=== PATIENT | female | born 1945 | race Caucasian/White ===

== ENCOUNTER → 2020-02-07 14:27 | Outpatient (BNVA) | payer MEDICARE, SELFPAY | PROVIDERS: PCP Internal Medicine; Visit Provider Hospitalist | DX: J98.4 Other disorders of lung (principal); R91.8 Other nonspecific abnormal finding of lung field | CPT/HCPCS: 99214 ==

== ENCOUNTER → 2020-03-08 08:55 | Outpatient (BNVA) | payer MEDICARE, SELFPAY | PROVIDERS: PCP Internal Medicine; Referring Provider Internal Medicine; Visit Provider Internal Medicine Cardiovascular Disease | DX: I48.0 Paroxysmal atrial fibrillation (principal) | CPT/HCPCS: 93005; 99212 ==

== ENCOUNTER 2020-08-07 07:58 | Outpatient (REF) | payer MEDICARE, SELFPAY ==
--- NOTE | 2020-08-07 10:43 | PFT_ITS ---
Forced vital capacity is slightly decreased. FEV1, [id number] are normal. MVV slightly decreased. Post bronchodilator therapy, there is no significant change. Total lung capacity and residual volume slightly decreased. Diffusion capacity is moderately decreased CONCLUSION: [id number] degree of restrictive pulmonary disorder. No obstructive airway disorder. Clinical correlation is recommended. MD DREW Thompson/KATLYN / [id number]
== END 2020-08-07 07:59 | disposition home or self-care (01) ==
LOC: HO.RESP 07:58
PROVIDERS: PCP Internal Medicine; Visit Provider Hospitalist
DX: J98.4 Other disorders of lung (principal); R94.2 Abnormal results of pulmonary function studies; K44.9 Diaphragmatic hernia without obstruction or gangrene
CPT/HCPCS: 94060; 94727; 94729; 99212

== ENCOUNTER 2020-08-23 09:57 | Emergency (ER) | payer MEDICARE, SELFPAY ==
[2020-08-23] VITALS (7 sets, daily range): BP systolic 106–135; BP diastolic 39–57; PULSE 61–75; RESP 16–18; TEMP 36.7; O2SAT 98–100; BMI 20.3
--- NOTE | ~2020-08-23 | XR_ITS ---
EXAMINATION: XR CHEST CLINICAL INFORMATION: Syncope COMPARISON: May 31, 2019 TECHNIQUE: AP portable view of the chest was obtained. FINDINGS: There is scoliosis of the thoracic spine convex right. There is no evidence of acute parenchymal disease, pneumothorax, or pleural effusion. Heart normal size. No evidence of pulmonary edema. XR/XR chest 1V IMPRESSION: No acute disease. Scoliosis.
--- NOTE | 2020-08-23 10:22 | ECG_ITS ---
Test Reason : SYNCOPE Blood Pressure : / mmHG Vent. Rate : 067 BPM Atrial Rate : 067 BPM P-R Int : 170 ms QRS Dur : 100 ms QT Int : 410 ms P-R-T Axes : 074 057 040 degrees QTc Int : 433 ms Normal sinus rhythm Normal ECG When compared with ECG of 07-JUN-2019 09:30, Nonspecific T wave abnormality, worse in Anterior leads Referred By: Jeanne Givens Electronically Signed By:All Patel
--- NOTE | 2020-08-23 10:29 | ED.SYNCOPE ---
HPI - Syncope General Chief Complaint: General Medical Stated Complaint: SYNCOPE EPISODE Time Seen by Provider: 08/23/20 10:09 Source: patient and EMS Mode of arrival: EMS History of Present Illness HPI narrative: 75-year-old female with a past medical history of proximal AFib, restrictive lung disease, BIB[facility] for syncopal episode [facility]. Patient reports multiple episodes of diarrhea x2 days, with decreased p.o. intake s/p taking new antibiotic Cefuroxime for dental procedure. Reports felt faint this morning 1 was about to eat toast, +LOC, denies head trauma caught her, does not take anticoagulation. Denies CP/SOB, or headache prior to syncope. Reports abdominal cramping/discomfort. Denies fever, chills, nausea/vomiting, dysuria/hematuria, cough MD complaint: loss of consciousness Related Data Home Medications Medication Instructions Recorded Confirmed estradiol g VAGINAL 01/30/20 08/07/20 atenolol 25 mg tablet See Rx Instructions PO DAILY tab 03/08/20 08/07/20 levothyroxine 88 mcg tablet 88 mcg PO DAILY 03/08/20 08/07/20 famotidine 40 mg tablet 40 mg PO DAILY 08/07/20 08/07/20 omeprazole 40 mg capsule,delayed 40 mg PO QAM 08/07/20 08/07/20 release Previous Rx's Medication Instructions Recorded cefuroxime axetil 500 mg tablet 500 mg PO BID 1 Days #2 tab 08/07/20 Allergies Allergy/AdvReac Type Severity Reaction Status Date / Time NSAIDS (Non-Steroidal Allergy Unknown ANAPHYLAXIS Verified 08/07/20 09:22 Anti-Inflamma [NSAIDS (NON-STEROIDAL ANTI-INFLAMMA] Penicillins [PENICILLINS] Allergy Unknown RASH Verified 08/07/20 09:22 clindamycin [CLINDAMYCIN] AdvReac Unknown DIARRHEA Verified 08/07/20 09:22 Review of Systems Review of Systems: Constitutional: No Fever, No Chills, No Fatigue, No Malaise Cardiovascular: No Chest Pain, No SOB, No Palpitations Respiratory: No Cough, No Sputum, No Dyspnea Gastrointestinal: No Nausea, No Vomiting, + Diarrhea, No Constipation, + Abdominal cramping, No Hematochezia, No Melena Genitourinary: No Dysuria, No Urinary Frequency, No Hematuria, No Flank Pain Musculoskeletal: No joint pain, No Myalgias, No Joint Swelling Skin: No Skin Lesions, No rash Neuro: No Weakness, No Numbness, No Paresthesias, + Loss of Consciousness, + Lightheadedness, No Headache Yes all other systems are reviewed and are negative [facility] Past Medical History Attestation statement: The following information was validated with the patient. Medical History (Updated 08/23/20 @ 16:08 by GIA Bolden) Abnormal chest x-ray with multiple lung nodules Abnormal PFTs (pulmonary function tests) Empyema lung Hiatal hernia Paroxysmal atrial fibrillation Restrictive lung disease Family History Family History Father No problems noted. Mother No problems noted. Social History Social History Smoking Status: Never smoker Smoked in Last 30 Days: No Use of substances other than those prescribed or required for medical reasons: No Advance Directives: Yes Advance Directives Information Provided: No Advance Directives on File: No Physical Exam Vital Signs: Vital Signs: Last Vital Signs Temp 98.0 F 08/23/20 10:25 Pulse 70 08/23/20 16:01 Resp 16 08/23/20 16:01 BP 135/45 L 08/23/20 16:01 Pulse Ox 100 08/23/20 16:01 Body Mass Index 20.3 Const: General: cooperative, healthy appearing and no acute distress Orientation/consciousness: patient oriented x3 Limitations: no limitations HENMT: Head: Yes normal to inspection and Yes atraumatic Ears: hearing grossly normal bilaterally General nose exam: Normal external nose present Face and sinus: Yes normal facial exam Eyes: General: appearance normal, both eyes and all related structures Pupils: Equal, round and reactive pupils present EOM: EOMs intact bilaterally Neck: Neck: Yes normal visual inspection and Yes no meningeal signs Resp: Effort & Inspection: normal respiratory effort Auscultation: clear to auscultation bilaterally, no rales, no rhonchi and no wheezes Cardio: Rate: regular rate Heart sounds: S1 normal heart sound present and S2 normal heart sound present GI: Inspection: Yes normal to inspection Palpation (GI): Soft to palpation, nontender, no guarding and not rigid Skin: Rashes: no rashes Wounds: no wounds Neuro: General: patient oriented x3, gait normal, tone normal, moves all extremities, no meningeal signs, no focal motor deficits and CN's II-XI intact bilaterally Cranial nerves: Yes Equal, round and reactive pupils present Gait exam (Neuro): Normal gait present Motor exam (neuro): 5/5 motor strength present throughout, Pronator motor function not present and no tremor noted Coordination: [id number] test normal and Romberg test negative Extrem: General: Yes normal to inspection and Yes no pedal edema Course Course Course Narrative: -no leukocytosis, H&H stable. Chronic hyponatremia, initial troponin 8.6 >>will obtain 3 hour repeat. Labs otherwise unremarkable XR chest 1V IMPRESSION: No acute disease. Scoliosis. -orthostatic vital signs negative -1544-- repeat troponin without 50% rise, IL unlikely. UA with RBCs, not infected Patient is ambulating in the ED with steady gait. Labs discussed with patient including worrisome signs and symptoms and strict return precautions. Discussed close follow-up with PCP as well as importance of staying hydrated. Patient verbalized understanding feel safe for discharge home MDM - Syncope MDM Narrative Medical decision making narrative: 75-year-old female with a past medical history of proximal AFib, restrictive lung disease, BIB[facility] for syncopal episode [facility]. Patient reports multiple episodes of diarrhea x2 days, with decreased p.o. intake s/p taking new antibiotic Cefuroxime for dental procedure. On exam VSS, NAD/well-appearing, nontoxic, exam non focal, abdomen soft/nontender. Likely syncope from dehydration/metabolic abnormalities vs gastroenteritis or C diff. Lower concern for ACS, PE, or infectious etiology Plan: EKG, labs, UA, IVF, orthostatics, reassess, stool studies/C diff Medical Records Attestation: I reviewed the patient's medical records. Lab Data Attestation: I reviewed the patient's lab results. Result diagrams: 08/23/20 10:50 08/23/20 10:50 Labs: Lab Results 08/23/20 08/23/20 08/23/20 Range/Units 10:49 10:50 10:50 WBC 7.2 (4.8-10.8) X10*3/uL RBC 3.79 L (4.20-5.50) X10*6/uL Hgb 12.2 (12.0-16.0) g/dl Hct 36.2 L (37-47) % MCV 95.5 (80-98) fL MCH 32.2 (27.0-33.0) pg MCHC 33.7 (31.0-35.0) g/dl RDW 13.0 (11.0-16.0) % Plt Count 168 (160-400) X10*3/uL MPV 9.2 L (9.4-12.3) fL Immature Gran % (Auto) 0.3 (0.0-0.4) % Neut % (Auto) 72.9 (45-73) % Lymph % (Auto) 14.8 L (20-40) % Terrell % (Auto) 11.5 H (2-11) % Eos % (Auto) 0.1 (0-4) % Baso % (Auto) 0.4 (0-2) % Lymph # (Auto) 1.1 L (1.2-4.9) X10*3/uL Terrell # (Auto) 0.8 (0.1-1.2) X10*3/uL Eos # (Auto) 0.0 (0.0-0.4) X10*3/uL Baso # (Auto) 0.0 (0.0-0.2) X10*3/uL Abs Immat Gran (auto) 0.02 (0.00-0.03) X10*3/uL Absolute Neuts (auto) 5.3 (2.0-8.3) X10*3/uL Absolute Nucleated RBC 0.000 (0.0-0.012) X10*3/uL Nucleated RBC % (auto) 0.0 (0.0-0.2) /100WBC PT (10.8-13.0) SEC INR (0.9-1.1) APTT (24.1-38.0) SEC Sodium 129 L (135-145) mmol/L Potassium 3.6 (3.3-5.1) mmol/L Chloride 94 L (96-108) mmol/L Carbon Dioxide 27 (22-29) mmol/L Anion Gap 12 (12-20) BUN 10 (9-16) mg/dL Creatinine 0.88 (0.5-1.4) mg/dL Estim Creat Clear Calc 44.7 Estimated GFR > 60 Random Glucose 143 H (60-115) mg/dL Calcium 8.2 L (8.4-10.2) mg/dL Magnesium (1.6-2.6) mg/dL Total Bilirubin (0.0-1.0) mg/dL Direct Bilirubin (0.0-0.5) mg/dL AST (5-31) U/L ALT (0-31) U/L Alkaline Phosphatase (39-117) U/L Troponin I High Sens 8.6 (<3.5-17.0) ng/L Total Protein (6.5-8.0) g/dL Albumin (3.5-5.0) g/dL Lipase (8-78) U/L Urine Color Urine Appearance Urine pH (5.0-8.0) Ur Specific [place] (1.005-1.025) Urine Protein (NEG-TRACE) MG/DL Urine Glucose (UA) (NEG) MG/DL Urine Ketones (NEG) MG/DL Urine Blood (NEG) Urine Nitrite (NEG) Ur Leukocyte Esterase (NEG) Urine RBC (0) /HPF Urine WBC (0-4) /HPF Ur Squamous Epith Cells /LPF Urine Bacteria /LPF 08/23/20 08/23/20 08/23/20 Range/Units 10:50 10:50 14:16 WBC (4.8-10.8) X10*3/uL RBC (4.20-5.50) X10*6/uL Hgb (12.0-16.0) g/dl Hct (37-47) % MCV (80-98) fL MCH (27.0-33.0) pg MCHC (31.0-35.0) g/dl RDW (11.0-16.0) % Plt Count (160-400) X10*3/uL MPV (9.4-12.3) fL Immature Gran % (Auto) (0.0-0.4) % Neut % (Auto) (45-73) % Lymph % (Auto) (20-40) % Terrell % (Auto) (2-11) % Eos % (Auto) (0-4) % Baso % (Auto) (0-2) % Lymph # (Auto) (1.2-4.9) X10*3/uL Terrell # (Auto) (0.1-1.2) X10*3/uL Eos # (Auto) (0.0-0.4) X10*3/uL Baso # (Auto) (0.0-0.2) X10*3/uL Abs Immat Gran (auto) (0.00-0.03) X10*3/uL Absolute Neuts (auto) (2.0-8.3) X10*3/uL Absolute Nucleated RBC (0.0-0.012) X10*3/uL Nucleated RBC % (auto) (0.0-0.2) /100WBC PT 14.2 H (10.8-13.0) SEC INR 1.2 H (0.9-1.1) APTT 29.6 (24.1-38.0) SEC Sodium (135-145) mmol/L Potassium (3.3-5.1) mmol/L Chloride (96-108) mmol/L Carbon Dioxide (22-29) mmol/L Anion Gap (12-20) BUN (9-16) mg/dL Creatinine (0.5-1.4) mg/dL Estim Creat Clear Calc Estimated GFR Random Glucose (60-115) mg/dL Calcium (8.4-10.2) mg/dL Magnesium 2.0 (1.6-2.6) mg/dL Total Bilirubin 0.5 (0.0-1.0) mg/dL Direct Bilirubin 0.3 (0.0-0.5) mg/dL AST 23 (5-31) U/L ALT 14 (0-31) U/L Alkaline Phosphatase 60 (39-117) U/L Troponin I High Sens 9.0 (<3.5-17.0) ng/L Total Protein 6.8 (6.5-8.0) g/dL Albumin 3.7 (3.5-5.0) g/dL Lipase 7 L (8-78) U/L Urine Color Urine Appearance Urine pH (5.0-8.0) Ur Specific [place] (1.005-1.025) Urine Protein (NEG-TRACE) MG/DL Urine Glucose (UA) (NEG) MG/DL Urine Ketones (NEG) MG/DL Urine Blood (NEG) Urine Nitrite (NEG) Ur Leukocyte Esterase (NEG) Urine RBC (0) /HPF Urine WBC (0-4) /HPF Ur Squamous Epith Cells /LPF Urine Bacteria /LPF 08/23/20 Range/Units 14:16 WBC (4.8-10.8) X10*3/uL RBC (4.20-5.50) X10*6/uL Hgb (12.0-16.0) g/dl Hct (37-47) % MCV (80-98) fL MCH (27.0-33.0) pg MCHC (31.0-35.0) g/dl RDW (11.0-16.0) % Plt Count (160-400) X10*3/uL MPV (9.4-12.3) fL Immature Gran % (Auto) (0.0-0.4) % Neut % (Auto) (45-73) % Lymph % (Auto) (20-40) % Terrell % (Auto) (2-11) % Eos % (Auto) (0-4) % Baso % (Auto) (0-2) % Lymph # (Auto) (1.2-4.9) X10*3/uL Terrell # (Auto) (0.1-1.2) X10*3/uL Eos # (Auto) (0.0-0.4) X10*3/uL Baso # (Auto) (0.0-0.2) X10*3/uL Abs Immat Gran (auto) (0.00-0.03) X10*3/uL Absolute Neuts (auto) (2.0-8.3) X10*3/uL Absolute Nucleated RBC (0.0-0.012) X10*3/uL Nucleated RBC % (auto) (0.0-0.2) /100WBC PT (10.8-13.0) SEC INR (0.9-1.1) APTT (24.1-38.0) SEC Sodium (135-145) mmol/L Potassium (3.3-5.1) mmol/L Chloride (96-108) mmol/L Carbon Dioxide (22-29) mmol/L Anion Gap (12-20) BUN (9-16) mg/dL Creatinine (0.5-1.4) mg/dL Estim Creat Clear Calc Estimated GFR Random Glucose (60-115) mg/dL Calcium (8.4-10.2) mg/dL Magnesium (1.6-2.6) mg/dL Total Bilirubin (0.0-1.0) mg/dL Direct Bilirubin (0.0-0.5) mg/dL AST (5-31) U/L ALT (0-31) U/L Alkaline Phosphatase (39-117) U/L Troponin I High Sens (<3.5-17.0) ng/L Total Protein (6.5-8.0) g/dL Albumin (3.5-5.0) g/dL Lipase (8-78) U/L Urine Color STRAW Urine Appearance CLEAR Urine pH 6.5 (5.0-8.0) Ur Specific [place] <= 1.005 (1.005-1.025) Urine Protein NEG (NEG-TRACE) MG/DL Urine Glucose (UA) NEG (NEG) MG/DL Urine Ketones NEG (NEG) MG/DL Urine Blood 1+ H (NEG) Urine Nitrite NEG (NEG) Ur Leukocyte Esterase NEG (NEG) Urine RBC 5-9 H (0) /HPF Urine WBC 0-2 (0-4) /HPF Ur Squamous Epith Cells 1+ /LPF Urine Bacteria NONE /LPF ECG Data Attestation: I personally reviewed and interpreted this ECG as follows: ECG interpretation date: 08/23/20 ECG interpretation time: 10:34 Interpretation: EKG normal sinus rhythm with rate of 67. Nonischemic. no STEMI Discharge Plan Discharge Clinical Impression: Syncope, Diarrhea Patient Disposition: Home, Self-Care Instructions: Syncope (ED) Additional Instructions: Your blood work was reassuring today in the emergency department It is crucial that you are staying hydrated at home You need to follow-up with her primary care doctor You should supply her primary care doctor with a stool sample so they can send off stool studies Stop taking previous antibiotic that is likely causing her symptoms If her symptoms persist or worsen, you pass out again, developing chest pain, shortness of breath, persistent or worsening diarrhea return to the ED Prescriptions: No Action estradiol 0.01 % (0.1 mg/gram) cream vaginal RF: 0 atenolol 25 mg tablet See Rx Instructions PO DAILY RF: 0 levothyroxine 88 mcg tablet 88 mcg PO DAILY RF: 0 famotidine 40 mg tablet 40 mg PO DAILY RF: 0 omeprazole 40 mg capsule,delayed release(DR/EC) 40 mg PO QAM RF: 0 cefuroxime axetil 500 mg tablet 500 mg PO BID 1 Days Qty: 2 RF: 0 Referrals: Chester Merida MD [Primary Care Provider] - 2 days
[2020-08-23 10:55] LABS: MANUAL DIFF FLAG NO
[2020-08-23 11:06] LABS: Basophils Percent Auto 0.4 % (0-2); Eosinophils Percent Auto 0.1 % (0-4); Hematocrit 36.2 % (37-47); Hemoglobin 12.2 g/dl (12.0-16.0); Imm Gran Abs Auto 0.02 X10*3/uL (0.00-0.03); Imm Gran Pct Auto 0.3 % (0.0-0.4); Lymphocytes Absolute Auto 1.1 X10*3/uL (1.2-4.9); Lymphocytes Percent Auto 14.8 % (20-40); Mean Corpuscular HGB Conc 33.7 g/dl (31.0-35.0); Mean Corpuscular Hemoglobin 32.2 pg (27.0-33.0); Mean Corpuscular Volume 95.5 fL (80-98); Mean Platelet Volume 9.2 fL (9.4-12.3); Monocytes Absolute Auto 0.8 X10*3/uL (0.1-1.2); Monocytes Percent Auto 11.5 % (2-11); Neutrophils Absolute Auto 5.3 X10*3/uL (2.0-8.3); Neutrophils Percent Auto 72.9 % (45-73); Platelet Count 168 X10*3/uL (160-400); Red Blood Count 3.79 X10*6/uL (4.20-5.50); White Blood Count 7.2 X10*3/uL (4.8-10.8)
[2020-08-23 11:09] LABS: INTERNATIONAL NORM RATIO 1.2 (0.9-1.1); Prothrombin Time 14.2 SEC (10.8-13.0)
[2020-08-23 11:11] LABS: Partial Thromboplastin Time 29.6 SEC (24.1-38.0)
[2020-08-23] MEDS: 0.9 % Sodium Chloride 1,000 ML 999 ML IVCONT ×2 (11:12)
[2020-08-23 11:24] LABS: Anion Gap 12 (12-20); Blood Urea Nitrogen 10 mg/dL (9-16); Calcium 8.2 mg/dL (8.4-10.2); Carbon Dioxide 27 mmol/L (22-29); Chloride 94 mmol/L (96-108); Creatinine Clr Calc Pharmacy 44.7; Estimated Glomerular Filt Rate > 60; Glucose Random 143 mg/dL (60-115); Potassium 3.6 mmol/L (3.3-5.1); Sodium 129 mmol/L (135-145)
[2020-08-23 11:26] LABS: Alanine Aminotransferase 14 U/L (0-31); Albumin Level 3.7 g/dL (3.5-5.0); Alkaline Phosphatase 60 U/L (39-117); Aspartate Amino Transferase 23 U/L (5-31); Bilirubin Direct 0.3 mg/dL (0.0-0.5); Bilirubin Total 0.5 mg/dL (0.0-1.0); Lipase 7 U/L (8-78); Total Protein 6.8 g/dL (6.5-8.0)
[2020-08-23 11:32] LABS: Troponin-I High Sensitivity 8.6 ng/L (<3.5-17.0)
[2020-08-23 14:28] LABS: Glucose Urine UA NEG (NEG); Leukocyte Esterase Urine NEG (NEG); Nitrite Urine NEG (NEG); PH 6.5 (5.0-8.0); Specific Gravity - Urine <= 1.005 (1.005-1.025); Urine Blood 1+ (NEG); Urine Ketones NEG (NEG); Urine Protein NEG (NEG-TRACE)
[2020-08-23 14:30] LABS: Appearance Urine CLEAR; Color Urine STRAW
[2020-08-23 14:34] LABS: Squamous Epithelial Cell Urine 1+ /LPF; WBC Urine 0-2 /HPF (0-4)
--- NOTE | 2020-08-23 14:46 | PC.NURSE ---
WAITING ON SECOND TROP RESULT
--- NOTE | 2020-08-23 16:10 | PC.NURSE ---
REPORT TAKEN FROM ABIGAIL PENA. PATIENT AMBULATED TO AND BACK FROM BATHROOM, GAIT STEADY. REPORTS SHE FEELS IMPROVED. NO LONGER HAVING ABDOMINAL PAINS. WAITING FOR RE EVAL FROM PROVIDER FOR DISPO. VITALS UPDATED.
== END 2020-08-23 16:18 | disposition home or self-care (01) ==
PROVIDERS: Physician Assistant; Emergency Provider Emergency Medicine; PCP Internal Medicine
DX: R55 Syncope and collapse (principal); R19.7 Diarrhea, unspecified; I48.0 Paroxysmal atrial fibrillation
CPT/HCPCS: 36415; 71045; 80048; 80076; 81001; 83690; 83735; 84484; 85025; 85610; 85730; 93005; 96360; 96361; 99284

== ENCOUNTER 2020-08-26 07:00 | Outpatient (REF) | payer MEDICARE, SELFPAY ==
[2020-08-27 08:17] LABS: CDIFF Ag Positive (Negative); CDIFF Internal ctrl Dots and bkg OK (V); CDiff Toxin Negative (Negative)
[2020-08-27 09:19] LABS: CDiff Gene PCR POSITIVE (Negative)
== END 2020-08-26 07:01 | disposition home or self-care (01) ==
LOC: HO.LNP 07:00
PROVIDERS: Visit Provider Internal Medicine
DX: R19.7 Diarrhea, unspecified (principal); Z86.19 Personal history of other infectious and parasitic diseases
CPT/HCPCS: 87324; 87449; 87493

== ENCOUNTER 2020-08-27 07:12 | Outpatient (REF) | payer MEDICARE, SELFPAY | END 2020-08-27 07:13 | disposition home or self-care (01) | LOC: HO.LNP 07:12 | PROVIDERS: Visit Provider Internal Medicine | DX: Z13.89 Encounter for screening for other disorder (principal) ==

== ENCOUNTER 2020-09-19 19:00 | Outpatient (REF) | payer MEDICARE, SELFPAY ==
[2020-09-20 09:52] LABS: CDIFF Ag Negative (Negative); CDIFF Internal ctrl Dots and bkg OK (V); CDiff Toxin Negative (Negative)
== END 2020-09-19 19:01 | disposition home or self-care (01) ==
LOC: HO.LNP 19:00
PROVIDERS: Visit Provider Internal Medicine
DX: R19.7 Diarrhea, unspecified (principal); Z86.19 Personal history of other infectious and parasitic diseases
CPT/HCPCS: 87324; 87449

== ENCOUNTER 2020-10-12 11:58 | Outpatient (REF) | payer MEDICARE, SELFPAY ==
[2020-10-12 13:49] LABS: Estimated Average Glucose 103 mg/dL; Hemoglobin A1c % 5.2 %
[2020-10-12 14:28] LABS: Anion Gap 11 (12-20); Blood Urea Nitrogen 15 mg/dL (9-16); C Reactive Protein 0.05 mg/dL (< or = 0.50); Calcium 8.9 mg/dL (8.4-10.2); Carbon Dioxide 30 mmol/L (22-29); Chloride 95 mmol/L (96-108); Estimated Glomerular Filt Rate > 60; Glucose Random 149 mg/dL (60-115); Potassium 4.5 mmol/L (3.3-5.1); Sodium 131 mmol/L (135-145)
[2020-10-12 14:40] LABS: Free T4 (Free Thyroxine) 1.22 ng/dL (0.71-1.85); Thyroid Stimulating Hormone 1.14 uIU/mL (0.32-4.0)
== END 2020-10-12 11:59 | disposition home or self-care (01) ==
LOC: HO.10HDL 11:58
PROVIDERS: Visit Provider Internal Medicine
DX: I10 Essential (primary) hypertension (principal); E03.9 Hypothyroidism, unspecified; R10.9 Unspecified abdominal pain; R73.9 Hyperglycemia, unspecified; E87.1 Hypo-osmolality and hyponatremia
CPT/HCPCS: 36415; 80048; 83036; 84300; 84439; 84443; 86140

== ENCOUNTER 2020-10-16 10:28 | Outpatient (REF) | payer MEDICARE, SELFPAY ==
--- NOTE | ~2020-10-16 | MM_ITS ---
EXAMINATION: BONE DENSITOMETRY CLINICAL INDICATION: Osteoporosis. COMPARISON: Previous BD dated 10/05/2018 and baseline BD dated 07/31/2006. Radiographs lumbar spine and right hip 08/22/2019 TECHNIQUE: Using a [employer] DXA System (software version: 13.1) manufactured by [employer], dual-energy x-ray absorptiometry was performed of the lumbar spine and left hip. The images are of good technical quality. Summary results are attached. FINDINGS: AP SPINE L1-L4: There is levocurvature lumbar spine and degenerative changes which may cause overestimation of the lumbar bone mineral density. Current: BMD 0.740 g/cm2, Z-score -1.5, T-score -3.7, osteoporosis, 15.9% decrease from previous, 18.7% decrease from baseline (<5% change is not significant). Prior: BMD 0.880 g/cm2. Baseline: BMD 0.910 g/cm2. LEFT FEMUR, NECK: Current: BMD 0.645 g/cm2, Z-score -0.6, T-score -2.8, osteoporosis. Prior: BMD 0.683 g/cm2. Baseline: BMD 0.742 g/cm2. LEFT FEMUR, TOTAL: Current: BMD 0.641 g/cm2, Z-score -0.8, T-score -2.9, osteoporosis, 7.1% decrease from previous, 14.9% decrease from baseline (<5% change is not significant). Prior: BMD 0.690 g/cm2. Baseline: BMD 0.753 g/cm2. IDENTIFIED RISK FACTORS: Height loss, family history (parental hip fracture), history of fracture (adult), menopause, osteoporosis. HISTORY OF FRACTURE: Pelvis (right superior and inferior pubic rami), trauma. MEDICATIONS: Calcium supplements or multivitamin, vitamin D, bisphosphonates. MM/XR DEXA axial skeleton IMPRESSION: 1. DIAGNOSIS: Osteoporosis based on the lowest T-score value of -3.7 in the lumbar spine applying World Health Organization criteria. 2. 10-YEAR FRACTURE RISK PREDICTION, FRAX: Major osteoporotic fracture (clinical spine, forearm, hip or shoulder) 50.7%. Hip fracture 36.9%. 3. Treatment Recommendations: NOF guidelines recommend consideration for treatment in postmenopausal women and men age 50 and older presenting with the following: -A hip or vertebral (clinical or morphometric) fracture. -T-score less than or equal to -2.5 at the femoral neck or spine after appropriate evaluation to exclude secondary causes. -Low bone mass at the hip or spine and a 10-year fracture probability by FRAX of greater than or equal to 3% for hip fracture or greater than or equal to 20% for major osteoporotic fracture based on the [place] adapted WHO algorithm. 4. Other Recommendations: All treatment decisions require clinical judgment and consideration of individual patient factors, including patient preferences, comorbidities, previous drug use, risk factors not captured in the FRAX model (e.g. frailty, falls, vitamin D deficiency, increased bone turnover, interval significant decline in bone density) and possible under or overestimation of fracture risk by FRAX. Additional medical evaluation for secondary cause of low bone mineral density may be appropriate. FUTURE SCAN RECOMMENDATION: People with diagnosed cases of osteoporosis or at high risk for fracture should have regular bone mineral density tests. For patients eligible for Medicare, routine testing is allowed once every 2 years. The testing frequency can be increased to one year for patients who have rapidly progressing disease, those who are receiving or discontinuing medical therapy to restore bone mass, or have additional risk factors.
== END 2020-10-16 10:29 | disposition home or self-care (01) ==
LOC: HO.MAMMO 10:28
PROVIDERS: Visit Provider Internal Medicine Endocrinology, Diabetes & Metabolism
DX: Z13.820 Encounter for screening for osteoporosis (principal); M81.0 Age-related osteoporosis without current pathological fracture; Z78.0 Asymptomatic menopausal state; Z87.81 Personal history of (healed) traumatic fracture; Z79.899 Other long term (current) drug therapy
CPT/HCPCS: 77080

== ENCOUNTER 2020-12-06 10:28 | Outpatient (REF) | payer MEDICARE, SELFPAY ==
--- NOTE | ~2020-12-06 | MM_ITS ---
EXAMINATION: MM SCREENING DIGITAL BREAST TOMOSYNTHESIS, BILATERAL CLINICAL INFORMATION: Screening. Asymptomatic. The lifetime risk of breast cancer based on the Tyrer-Cuzick Model is 2%. COMPARISON: Mammography: 12/05/2019, 10/06/2018, 09/24/2018, 09/21/2017 TECHNIQUE: Digital breast tomosynthesis is performed in both the craniocaudal and mediolateral oblique views along with computer-aided detection (CAD). Synthesized 2D images are generated from the tomosynthesis. FINDINGS: The breasts are heterogeneously dense, which may obscure small masses (ACR BI-RADS breast composition Category c). There are no significant masses, abnormal calcifications, or other abnormalities. Parenchymal pattern is similar to prior study. Again, there are scattered isolated and multiple grouped calcifications similar in number and distribution. The axilla and skin contours are unremarkable. MM/MM tomosynthesis screening BI IMPRESSION: No mammographic evidence of malignancy. No significant changes from prior exams. ASSESSMENT: BI-RADS 2: Benign RECOMMENDATION: Routine annual mammography screening. This patient's information was entered into a reminder system with a target due date for their next mammogram.
== END 2020-12-06 10:29 | disposition home or self-care (01) ==
LOC: HO.MAMMO 10:28
PROVIDERS: PCP Internal Medicine; Visit Provider Obstetrics & Gynecology Obstetrics
DX: Z12.31 Encounter for screening mammogram for malignant neoplasm of breast (principal)
CPT/HCPCS: 77063; 77067

== ENCOUNTER 2020-12-30 | Outpatient (REF) | payer MEDICARE, SELFPAY ==
[2020-12-31 12:29] LABS: CDiff Gene PCR NEGATIVE (Negative)
== END 2020-12-30 00:01 | disposition home or self-care (01) ==
LOC: HO.LNP
PROVIDERS: Visit Provider Internal Medicine
DX: R19.7 Diarrhea, unspecified (principal)
CPT/HCPCS: 87493

== ENCOUNTER 2020-12-31 10:24 | Outpatient (REF) | payer MEDICARE, SELFPAY | END 2020-12-31 10:25 | disposition home or self-care (01) | LOC: HO.LNP 10:24 | PROVIDERS: Visit Provider Internal Medicine | DX: Z13.89 Encounter for screening for other disorder (principal) | CPT/HCPCS: 87493 ==

== ENCOUNTER 2021-01-08 11:25 | Outpatient (REF) | payer MEDICARE, SELFPAY ==
[2021-01-08 14:00] LABS: MANUAL DIFF FLAG NO
[2021-01-08 14:04] LABS: Basophils Percent Auto 0.7 % (0-2); Eosinophils Percent Auto 0.4 % (0-4); Hematocrit 38.8 % (37-47); Hemoglobin 12.9 g/dl (12.0-16.0); Imm Gran Abs Auto 0.02 X10*3/uL (0.00-0.03); Imm Gran Pct Auto 0.4 % (0.0-0.4); Lymphocytes Absolute Auto 2.1 X10*3/uL (1.2-4.9); Lymphocytes Percent Auto 36.5 % (20-40); Mean Corpuscular HGB Conc 33.2 g/dl (31.0-35.0); Mean Corpuscular Hemoglobin 30.9 pg (27.0-33.0); Mean Platelet Volume 10.2 fL (9.4-12.3); Monocytes Absolute Auto 0.7 X10*3/uL (0.1-1.2); Monocytes Percent Auto 12.6 % (2-11); Neutrophils Absolute Auto 2.8 X10*3/uL (2.0-8.3); Neutrophils Percent Auto 49.4 % (45-73); Platelet Count 217 X10*3/uL (160-400); Red Blood Count 4.17 X10*6/uL (4.20-5.50); Red Cell Distribution Width 12.6 % (11.0-16.0); White Blood Count 5.6 X10*3/uL (4.8-10.8)
[2021-01-08 14:14] LABS: C Reactive Protein 0.18 mg/dL (< or = 0.50)
[2021-01-08 14:44] LABS: Erythrocyte Sedimentation Rate 10 MM/HR (0-20)
== END 2021-01-08 11:26 | disposition home or self-care (01) ==
LOC: HO.10HDL 11:25
PROVIDERS: Visit Provider Internal Medicine
DX: R19.7 Diarrhea, unspecified (principal)
CPT/HCPCS: 36415; 85025; 85652; 86140

== ENCOUNTER 2021-01-10 11:28 | Outpatient (REF) | payer MEDICARE, SELFPAY ==
[2021-01-10 15:00] LABS: Leukocytes Stool Qualitative NEGATIVE (NEGATIVE)
== END 2021-01-10 11:29 | disposition home or self-care (01) ==
LOC: HO.10HDL 11:28
PROVIDERS: Visit Provider Internal Medicine
DX: R19.7 Diarrhea, unspecified (principal)
CPT/HCPCS: 36415; 87045; 87046; 87177; 87209; 87329; 87493; 89055

== ENCOUNTER 2021-01-17 15:19 | Emergency (ER) | payer MEDICARE, SELFPAY ==
--- NOTE | ~2021-01-17 | CT_ITS ---
EXAMINATION: CT ABDOMEN AND PELVIS WITH CONTRAST CLINICAL INFORMATION: Left lower quadrant and suprapubic pain COMPARISON: None TECHNIQUE: Multidetector volumetric images were obtained from the superior aspect of the liver through the pubic symphysis following administration 85 mL of Omnipaque 350 intravenous contrast. Sagittal and coronal reformatted images were obtained on the technologist's workstation. Oral contrast: No This CT examination was performed using dose optimization techniques as appropriate, variously including the following: *Automated exposure control *Adjustment of mA and/or kV according to patient size (this includes techniques or standardized protocols for targeted exams where dose is matched to indication/reason for exam; i.e. extremities or head) *Use of iterative reconstruction technique DLP: 347 mGy-cm FINDINGS: LUNG BASES: The visualized lung bases are unremarkable. LIVER, GALLBLADDER, AND BILIARY TREE: The liver is normal in size, shape, and attenuation. No focal hepatic lesion or biliary ductal dilatation is present. The gallbladder is unremarkable with no evidence of radiopaque gallstones, gallbladder wall thickening, or obvious pericholecystic inflammatory changes. PANCREAS: Unremarkable. SPLEEN: Unremarkable. ADRENAL GLANDS: Unremarkable. KIDNEYS AND URETERS: The left kidney is positioned high just beneath the left hemidiaphragm and appears unremarkable. The right kidney is ptotic and in the pelvis. There is a nonobstructing 3 mm right lower pole calculus present. No hydronephrosis is seen on either side. No renal masses are detected. BLADDER: Very distended but unremarkable. GASTROINTESTINAL TRACT: The small and large bowel are unremarkable. The appendix is none seen but there is no evidence of appendicitis.. ABDOMINAL WALL: No significant hernia is appreciated. LYMPH NODES: No retroperitoneal lymphadenopathy. VASCULAR: Calcific atherosclerotic changes present in aorta but no aneurysm. PELVIC VISCERA: An anteverted uterus is present which is pushed backwards by the distended bladder. An abnormal adnexal mass is not seen. A tiny amount of free fluid is present cul-de-sac. OSSEOUS STRUCTURES: Marked scoliosis convex to left. Mild degenerative changes are present. CT/CT abdomen pelvis w con IMPRESSION: 1. An acute etiology for the patient's left lower quadrant and suprapubic pain is not seen. 2. Bladder is quite distended. 3. Incidental note made of scoliosis, ptotic right kidney in the pelvis and is superiorly elevated left kidney beneath the hemidiaphragm.
[2021-01-17 15:33] VITALS: BP 145/70; PULSE 59; RESP 18; TEMP 36.4; O2SAT 100; BMI 20.2
[2021-01-17 16:29] VITALS: BP 146/55; PULSE 56; RESP 16; TEMP 36.7; O2SAT 100
--- NOTE | 2021-01-17 16:34 | ED.GENADULT ---
HPI - General Adult General Chief complaint: Nausea/Vomiting/Diarrhea Stated complaint: diarrhea Time Seen by Provider: 01/17/21 16:07 Source: patient and family (, Jadiel) Mode of arrival: ambulatory Limitations: no limitations History of Present Illness HPI narrative: 75-year-old female who presents emergency department for evaluation of diarrhea and lower abdominal pain. The patient states that she has a history of C difficile colitis with the last episode being in August 2020 after she was treated with antibiotics for respiratory infection. She states that 2 weeks prior she had an episode of diarrhea which lasted 2-3 days. She states that 3 days prior she again developed diarrhea. The diarrhea is brown to yellow in color with no blood in the diarrhea. She states that she has 3-4 loose stools per day. She also is complaining of lower abdominal pain, left lower abdomen greater than right. The pain is an intermittent, squeezing sensation which is [id number] in intensity and seems to proceed the diarrhea. She states she is feeling weak and lightheaded. She denied fever, chills, nausea, vomiting, chest pain, shortness of breath, myalgias, arthralgias, loss of sense of taste or smell. Patient states that she sees Dr. Olivier and he diagnosed her with IBS. Patient states that she had a colonoscopy 5 years prior which was normal an endoscopy 2 years prior which was normal as well. She has been vaccinated for COVID-19 receiving her 2nd vaccine in July of 2020. Related Data Home Medications Medication Instructions Recorded Confirmed estradiol g VAGINAL 01/30/20 08/07/20 atenolol 25 mg tablet See Rx Instructions PO DAILY tab 03/08/20 08/07/20 levothyroxine 88 mcg tablet 88 mcg PO DAILY 03/08/20 08/07/20 famotidine 40 mg tablet 40 mg PO DAILY 08/07/20 08/07/20 omeprazole 40 mg capsule,delayed 40 mg PO QAM 08/07/20 08/07/20 release Previous Rx's Medication Instructions Recorded cefuroxime axetil 500 mg tablet 500 mg PO BID 1 Days #2 tab 08/07/20 Allergies Allergy/AdvReac Type Severity Reaction Status Date / Time cephalexin Allergy Severe Diarrhea Verified 01/17/21 15:33 and Fainting NSAIDS (Non-Steroidal Allergy Unknown ANAPHYLAXIS Verified 01/17/21 15:33 Anti-Inflamma [NSAIDS (NON-STEROIDAL ANTI-INFLAMMA] Penicillins [PENICILLINS] Allergy Unknown RASH Verified 01/17/21 15:33 clindamycin [CLINDAMYCIN] AdvReac Unknown DIARRHEA Verified 01/17/21 15:33 Review of Systems Review of Systems: Yes all other systems are reviewed and are negative [facility] Past Medical History [facility] Narrative: Social history: She is . Her is here in the emergency department with her. She denies tobacco use. She states she drinks wine/alcohol 2 times a week. She denies drug use. Medical History Abnormal chest x-ray with multiple lung nodules Abnormal PFTs (pulmonary function tests) Empyema lung Hiatal hernia Paroxysmal atrial fibrillation Restrictive lung disease Family History Family History Father No problems noted. Mother No problems noted. Social History Social History Patient Tobacco Use Status: Never used Tobacco Use of substances other than those prescribed or required for medical reasons: No Advance Directives: No Advance Directives Information Provided: Yes Physical Exam Vital Signs: Vital Signs: Last Vital Signs Temp 98.1 F 01/17/21 16:29 Pulse 56 01/17/21 16:29 Resp 16 01/17/21 16:29 BP 146/55 H 01/17/21 16:29 Pulse Ox 100 01/17/21 16:29 Body Mass Index 20.2 Const: Other: Very pleasant and cooperative female, very thin, she does not appear to be in distress answers all questions appropriately HENMT: Head: Yes normal to inspection, Yes normocephalic and Yes atraumatic Ears: external ears normal General nose exam: Normal external nose present Face and sinus: Yes normal facial exam Mouth: Normal oral and palatal mucosa present Throat: Yes posterior oropharynx normal Eyes: General: appearance normal, both eyes and all related structures Pupils: Equal, round and reactive pupils present Neck: Neck: Yes normal visual inspection, Yes no lymphadenopathy, Yes trachea midline and Yes supple Chest: Chest palpation & inspection: normal palpation of entire chest wall and abnormal inspection of the chest (Asymmetry of the right posterior chest compared to left) Resp: Effort & Inspection: normal respiratory effort and able to speak in complete sentences Auscultation: clear to auscultation bilaterally Cardio: Rate: regular rate Rhythm: regular rhythm Heart sounds: S1 normal heart sound present, S2 normal heart sound present and no murmurs GI: Inspection: Yes normal to inspection Palpation (GI): Soft to palpation, Tenderness to palpation present (GI) in the LLQ (Moderate) and suprapubicly (Mild) and no guarding Auscultation: normal bowel sounds : General: Yes no CVA tenderness Back/Spine/Pelvis: Back: no CVA tenderness Skin: General skin exam: no rashes or lesions noted Neuro: Cranial nerves: Yes CN's II-XII intact bilaterally and Yes Equal, round and reactive pupils present Cognition (Neuro): normal cognition Motor exam (neuro): 5/5 motor strength present throughout Extrem: General: Yes normal to inspection Psych: Appearance: grossly normal Speech and movement: Normal speech and movement present Affect: normal affect Attitude: cooperative Thought process: Normal thought process present Thought content: Normal thought content present Course Course Course Narrative: 75-year-old female with a history of irritable bowel syndrome and C difficile colitis (multiple episodes) who presents to the emergency department for evaluation diarrhea 2 weeks prior which resolved and a current episode of diarrhea x3 days with 3-4 loose stools per day with no blood in his stools. She is also complaining of lower abdominal pain left greater than right. Patient's vital signs were unremarkable. Physical examination did reveal moderate left lower quadrant and mild suprapubic tenderness otherwise was unremarkable. I did order laboratory evaluation on this patient to include a CBC, CMP, lipase, C difficile stool sample. CT scan of the abdomen pelvis with IV contrast will also be obtained to rule out diverticulitis. Patient was ordered to get normal saline IV x1 L. 1918: The patient's laboratory evaluation was unremarkable. The was unable to give us a stool sample. CT scan of the abdomen pelvis with IV contrast did not reveal any clear etiology for the patient's lower abdominal pain or for diarrhea, she did have an incidental 2 mm right kidney stone. I did discuss these findings with the patient. The patient's presentation is consistent with her irritable bowel syndrome. She was advised to increase the fiber in her diet. She was advised to take Imodium 2 mg tablets, 2 pills after the 1st loose stool in the 1 pill after each loose stool up to a total of 6 pills per day. Patient was discharged home. The patient was given verbal and printed instructions prior to discharge. The patient was advised to follow-up with her PCP in 2 days and to return to the emergency department if her symptoms get worse or if she develops any new symptoms that are concerning to her. Medical Decision Making Lab Data Result diagrams: 01/17/21 16:40 01/17/21 16:40 Labs: Lab Results 01/17/21 01/17/21 Range/Units 16:40 16:40 WBC 10.3 (4.8-10.8) X10*3/uL RBC 3.97 L (4.20-5.50) X10*6/uL Hgb 12.5 (12.0-16.0) g/dl Hct 37.5 (37-47) % MCV 94.5 (80-98) fL MCH 31.5 (27.0-33.0) pg MCHC 33.3 (31.0-35.0) g/dl RDW 13.0 (11.0-16.0) % Plt Count 222 (160-400) X10*3/uL MPV 9.5 (9.4-12.3) fL Immature Gran % (Auto) 0.3 (0.0-0.4) % Neut % (Auto) 66.2 (45-73) % Lymph % (Auto) 20.2 (20-40) % [place] % (Auto) 12.6 H (2-11) % Eos % (Auto) 0.3 (0-4) % Baso % (Auto) 0.4 (0-2) % Lymph # (Auto) 2.1 (1.2-4.9) X10*3/uL [place] # (Auto) 1.3 H (0.1-1.2) X10*3/uL Eos # (Auto) 0.0 (0.0-0.4) X10*3/uL Baso # (Auto) 0.0 (0.0-0.2) X10*3/uL Abs Immat Gran (auto) 0.03 (0.00-0.03) X10*3/uL Absolute Neuts (auto) 6.8 (2.0-8.3) X10*3/uL Absolute Nucleated RBC 0.000 (0.0-0.012) X10*3/uL Nucleated RBC % (auto) 0.0 (0.0-0.2) /100WBC Sodium 132 L (135-145) mmol/L Potassium 4.2 (3.3-5.1) mmol/L Chloride 98 (96-108) mmol/L Carbon Dioxide 28 (22-29) mmol/L Anion Gap 10 L (12-20) BUN 9 (9-16) mg/dL Creatinine 0.91 (0.5-1.4) mg/dL Estim Creat Clear Calc 42.9 Estimated GFR > 60 Random Glucose 100 (60-115) mg/dL Calcium 9.3 (8.4-10.2) mg/dL Total Bilirubin 0.9 (0.0-1.0) mg/dL AST 22 (5-31) U/L ALT 12 (0-31) U/L Alkaline Phosphatase 63 (39-117) U/L Total Protein 7.5 (6.5-8.0) g/dL Albumin 4.2 (3.5-5.0) g/dL Lipase 17 (8-78) U/L Discharge Plan Discharge Clinical Impression: Abdominal pain Qualifiers: Abdominal location: lower abdomen, unspecified Qualified Code(s): R10.30 - Lower abdominal pain, unspecified Diarrhea Qualifiers: Diarrhea type: unspecified type Qualified Code(s): R19.7 - Diarrhea, unspecified Patient Disposition: Home, Self-Care Instructions: Acute Diarrhea (ED) Additional Instructions: Your laboratory evaluation was unremarkable. Your stool studies from January 10, 2021 revealed no white blood cells in your stool suggesting that you do not have a bacterial infection and your Giardia test was negative as well. The C difficile which was ordered on your stool sample was not performed, but I do not think that you have C difficile colitis at this time. I believe that your symptoms are consistent with your IBS (irritable bowel syndrome). Take either Metamucil or Citrucel 1 tsp in 8 oz of water once a day to help with your IBS symptoms. Increase the fiber in your diet. Take Imodium 2 mg pills, 2 pills after your 1st loose stool and then 1 pill after each loose stool up to 6 pills a day. You can restart this dose the next day if you continue to have diarrhea. Follow-up with your doctor in 2 days. Please return to the emergency department if your symptoms get worse or if you develop any symptoms that are concerning to you. Prescriptions: No Action estradiol 0.01 % (0.1 mg/gram) cream vaginal RF: 0 atenolol 25 mg tablet See Rx Instructions PO DAILY RF: 0 levothyroxine 88 mcg tablet 88 mcg PO DAILY RF: 0 famotidine 40 mg tablet 40 mg PO DAILY RF: 0 omeprazole 40 mg capsule,delayed release(DR/EC) 40 mg PO QAM RF: 0 cefuroxime axetil 500 mg tablet 500 mg PO BID 1 Days Qty: 2 RF: 0
[2021-01-17] MEDS: 0.9 % Sodium Chloride 1,000 ML 999 ML IV (16:42)
[2021-01-17 16:45] LABS: MANUAL DIFF FLAG NO
[2021-01-17 16:48] LABS: Basophils Percent Auto 0.4 % (0-2); Eosinophils Percent Auto 0.3 % (0-4); Hematocrit 37.5 % (37-47); Hemoglobin 12.5 g/dl (12.0-16.0); Imm Gran Abs Auto 0.03 X10*3/uL (0.00-0.03); Imm Gran Pct Auto 0.3 % (0.0-0.4); Lymphocytes Absolute Auto 2.1 X10*3/uL (1.2-4.9); Lymphocytes Percent Auto 20.2 % (20-40); Mean Corpuscular HGB Conc 33.3 g/dl (31.0-35.0); Mean Corpuscular Hemoglobin 31.5 pg (27.0-33.0); Mean Corpuscular Volume 94.5 fL (80-98); Mean Platelet Volume 9.5 fL (9.4-12.3); Monocytes Absolute Auto 1.3 X10*3/uL (0.1-1.2); Monocytes Percent Auto 12.6 % (2-11); Neutrophils Absolute Auto 6.8 X10*3/uL (2.0-8.3); Neutrophils Percent Auto 66.2 % (45-73); Platelet Count 222 X10*3/uL (160-400); Red Blood Count 3.97 X10*6/uL (4.20-5.50); White Blood Count 10.3 X10*3/uL (4.8-10.8)
[2021-01-17 17:02] LABS: Alanine Aminotransferase 12 U/L (0-31); Albumin Level 4.2 g/dL (3.5-5.0); Alkaline Phosphatase 63 U/L (39-117); Anion Gap 10 (12-20); Aspartate Amino Transferase 22 U/L (5-31); Bilirubin Total 0.9 mg/dL (0.0-1.0); Blood Urea Nitrogen 9 mg/dL (9-16); Calcium 9.3 mg/dL (8.4-10.2); Carbon Dioxide 28 mmol/L (22-29); Chloride 98 mmol/L (96-108); Creatinine Clr Calc Pharmacy 42.9; Estimated Glomerular Filt Rate > 60; Glucose Random 100 mg/dL (60-115); Lipase 17 U/L (8-78); Potassium 4.2 mmol/L (3.3-5.1); Sodium 132 mmol/L (135-145); Total Protein 7.5 g/dL (6.5-8.0)
[2021-01-17] MEDS: iohexoL 350 MG/ML 100 ML INFUS..BTL IV (18:10)
== END 2021-01-17 20:08 | disposition home or self-care (01) ==
PROVIDERS: Emergency Provider Emergency Medicine Emergency Medical Services; PCP Internal Medicine
DX: R10.30 Lower abdominal pain, unspecified (principal); R11.2 Nausea with vomiting, unspecified; Z79.899 Other long term (current) drug therapy
CPT/HCPCS: 36415; 74177; 80053; 83690; 85025; 96360; 99284; Q9967

== ENCOUNTER → 2021-03-11 12:59 | Outpatient (BNVA) | payer MEDICARE, SELFPAY | PROVIDERS: PCP Internal Medicine; Referring Provider Internal Medicine; Visit Provider Internal Medicine Cardiovascular Disease | DX: I48.0 Paroxysmal atrial fibrillation (principal); J98.4 Other disorders of lung | CPT/HCPCS: 93005; 99212 ==

== ENCOUNTER 2021-04-03 10:51 | Outpatient (REF) | payer MEDICARE, SELFPAY ==
[2021-04-03 14:02] LABS: MANUAL DIFF FLAG NO
[2021-04-03 14:12] LABS: Basophils Percent Auto 0.9 % (0-2); Eosinophils Percent Auto 0.2 % (0-4); Hematocrit 40.5 % (37.0-47.0); Hemoglobin 13.4 g/dl (12.0-16.0); Lymphocytes Absolute Auto 1.9 X10*3/uL (1.2-4.9); Lymphocytes Percent Auto 41.2 % (20-40); Mean Corpuscular HGB Conc 33.1 g/dl (31.0-35.0); Mean Corpuscular Hemoglobin 31.5 pg (27.0-33.0); Mean Corpuscular Volume 95.3 fL (80.0-98.0); Monocytes Absolute Auto 0.6 X10*3/uL (0.1-1.2); Neutrophils Absolute Auto 2.1 x10*3/uL (2.0-8.3); Neutrophils Percent Auto 45.7 % (45-73); Platelet Count 228 X10*3/uL (160-400); Red Blood Count 4.25 X10*6/uL (4.20-5.50); Red Cell Distribution Width 13.3 % (11.0-16.0); White Blood Count 4.6 X10*3/uL (4.8-10.8)
[2021-04-03 14:47] LABS: Alanine Aminotransferase 23 U/L (0-31); Albumin Level 4.3 g/dL (3.5-5.0); Alkaline Phosphatase 68 U/L (39-117); Anion Gap 13 (12-20); Aspartate Amino Transferase 32 U/L (5-31); Bilirubin Total 0.4 mg/dL (0.0-1.0); Blood Urea Nitrogen 12 mg/dL (9-16); C Reactive Protein 0.03 mg/dL (< or = 0.50); Calcium 9.9 mg/dL (8.4-10.2); Carbon Dioxide 28 mmol/L (22-29); Chloride 95 mmol/L (96-108); Estimated Glomerular Filt Rate > 60; Glucose Random 82 mg/dL (60-115); Sodium 131 mmol/L (135-145)
== END 2021-04-03 10:52 | disposition home or self-care (01) ==
LOC: HO.10HDL 10:51
PROVIDERS: Visit Provider Internal Medicine
DX: G62.9 Polyneuropathy, unspecified (principal)
CPT/HCPCS: 36415; 80053; 85025; 86140

== ENCOUNTER → 2021-04-09 08:56 | Outpatient (BNVA) | payer MEDICARE, SELFPAY | PROVIDERS: PCP Internal Medicine; Visit Provider Hospitalist | DX: J98.4 Other disorders of lung (principal); R94.2 Abnormal results of pulmonary function studies; K44.9 Diaphragmatic hernia without obstruction or gangrene | CPT/HCPCS: 99212 ==

== ENCOUNTER 2021-12-30 09:33 | Outpatient (REF) | payer MEDICARE, SELFPAY ==
--- NOTE | ~2021-12-30 | MM_ITS ---
EXAMINATION: MM SCREENING DIGITAL BREAST TOMOSYNTHESIS, BILATERAL CLINICAL INFORMATION: Screening. Asymptomatic. The lifetime risk of breast cancer based on the Tyrer-Cuzick Model is under 3%. COMPARISON: Mammography: 12/06/2020, 12/05/2019, 10/06/2018 TECHNIQUE: Digital breast tomosynthesis is performed in both the craniocaudal and mediolateral oblique views along with computer-aided detection (CAD). Synthesized 2D images are generated from the tomosynthesis. FINDINGS: The breasts are heterogeneously dense, which may obscure small masses (ACR BI-RADS breast composition Category c). Parenchymal pattern is similar to prior exams. No interval mass or architectural abnormality or developing density. There are scattered bilateral similar appearing calcifications. The axilla are unremarkable. MM/MM tomosynthesis screening BI IMPRESSION: No mammographic evidence of malignancy. ASSESSMENT: BI-RADS 2: Benign RECOMMENDATION: Routine annual mammography screening. This patient's information was entered into a reminder system with a target due date for their next mammogram.
== END 2021-12-30 09:34 | disposition home or self-care (01) ==
LOC: HO.MAMMO 09:33
PROVIDERS: PCP Internal Medicine; Visit Provider Internal Medicine
DX: Z12.31 Encounter for screening mammogram for malignant neoplasm of breast (principal)
CPT/HCPCS: 77063; 77067

== ENCOUNTER 2022-01-17 11:46 | Outpatient (REF) | payer MEDICARE, SELFPAY ==
[2022-01-17 13:40] LABS: MANUAL DIFF FLAG NO
[2022-01-17 13:45] LABS: Basophils Absolute Auto 0.1 X10*3/uL (0.0-0.2); Basophils Percent Auto 1.2 % (0-2); Eosinophils Percent Auto 0.7 % (0-4); Hematocrit 38.7 % (37.0-47.0); Hemoglobin 12.6 g/dl (12.0-16.0); Imm Gran Abs Auto 0.01 X10*3/uL (0.00-0.03); Imm Gran Pct Auto 0.2 % (0.0-0.4); Lymphocytes Percent Auto 33.3 % (20-40); Mean Corpuscular HGB Conc 32.6 g/dl (31.0-35.0); Mean Corpuscular Hemoglobin 31.5 pg (27.0-33.0); Mean Corpuscular Volume 96.8 fL (80.0-98.0); Mean Platelet Volume 10.5 fL (9.4-12.3); Monocytes Absolute Auto 0.6 X10*3/uL (0.1-1.2); Monocytes Percent Auto 10.5 % (2-11); Neutrophils Absolute Auto 3.3 x10*3/uL (2.0-8.3); Neutrophils Percent Auto 54.1 % (45-73); Platelet Count 191 X10*3/uL (160-400); Red Cell Distribution Width 12.8 % (11.0-16.0)
[2022-01-17 13:56] LABS: Alanine Aminotransferase 20 U/L (0-31); Albumin Level 4.2 g/dL (3.5-5.0); Alkaline Phosphatase 54 U/L (39-117); Anion Gap 15 (12-20); Aspartate Amino Transferase 29 U/L (5-31); Bilirubin Total 0.3 mg/dL (0.0-1.0); Blood Urea Nitrogen 12 mg/dL (9-16); Calcium 9.3 mg/dL (8.4-10.2); Carbon Dioxide 28 mmol/L (22-29); Chloride 97 mmol/L (96-108); Estimated Glomerular Filt Rate > 60; Glucose Random 120 mg/dL (60-115); Potassium 4.6 mmol/L (3.3-5.1); Sodium 135 mmol/L (135-145); Total Protein 7.8 g/dL (6.5-8.0)
[2022-01-17 13:58] LABS: Appearance Urine Clear; Color Urine Yellow; Glucose Urine UA Negative (Negative); Leukocyte Esterase Urine Negative (Negative); Nitrite Urine Negative (Negative); Urine Blood Negative (Negative); Urine Ketones Negative (Negative); Urine Protein Negative (Neg-Trace)
== END 2022-01-17 11:47 | disposition home or self-care (01) ==
LOC: HO.10HDL 11:46
PROVIDERS: Visit Provider Internal Medicine
DX: R10.9 Unspecified abdominal pain (principal)
CPT/HCPCS: 36415; 80053; 81003; 85025

== ENCOUNTER → 2022-04-08 10:10 | Outpatient (BNVA) | payer MEDICARE, SELFPAY | PROVIDERS: PCP Internal Medicine; Visit Provider Hospitalist | DX: J98.4 Other disorders of lung (principal); K44.9 Diaphragmatic hernia without obstruction or gangrene; R94.2 Abnormal results of pulmonary function studies | CPT/HCPCS: 99212 ==

== ENCOUNTER 2022-04-17 14:13 | Emergency (ER) | payer MEDICARE, SELFPAY ==
--- NOTE | ~2022-04-17 | XR_ITS ---
EXAMINATION: XR CHEST CLINICAL INFORMATION: Chest pain. Shortness of breath. Cough. Fall. COMPARISON: Chest x-ray 04/29/2022 TECHNIQUE: 2 views of the chest were obtained. FINDINGS: Dextroscoliosis of the spine. Cardiac mediastinal contours are normal. No acute abnormality of chest. No pulmonary vascular congestion. Lungs normally aerated. No pleural effusion. XR/XR chest 2V IMPRESSION: No acute abnormality of the chest.
--- NOTE | ~2022-04-17 | CT_ITS ---
EXAMINATION: NONCONTRAST HEAD CT NONCONTRAST CERVICAL SPINE CT INDICATION INFORMATION: Fall with loss of consciousness. Question head strike. Neck pain COMPARISON: Head and cervical spine CT 05/05/2019 TECHNIQUE: Separate noncontrast CT examinations of the head and cervical spine were performed. Coronal and sagittal images were created for each examination at the technologist workstation. This CT examination was performed using dose optimization techniques as appropriate, variously including the following: *Automated exposure control *Adjustment of mA and/or kV according to patient size (this includes techniques or standardized protocols for targeted exams where dose is matched to indication/reason for exam; i.e. extremities or head) *Use of iterative reconstruction technique DLP: 956 mGy-cm FINDINGS: HEAD: No intra or extra-axial fluid collection, hemorrhage, or mass. No ventriculomegaly. No midline shift or herniation. Basal cisterns are patent. Rosario-white matter differentiation is maintained. No territorial encephalomalacia. Proportional prominence of the ventricles and sulcal spaces is consistent with mild volume loss. Patchy periventricular and deep white matter hypoattenuation is consistent with mild small vessel ischemic changes. Mild right frontal scalp swelling/small hematoma. No calvarial fracture. The mastoid air cells and visualized portions of the paranasal sinuses are well aerated. CERVICAL SPINE: Alignment: Mild retrolisthesis of C4-C5. Vertebra: No acute fracture. No prevertebral soft tissue swelling. Degenerative disc disease: Moderate multilevel cervical spondylosis at C4-C5, C5-C6, and C6-C7 with disc height loss, vacuum disc phenomena, endplate sclerosis and proliferative change. Multilevel mild uncovertebral spurring. Other findings: Relatively symmetric biapical pleural parenchymal thickening/scarring. Thyroid gland grossly unremarkable. No appreciable cervical lymphadenopathy. CT/CT cervical spine wo IV con IMPRESSION: 1. No intracranial hemorrhage or calvarial fracture. 2. Mild right frontal scalp swelling/small hematoma. 3. No traumatic subluxation or acute cervical spine fracture.
[2022-04-17 14:22] VITALS: BP 125/82; BP 126/54; PULSE 62; PULSE 67; RESP 18; TEMP 36.6; O2SAT 95; BMI 20.3
--- NOTE | 2022-04-17 14:38 | ECG_ITS ---
Test Reason : CHEST PAIN Blood Pressure : / mmHG Vent. Rate : 067 BPM Atrial Rate : 067 BPM P-R Int : 132 ms QRS Dur : 094 ms QT Int : 406 ms P-R-T Axes : 022 069 043 degrees QTc Int : 429 ms Normal sinus rhythm Normal ECG When compared with ECG of 23-AUG-2020 10:34, No significant change was found Referred By: Natalie Berg Electronically Signed By:LUIZA BRIONES
[2022-04-17 15:20] LABS: MANUAL DIFF FLAG NO
--- NOTE | 2022-04-17 15:20 | ED.FALL ---
HPI - Fall General Chief Complaint: Fall <Natalie Camacho CHASE Berg - Last Filed: 04/17/22 19:44> Stated Complaint: Fall, LOC, dizzy, nausea, per EMS <Natalie Camacho CHASE Berg - Last Filed: 04/17/22 19:44> Time Seen by Provider: 04/17/22 14:23 <Nataliebrad Berg CNP - Last Filed: 04/17/22 19:44> Source: patient <Natalie Camacho CHASE Berg - Last Filed: 04/17/22 19:44> Mode of arrival: EMS <Natalie Camacho CHASE Berg - Last Filed: 04/17/22 19:44> Limitations: no limitations <Natalie Camacho CHASE Berg - Last Filed: 04/17/22 19:44> History of Present Illness HPI Narrative: Patient is a 77-year-old female who presents to the emergency department via EMS. She is coming from home today. She states that her is currently ill with COVID-19, she has taken 2 home COVID tests which have been negative. She is reporting a productive cough, and some lightheadedness. Today she walked to the bathroom reporting that she was feeling overall well. Had a syncopal episode in the bathroom that was unwitnessed, uncertain whether head strike had occurred. She denies being on anticoagulants usage. At the time of my examination she does report chest pain anteriorly, that she states has been occurring since after this syncopal episode and denies any preceding chest pain. She was experiencing nausea prior to arrival, for which she received Zofran 4 mg IV from EMS. <Natalie Camacho CHASE Berg - Last Filed: 04/17/22 19:44> Related Data Home Medications: Home Medications Medication Instructions Recorded Confirmed estradiol 0.01% (0.1 mg/gram) g vaginal 01/30/20 08/07/20 vaginal cream atenolol 25 mg tablet See Rx Instructions PO DAILY 03/08/20 08/07/20 levothyroxine 88 mcg tablet 88 mcg PO DAILY 03/08/20 08/07/20 famotidine 40 mg tablet 40 mg PO DAILY 08/07/20 08/07/20 alprazolam 0.25 mg tablet 0.25 mg PO BID PRN 03/11/21 03/11/21 Previous Rx's Medication Instructions Recorded chlorhexidine gluconate 0.12 % 15 ml buccal BID 14 days #420 mL 07/16/21 mouthwash tramadol 50 mg tablet 50 mg PO Q6H PRN pain #20 tabs 04/17/22 <Natalie Berg CNP - Last Filed: 04/17/22 19:44> Allergies/Adverse Reactions: Allergies Allergy/AdvReac Type Severity Reaction Status Date / Time cephalexin Allergy Severe Diarrhea Verified 04/08/22 10:15 and Fainting NSAIDS (Non-Steroidal Allergy Severe ANAPHYLAXIS Verified 04/08/22 10:15 Anti-Inflamma [NSAIDS (NON-STEROIDAL ANTI-INFLAMMA] Penicillins [PENICILLINS] Allergy Severe RASH Verified 04/08/22 10:15 clindamycin [CLINDAMYCIN] AdvReac Severe DIARRHEA Verified 04/08/22 10:15 <Natalie Berg CNP - Last Filed: 04/17/22 19:44> Review of Systems Review of Systems: Constitutional: No weight loss. No fever. No chills. No weakness. Positive fatigue. Eye: No swelling. No redness. ENT: No sore throat. No rhinorrhea. No nasal congestion. No sore throat. No difficulty swallowing. Skin: No rash. No itching. Cardiovascular: Positive chest pain. No chest pressure. No palpitations. No pedal edema. Respiratory: No shortness of breath. Positive cough. Positive sputum production. Gastrointestinal: No anorexia. Positive nausea. No vomiting. No diarrhea. No abdominal pain. No blood in stool. Genitourinary: No burning micturition. No urinary frequency. No incontinence. Neurologic: No headache. Positive dizziness. Positive s yncope. No unilateral weakness. No ataxia. No numbness. No tingling. No change in bowel or bladder control. Musculoskeletal: No muscle pain. No back pain. No joint pain. No stiffness. Hematologic: No bleeding. No bruising. Psychiatric:No depression. No anxiety. <Natalie Berg CNP - Last Filed: 04/17/22 19:44> Yes all other systems are reviewed and are negative <Natalie Berg CNP - Last Filed: 04/17/22 19:44> PMFSH Past Medical History Attestation statement: The following information was validated with the patient. <Natalie Berg CNP - Last Filed: 04/17/22 19:44> Source: old records reviewed <Natalie Berg CNP - Last Filed: 04/17/22 19:44> Medical History: Medical History Abnormal chest x-ray with multiple lung nodules Abnormal PFTs (pulmonary function tests) Empyema lung Hiatal hernia Paroxysmal atrial fibrillation Restrictive lung disease <Natalie Berg CNP - Last Filed: 04/17/22 19:44> Family History Family History: Family History Father No problems noted. Mother No problems noted. <Natalie Berg CNP - Last Filed: 04/17/22 19:44> Social History Social History: Social History Patient Tobacco Use Status: Never used Tobacco Advance Directives: Yes Advance Directives Information Provided: No Advance Directives on File: No <Natalie Berg CNP - Last Filed: 04/17/22 19:44> Physical Exam Vital Signs: Vital Signs: Last Vital Signs Temp 98.1 F 04/17/22 20:37 Pulse 75 04/17/22 20:37 Resp 18 04/17/22 20:37 BP 132/57 L 04/17/22 20:37 Pulse Ox 96 04/17/22 20:37 O2 Del Method 04/17/22 20:37 BMI result Body Mass Index 20.3 <Natalie Berg CNP - Last Filed: 04/17/22 19:44> Vital Signs: Last Vital Signs Temp 98.1 F 04/17/22 20:37 Pulse 75 04/17/22 20:37 Resp 18 04/17/22 20:37 BP 132/57 L 04/17/22 20:37 Pulse Ox 96 04/17/22 20:37 O2 Del Method 04/17/22 20:37 BMI result Body Mass Index 20.3 <Ortiz David MD - Last Filed: 04/17/22 22:02> Appearance: Alert.?Oriented to person, place and time. No acute distress.?Normal affect. Head: Normocephalic, atraumatic Eyes: Pupils equal, round and reactive to light.? ENT: Pharynx normal.?? Neck: Normal inspection.? Neck supple.??No midline cervical spine step-offs or deformities, mild tenderness upon palpation, hard C-spine collar in place. CVS: Heart sounds normal. Normal heart rate and rhythm.? Pulses normal.?? Respiratory: No respiratory distress.? Lung sounds clear to auscultation bilaterally?? Abdomen: Soft and non-tender. Normoactive bowel sounds. Skin: Skin warm and dry.? Normal skin color.? Extremities: No lower extremity edema.? Neuro: Moves all extremities spontaneously. Sensation intact bilaterally. CN II-XII intact. No focal neuro deficits. Ambulates with normal steady gait. <Natalie Berg CNP - Last Filed: 04/17/22 19:44> Course Reevaluation(s) Reevaluation #1: CT of the head reveals no acute intracranial pathology or cervical spine fracture/subluxation. Hard C-spine collar was removed. CMP reveals hyponatremia with sodium 124, normal renal function, no neurological abnormalities. Patient reports to me that she has issues with low sodium at baseline, she states that most recently her sodium was 129, and she is on a fluid restricted diet. Reviewed case with ED attending Dr. David, who advised 1L NS IVF and urine studies. Troponin elevated at 22, EKG revealing normal sinus rhythm without acute ischemic findings, will obtain delta troponin. COVID-19 and influenza B are positive, we discussed the use of Paxlovid in addition to Tamiflu, indications and potential side effects, patient does not express interest in taking either medications at this time. If her labs have normalized she would like to be discharged home today. <Natalie Berg CNP - Last Filed: 04/17/22 19:44> Time: 17:53 <Natalie Berg CNP - Last Filed: 04/17/22 19:44> Reevaluation #2: Patient signed out to ED attending Dr. David pending follow-up troponin and BMP. <Natalie Berg CNP - Last Filed: 04/17/22 19:44> Time: 19:41 <Natalie Berg CNP - Last Filed: 04/17/22 19:44> Reevaluation #3: Repeat sodium 131 will discharge patient home patient feeling much better now <Ortiz David MD - Last Filed: 04/17/22 22:02> Time: 22:02 <Ortiz David MD - Last Filed: 04/17/22 22:02> Medications Administered Discontinued Medications Generic Name Dose Route Start Last Admin Trade Name Freq PRN Reason Stop Dose Admin Sodium Chloride 1,000 mls @ 999 mls/hr 04/17/22 18:15 04/17/22 19:47 Ns IV 04/17/22 19:15 Infused .Q1H1M FRANK Infusion <Natalie Berg CNP - Last Filed: 04/17/22 19:44> Medications Administered Discontinued Medications Generic Name Dose Route Start Last Admin Trade Name Freq PRN Reason Stop Dose Admin Sodium Chloride 1,000 mls @ 999 mls/hr 04/17/22 18:15 04/17/22 19:47 Ns IV 04/17/22 19:15 Infused .Q1H1M FARNK Infusion <Ortiz David MD - Last Filed: 04/17/22 22:02> Medical Decision Making Medical Decision Making MDM Narrative: Patient is a 77-year-old female with a past medical history of hypertension, hypothyroidism, osteoporosis, emphysema, paroxysmal atrial fibrillation not on anticoagulation who presents emergency department for evaluation of a syncopal episode in the bathroom today that was unwitnessed with unknown head strike. She in addition is reporting chest pain that began to occur after the syncopal episode, and nausea without vomiting. Preceding symptoms included feeling ?woozy?. She is well-appearing at the time of my examination, conscious alert and oriented x4, no focal neurological deficits. Physical exam concerning for mild midline cervical spine tenderness upon palpation. Will obtain CT of the head and cervical spine to evaluate for ICH/SAH/fracture/subluxation. In addition will obtain CBC to evaluate for leukocytosis/ anemia, CMP to evaluate for abnormal electrolytes /abnormal renal function/ abnormal hepatic/biliary function, EKG and troponin to evaluate for ischemia/ACS. Chest x-ray to evaluate for consolidation/ infiltrate/ mass/ pulmonary congestion and Urinalysis. Viral studies entered, suspect the patient likely has COVID-19 given her cough and who is currently positive. She has received vaccination for COVID-19. <Natalie Berg CNP - Last Filed: 04/17/22 19:44> Lab Data MDM Lab Attestation statement: I reviewed the patient's lab results. <Natalie Berg CNP - Last Filed: 04/17/22 19:44> Result Diagrams: : 04/17/22 15:16 04/17/22 20:13 <Natalie Berg CNP - Last Filed: 04/17/22 19:44> Labs: Lab Results 04/17/22 04/17/22 04/17/22 Range/Units 15:16 15:16 15:16 WBC 7.7 (4.8-10.8) X10*3/uL RBC 3.80 L (4.20-5.50) X10*6/uL Hgb 12.0 (12.0-16.0) g/dl Hct 35.4 L (37.0-47.0) % MCV 93.2 (80.0-98.0) fL MCH 31.6 (27.0-33.0) pg MCHC 33.9 (31.0-35.0) g/dl RDW 12.9 (11.0-16.0) % Plt Count 145 L (160-400) X10*3/uL MPV 9.0 L (9.4-12.3) fL Immature Gran % (Auto) 0.5 H (0.0-0.4) % Neut % (Auto) 79.5 H (45-73) % Lymph % (Auto) 7.9 L (20-40) % [place] % (Auto) 11.4 H (2-11) % Eos % (Auto) 0.3 (0-4) % Baso % (Auto) 0.4 (0-2) % Lymph # (Auto) 0.6 L (1.2-4.9) X10*3/uL [place] # (Auto) 0.9 (0.1-1.2) X10*3/uL Eos # (Auto) 0.0 (0.0-0.4) X10*3/uL Baso # (Auto) 0.0 (0.0-0.2) X10*3/uL Abs Immat Gran (auto) 0.04 H (0.00-0.03) X10*3/uL Absolute Neuts (auto) 6.2 (2.0-8.3) x10*3/uL Absolute Nucleated RBC 0.000 (0.0-0.012) X10*3/uL Nucleated RBC % (auto) 0.0 (0.0-0.2) /100WBC Sodium 124 L (135-145) mmol/L Potassium 4.1 (3.3-5.1) mmol/L Chloride 94 L (96-108) mmol/L Carbon Dioxide 25 (22-29) mmol/L Anion Gap 9 L (12-20) BUN 8 L (9-16) mg/dL Creatinine 0.76 (0.5-1.4) mg/dL Estim Creat Clear Calc 50.2 Estimated GFR > 60 Random Glucose 152 H (60-115) mg/dL Osmolality (281-305) mosm/kg Calcium 8.0 L D (8.4-10.2) mg/dL Magnesium 1.8 (1.6-2.6) mg/dL Total Bilirubin 0.6 (0.0-1.0) mg/dL AST 36 H (5-31) U/L ALT 23 (0-31) U/L Alkaline Phosphatase 57 (39-117) U/L Troponin I High Sens 22.0 H (<3.5-17.0) ng/L B-Natriuretic Peptide (<100) pg/mL Total Protein 6.5 (6.5-8.0) g/dL Albumin 3.6 (3.5-5.0) g/dL Urine Color Urine Appearance Urine pH (5.0-9.0) Ur Specific [place] (1.005-1.025) Urine Protein (Neg-Trace) mg/dL Urine Glucose (UA) (Negative) mg/dL Urine Ketones (Negative) mg/dL Urine Blood (Negative) Urine Nitrite (Negative) Ur Leukocyte Esterase (Negative) Urine RBC (0-2) /HPF Urine WBC (0-5) /HPF Ur Squamous Epith Cells (0-2) /HPF Urine Bacteria (None Seen) Hyaline Casts (0-2) /LPF Urine Osmolality (373-1093) mosm/kg Ur Random Sodium mmol/L COVID-19 (NERIS) (Negative) COVID-19 Clin Com Influenza Type A (LISA) (Negative) Influenza Type B (LISA) (Negative) Influenza A & B Note 04/17/22 04/17/22 04/17/22 Range/Units 15:16 15:16 15:16 WBC (4.8-10.8) X10*3/uL RBC (4.20-5.50) X10*6/uL Hgb (12.0-16.0) g/dl Hct (37.0-47.0) % MCV (80.0-98.0) fL MCH (27.0-33.0) pg MCHC (31.0-35.0) g/dl RDW (11.0-16.0) % Plt Count (160-400) X10*3/uL MPV (9.4-12.3) fL Immature Gran % (Auto) (0.0-0.4) % Neut % (Auto) (45-73) % Lymph % (Auto) (20-40) % [place] % (Auto) (2-11) % Eos % (Auto) (0-4) % Baso % (Auto) (0-2) % Lymph # (Auto) (1.2-4.9) X10*3/uL [place] # (Auto) (0.1-1.2) X10*3/uL Eos # (Auto) (0.0-0.4) X10*3/uL Baso # (Auto) (0.0-0.2) X10*3/uL Abs Immat Gran (auto) (0.00-0.03) X10*3/uL Absolute Neuts (auto) (2.0-8.3) x10*3/uL Absolute Nucleated RBC (0.0-0.012) X10*3/uL Nucleated RBC % (auto) (0.0-0.2) /100WBC Sodium (135-145) mmol/L Potassium (3.3-5.1) mmol/L Chloride (96-108) mmol/L Carbon Dioxide (22-29) mmol/L Anion Gap (12-20) BUN (9-16) mg/dL Creatinine (0.5-1.4) mg/dL Estim Creat Clear Calc Estimated GFR Random Glucose (60-115) mg/dL Osmolality (281-305) mosm/kg Calcium (8.4-10.2) mg/dL Magnesium (1.6-2.6) mg/dL Total Bilirubin (0.0-1.0) mg/dL AST (5-31) U/L ALT (0-31) U/L Alkaline Phosphatase (39-117) U/L Troponin I High Sens (<3.5-17.0) ng/L B-Natriuretic Peptide 132 H (<100) pg/mL Total Protein (6.5-8.0) g/dL Albumin (3.5-5.0) g/dL Urine Color Urine Appearance Urine pH (5.0-9.0) Ur Specific [place] (1.005-1.025) Urine Protein (Neg-Trace) mg/dL Urine Glucose (UA) (Negative) mg/dL Urine Ketones (Negative) mg/dL Urine Blood (Negative) Urine Nitrite (Negative) Ur Leukocyte Esterase (Negative) Urine RBC (0-2) /HPF Urine WBC (0-5) /HPF Ur Squamous Epith Cells (0-2) /HPF Urine Bacteria (None Seen) Hyaline Casts (0-2) /LPF Urine Osmolality (373-1093) mosm/kg Ur Random Sodium mmol/L COVID-19 (NERIS) Positive A (Negative) COVID-19 Clin Com See Note Influenza Type A (LISA) Negative (Negative) Influenza Type B (LISA) Positive A (Negative) Influenza A & B Note See Note 04/17/22 04/17/22 04/17/22 Range/Units 18:37 18:37 18:37 WBC (4.8-10.8) X10*3/uL RBC (4.20-5.50) X10*6/uL Hgb (12.0-16.0) g/dl Hct (37.0-47.0) % MCV (80.0-98.0) fL MCH (27.0-33.0) pg MCHC (31.0-35.0) g/dl RDW (11.0-16.0) % Plt Count (160-400) X10*3/uL MPV (9.4-12.3) fL Immature Gran % (Auto) (0.0-0.4) % Neut % (Auto) (45-73) % Lymph % (Auto) (20-40) % [place] % (Auto) (2-11) % Eos % (Auto) (0-4) % Baso % (Auto) (0-2) % Lymph # (Auto) (1.2-4.9) X10*3/uL [place] # (Auto) (0.1-1.2) X10*3/uL Eos # (Auto) (0.0-0.4) X10*3/uL Baso # (Auto) (0.0-0.2) X10*3/uL Abs Immat Gran (auto) (0.00-0.03) X10*3/uL Absolute Neuts (auto) (2.0-8.3) x10*3/uL Absolute Nucleated RBC (0.0-0.012) X10*3/uL Nucleated RBC % (auto) (0.0-0.2) /100WBC Sodium (135-145) mmol/L Potassium (3.3-5.1) mmol/L Chloride (96-108) mmol/L Carbon Dioxide (22-29) mmol/L Anion Gap (12-20) BUN (9-16) mg/dL Creatinine (0.5-1.4) mg/dL Estim Creat Clear Calc Estimated GFR Random Glucose (60-115) mg/dL Osmolality (281-305) mosm/kg Calcium (8.4-10.2) mg/dL Magnesium (1.6-2.6) mg/dL Total Bilirubin (0.0-1.0) mg/dL AST (5-31) U/L ALT (0-31) U/L Alkaline Phosphatase (39-117) U/L Troponin I High Sens (<3.5-17.0) ng/L B-Natriuretic Peptide (<100) pg/mL Total Protein (6.5-8.0) g/dL Albumin (3.5-5.0) g/dL Urine Color Yellow Urine Appearance Clear Urine pH 7.5 (5.0-9.0) Ur Specific [place] 1.015 (1.005-1.025) Urine Protein Trace (Neg-Trace) mg/dL Urine Glucose (UA) 250 H (Negative) mg/dL Urine Ketones 15 (Negative) mg/dL Urine Blood Trace H (Negative) Urine Nitrite Negative (Negative) Ur Leukocyte Esterase Negative (Negative) Urine RBC 11-20 H (0-2) /HPF Urine WBC 0-5 (0-5) /HPF Ur Squamous Epith Cells 0-2 (0-2) /HPF Urine Bacteria None Seen (None Seen) Hyaline Casts 0-2 (0-2) /LPF Urine Osmolality 435 (373-1093) mosm/kg Ur Random Sodium 73.0 mmol/L COVID-19 (NERIS) (Negative) COVID-19 Clin Com Influenza Type A (LISA) (Negative) Influenza Type B (LISA) (Negative) Influenza A & B Note 04/17/22 04/17/22 04/17/22 Range/Units 20:13 20:13 20:13 WBC (4.8-10.8) X10*3/uL RBC (4.20-5.50) X10*6/uL Hgb (12.0-16.0) g/dl Hct (37.0-47.0) % MCV (80.0-98.0) fL MCH (27.0-33.0) pg MCHC (31.0-35.0) g/dl RDW (11.0-16.0) % Plt Count (160-400) X10*3/uL MPV (9.4-12.3) fL Immature Gran % (Auto) (0.0-0.4) % Neut % (Auto) (45-73) % Lymph % (Auto) (20-40) % [place] % (Auto) (2-11) % Eos % (Auto) (0-4) % Baso % (Auto) (0-2) % Lymph # (Auto) (1.2-4.9) X10*3/uL [place] # (Auto) (0.1-1.2) X10*3/uL Eos # (Auto) (0.0-0.4) X10*3/uL Baso # (Auto) (0.0-0.2) X10*3/uL Abs Immat Gran (auto) (0.00-0.03) X10*3/uL Absolute Neuts (auto) (2.0-8.3) x10*3/uL Absolute Nucleated RBC (0.0-0.012) X10*3/uL Nucleated RBC % (auto) (0.0-0.2) /100WBC Sodium 131 L (135-145) mmol/L Potassium 3.9 (3.3-5.1) mmol/L Chloride 97 (96-108) mmol/L Carbon Dioxide 25 (22-29) mmol/L Anion Gap 13 (12-20) BUN 7 L (9-16) mg/dL Creatinine 0.71 (0.5-1.4) mg/dL Estim Creat Clear Calc 53.7 Estimated GFR > 60 Random Glucose 115 (60-115) mg/dL Osmolality 268 L (281-305) mosm/kg Calcium 8.1 L (8.4-10.2) mg/dL Magnesium (1.6-2.6) mg/dL Total Bilirubin (0.0-1.0) mg/dL AST (5-31) U/L ALT (0-31) U/L Alkaline Phosphatase (39-117) U/L Troponin I High Sens 28.5 H (<3.5-17.0) ng/L B-Natriuretic Peptide (<100) pg/mL Total Protein (6.5-8.0) g/dL Albumin (3.5-5.0) g/dL Urine Color Urine Appearance Urine pH (5.0-9.0) Ur Specific [place] (1.005-1.025) Urine Protein (Neg-Trace) mg/dL Urine Glucose (UA) (Negative) mg/dL Urine Ketones (Negative) mg/dL Urine Blood (Negative) Urine Nitrite (Negative) Ur Leukocyte Esterase (Negative) Urine RBC (0-2) /HPF Urine WBC (0-5) /HPF Ur Squamous Epith Cells (0-2) /HPF Urine Bacteria (None Seen) Hyaline Casts (0-2) /LPF Urine Osmolality (373-1093) mosm/kg Ur Random Sodium mmol/L COVID-19 (NERIS) (Negative) COVID-19 Clin Com Influenza Type A (LISA) (Negative) Influenza Type B (LISA) (Negative) Influenza A & B Note <Natalie Camacho [place]is, [employer] - Last Filed: 04/17/22 19:44> Lab Results 04/17/22 04/17/22 04/17/22 Range/Units 15:16 15:16 15:16 WBC 7.7 (4.8-10.8) X10*3/uL RBC 3.80 L (4.20-5.50) X10*6/uL Hgb 12.0 (12.0-16.0) g/dl Hct 35.4 L (37.0-47.0) % MCV 93.2 (80.0-98.0) fL MCH 31.6 (27.0-33.0) pg MCHC 33.9 (31.0-35.0) g/dl RDW 12.9 (11.0-16.0) % Plt Count 145 L (160-400) X10*3/uL MPV 9.0 L (9.4-12.3) fL Immature Gran % (Auto) 0.5 H (0.0-0.4) % Neut % (Auto) 79.5 H (45-73) % Lymph % (Auto) 7.9 L (20-40) % [place] % (Auto) 11.4 H (2-11) % Eos % (Auto) 0.3 (0-4) % Baso % (Auto) 0.4 (0-2) % Lymph # (Auto) 0.6 L (1.2-4.9) X10*3/uL [place] # (Auto) 0.9 (0.1-1.2) X10*3/uL Eos # (Auto) 0.0 (0.0-0.4) X10*3/uL Baso # (Auto) 0.0 (0.0-0.2) X10*3/uL Abs Immat Gran (auto) 0.04 H (0.00-0.03) X10*3/uL Absolute Neuts (auto) 6.2 (2.0-8.3) x10*3/uL Absolute Nucleated RBC 0.000 (0.0-0.012) X10*3/uL Nucleated RBC % (auto) 0.0 (0.0-0.2) /100WBC Sodium 124 L (135-145) mmol/L Potassium 4.1 (3.3-5.1) mmol/L Chloride 94 L (96-108) mmol/L Carbon Dioxide 25 (22-29) mmol/L Anion Gap 9 L (12-20) BUN 8 L (9-16) mg/dL Creatinine 0.76 (0.5-1.4) mg/dL Estim Creat Clear Calc 50.2 Estimated GFR > 60 Random Glucose 152 H (60-115) mg/dL Osmolality (281-305) mosm/kg Calcium 8.0 L D (8.4-10.2) mg/dL Magnesium 1.8 (1.6-2.6) mg/dL Total Bilirubin 0.6 (0.0-1.0) mg/dL AST 36 H (5-31) U/L ALT 23 (0-31) U/L Alkaline Phosphatase 57 (39-117) U/L Troponin I High Sens 22.0 H (<3.5-17.0) ng/L B-Natriuretic Peptide (<100) pg/mL Total Protein 6.5 (6.5-8.0) g/dL Albumin 3.6 (3.5-5.0) g/dL Urine Color Urine Appearance Urine pH (5.0-9.0) Ur Specific [place] (1.005-1.025) Urine Protein (Neg-Trace) mg/dL Urine Glucose (UA) (Negative) mg/dL Urine Ketones (Negative) mg/dL Urine Blood (Negative) Urine Nitrite (Negative) Ur Leukocyte Esterase (Negative) Urine RBC (0-2) /HPF Urine WBC (0-5) /HPF Ur Squamous Epith Cells (0-2) /HPF Urine Bacteria (None Seen) Hyaline Casts (0-2) /LPF Urine Osmolality (373-1093) mosm/kg Ur Random Sodium mmol/L COVID-19 (NERIS) (Negative) COVID-19 Clin Com Influenza Type A (LISA) (Negative) Influenza Type B (LISA) (Negative) Influenza A & B Note 04/17/22 04/17/22 04/17/22 Range/Units 15:16 15:16 15:16 WBC (4.8-10.8) X10*3/uL RBC (4.20-5.50) X10*6/uL Hgb (12.0-16.0) g/dl Hct (37.0-47.0) % MCV (80.0-98.0) fL MCH (27.0-33.0) pg MCHC (31.0-35.0) g/dl RDW (11.0-16.0) % Plt Count (160-400) X10*3/uL MPV (9.4-12.3) fL Immature Gran % (Auto) (0.0-0.4) % Neut % (Auto) (45-73) % Lymph % (Auto) (20-40) % [place] % (Auto) (2-11) % Eos % (Auto) (0-4) % Baso % (Auto) (0-2) % Lymph # (Auto) (1.2-4.9) X10*3/uL [place] # (Auto) (0.1-1.2) X10*3/uL Eos # (Auto) (0.0-0.4) X10*3/uL Baso # (Auto) (0.0-0.2) X10*3/uL Abs Immat Gran (auto) (0.00-0.03) X10*3/uL Absolute Neuts (auto) (2.0-8.3) x10*3/uL Absolute Nucleated RBC (0.0-0.012) X10*3/uL Nucleated RBC % (auto) (0.0-0.2) /100WBC Sodium (135-145) mmol/L Potassium (3.3-5.1) mmol/L Chloride (96-108) mmol/L Carbon Dioxide (22-29) mmol/L Anion Gap (12-20) BUN (9-16) mg/dL Creatinine (0.5-1.4) mg/dL Estim Creat Clear Calc Estimated GFR Random Glucose (60-115) mg/dL Osmolality (281-305) mosm/kg Calcium (8.4-10.2) mg/dL Magnesium (1.6-2.6) mg/dL Total Bilirubin (0.0-1.0) mg/dL AST (5-31) U/L ALT (0-31) U/L Alkaline Phosphatase (39-117) U/L Troponin I High Sens (<3.5-17.0) ng/L B-Natriuretic Peptide 132 H (<100) pg/mL Total Protein (6.5-8.0) g/dL Albumin (3.5-5.0) g/dL Urine Color Urine Appearance Urine pH (5.0-9.0) Ur Specific [place] (1.005-1.025) Urine Protein (Neg-Trace) mg/dL Urine Glucose (UA) (Negative) mg/dL Urine Ketones (Negative) mg/dL Urine Blood (Negative) Urine Nitrite (Negative) Ur Leukocyte Esterase (Negative) Urine RBC (0-2) /HPF Urine WBC (0-5) /HPF Ur Squamous Epith Cells (0-2) /HPF Urine Bacteria (None Seen) Hyaline Casts (0-2) /LPF Urine Osmolality (373-1093) mosm/kg Ur Random Sodium mmol/L COVID-19 (NERIS) Positive A (Negative) COVID-19 Clin Com See Note Influenza Type A (LISA) Negative (Negative) Influenza Type B (LISA) Positive A (Negative) Influenza A & B Note See Note 04/17/22 04/17/22 04/17/22 Range/Units 18:37 18:37 18:37 WBC (4.8-10.8) X10*3/uL RBC (4.20-5.50) X10*6/uL Hgb (12.0-16.0) g/dl Hct (37.0-47.0) % MCV (80.0-98.0) fL MCH (27.0-33.0) pg MCHC (31.0-35.0) g/dl RDW (11.0-16.0) % Plt Count (160-400) X10*3/uL MPV (9.4-12.3) fL Immature Gran % (Auto) (0.0-0.4) % Neut % (Auto) (45-73) % Lymph % (Auto) (20-40) % [place] % (Auto) (2-11) % Eos % (Auto) (0-4) % Baso % (Auto) (0-2) % Lymph # (Auto) (1.2-4.9) X10*3/uL [place] # (Auto) (0.1-1.2) X10*3/uL Eos # (Auto) (0.0-0.4) X10*3/uL Baso # (Auto) (0.0-0.2) X10*3/uL Abs Immat Gran (auto) (0.00-0.03) X10*3/uL Absolute Neuts (auto) (2.0-8.3) x10*3/uL Absolute Nucleated RBC (0.0-0.012) X10*3/uL Nucleated RBC % (auto) (0.0-0.2) /100WBC Sodium (135-145) mmol/L Potassium (3.3-5.1) mmol/L Chloride (96-108) mmol/L Carbon Dioxide (22-29) mmol/L Anion Gap (12-20) BUN (9-16) mg/dL Creatinine (0.5-1.4) mg/dL Estim Creat Clear Calc Estimated GFR Random Glucose (60-115) mg/dL Osmolality (281-305) mosm/kg Calcium (8.4-10.2) mg/dL Magnesium (1.6-2.6) mg/dL Total Bilirubin (0.0-1.0) mg/dL AST (5-31) U/L ALT (0-31) U/L Alkaline Phosphatase (39-117) U/L Troponin I High Sens (<3.5-17.0) ng/L B-Natriuretic Peptide (<100) pg/mL Total Protein (6.5-8.0) g/dL Albumin (3.5-5.0) g/dL Urine Color Yellow Urine Appearance Clear Urine pH 7.5 (5.0-9.0) Ur Specific [place] 1.015 (1.005-1.025) Urine Protein Trace (Neg-Trace) mg/dL Urine Glucose (UA) 250 H (Negative) mg/dL Urine Ketones 15 (Negative) mg/dL Urine Blood Trace H (Negative) Urine Nitrite Negative (Negative) Ur Leukocyte Esterase Negative (Negative) Urine RBC 11-20 H (0-2) /HPF Urine WBC 0-5 (0-5) /HPF Ur Squamous Epith Cells 0-2 (0-2) /HPF Urine Bacteria None Seen (None Seen) Hyaline Casts 0-2 (0-2) /LPF Urine Osmolality 435 (373-1093) mosm/kg Ur Random Sodium 73.0 mmol/L COVID-19 (NERIS) (Negative) COVID-19 Clin Com Influenza Type A (LISA) (Negative) Influenza Type B (LSIA) (Negative) Influenza A & B Note 04/17/22 04/17/22 04/17/22 Range/Units 20:13 20:13 20:13 WBC (4.8-10.8) X10*3/uL RBC (4.20-5.50) X10*6/uL Hgb (12.0-16.0) g/dl Hct (37.0-47.0) % MCV (80.0-98.0) fL MCH (27.0-33.0) pg MCHC (31.0-35.0) g/dl RDW (11.0-16.0) % Plt Count (160-400) X10*3/uL MPV (9.4-12.3) fL Immature Gran % (Auto) (0.0-0.4) % Neut % (Auto) (45-73) % Lymph % (Auto) (20-40) % [place] % (Auto) (2-11) % Eos % (Auto) (0-4) % Baso % (Auto) (0-2) % Lymph # (Auto) (1.2-4.9) X10*3/uL [place] # (Auto) (0.1-1.2) X10*3/uL Eos # (Auto) (0.0-0.4) X10*3/uL Baso # (Auto) (0.0-0.2) X10*3/uL Abs Immat Gran (auto) (0.00-0.03) X10*3/uL Absolute Neuts (auto) (2.0-8.3) x10*3/uL Absolute Nucleated RBC (0.0-0.012) X10*3/uL Nucleated RBC % (auto) (0.0-0.2) /100WBC Sodium 131 L (135-145) mmol/L Potassium 3.9 (3.3-5.1) mmol/L Chloride 97 (96-108) mmol/L Carbon Dioxide 25 (22-29) mmol/L Anion Gap 13 (12-20) BUN 7 L (9-16) mg/dL Creatinine 0.71 (0.5-1.4) mg/dL Estim Creat Clear Calc 53.7 Estimated GFR > 60 Random Glucose 115 (60-115) mg/dL Osmolality 268 L (281-305) mosm/kg Calcium 8.1 L (8.4-10.2) mg/dL Magnesium (1.6-2.6) mg/dL Total Bilirubin (0.0-1.0) mg/dL AST (5-31) U/L ALT (0-31) U/L Alkaline Phosphatase (39-117) U/L Troponin I High Sens 28.5 H (<3.5-17.0) ng/L B-Natriuretic Peptide (<100) pg/mL Total Protein (6.5-8.0) g/dL Albumin (3.5-5.0) g/dL Urine Color Urine Appearance Urine pH (5.0-9.0) Ur Specific [place] (1.005-1.025) Urine Protein (Neg-Trace) mg/dL Urine Glucose (UA) (Negative) mg/dL Urine Ketones (Negative) mg/dL Urine Blood (Negative) Urine Nitrite (Negative) Ur Leukocyte Esterase (Negative) Urine RBC (0-2) /HPF Urine WBC (0-5) /HPF Ur Squamous Epith Cells (0-2) /HPF Urine Bacteria (None Seen) Hyaline Casts (0-2) /LPF Urine Osmolality (373-1093) mosm/kg Ur Random Sodium mmol/L COVID-19 (NERIS) (Negative) COVID-19 Clin Com Influenza Type A (LISA) (Negative) Influenza Type B (LISA) (Negative) Influenza A & B Note <Ortiz David MD - Last Filed: 04/17/22 22:02> Independent Interpretation I performed an independent interpretation of an: EKG <Natalie Berg CNP - Last Filed: 04/17/22 19:44> Interpretation: Rate: 67 Rhythm:? Normal sinus rhythm Cool[place]:? Normal Normal P waves.? Normal ALDO.?? Normal QRS complex.?? ST T wave :??No ST elevation, no ST depression qTC: 429 prior studies:? August 2020 The study has been interpreted contemporaneously by me. <Natalie Berg CNP - Last Filed: 04/17/22 19:44> Radiology Impression Discussion of test interpretation with radiology: I have reviewed the radiologist's reading. <Natalie Berg CNP - Last Filed: 04/17/22 19:44> Radiologist Impression: XR/XR chest 2V IMPRESSION: No acute abnormality of the chest. CT/CT head/brain wo IV con IMPRESSION: 1.? No intracranial hemorrhage or calvarial fracture. 2.? Mild right frontal scalp swelling/small hematoma. 3.? No traumatic subluxation or acute cervical spine fracture. <Natalie Berg CNP - Last Filed: 04/17/22 19:44> Discharge Plan Discharge Clinical Impression: Syncope, Hyponatremia, COVID-19, Influenza <Natalie Berg CNP - Last Filed: 04/17/22 19:44> Patient Disposition: Home, Self-Care <Natalie Berg CNP - Last Filed: 04/17/22 19:44> Instructions: Hyponatremia (ED), Influenza (ED), Near Syncope (ED), COVID-19 (Coronavirus Disease 2019) (ED) <Natalie Berg CNP - Last Filed: 04/17/22 19:44> Additional Instructions: Stay hydrated Tramadol for pain Report to the ER if increased shortness of breath <Natalie Berg CNP - Last Filed: 04/17/22 19:44> Prescriptions: New tramadol 50 mg tablet 50 mg PO Q6H PRN (Reason: pain) Qty: 20 0RF No Action chlorhexidine gluconate 0.12 % mouthwash 15 ml buccal BID 14 Days Qty: 420 0RF estradiol 0.01 % (0.1 mg/gram) cream vaginal atenolol 25 mg tablet See Rx Instructions PO DAILY Rx Instructions: 12.5 nmg PO daily; levothyroxine 88 mcg tablet 88 mcg PO DAILY famotidine 40 mg tablet 40 mg PO DAILY alprazolam 0.25 mg tablet 0.25 mg PO BID PRN <Natalie Berg CNP - Last Filed: 04/17/22 19:44>
[2022-04-17 15:22] LABS: Basophils Percent Auto 0.4 % (0-2); Eosinophils Percent Auto 0.3 % (0-4); Hematocrit 35.4 % (37.0-47.0); Imm Gran Abs Auto 0.04 X10*3/uL (0.00-0.03); Imm Gran Pct Auto 0.5 % (0.0-0.4); Lymphocytes Absolute Auto 0.6 X10*3/uL (1.2-4.9); Lymphocytes Percent Auto 7.9 % (20-40); Mean Corpuscular HGB Conc 33.9 g/dl (31.0-35.0); Mean Corpuscular Hemoglobin 31.6 pg (27.0-33.0); Mean Corpuscular Volume 93.2 fL (80.0-98.0); Monocytes Absolute Auto 0.9 X10*3/uL (0.1-1.2); Monocytes Percent Auto 11.4 % (2-11); Neutrophils Absolute Auto 6.2 x10*3/uL (2.0-8.3); Neutrophils Percent Auto 79.5 % (45-73); Platelet Count 145 X10*3/uL (160-400); Red Cell Distribution Width 12.9 % (11.0-16.0); White Blood Count 7.7 X10*3/uL (4.8-10.8)
[2022-04-17 15:45] LABS: Alanine Aminotransferase 23 U/L (0-31); Albumin Level 3.6 g/dL (3.5-5.0); Alkaline Phosphatase 57 U/L (39-117); Anion Gap 9 (12-20); Aspartate Amino Transferase 36 U/L (5-31); Bilirubin Total 0.6 mg/dL (0.0-1.0); Blood Urea Nitrogen 8 mg/dL (9-16); Carbon Dioxide 25 mmol/L (22-29); Chloride 94 mmol/L (96-108); Creatinine Clr Calc Pharmacy 50.2; Estimated Glomerular Filt Rate > 60; Glucose Random 152 mg/dL (60-115); Magnesium 1.8 mg/dL (1.6-2.6); Potassium 4.1 mmol/L (3.3-5.1); Sodium 124 mmol/L (135-145); Total Protein 6.5 g/dL (6.5-8.0)
[2022-04-17 15:51] LABS: B Type Natriuretic Peptide 132 pg/mL (<100)
[2022-04-17 16:01] LABS: COVID-19 Test Positive (Negative); IDNOW Serial# 16C4AD1C
[2022-04-17 16:02] LABS: IDNOW Serial# BCCEAD1C; Influenza A Negative (Negative); Influenza B2 Positive (Negative)
[2022-04-17 17:09] VITALS: BP 123/41; PULSE 68; RESP 16; TEMP 37; O2SAT 97
[2022-04-17] MEDS: 0.9 % Sodium Chloride 1,000 ML 999 ML IV (18:35)
[2022-04-17 18:45] LABS: Appearance Urine Clear; Color Urine Yellow; Glucose Urine UA 250 mg/dL (Negative); Leukocyte Esterase Urine Negative (Negative); Nitrite Urine Negative (Negative); PH 7.5 (5.0-9.0); Specific Gravity - Urine 1.015 (1.005-1.025); UMIC TRIGGER UACC YES; Urine Blood Trace (Negative); Urine Ketones 15 mg/dL (Negative); Urine Protein Trace mg/dL (Neg-Trace)
[2022-04-17 18:52] LABS: Bacteria Urine None Seen (None Seen); Hyaline Casts Urine 0-2 /LPF (0-2); Squamous Epithelial Cell Urine 0-2 /HPF (0-2); WBC Urine 0-5 /HPF (0-5)
[2022-04-17 19:53] VITALS: BP 129/58; PULSE 66; RESP 19; TEMP 36.6; O2SAT 96
--- NOTE | 2022-04-17 19:58 | PC.NURSE ---
Assumed care of patient. Resting quietly, no apparent distress. Daughter at bedside.
[2022-04-17 20:18] LABS: Osmolality Urine 435 mosm/kg (373-1093)
[2022-04-17 20:37] VITALS: BP 132/57; PULSE 75; RESP 18; TEMP 36.7; O2SAT 96
[2022-04-17 20:47] LABS: Anion Gap 13 (12-20); Blood Urea Nitrogen 7 mg/dL (9-16); Calcium 8.1 mg/dL (8.4-10.2); Carbon Dioxide 25 mmol/L (22-29); Chloride 97 mmol/L (96-108); Creatinine Clr Calc Pharmacy 53.7; Estimated Glomerular Filt Rate > 60; Glucose Random 115 mg/dL (60-115); Potassium 3.9 mmol/L (3.3-5.1); Sodium 131 mmol/L (135-145)
[2022-04-17 20:51] LABS: Troponin-I High Sensitivity 28.5 ng/L (<3.5-17.0)
[2022-04-17 21:14] LABS: Osmolality, Serum 268 mosm/kg (281-305)
[2022-04-17] MEDS: traMADoL HCL 50 MG TABLET PO (22:00)
[2022-04-17 22:04] VITALS: BP 146/61; RESP 20; TEMP 37.1
--- NOTE | 2022-04-17 22:05 | PC.NURSE ---
Discharge instructions given and explained to patient. Ambulates safely and independently. No apparent distress. Patient being dischaged with daughter as she is her ride home. IV cath intact upon removal.
== END 2022-04-17 22:07 | disposition home or self-care (01) ==
PROVIDERS: Nurse Practitioner Family; Emergency Provider Student in an Organized Health Care Education/Training Program; PCP Internal Medicine
DX: U07.1 COVID-19 (principal); J10.1 Influenza due to other identified influenza virus with other respiratory manifestations; R55 Syncope and collapse; E87.1 Hypo-osmolality and hyponatremia; R06.02 Shortness of breath; M54.2 Cervicalgia; R51.9 Headache, unspecified; Z79.899 Other long term (current) drug therapy
CPT/HCPCS: 36415; 70450; 71046; 72125; 80048; 80053; 81001; 83735; 83880; 83930; 83935; 84300; 84484; 85025; 87502; 87635; 93005; 96360; 99284; 99285

== ENCOUNTER 2022-04-30 12:14 | Outpatient (REF) | payer MEDICARE, SELFPAY ==
[2022-04-30 14:36] LABS: Anion Gap 12 (12-20); Blood Urea Nitrogen 11 mg/dL (9-16); Calcium 9.4 mg/dL (8.4-10.2); Carbon Dioxide 32 mmol/L (22-29); Chloride 95 mmol/L (96-108); Estimated Glomerular Filt Rate > 60; Glucose Random 102 mg/dL (60-115); Potassium 4.5 mmol/L (3.3-5.1); Sodium 134 mmol/L (135-145)
== END 2022-04-30 12:15 | disposition home or self-care (01) ==
LOC: HO.10HDL 12:14
PROVIDERS: Visit Provider Internal Medicine
DX: Z13.89 Encounter for screening for other disorder (principal)
CPT/HCPCS: 36415; 80048

== ENCOUNTER 2022-07-23 11:16 | Outpatient (REF) | payer MEDICARE, SELFPAY ==
[2022-07-23 14:11] LABS: Appearance Urine Clear; Color Urine Yellow; Glucose Urine UA Negative (Negative); Leukocyte Esterase Urine Trace (Negative); Nitrite Urine Negative (Negative); Specific Gravity - Urine 1.015 (1.005-1.025); UMIC TRIGGER UACC YES; Urine Blood Negative (Negative); Urine Ketones Negative (Negative); Urine Protein Negative (Neg-Trace)
[2022-07-23 14:17] LABS: Bacteria Urine None Seen (None Seen); Hyaline Casts Urine 0-2 /LPF (0-2); RBC Urine 0-2 /HPF (0-2); Squamous Epithelial Cell Urine 0-2 /HPF (0-2); WBC Urine 0-5 /HPF (0-5)
[2022-07-23 14:44] LABS: Alanine Aminotransferase 18 U/L (0-31); Albumin Level 4.3 g/dL (3.5-5.0); Alkaline Phosphatase 54 U/L (39-117); Anion Gap 11 (12-20); Aspartate Amino Transferase 32 U/L (5-31); Bilirubin Total 0.4 mg/dL (0.0-1.0); Blood Urea Nitrogen 15 mg/dL (9-16); C Reactive Protein < 0.04 mg/dL (< or = 0.50); Calcium 9.4 mg/dL (8.4-10.2); Carbon Dioxide 29 mmol/L (22-29); Chloride 98 mmol/L (96-108); Estimated Glomerular Filt Rate > 60; Glucose Random 92 mg/dL (60-115); Potassium 4.2 mmol/L (3.3-5.1); Sodium 134 mmol/L (135-145); Total Protein 7.7 g/dL (6.5-8.0)
[2022-07-24 06:46] LABS: Vitamin B12 1576 pg/mL (200-900)
== END 2022-07-23 11:17 | disposition home or self-care (01) ==
LOC: HO.HMGCLDS 11:16
PROVIDERS: PCP Internal Medicine; Visit Provider Internal Medicine
DX: G62.9 Polyneuropathy, unspecified (principal); R82.90 Unspecified abnormal findings in urine
CPT/HCPCS: 36415; 80053; 81001; 82550; 82607; 86140; 87086

== ENCOUNTER 2022-10-29 10:43 | Outpatient (REF) | payer MEDICARE, SELFPAY ==
[2022-10-29 14:12] LABS: Appearance Urine Clear; Color Urine Yellow; Glucose Urine UA Negative (Negative); Leukocyte Esterase Urine Trace (Negative); Nitrite Urine Negative (Negative); Specific Gravity - Urine 1.015 (1.005-1.025); UMIC TRIGGER UACC YES; Urine Blood Negative (Negative); Urine Ketones Negative (Negative); Urine Protein Negative (Neg-Trace)
[2022-10-29 14:17] LABS: Bacteria Urine None Seen (None Seen); Hyaline Casts Urine 0-2 /LPF (0-2); Squamous Epithelial Cell Urine 0-2 /HPF (0-2); WBC Urine 0-5 /HPF (0-5)
[2022-10-29 14:35] LABS: Alanine Aminotransferase 16 U/L (0-31); Albumin Level 4.2 g/dL (3.5-5.0); Alkaline Phosphatase 47 U/L (39-117); Anion Gap 13 (12-20); Aspartate Amino Transferase 29 U/L (5-31); Bilirubin Total 0.6 mg/dL (0.0-1.0); Blood Urea Nitrogen 16 mg/dL (9-16); C Reactive Protein < 0.04 mg/dL (< or = 0.50); Carbon Dioxide 28 mmol/L (22-29); Chloride 98 mmol/L (96-108); Estimated Glomerular Filt Rate > 60; Glucose Random 111 mg/dL (60-115); Potassium 4.3 mmol/L (3.3-5.1); Sodium 135 mmol/L (135-145); Total Protein 7.8 g/dL (6.5-8.0)
[2022-10-29 15:01] LABS: Vitamin B12 955 pg/mL (200-900)
== END 2022-10-29 10:44 | disposition home or self-care (01) ==
LOC: HO.HMGCLDS 10:43
PROVIDERS: PCP Internal Medicine; Visit Provider Internal Medicine
DX: E87.1 Hypo-osmolality and hyponatremia (principal); G62.9 Polyneuropathy, unspecified; R30.0 Dysuria
CPT/HCPCS: 36415; 80053; 81001; 82550; 82607; 86140; 87086

== ENCOUNTER 2022-12-09 10:48 | Outpatient (REF) | payer MEDICARE, SELFPAY ==
--- NOTE | ~2022-12-09 | MM_ITS ---
EXAMINATION: BONE DENSITOMETRY CLINICAL INDICATION: Osteoporosis. COMPARISON: Previous BD dated 10/16/2020 and baseline BD dated 07/31/2006. TECHNIQUE: Using a [employer] DXA System (software version: 13.1) manufactured by [employer], dual-energy x-ray absorptiometry was performed of the lumbar spine and left hip. The images are of good technical quality. Summary results are attached. FINDINGS: LEFT FEMUR, NECK: Current: BMD 0.671 g/cm2, Z-score -0.3, T-score -2.6, osteoporosis. Prior: BMD 0.645 g/cm2. Baseline: BMD 0.742 g/cm2. LEFT FEMUR, TOTAL: Current: BMD 0.667 g/cm2, Z-score -0.5, T-score -2.7, osteoporosis, 4.1% increase from previous, 11.4% decrease from baseline (<5% change is not significant). Prior: BMD 0.641 g/cm2. Baseline: BMD 0.753 g/cm2. AP SPINE L1-L4: Current: BMD 0.724 g/cm2, Z-score -1.6, T-score -3.8, osteoporosis, 2.2% decrease from previous, 20.4% decrease from baseline (<5% change is not significant). Prior: BMD 0.740 g/cm2. Baseline: BMD 0.910 g/cm2. IDENTIFIED RISK FACTORS: Menopause, height loss, history of fracture (adult), family history (parent hip fracture), osteoporosis. HISTORY OF FRACTURE: Pelvis. MEDICATIONS: Calcium, vitamin D, ERT/SERMS. MM/XR DEXA axial skeleton IMPRESSION: 1. DIAGNOSIS: Severe osteoporosis based on the lowest T-score value of -3.8 in the lumbar spine and history of fracture of pelvis applying World Health Organization criteria. 2. 10-YEAR FRACTURE RISK PREDICTION, FRAX: According to the guidelines, FRAX calculation should only be performed on patients in the osteopenia bone density category. Therefore, FRAX was not performed on this patient. 3. Treatment Recommendations: NOF guidelines recommend consideration for treatment in postmenopausal women and men age 50 and older presenting with the following: -A hip or vertebral (clinical or morphometric) fracture. -T-score less than or equal to -2.5 at the femoral neck or spine after appropriate evaluation to exclude secondary causes. -Low bone mass at the hip or spine and a 10-year fracture probability by FRAX of greater than or equal to 3% for hip fracture or greater than or equal to 20% for major osteoporotic fracture based on the [place] adapted WHO algorithm. 4. Other Recommendations: All treatment decisions require clinical judgment and consideration of individual patient factors, including patient preferences, comorbidities, previous drug use, risk factors not captured in the FRAX model (e.g. frailty, falls, vitamin D deficiency, increased bone turnover, interval significant decline in bone density) and possible under or overestimation of fracture risk by FRAX. Additional medical evaluation for secondary cause of low bone mineral density may be appropriate. FUTURE SCAN RECOMMENDATION: People with diagnosed cases of osteoporosis or at high risk for fracture should have regular bone mineral density tests. For patients eligible for Medicare, routine testing is allowed once every 2 years. The testing frequency can be increased to one year for patients who have rapidly progressing disease, those who are receiving or discontinuing medical therapy to restore bone mass, or have additional risk factors.
== END 2022-12-09 10:49 | disposition home or self-care (01) ==
LOC: HO.MAMMO 10:48
PROVIDERS: PCP Internal Medicine; Visit Provider Internal Medicine Endocrinology, Diabetes & Metabolism
DX: Z13.820 Encounter for screening for osteoporosis (principal); Z78.0 Asymptomatic menopausal state; M81.0 Age-related osteoporosis without current pathological fracture
CPT/HCPCS: 77080

== ENCOUNTER 2023-01-01 08:19 | Outpatient (REF) | payer MEDICARE, SELFPAY | END 2023-01-01 08:20 | disposition home or self-care (01) | LOC: HO.MAMMO 08:19 | PROVIDERS: Absent Provider Obstetrics & Gynecology; PCP Internal Medicine; Visit Provider Internal Medicine Endocrinology, Diabetes & Metabolism | DX: Z12.31 Encounter for screening mammogram for malignant neoplasm of breast (principal) | CPT/HCPCS: 77063; 77067 ==

== ENCOUNTER → 2023-01-01 08:30 | Outpatient (BNV) | payer MEDICARE, SELFPAY | PROVIDERS: Absent Provider Obstetrics & Gynecology; PCP Internal Medicine; Visit Provider Radiology Diagnostic Radiology | DX: Z12.31 Encounter for screening mammogram for malignant neoplasm of breast (principal) | CPT/HCPCS: 77063; 77067 ==

== ENCOUNTER 2023-03-06 09:34 | Outpatient (REF) | payer MEDICARE, SELFPAY ==
[2023-03-06 11:22] LABS: MANUAL DIFF FLAG NO
[2023-03-06 11:25] LABS: Basophils Absolute Auto 0.1 X10*3/uL (0.0-0.2); Basophils Percent Auto 1.2 % (0-2); Eosinophils Absolute Auto 0.1 X10*3/uL (0.0-0.4); Eosinophils Percent Auto 1.7 % (0-4); Hematocrit 40.6 % (37.0-47.0); Hemoglobin 13.3 g/dl (12.0-16.0); Imm Gran Abs Auto 0.01 X10*3/uL (0.00-0.03); Imm Gran Pct Auto 0.2 % (0.0-0.4); Lymphocytes Absolute Auto 1.9 X10*3/uL (1.2-4.9); Lymphocytes Percent Auto 38.8 % (20-40); Mean Corpuscular HGB Conc 32.8 g/dl (31.0-35.0); Mean Corpuscular Hemoglobin 31.1 pg (27.0-33.0); Mean Corpuscular Volume 94.9 fL (80.0-98.0); Mean Platelet Volume 10.4 fL (9.4-12.3); Monocytes Absolute Auto 0.6 X10*3/uL (0.1-1.2); Monocytes Percent Auto 12.9 % (2-11); Neutrophils Absolute Auto 2.2 x10*3/uL (2.0-8.3); Neutrophils Percent Auto 45.2 % (45-73); Platelet Count 202 X10*3/uL (160-400); Red Blood Count 4.28 X10*6/uL (4.20-5.50); White Blood Count 4.8 X10*3/uL (4.8-10.8)
[2023-03-06 12:38] LABS: Alanine Aminotransferase 16 U/L (0-31); Albumin Level 4.4 g/dL (3.5-5.0); Alkaline Phosphatase 57 U/L (39-117); Anion Gap 11 (12-20); Aspartate Amino Transferase 29 U/L (5-31); Bilirubin Total 0.4 mg/dL (0.0-1.0); Blood Urea Nitrogen 15 mg/dL (9-16); Calcium 9.9 mg/dL (8.4-10.2); Carbon Dioxide 30 mmol/L (22-29); Chloride 95 mmol/L (96-108); Cholesterol 191 mg/dL (<200); Estimated Glomerular Filt Rate > 60; Free T4 (Free Thyroxine) 1.15 ng/dL (0.71-1.85); Glucose Random 111 mg/dL (60-115); Sodium 132 mmol/L (135-145); Thyroid Stimulating Hormone 1.01 uIU/mL (0.32-4.0); Total Protein 8.3 g/dL (6.5-8.0)
== END 2023-03-06 09:35 | disposition home or self-care (01) ==
LOC: HO.HMGCLDS 09:34
PROVIDERS: PCP Internal Medicine; Visit Provider Internal Medicine
DX: I10 Essential (primary) hypertension (principal); E03.9 Hypothyroidism, unspecified; M81.0 Age-related osteoporosis without current pathological fracture
CPT/HCPCS: 36415; 80053; 82306; 82465; 84439; 84443; 85025

== ENCOUNTER 2023-03-16 06:23 | Day surgery (SDC) | payer MEDICARE, SELFPAY ==
--- NOTE | 2023-03-11 08:54 | HP_ITS ---
DATE OF SERVICE: 03/16/2023 HISTORY OF PRESENT ILLNESS: The patient was seen on for preop evaluation prior to cataract surgery with Dr. Nobles. The patient feels well. ALLERGIES: SHE LISTS AN ALLERGY TO PENICILLIN AND CLINDAMYCIN. PAST MEDICAL HISTORY: Significant for hypertension, hypothyroidism, scoliosis, irritable bowel syndrome, anxiety, history of pelvic fracture, hyponatremia from SIADH, osteoporosis. FAMILY HISTORY: Mother at 84. Father at 59. She has one sister, in good health. SOCIAL HISTORY: , two children. Retired. REVIEW OF SYSTEMS: Three-pound weight change. No fevers, chills, or sweats. No headaches or dizziness. No chest pains or palpitations. No peripheral edema. No respiratory complaints. Intermittent abdominal pain from IBS. No complaints of heartburn. No urinary complaints. Some right hip pain. Some back pain from the scoliosis. No confusion or memory changes. Sleep and appetite are unchanged. No complaints of seasonal allergies. No skin complaints. PHYSICAL EXAMINATION: GENERAL: She is awake and alert, in no distress. VITAL SIGNS: Temperature is 97.3, pulse 62, respirations 12, blood pressure 124/60, oxygen sat 99% on room air. Weight is 114 pounds. Height is 5 feet 3 inches. HEENT: Pupils are equal. TMs clear. Pharynx clear. NECK: Supple. No lymph nodes, bruits, or masses. HEART: Sounds S1 and S2. Regular rate. LUNGS: Clear. ABDOMEN: Soft and nontender with positive bowel sounds. EXTREMITIES: No clubbing, cyanosis, or edema. 1+ pulses. BACK: Prominent scoliosis. NEUROLOGIC: Cranial nerves II through XII are intact. She is awake and alert. PRESENT MEDICATIONS: Levothyroxine 0.088 mg p.o. daily, atenolol 12.5 mg daily, Lomotil p.r.n. for diarrhea, alprazolam 0.25 mg one half daily p.r.n. for anxiety. IMPRESSION AND PLAN: She is medically stable for the proposed procedure. I will be available if there are any medical questions or issues. MD JODY Jacobo/DANAYL / [phone]
[2023-03-11 11:10] VITALS: BMI 20.4
--- NOTE | 2023-03-13 07:50 | MHC.SHP ---
Pre-Procedural Eval Section A Date of Service: 03/13/23 The patient is an INPATIENT: No Changes since office visit: No Cold of Flu in the past 2 weeks, No New Medical Problems, No Changes in Medication and No Patient answered all questions The History & Physical has been completed within 30 days and I have reviewed it.: Yes Section B Chief Complaint: Age-related nuclear cataract, right eye Allergies: Allergies Allergy/AdvReac Type Severity Reaction Status Date / Time cephalexin Allergy Severe Diarrhea Verified 04/08/22 10:15 and Fainting NSAIDS (Non-Steroidal Allergy Severe ANAPHYLAXIS Verified 04/08/22 10:15 Anti-Inflamma [NSAIDS (NON-STEROIDAL ANTI-INFLAMMA] Penicillins [PENICILLINS] Allergy Severe RASH Verified 04/08/22 10:15 clindamycin [CLINDAMYCIN] AdvReac Severe DIARRHEA Verified 04/08/22 10:15 Plan Diagnosis/Plan: Unchanged I have reviewed the history and physical and performed a pertinent physical examination on my patient. No changes have occurred unless specified. Time Spent With Patient Time: Total time managing care of this patient today ____ minutes.
[2023-03-16 07:00] VITALS: PULSE 54; RESP 18; TEMP 36.6; O2SAT 97
[2023-03-16] MEDS: Tetracaine HCl/PF 0.5% Oph Sol 4 ML DROPS 1 DROP EYE-RIGHT (07:07)
[2023-03-16] MEDS: Phenylephrine HCL 2.5% Oph SoL 2 ML BOTTLE 1 DROP EYE-RIGHT ×3 (07:07→07:08)
[2023-03-16] MEDS: Tropicamide 1 % Ophth Sol 3 ML BTL 1 DROP EYE-RIGHT ×3 (07:07→07:08)
[2023-03-16] MEDS: Cyclopentolate 1 % Ophth Sol 2 ML DRPBTL 1 DROP EYE-RIGHT ×3 (07:08→07:18)
--- NOTE | 2023-03-16 07:27 | PC.NURSE ---
[facility]
[2023-03-16] MEDS: Ketorolac Tromethamine 0.5% Op 5 ML DROPS 1 DROP EYE-RIGHT ×3 (07:29→07:30)
[2023-03-16] MEDS: Lactated Ringers 500 ML 50 ML IVCONT (07:31)
--- NOTE | 2023-03-16 07:34 | P.CONAN_ITS ---
HPI - Anesthesia Eval Consult details Narrative: 77yo female patient for Right cataract extraction, IOL insertion PMFSH Active Problems Active Problems: All Active Problems (Updated 03/16/23 @ 07:35 by Joie Harry MD) COVID-19 (Acute) 04/2022 Hiatal hernia (Acute) Abnormal PFTs (pulmonary function tests) (Acute) Paroxysmal atrial fibrillation (Acute)- 1 episode before lung decortication 4 y ears ago. Not on any anti- coagulants Abnormal chest x-ray with multiple lung nodules (Acute) Restrictive lung disease (Acute) Past Medical History Medical History COPD (chronic obstructive pulmonary disease) Hiatal hernia Abnormal PFTs (pulmonary function tests) Paroxysmal atrial fibrillation Abnormal chest x-ray with multiple lung nodules Empyema lung Restrictive lung disease Family History Family History Father No problems noted. Mother No problems noted. Family history of problems with anesthesia: No Surgical History Surgical History History of lung surgery History of esophagogastroduodenoscopy (EGD) H/O colonoscopy History of Problems with Anesthesia: No (N&V with colonoscopy ) Social History Social History Patient Tobacco Use Status: Never used Tobacco Are you DNR?: No Advance Directives: No Advance Directives Information Provided: Yes Nutrition Risks: No Nutritional Risk Meds Allergies Allergy/AdvReac Type Severity Reaction Status Date / Time cephalexin Allergy Severe Diarrhea Verified 04/08/22 10:15 and Fainting NSAIDS (Non-Steroidal Allergy Severe ANAPHYLAXIS Verified 04/08/22 10:15 Anti-Inflamma [NSAIDS (NON-STEROIDAL ANTI-INFLAMMA] Penicillins [PENICILLINS] Allergy Severe RASH Verified 04/08/22 10:15 clindamycin [CLINDAMYCIN] AdvReac Severe DIARRHEA Verified 04/08/22 10:15 Active Medications: Current Medications Lactated Ringer's (Lr) 500 mls @ 50 mls/hr IVCONT .Q10H FRANK Last Admin: 03/16/23 07:31 Dose: 50 mls/hr Povidone Iodine (Povidone Iodine 5 % Ophth Soln 30 Ml Bottle) 1 appl EYE-RIGHT PREOP PRN PRN Reason: Pre-Op Surgical Implant Prophy Home Medications Medication Instructions Recorded Confirmed Last Taken Type estradiol 0.01% (0.1 mg/gram) g vaginal 01/30/20 08/07/20 Unknown History vaginal cream atenolol 25 mg tablet See Rx Instructions PO DAILY 03/08/20 03/11/23 03/16/23 History levothyroxine 88 mcg tablet 88 mcg PO DAILY 03/08/20 03/11/23 03/16/23 History famotidine 40 mg tablet 40 mg PO DAILY 08/07/20 03/11/23 Unknown History alprazolam 0.25 mg tablet 0.25 mg PO BID PRN Anxiety 03/11/21 03/11/23 Unknown History Exam Exam Date and Time: March 16, 2023 0734 Height,Weight and Vital Signs: Height 5 ft 3 in Weight 52.163 kg Last Vital Signs Temp 98 F 03/16/23 07:00 Pulse 54 03/16/23 07:00 Resp 18 03/16/23 07:00 Pulse Ox 97 03/16/23 07:00 Airway Mallampati Class: II TM Dist: >3cm Neck ROM: Full Loose/Missing/Broken Teeth: No (Denies broken, loose, missing teeth) Heart: RRR Lungs: CTAB Assessment and Plan Assessment Anesthesia Assessment: Anesthesia Plan Discussed and Chart Reviewed Final Anesthetic Review Family History of Problems with Anesthesia: No History of Problems with Anesthesia: No (N&V with colonoscopy ) NPO: Yes ASA Class: III Final Preanesthetic Review: No Changes in Pt Med Stat, Meds/Allgs Chart Reviewed, Consent Obtained/Reviewed and Anes Risks/Benef Reviewed Patient Risk: Intermediate Procedure Risk: Low Assessment/Block/Sedation in SS: Assess/Block/Sedation-SS Anesthetic Plan Anesthetic Plan: MAC: Disposition: Standard PACU
--- NOTE | 2023-03-16 08:18 | HO.PNOPHT ---
Ophthalmology Procedure Procedure Date of Service: 03/16/23 Ophthalmology Viscoelastic: Denis Sinclairt Dual Pack Pro Ophthalmology Lenses: TECMESHA [id number] (22) Procedure Notes: PREOPERATIVE DIAGNOSIS: Decreased visual acuity right eye secondary to cataract POSTOPERATIVE DIAGNOSIS: Same PROCEDURE: Right cataract extraction with intraocular lens insertion SURGEON: Antoine Nobles M.D. ANESTHESIA: Topical/MAC ESTIMATED BLOOD LOSS: None COMPLICATIONS: None After obtaining informed consent, the patient was brought to the operating room suite and placed in the supine position. After adequate sedation per anesthesia, topical drops of Tetracaine were given to the right eye. The eye was then prepped and draped in the usual sterile fashion. The operating room microscope was then positioned over the operative eye and a lid speculum placed. A paracentesis was created. Viscoelastic was then instilled into the anterior chamber. A three plane incision was then created temporally, utilizing a 2.85 mm keratome. Capsulotomy forceps were then utilized to create a circular tear capsulotomy. Hydrodissection and hydrodelineation were carried out until adequate mobilization of the nucleus occurred. Phacoemulsification was then utilized to remove the dense central nucleus followed by removal of the cortical material utilizing the automated aspiration irrigation unit. Viscoelastic was instilled into the posterior capsular bag followed by placement of a posterior chamber intraocular lens without difficulty. The residual Viscoelastic was then removed utilizing the automated IA machine. The wound was checked and found to be watertight. The patient tolerated the procedure well and the lid speculum was removed. Intracameral injection of Vigamox 0.1 mL followed by a subtenon injection of Kenalog-40 0.2 mL were administered. The patient will be seen in the a.m.
[2023-03-16 08:43] VITALS: BP 169/61; PULSE 50; RESP 20; TEMP 35.9; O2SAT 100
== END 2023-03-16 08:55 | disposition home or self-care (01) ==
PROVIDERS: PCP Internal Medicine; Visit Provider Ophthalmology
PROC: (CPT 66985; principal; 2023-03-16 08:30)
DX: H25.11 Age-related nuclear cataract, right eye (principal); H52.4 Presbyopia; H43.393 Other vitreous opacities, bilateral; H35.09 Other intraretinal microvascular abnormalities; H18.413 Arcus senilis, bilateral; E03.9 Hypothyroidism, unspecified; Z79.899 Other long term (current) drug therapy; Z88.0 Allergy status to penicillin; Z88.1 Allergy status to other antibiotic agents
CPT/HCPCS: 66984; J2250; J3010; J3301; V2632

== ENCOUNTER 2023-03-30 06:57 | Day surgery (SDC) | payer MEDICARE, SELFPAY ==
[2023-03-11 11:14] VITALS: BMI 20.4
--- NOTE | 2023-03-24 14:14 | P.CONAN_ITS ---
Documented by User: Radha Gavin NP 03/24/23 14:15 HPI - Anesthesia Eval Consult details Narrative: 78yo F for Left Cataract Extraction IOL Insertion Medically optimized Right eye 03/16/2023: Fent 25, Midaz 1 PMFSH Active Problems Active Problems: All Active Problems (Updated 03/11/23 @ 11:12 by Nancy Dowd RN) COVID-19 (Acute) Hiatal hernia (Acute) Abnormal PFTs (pulmonary function tests) (Acute) Paroxysmal atrial fibrillation (Acute) Abnormal chest x-ray with multiple lung nodules (Acute) Restrictive lung disease (Acute) Past Medical History Medical History COPD (chronic obstructive pulmonary disease) Hiatal hernia Abnormal PFTs (pulmonary function tests) Paroxysmal atrial fibrillation Abnormal chest x-ray with multiple lung nodules Empyema lung Restrictive lung disease Family History Family History Father No problems noted. Mother No problems noted. Family history of problems with anesthesia: No Surgical History Surgical History History of lung surgery History of esophagogastroduodenoscopy (EGD) H/O colonoscopy History of Problems with Anesthesia: No (N&V with colonoscopy ) Social History Patient Tobacco Use Status: Never used Tobacco Second Hand Smoke Exposure: No Use of substances other than those prescribed or required for medical reasons: No Are you DNR?: No Advance Directives: No Advance Directives Information Provided: Yes Advance Directives on File: No Meds Allergies Allergy/AdvReac Type Severity Reaction Status Date / Time cephalexin Allergy Severe Diarrhea Verified 04/08/22 10:15 and Fainting NSAIDS (Non-Steroidal Allergy Severe ANAPHYLAXIS Verified 04/08/22 10:15 Anti-Inflamma [NSAIDS (NON-STEROIDAL ANTI-INFLAMMA] Penicillins [PENICILLINS] Allergy Severe RASH Verified 04/08/22 10:15 clindamycin [CLINDAMYCIN] AdvReac Severe DIARRHEA Verified 04/08/22 10:15 Home Medications Medication Instructions Recorded Confirmed Last Taken Type estradiol 0.01% (0.1 mg/gram) g vaginal 01/30/20 08/07/20 Unknown History vaginal cream atenolol 25 mg tablet See Rx Instructions PO DAILY 03/08/20 03/30/23 03/16/23 History levothyroxine 88 mcg tablet 88 mcg PO DAILY 03/08/20 03/30/23 03/16/23 History famotidine 40 mg tablet 40 mg PO DAILY 08/07/20 03/30/23 Unknown History alprazolam 0.25 mg tablet 0.25 mg PO BID PRN Anxiety 03/11/21 03/30/23 Unknown History Exam Height,Weight and Vital Signs: Height 5 ft 3 in Weight 52.163 kg Assessment and Plan Assessment Anesthesia Assessment: Chart Reviewed Final Anesthetic Review Family History of Problems with Anesthesia: No History of Problems with Anesthesia: No (N&V with colonoscopy ) Documented by User: Mikhail Jackson MD 03/30/23 08:36 [facility] Past Medical History Medical History COPD (chronic obstructive pulmonary disease) Hiatal hernia Abnormal PFTs (pulmonary function tests) Paroxysmal atrial fibrillation Abnormal chest x-ray with multiple lung nodules Empyema lung Restrictive lung disease Family History Family History Father No problems noted. Mother No problems noted. Surgical History Surgical History History of lung surgery History of esophagogastroduodenoscopy (EGD) H/O colonoscopy Social History Patient Tobacco Use Status: Never used Tobacco Second Hand Smoke Exposure: No Use of substances other than those prescribed or required for medical reasons: No Are you DNR?: No Advance Directives: No Advance Directives Information Provided: Yes Advance Directives on File: No Meds Allergies Allergy/AdvReac Type Severity Reaction Status Date / Time cephalexin Allergy Severe Diarrhea Verified 04/08/22 10:15 and Fainting NSAIDS (Non-Steroidal Allergy Severe ANAPHYLAXIS Verified 04/08/22 10:15 Anti-Inflamma [NSAIDS (NON-STEROIDAL ANTI-INFLAMMA] Penicillins [PENICILLINS] Allergy Severe RASH Verified 04/08/22 10:15 clindamycin [CLINDAMYCIN] AdvReac Severe DIARRHEA Verified 04/08/22 10:15 Home Medications Medication Instructions Recorded Confirmed Last Taken Type estradiol 0.01% (0.1 mg/gram) g vaginal 01/30/20 08/07/20 Unknown History vaginal cream atenolol 25 mg tablet See Rx Instructions PO DAILY 03/08/20 03/30/23 03/16/23 History levothyroxine 88 mcg tablet 88 mcg PO DAILY 03/08/20 03/30/23 03/16/23 History famotidine 40 mg tablet 40 mg PO DAILY 08/07/20 03/30/23 Unknown History alprazolam 0.25 mg tablet 0.25 mg PO BID PRN Anxiety 03/11/21 03/30/23 Unknown History Exam Airway Mallampati Class: II TM Dist: >3cm Heart: rrr Lungs: cta Assessment and Plan Assessment Anesthesia Assessment: Anesthesia Plan Discussed Final Anesthetic Review NPO: Yes ASA Class: III Final Preanesthetic Review: No Changes in Pt Med Stat, Meds/Allgs Chart Reviewed, Consent Obtained/Reviewed and Anes Risks/Benef Reviewed Patient Risk: Intermediate Procedure Risk: Low Anesthetic Plan Anesthetic Plan: MAC: and Agree w/ Assess. and Plan Disposition: Standard PACU
[2023-03-30 07:54] VITALS: BP 148/69; PULSE 59; RESP 16; TEMP 36.4; O2SAT 100
--- NOTE | 2023-03-30 08:46 | HO.PNOPHT ---
Ophthalmology Procedure Procedure Date of Service: 03/30/23 Ophthalmology Viscoelastic: Healon Duet Dual Pack Pro Ophthalmology Lenses: TECNIS [id number] (21.5) Procedure Notes: PREOPERATIVE DIAGNOSIS: Decreased visual acuity left eye secondary to cataract POSTOPERATIVE DIAGNOSIS: Same PROCEDURE: Left cataract extraction with intraocular lens insertion SURGEON: Antoine Nobles M.D. ANESTHESIA: Topical/MAC ESTIMATED BLOOD LOSS: None COMPLICATIONS: None After obtaining informed consent, the patient was brought to the operation room suite and placed in the supine position. After adequate sedation per anesthesia, topical drops of Tetracaine were given to the left eye. The eye was then prepped and draped in the usual sterile fashion. The operating room microscope was then positioned over the operative eye and a lid speculum placed. A paracentesis was created. Viscoelastic was then instilled into the anterior chamber. A three plane incision was then created temporally, utilizing a 2.85 mm keratome. Capsulotomy forceps were then utilized to create a circular tear capsulotomy. Hydrodissection and hydrodelineation were carried out until adequate mobilization of the nucleus occurred. Phacoemulsification was then utilized to remove the dense central nucleus followed by removal of the cortical material utilizing the automated aspiration irrigation unit. Viscoat elastic was instilled into the posterior capsular bag followed by placement of a posterior chamber intraocular lens without difficulty. The residual Viscoat elastic was then removed utilizing the automated IA machine. The wound was check and found to be watertight. The patient tolerated the procedure well and the lid speculum was removed. Intracameral injection of Vigamox 0.1 mL followed by a subtenon injection of Kenalog-40 0.2 mL were administered. The patient will be seen in the a.m.
[2023-03-30 09:16] VITALS: BP 156/68; PULSE 51; RESP 17; TEMP 36.4; O2SAT 98
== END 2023-03-30 09:19 | disposition home or self-care (01) ==
PROVIDERS: PCP Internal Medicine; Visit Provider Ophthalmology
PROC: (CPT 66985; principal; 2023-03-30 08:50)
DX: H25.12 Age-related nuclear cataract, left eye (principal); H52.4 Presbyopia; H18.413 Arcus senilis, bilateral; H43.393 Other vitreous opacities, bilateral; H35.09 Other intraretinal microvascular abnormalities; I10 Essential (primary) hypertension; E03.9 Hypothyroidism, unspecified; J98.4 Other disorders of lung; J44.9 Chronic obstructive pulmonary disease, unspecified; I48.0 Paroxysmal atrial fibrillation; Z79.899 Other long term (current) drug therapy; Z88.0 Allergy status to penicillin; Z88.1 Allergy status to other antibiotic agents; Z98.890 Other specified postprocedural states
CPT/HCPCS: 66984; J3010; J3301; V2632

== ENCOUNTER 2023-10-02 09:13 | Outpatient (REF) | payer MEDICARE, SELFPAY ==
--- NOTE | ~2023-10-02 | XR_ITS ---
EXAMINATION: XR PELVIS CLINICAL INFORMATION: Pain COMPARISON: Pelvis radiographs 06/28/2019 TECHNIQUE: AP view of the pelvis. FINDINGS: Mild osteophytosis of the hips with subchondral cystic change similar to prior. Remote healed fractures of the right superior and inferior pubic rami. Degenerative disc disease in the visualized lower lumbosacral spine. Desiccated stool in the rectosigmoid colon. Moderate osteoporosis of the pubic symphysis with loss of joint space similar to prior. XR/XR pelvis 1-2V IMPRESSION: 1. Mild degenerative changes of the hips similar to prior. Lateral osteophytes of the pubic symphysis similar to prior. 2. Remote healed fractures of the right superior and inferior pubic rami.
== END 2023-10-02 09:14 | disposition home or self-care (01) ==
LOC: HO.HOSX 09:13
PROVIDERS: Visit Provider Orthopaedic Surgery
DX: S32.501D Unspecified fracture of right pubis, subsequent encounter for fracture with routine healing (principal)
CPT/HCPCS: 72170; 99202

== ENCOUNTER 2023-10-02 12:52 | Outpatient (AMB) | payer MEDICARE, SELFPAY ==
--- NOTE | 2023-10-02 12:59 | MHC.OFFVIS ---
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 Hx of right Pubis fracture [address] Sanchez. Patient reports that she enjoys walking but has pain occasionally with this acitivty. 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 She would like to be able to walk without pain, she is currently using icy hot patches. Hx of scoliosis. 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 Hx of right Pubis fracture [address] Sanchez. Patient reports that she enjoys walking but has pain occasionally with this acitivty. 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 She would like to be able to walk without pain, she is currently using icy hot patches. Hx of scoliosis. [facility] Medical History COPD (chronic obstructive pulmonary disease) Hiatal hernia Abnormal PFTs (pulmonary function tests) Paroxysmal atrial fibrillation Abnormal chest x-ray with multiple lung nodules Empyema lung Restrictive lung disease Surgical History History of lung surgery History of esophagogastroduodenoscopy (EGD) H/O colonoscopy Family History Father No problems noted. Mother No problems noted. Social History Patient Tobacco Use Status: Never used Tobacco Second Hand Smoke Exposure: No Physical Exam Extrem Other: severe scoliosis with stable compensatory gait no hip pain with ROM Results Reviewed Results Reviewed: Stable healed right pubic rami fractures Assessment & Plan Assessment & Plan (1) Fracture of pubic ramus with routine healing: Code(s): S32.599D - Other specified fracture of unspecified pubis, subsequent encounter for fracture with routine healing Category: Medical Plan: Pubic rami fractures that are stable and healed. Doing well otherwise with no pain. Discussed and may follow up as needed. Orders: Orders XR pelvis 1-2V Today M25.559 - Pain in unspecified hip Coding Level of Care Code New Pt Level 3 (25664) Diagnoses Fracture of pubic ramus with routine healing S32.599D
== END 2023-10-02 14:32 | disposition home or self-care (01) ==
PROVIDERS: PCP Internal Medicine; Visit Provider Orthopaedic Surgery
DX: S32.591D Other specified fracture of right pubis, subsequent encounter for fracture with routine healing (principal)
CPT/HCPCS: 99203

== ENCOUNTER 2024-01-06 08:39 | Outpatient (REF) | payer MEDICARE, SELFPAY ==
--- NOTE | ~2024-01-06 | MM_ITS ---
EXAMINATION: MM SCREENING DIGITAL BREAST TOMOSYNTHESIS, BILATERAL CLINICAL INFORMATION: Screening. Asymptomatic. COMPARISON: Mammography: Comparison is made with available priors TECHNIQUE: Digital breast mammography with tomosynthesis is performed in both the craniocaudal and mediolateral oblique views along with computer-aided detection (CAD). FINDINGS: The breasts are extremely dense, which lowers the sensitivity of mammography (ACR BI-RADS breast composition Category d). There are no significant masses, abnormal calcifications, or other abnormalities. MM/MM tomosynthesis screening BI IMPRESSION: No mammographic evidence of malignancy. ASSESSMENT: BI-RADS BI-RADS 1 - Negative RECOMMENDATION: Routine annual mammography screening. 1 year F/U This examination should not preclude the clinical evaluation of a suspicious palpable abnormality. This patient's information was entered into a reminder system with a target due date for their next mammogram. Electronically signed by: Candy Dubois DO 01/24/2024 09:17 AM EDT
== END 2024-01-06 08:40 | disposition home or self-care (01) ==
LOC: HO.MAMMO 08:39
PROVIDERS: Absent Provider Obstetrics & Gynecology; PCP Internal Medicine; Visit Provider Internal Medicine
DX: Z12.31 Encounter for screening mammogram for malignant neoplasm of breast (principal)
CPT/HCPCS: 77063; 77067

== ENCOUNTER → 2024-01-06 08:45 | Outpatient (BNV) | payer MEDICARE, SELFPAY | PROVIDERS: Absent Provider Obstetrics & Gynecology; PCP Internal Medicine; Visit Provider Internal Medicine | DX: Z12.31 Encounter for screening mammogram for malignant neoplasm of breast (principal) | CPT/HCPCS: 77063; 77067 ==

== ENCOUNTER 2024-01-22 08:55 | Outpatient (REF) | payer MEDICARE, SELFPAY ==
[2024-01-22 10:05] LABS: MANUAL DIFF FLAG NO
[2024-01-22 10:10] LABS: Basophils Absolute Auto 0.1 X10*3/uL (0.0-0.2); Basophils Percent Auto 1.2 % (0-2); Eosinophils Absolute Auto 0.1 X10*3/uL (0.0-0.4); Eosinophils Percent Auto 1.4 % (0-4); Hematocrit 39.6 % (37.0-47.0); Hemoglobin 13.3 g/dl (12.0-16.0); Imm Gran Abs Auto 0.02 X10*3/uL (0.00-0.03); Imm Gran Pct Auto 0.3 % (0.0-0.4); Lymphocytes Absolute Auto 2.1 X10*3/uL (1.2-4.9); Lymphocytes Percent Auto 35.6 % (20-40); Mean Corpuscular HGB Conc 33.6 g/dl (31.0-35.0); Mean Corpuscular Hemoglobin 32.1 pg (27.0-33.0); Mean Corpuscular Volume 95.7 fL (80.0-98.0); Mean Platelet Volume 10.4 fL (9.4-12.3); Monocytes Absolute Auto 0.7 X10*3/uL (0.1-1.2); Monocytes Percent Auto 11.2 % (2-11); Neutrophils Absolute Auto 2.9 x10*3/uL (2.0-8.3); Neutrophils Percent Auto 50.3 % (45-73); Platelet Count 168 X10*3/uL (160-400); Red Blood Count 4.14 X10*6/uL (4.20-5.50); Red Cell Distribution Width 12.9 % (11.0-16.0); White Blood Count 5.8 X10*3/uL (4.8-10.8)
[2024-01-22 10:44] LABS: Alanine Aminotransferase 17 U/L (0-31); Albumin Level 4.3 g/dL (3.5-5.0); Alkaline Phosphatase 55 U/L (39-117); Anion Gap 9 (12-20); Aspartate Amino Transferase 29 U/L (5-31); Bilirubin Total 0.7 mg/dL (0.0-1.0); Blood Urea Nitrogen 16 mg/dL (9-16); Calcium 9.3 mg/dL (8.4-10.2); Carbon Dioxide 30 mmol/L (22-29); Chloride 100 mmol/L (96-108); Cholesterol 177 mg/dL (<200); Estimated Glomerular Filt Rate > 60; Glucose Fasting 90 mg/dL (60-99); HDL Cholesterol 62 mg/dL (>40); LDL Cholesterol Calculated 105 mg/dL (<100); Potassium 4.1 mmol/L (3.3-5.1); Sodium 135 mmol/L (135-145); Triglycerides 53 mg/dL (<150)
[2024-01-22 11:04] LABS: Free T4 (Free Thyroxine) 1.22 ng/dL (0.71-1.85); Thyroid Stimulating Hormone 1.83 uIU/mL (0.32-4.0); Vitamin D 25-OH Total 65.5 ng/mL (>30)
== END 2024-01-22 08:56 | disposition home or self-care (01) ==
LOC: HO.HMGCLDS 08:55
PROVIDERS: PCP Internal Medicine; Visit Provider Internal Medicine
DX: I10 Essential (primary) hypertension (principal); E03.9 Hypothyroidism, unspecified; E87.1 Hypo-osmolality and hyponatremia
CPT/HCPCS: 36415; 80053; 80061; 82306; 84439; 84443; 85025

== ENCOUNTER 2024-02-24 10:56 | Outpatient (AMB) | payer MEDICARE, SELFPAY ==
--- NOTE | 2024-02-24 11:05 | AM.OFFWIN_ITS ---
Intake Vital Signs 02/24/24 11:07 Height 5 ft 3 in Weight 120 lb BMI 21.3 BP 120/78 Blood Pressure Location Lt brachial Position Sitting Pulse 56 Pulse Source Pulse Oximeter Pulse Oximetry (%) 98 Oxygen Delivery Method Room Air Intake Visit Reasons: EP Ear pain Intake Note: Patient here for right ear pain that has been bothersome since last week. Patient Tobacco Use Status: Never used Tobacco Allergies cephalexin Allergy (Severe, Verified 02/24/24 11:07) Diarrhea and Fainting NSAIDS (Non-Steroidal Anti-Inflamma [NSAIDS (NON-STEROIDAL ANTI-INFLAMMA] Allergy (Severe, Verified 02/24/24 11:07) ANAPHYLAXIS Penicillins [PENICILLINS] Allergy (Severe, Verified 02/24/24 11:07) RASH clindamycin [CLINDAMYCIN] Adverse Reaction (Severe, Verified 02/24/24 11:07) DIARRHEA Do you need a note to return to daycare/school/sports/work: No HPI HPI Comments History of Present Illness Details Patient is a 78-year-old female complaining of right ear irritation for the past week. She tells me she has a issue with impacted wax and has a ear nose and throat doctor remove it regularly for her. She tells me her appointment with him is not for another couple of weeks. She says she went to the hairdresser about a week ago and when they are washing her hair she thinks some water went in there and that it might be infected. She denies any fevers or change in her hearing. [facility] Medical History COPD (chronic obstructive pulmonary disease) Hiatal hernia Abnormal PFTs (pulmonary function tests) Paroxysmal atrial fibrillation Abnormal chest x-ray with multiple lung nodules Empyema lung Restrictive lung disease Surgical History History of lung surgery History of esophagogastroduodenoscopy (EGD) H/O colonoscopy Family History Father No problems noted. Mother No problems noted. Social History Patient Tobacco Use Status: Never used Tobacco Second Hand Smoke Exposure: No Review of Systems Const All systems reviewed & are unremarkable except as noted in HPI and below Physical Exam Vital Signs: Last Vital Signs Pulse 56 02/24/24 11:07 BP 120/78 02/24/24 11:07 Pulse Ox 98 02/24/24 11:07 Oxygen Delivery Method Room Air 02/24/24 11:07 BMI result Body Mass Index 21.3 Const General: cooperative, healthy appearing, comfortable and no acute distress Orientation/consciousness: patient oriented x3 HEENT Head: Yes normal to inspection Ears: mastoids normal, Abnormal EAC present cerumen impaction and unable to visualize TM (cerumen blockage) bilaterally General nose exam: Normal external nose present Face and sinus: Yes normal facial exam Resp Effort & Inspection: normal respiratory effort and able to speak in complete sentences Neuro General: patient oriented x3 Office Procedures Cerumen Removal Details: unable to remove cerumen with using both curette and irrigation From which ear canal was the cerumen removed: bilateral Removal: irrigation and otoscope w/curette Notes: patient tolerated procedure well and no complications [id number] Irrigation/Lavage Assessment & Plan Assessment & Plan (1) Bilateral impacted cerumen: Code(s): H61.23 - Impacted cerumen, bilateral Plan: Unable to remove the impacted cerumen today either with curette or irrigation. Recommended patient by Debrox drops and use them once a day for the next 3 or 4 days and return to the clinic so we can try again. Once it is removed, we can get a better look at the ear to see what is causing her irritation. (2) Irritation of right ear: Code(s): H93.8X1 - Other specified disorders of right ear Plan: See above Plan See above Coding Level of Care Code Est Pt Level 3 (69004) Diagnoses Bilateral impacted cerumen H61.23 Irritation of right ear H93.8X1 CPT Codes Office Procedure - CPT: 35103-Ddr Irrigation/Lavage ([id number])
[2024-02-24 11:07] VITALS: BP 120/78; PULSE 56; O2SAT 98; BMI 21.3
== END 2024-02-24 11:40 | disposition home or self-care (01) ==
PROVIDERS: PCP Internal Medicine; Visit Provider Physician Assistant
DX: H93.8X1 Other specified disorders of right ear (principal); H61.23 Impacted cerumen, bilateral

== ENCOUNTER → 2024-02-24 10:56 | Outpatient (BNVA) | payer MEDICARE, SELFPAY | PROVIDERS: PCP Internal Medicine; Visit Provider Physician Assistant | DX: H61.23 Impacted cerumen, bilateral (principal); H93.8X1 Other specified disorders of right ear | CPT/HCPCS: 99212 ==

== ENCOUNTER 2024-02-27 13:00 | Outpatient (AMB) | payer MEDICARE, SELFPAY ==
[2024-02-27 13:11] VITALS: BP 130/72; PULSE 58; TEMP 36.3; O2SAT 98; BMI 20.2
--- NOTE | 2024-02-27 13:11 | MHC.OFFWIV ---
Intake Vital Signs 02/27/24 13:11 Height 5 ft 3 in Weight 114 lb BMI 20.2 BP 130/72 Blood Pressure Location Lt brachial Position Sitting Pulse 58 Pulse Source Pulse Oximeter Temp 97.4 F Temp Source Oral Pulse Oximetry (%) 98 Oxygen Delivery Method Room Air Intake Visit Reasons: EP recheck ears Intake Note: Pt is here today Rt ear wax removal Patient Tobacco Use Status: Never used Tobacco Allergies cephalexin Allergy (Severe, Verified 02/24/24 11:07) Diarrhea and Fainting NSAIDS (Non-Steroidal Anti-Inflamma [NSAIDS (NON-STEROIDAL ANTI-INFLAMMA] Allergy (Severe, Verified 02/24/24 11:07) ANAPHYLAXIS Penicillins [PENICILLINS] Allergy (Severe, Verified 02/24/24 11:07) RASH clindamycin [CLINDAMYCIN] Adverse Reaction (Severe, Verified 02/24/24 11:07) DIARRHEA HPI EP recheck ears HPI Details Patient is a 78-year-old female with a history of excessive cerumen to the right ear who had come to the walk-in clinic a few days ago complaining of fullness to the right ear. She had then been told that she had excessive cerumen and should use Debrox drops before returning for ear lavage. She denies pain to the ear, obvious discharge, dizziness or vertigo, headache, fever or chills, nausea vomiting or diarrhea, other respiratory symptoms, or other significant associated symptoms. She reports that she is due to see her ENT in about 2 weeks anyway, as she needed to have the right ear cleaned. However her symptoms were exacerbated with going to the hairdresser and getting water into the ear. She then had some decreased hearing and immediately had fullness and a blocking sensation. She started using the Debrox drops after that, and returns today for cerumen removal. [facility] Medical History COPD (chronic obstructive pulmonary disease) Hiatal hernia Abnormal PFTs (pulmonary function tests) Paroxysmal atrial fibrillation Abnormal chest x-ray with multiple lung nodules Empyema lung Restrictive lung disease Surgical History History of lung surgery History of esophagogastroduodenoscopy (EGD) H/O colonoscopy Family History Father No problems noted. Mother No problems noted. Social History Patient Tobacco Use Status: Never used Tobacco Second Hand Smoke Exposure: No Review of Systems Const All systems reviewed & are unremarkable except as noted in HPI and below Physical Exam Vital Signs: Last Vital Signs Temp 97.4 F 02/27/24 13:11 Pulse 58 02/27/24 13:11 BP 130/72 02/27/24 13:11 Pulse Ox 98 02/27/24 13:11 Oxygen Delivery Method Room Air 02/27/24 13:11 BMI result Body Mass Index 20.2 HEENT Ears: Abnormal EAC present (Per MA, right cerumen impaction) edema and other (Macerated, desquamated skin with bleeding, 6 o'clock position); no EA tenderness and no foreign body Office Procedures Cerumen Removal Details: Right ear canal was lavaged, and cerumen was removed. From which ear canal was the cerumen removed: right Removal: irrigation Notes: patient tolerated procedure well [id number] Irrigation/Lavage Assessment & Plan Assessment & Plan (1) Otitis externa: Code(s): H60.90 - Unspecified otitis externa, unspecified ear Qualifiers: Noninfectious otitis externa type: unspecified noninfectious type Chronicity: acute Laterality: right Otitis externa type: noninfectious Qualified Code(s): H60.501 - Unspecified acute noninfective otitis externa, right ear Plan: Patient had the right ear canal lavaged by MA, and she had some extensive maceration and bleeding, especially to the inferior aspect of the canal. Will write her for hydrocortisone ascetic acid to help the area heal. She knows to follow up if she develops symptoms or issues. She does have her ENT specialist appointment coming up in 2 weeks apparently also. Medications: New hydrocortisone-acetic acid 1-2 % apply to (cotton) wick; replace wick every 24 hours 5 drps otic (ears) TID 10 mL 0RF Coding Level of Care Code Est Pt Level 3 (22354) Diagnoses Acute non-infective otitis externa of right ear, unspecified type H60.501 Noninfectious otitis externa type: unspecified noninfectious type Chronicity: acute Laterality: right Otitis externa type: noninfectious CPT Codes Office Procedure - CPT: 71342-Dyq Irrigation/Lavage ([id number])
== END 2024-02-27 13:58 | disposition home or self-care (01) ==
PROVIDERS: PCP Internal Medicine; Visit Provider Physician Assistant Medical
DX: H60.501 Unspecified acute noninfective otitis externa, right ear (principal); H61.21 Impacted cerumen, right ear

== ENCOUNTER → 2024-02-27 13:00 | Outpatient (BNVA) | payer MEDICARE, SELFPAY | PROVIDERS: PCP Internal Medicine | DX: H60.501 Unspecified acute noninfective otitis externa, right ear (principal) | CPT/HCPCS: 69209; 99212 ==

== ENCOUNTER 2024-07-08 14:36 | Outpatient (AMB) | payer MEDICARE, SELFPAY ==
[2024-07-08 14:49] VITALS: BP 130/72; PULSE 64; TEMP 36.6; O2SAT 97; BMI 20.2
--- NOTE | 2024-07-08 14:49 | MHC.OFFWIV ---
Intake Vital Signs 07/08/24 14:49 Height 5 ft 3 in Weight 114 lb BMI 20.2 BP 130/72 Blood Pressure Location Lt brachial Position Sitting Pulse 64 Pulse Source Pulse Oximeter Temp 97.8 F Temp Source Oral Pulse Oximetry (%) 97 Intake Visit Reasons: EP Digestive issue Patient Tobacco Use Status: Never used Tobacco Allergies cephalexin Allergy (Severe, Verified 07/08/24 14:49) Diarrhea and Fainting NSAIDS (Non-Steroidal Anti-Inflamma [NSAIDS (NON-STEROIDAL ANTI-INFLAMMA] Allergy (Severe, Verified 07/08/24 14:49) ANAPHYLAXIS Penicillins [PENICILLINS] Allergy (Severe, Verified 07/08/24 14:49) RASH clindamycin [CLINDAMYCIN] Adverse Reaction (Severe, Verified 07/08/24 14:49) DIARRHEA Do you need a note to return to daycare/school/sports/work: No HPI HPI Comments History of Present Illness Details History of Present Illness - The patient is an 79-year-old female presenting with increasing frequency of upper abdominal pain with burning after meals. - She reports an exacerbation of a longstanding gastroesophageal reflux issue, now more frequent and sharper in presentation, relieved partially by TUMS but not fully controlled. No change in the foods she is eating - Attempts with omeprazole 40 mg resulted in significant diarrhea - Famotidine therapy has been ineffective according to the patient's account, as the symptoms persist. - The patient's medical history includes severe pneumonia with empyema treated surgically, biologically linked to GERD due to the pathogen, entailing medical and surgical expertise in prior care. Physical Exam General: Cooperative, healthy appearing, comfortable, no acute distress and well developed Orientation: Patient oriented x3 Limitations: No limitations Head: Normal to inspection Ears: Hearing grossly normal bilaterally Nose: Normal external nose present Face and sinus: Normal facial exam Eyes: Appearance normal, both eyes and all related structures Neck: Normal visual inspection and Yes full ROM Respiratory: Normal respiratory effort and able to speak in complete sentences. Skin: No rashes or lesions noted Neuro: Patient oriented x3 Extremities: Normal to inspection [facility] Medical History COPD (chronic obstructive pulmonary disease) Hiatal hernia Abnormal PFTs (pulmonary function tests) Paroxysmal atrial fibrillation Abnormal chest x-ray with multiple lung nodules Empyema lung Restrictive lung disease Surgical History History of lung surgery History of esophagogastroduodenoscopy (EGD) H/O colonoscopy Family History Father No problems noted. Mother No problems noted. Social History Patient Tobacco Use Status: Never used Tobacco Second Hand Smoke Exposure: No Review of Systems Const All systems reviewed & are unremarkable except as noted in HPI and below Physical Exam Vital Signs: Last Vital Signs Temp 97.8 F 07/08/24 14:49 Pulse 64 07/08/24 14:49 BP 130/72 07/08/24 14:49 Pulse Ox 97 07/08/24 14:49 BMI result Body Mass Index 20.2 Assessment & Plan Assessment & Plan (1) GERD (gastroesophageal reflux disease): Code(s): K21.9 - Gastro-esophageal reflux disease without esophagitis Qualifiers: Esophagitis presence: esophagitis presence not specified Qualified Code(s): K21.9 - Gastro-esophageal reflux disease without esophagitis Plan: The plan for the patient's gastroesophageal reflux disease GERD) involves trying a reduced dose of omeprazole 20 mg) to strike a balance between controlling her symptoms and minimizing adverse effects, such as diarrhea which was noted at higher doses. The aim is to optimize relief while avoiding additional gastrointestinal distress, with administration adjusted to avoid interactions with levothyroxine. Given the patient's history, maintaining famotidine may provide ancillary support, though its efficacy is noted as limited. The patient was advised to pay close attention to their symptom pattern and to ensure proper timing of medication around meals and other daily medications. Additionally, dietary habits remain under review to identify potential triggers. Follow up with GI doctor on Thursday if no improvement in her symptoms. Patient was informed and verbally consented to the use of an ambient scribe for clinic note documentation during this visit. Medications: New omeprazole 20 mg PO DAILY PRN 20 caps 0RF acid reflux Coding Level of Care Code New Pt Level 3 (34359) Diagnoses Gastroesophageal reflux disease, unspecified whether esophagitis present K21.9 Esophagitis presence: esophagitis presence not specified
--- OUTSIDE RECORDS SUMMARY | 2024-07-08 16:18 | XMS_ITS | Patient Health Record ---
Author Organization [facility] Address [address] [place] [phone] Care Team Providers Care Estimator Name Role Phone Chester Merida MD Primary Care Provider Deondre Garzon [phone] Allergies Allergen (clinical drug ingredient) Drug/Non Drug Allergy documented on EMR Reaction Allergy Type Onset Date Status Non-steroidal anti-inflammatory agent (FN) NSAIDS (uncoded) Unknown Allergy Active rofecoxib Vioxx (uncoded) Unknown Allergy Acti ve PCN (uncoded) Unknown Allergy Active Reason For Referral No Information Medications Medication SIG (Take, Route, Frequency, Duration) Notes Start Date End Date Status Omeprazole 40 MG 1 Orally Once a day for 90 days 02/05/2023 Active Lomotil 2.5-0.025 MG 1 tablet as needed Orally Four times a day 01/21/2021 Active Famotidine 40 MG 1 Orally Once a day for 90 days Active Probiotic 1 capsule Orally onc e a day Not-Taking ALPRAZolam 0.25 MG Oral for 30 Active Atenolol 12.5 mg 1 tablet Orally Once a day Active Vitamin B Complex - as directed Orally every day Not-Taking Vitamin D 2000 UNIT 1 capsule Orally Onc e a day Active Citracal Plus - as directed Orally once a day Active Levothyroxine Sodium 88 MCG 1 tablet on an empty stomach in the morning Orally Once a day Active Immunizations Vaccine Route Administration Date Status Comme nts Influenza Unknown 01/02/2017 Administered Influenza Unknown 02/16/2018 Administered Influenza Unknown 01/02/2019 Administered Influenza Unknown 02/02/2020 Administered Influenza Unknown 02/01/2021 Administered Influenza Unknown 02/24/2023 Administered Problems Problem Type SNOMED Code ICD Code Onset Dates Problem Status W/U Status Risk Notes Problem 195540288 Encounter for screening for malignant neoplasm of colon (Z12.11) Active confirmed Problem 496568997 History of adenomatous polyp of colon (Z86.010) Active confirmed Problem Screening for malignant neoplasm of rectum (502658710) Encounter for screening for malignant neoplasm of rectum (Z12.12) Active confirmed Problem 49913742 Abdominal pain, epigastric (R10.13) Active confirmed Problem 240107726 Gastroesophageal reflux disease without esophagitis (K21.9) Active confirmed Problem 986451080 Long-term use of aspirin therapy (Z79.82) Active confirmed Problem 29435871 Diarrhea, unspecified type (R19.7) Active confirmed Problem 33055180 Other irritable bowel syndrome (K58.8) Active confirmed Problem 92758790 Irritable bowel syndrome with both constipation and diarrhea (K58.2) Active confirmed Problem 30095234 Hypertension, unspecified type (I10) Active confirmed Problem 00442589 Gastric ulcer without hemorrhage or perforation, unspecified chronicity (K25.9) Active confirmed Problem 265082778135882 History of Clostridioides difficile infection (Z86.19) Active confirmed Vital Signs Temperature 97.8 degrees Fahrenheit 01/20/2024 Blood pressure diastolic 00 mm Hg 01/20/2024 Height 63.75 in 01/20/2024 Blood pressure systolic 000 mm Hg 01/20/2024 Weight 114 lb 6 oz lbs 01/20/2024 BMI 19.78 kg/m2 01/20/2024 Encounters Encounter Location Date Provider Diagnosis [facility] [address] [place] [phone] 01/20/2024 Deondre Olivier Irritable bowel syndrome with both constipation and diarrhea K58.2 [facility] [address] [place] [phone] 07/08/2024 Deondre Olivier [facility] [address] [place] [phone] 10/26/2023 Deondre Olivier [facility] [address] [place] [phone] 2024 Deondre Olivier Assessments Encounter Date Diagnosis (ICD Code) Assessment Notes Treatment Notes Treatment Clinical Notes Section Notes 01/20/2024 Irritable bowel syndrome with both constipation and diarrhea (ICD-10 - K58.2) Continue same plan and diet for the Irritable Bowel Syndrome and see me as needed Overall, Gilma appears quite well. We did have a detailed discussion today regarding her underlying history of irritable bowel syndrome. I did advise her that things sound like they are very stable on a very minimal regimen. As such, I advised her that I would not recommend any changes in medication or diet. I don't think she needs any type of workup on my part such as endoscopic studies, imaging studies, or laboratories. I did advise her to drink as much fluid as permitted by her land agent and it would probably be best to drink more of the fluid in the morning than she does later in the day such that having her bowel movements do not make her feel as wiped out . At this point, if things remain well, I advised Gilma to see me again on a p.r.n. basis. She was comfortable with this plan. Thank you again for allowing me to participate in Gilma's care. I shall continue to keep you advised of her progress as needed. Please do not hesitate to contact me if I can be of any further assistance in the future. Plan Of Treatment Pending Test Test Name Order Date LIVER PROFILE 02/23/2013 AMYLASE 02/23/2013 LIPASE 02/23/2013 CRP 01/08/2021 CBC w DIFF 01/08/2021 SED RATE (ESR) 01/08/2021 ENDOMYSIAL IGA 02/18/2011 CULTURE, STOOL 01/08/2021 STOOL WBC 01/08/2021 C DIFFICILE RFLX PCR 04/18/2019 C DIFFICILE RFLX PCR 09/19/2020 C DIFFICILE RFLX PCR 01/08/2021 CALPROTECTIN, STOOL 02/01/2021 Future Test Test Name Order Date COLONOSCOPY 02/18/2011 COLONOSCOPY 08/20/2016 UPPER GI ENDOSCOPY 06/09/2018 Insurance Providers Payer Name Payer Address Payer Phone Subscriber Number Group Number Insured Name Patient Relationship to Insured Coverage Start Date Coverage End Date MEDICARE OF [place] [address] [facility] [place] [address] [id number] MYLESGILMA ANDRADE Self - patient is the insured [employer] CLAIMS [address] [place] [address] [id number] LEIF MYLESZABETH Self - patient is the insured Medical (General) History Medical History History ICD Code Irritable bowel syndrome Tubular adenomas of the colo n--most recent colonoscopy was in 11/2016--neg for polyps--neg colonoscopy in 2006 and 2011, and a small adenoma removed in 2002 Hypothyroidism Palpitations Denies GA,DM,CVA,Lung disease,renal dise ase Positive H. pylori serology in 2008, for which she was never treated--I did not think that was contributing to any of her GI symptoms Negative tissue transglutaminase IgA ant ibody in 2008 Relapsing C. diff--started i n 04/2013 after Clindamycin--on Flagyl twice, then Vanco--still relapsed, and resolved on a tapering regimen Osteoporosis 03/2019 with pneumonia and a n empyema-a strep viridans was cultured--required hospitalization and a chest tube-seeing Dr. Castle EGD 06/2018 with minimal HH, minmal gastitis; normal duodenal and gastric biopsies-no celiac disease and no Hpylori Broken pelvis after a fall in 06/2019 C.diff infection 08/2020 due to antibioti cs--treated with Vanco Surgical History Surgery Date(Month/Year) Thoracic surgery in relation to pneumoni a and empyema as above 2019
--- OUTSIDE RECORDS SUMMARY | 2024-07-08 16:18 | XMS_ITS ---
Author Organization [facility] Address [address] [place] [address] Care Team Providers Care Sulfonation Equipment Operator Name Role Phone Chester Merida MD Primary Care Provider Deondre Garzon [phone] Encounters Encounter Location Date Provider Diagnosis [facility] [address] [place] [phone] 07/08/2024 Deondre Olivier Plan Of Treatment No Information Progress Notes * LOLIS MYLESDOB:[birth year] (79 yo F)Acc No.[id number]:07/08/2024 Patient:?LOLIS MYLES :1945???Age:79 Y???Sex:Female Address:[address] [place] [id number] * * Date:?
--- OUTSIDE RECORDS SUMMARY | 2024-07-08 16:18 | XMS_ITS | Clinical Summary ---
Author Organization [facility] Address [address] [place] [address] Care Team Providers Care Coat Tailor Name Role Phone Unavailable Primary Care Provider Unavailabl e Social History Tobacco Use Types Packs/Day Years Used Date Smoking Tobacco: Never Assessed Comments Unknown Sex and Gender Information Value Date Recorded Sex Assigned at Not on file Legal Sex Female 1:08 AM EST Gender Identity Not on file Sexual Orientation Not on file Plan of Treatment Health Maintenance Due Date Last Done Comments DTaP,Tdap,and Td Vaccines (1 - Tdap) 1963 Pneumococcal Vaccine: 50+ Ye ars (1 of 1 - PCV) 1994 Zoster Vaccines (1 of 2) 1994 RSV Immunization Patients 60 + Years Old (1 - 1-dose 75+ series) 2019 COVID-19 Vaccine (2023-2 5 season) 2024 Influenza Vaccine (#1) 2024 HIB Vaccines Aged Out No longer eligi ble based on patient's age to complete this topic HPV Vaccines Aged Out No longer eligi ble based on patient's age to complete this topic Hepatitis A Vaccines Aged Out No long er eligible based on patient's age to complete this topic Hepatitis B Vaccines Aged Out No long er eligible based on patient's age to complete this topic IPV Vaccines Aged Out No longer eligi ble based on patient's age to complete this topic MMR Vaccines Aged Out No longer eligi ble based on patient's age to complete this topic Meningococcal ACWY Vaccine Aged Out N o longer eligible based on patient's age to complete this topic Meningococcal B Vacine Aged Out No lo nger eligible based on patient's age to complete this topic RSV Immunization Patients Un chris 20 months Aged Out No longer eligible b ased on patient's age to complete this topic Varicella Vaccines Aged Out No longer eligible based on patient's age to complete this topic
--- OUTSIDE RECORDS SUMMARY | 2024-07-08 16:18 | XMS_ITS | Continuity of Care Document ---
Author Organization [facility] [address] [facility] [address] [place] [address] Phone [phone] Care Team Providers Care Torpedo Worker Name Role Phone Chester Merida M.D. Care Team Information Receiv er [phone] Problems Active Problems Provider Date Osteoporosis Althea Nguyễn M.D. Ons et: 12/23/2021 Hyponatremia Althea Nguyễn M.D. Ons et: 12/23/2021 Hypothyroidism Althea Nguyễn M.D. Ons et: 12/23/2021 Atrial fibrillation Althea Nguyễn M.D. Onset: 12/23/2021 Irritable bowel syndrome Althea Nguyễn M.D. Onset: 12/23/2021 Fracture of pelvis Althea Nguyễn M.D. Onset: 12/23/2021 Syndrome of inappropriate va sopressin secretion Althea Nguyễn M.D. Onset: 12/23/2021 Ventricular premature beats Althea arcos M.D. 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 Alprazolam0.25mg Tablets Take 1 Tablet By Mouth Every Day as Needed Chester Merida M.D. Levothyroxine Vjxpzl68oym Tablets Take 1 Tablet By Mouth Every Day Chester Merida M.D. Ikbecd90hm/ml Soln Prefill Syringe inject 60 mg under the skin every 6 months 1units Althea Nguyễn M.D. Citracal Calcium+D Slow [id number] Unit Tablets ER 24HR 1 by mouth every day Althea Nguyễn M.D. Vitamin B-ComplexTablets 1 every day Althea Nguyễn M.D. Vital Signs Date Vital Result Comment 05/06/2024 9:43am BP Systolic 132 mmHg BP Diastolic 78 mmHg Results Test Acquired Date Facility Test Result H/L Range Note Laboratory test finding 05/06/2024 [facility] Albumin 4.4 g/dL 3.8-4.8 Basic Metabolic Panel (8) 05/06/2024 [facility] Glucose 84 mg/dL 70-99 BUN 13 mg/dL 8-27 Creatinine 0.72 mg/dL 0.57-1.0 0 eGFR 84 mL/min/1.7 3 >59 BUN/Creatinine Ratio 18 12-28 Carbon Dioxide, Total 25 mmol/L 20-29 Calcium 9.9 mg/dL 8.7-10.3 Sodium 135 mmol/L 134-144 Potassium 4.7 mmol/L 3.5-5.2 Chloride 95 mmol/L Low 96-106 Basic Metabolic Panel (8) 10/30/2023 [facility] Glucose 92 mg/dL 70-99 BUN 17 mg/dL 8-27 Creatinine 0.82 mg/dL 0.57-1.0 0 eGFR 73 mL/min/1.7 3 >59 BUN/Creatinine Ratio 21 12-28 Sodium 138 mmol/L 134-144 Potassium 4.6 mmol/L 3.5-5.2 Chloride 97 mmol/L 96-106 Carbon Dioxide, Total 25 mmol/L 20-29 Calcium 10.2 mg/dL 8.7-10.3 Laboratory test finding 10/30/2023 [facility] Albumin 4.5 g/dL 3.8-4.8 TSH Rfx on Abnormal to Free T4 1.500 uIU/mL 0.450-4. 500 Laboratory test finding 04/07/2023 [facility] Calcium 9.8 mg/dL (8.6-10. 5) Sodium 132 mmol/L Low (133-145 ) Laboratory test finding 12/31/2022 [facility] TSH With Reflex To FT4 1.24 uIU/mL (0.4-4.2 ) Laboratory test finding 12/29/2022 [facility] TSH With Reflex To FT4 <pending> Laboratory test finding 09/03/2022 [facility] Albumin 4.8 GM/DL (3.4-4.8 ) Calcium 10.0 mg/dL (8.6-10. 5) Laboratory test finding 06/26/2022 [facility] Calcium <pending> Albumin <pending> Comprehensive Metabolic Panl 06/25/2022 [facility] Glucose 116 mg/dL High (70-99) BUN 13 mg/dL (8-23) Creatinine 0.7 mg/dL (0.5-1.0 ) Sodium 134 mmol/L (133-145 ) Potassium 4.9 mmol/L (3.6-5.2 ) Chloride 95 mmol/L Low (98-107) Bicarbonate 30 mmol/L High (22-29) Anion Gap 9 (4-17) Albumin 4.5 GM/DL (3.4-4.8 ) Calcium 9.6 mg/dL (8.6-10. 5) Bilirubin,Total 0.3 mg/dL (0-1.2 ) Total Protein 7.6 GM/DL (6.2-8.2 ) Ag Ratio 1.5 Ast 27 U/L (0-32) Alk Phos 60 U/L (35-104) Alt 17 U/L (0-33) Estimated GFR Creatinine 87 ML/MIN/1.7 3M2 1 Laboratory test finding 06/25/2022 [facility] TSH With Reflex To FT4 1.52 uIU/mL (0.4-4.2 ) 25Oh Vitamin D 43.5 NG/ML (20-50 ) Laboratory test finding 03/06/2022 [facility] Calcium 9.9 mg/dL (8.6-10. 5) Laboratory test finding 02/25/2022 [facility] Calcium <pending> Electrolytes 01/14/2022 [facility] Sodium 136 mmol/L (133-145 ) Potassium 4.6 mmol/L (3.6-5.2 ) Chloride 97 mmol/L Low (98-107) Bicarbonate 30 mmol/L High (22-29) Anion Gap 9 (4-17) Laboratory test finding 12/23/2021 [facility] TSH With Reflex To FT4 0.98 uIU/mL (0.4-4.2 ) Electrolytes 12/23/2021 [facility] Sodium 128 mmol/L Low (133-145 ) Potassium 5.1 mmol/L (3.6-5.2 ) Chloride 90 mmol/L Low (98-107) Bicarbonate 29 mmol/L (22-29) Anion Gap 9 (4-17) 1 Creatinine based est imated glomerular filtration (eGFR) in adults is calculated using the National [employer] recommended 2020 CKD-EPI equation. Estimates GFR from serum creatinine, age and sex. Procedures Date Code Description Status 05/06/2024 45198 Collection Of Venous Blood B y Venipuncture Completed 06/25/2022 47211 Collection Of Venous Blood B y Venipuncture Completed 12/23/2021 99098 Collection Of Venous Blood B y Venipuncture Completed Medical Devices Description No Information Available Encounters Type Date Location Provider Dx Diagnosis Office Visit 05/06/2024 9:00a Main Office Althea Nguyễn M.D. 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 05/06/2024 E03.9 Hypothyroidism, unspecified Althea Nguyễn M.D. 05/06/2024 E22.2 Syndrome of inap propriate secretion of antidiuretic hormone Althea Nguyễn M.D. Plan of Treatment Future Appointment(s):* 11/03/2024 9:00 am - Althea Nguyễn M.D. 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
--- OUTSIDE RECORDS SUMMARY | 2024-07-08 16:18 | XMS_ITS | Patient Health Record ---
Author Organization [facility] Address [address] [place] [address] Care Team Providers Care Flanger Name Role Phone Chester Merida MD Primary Care Provider Unavailkeely Sofía Hill Unavailable [phone] Allergies Allergen (clinical drug ingredient) Drug/Non Drug Allergy documented on EMR Reaction Allergy Type Onset Date Status cefpodoxime Cefpodoxime abdominal pain Drug Allergy Active clindamycin Clindamycin Unknown Drug Allergy Act fran Penicillin Unknown Drug Allergy Active Reason For Referral No Information Social History Tobacco Use: Social History Observation Description Date Details (start date - stop date) Never Smoker NA - NA Tobacco use other than smoking: Question Answer Notes Are you an other tobacco user? No Tobacco Control (Standard) Question Answer Notes Tobacco use: Nonsmoker Additional Findings: Tobacco non-user Current no nsmoker AUDIT-C (Standard) Question Answer Notes Did you have a drink containing alcohol in the p ast year? No Points 0 Interpretation Negative Encounters Encounter Location Date Provider Diagnosis [address] [address] 06/14/2024 Sofía Pereira Plan Of Treatment Next Appt Details Provider Name:Sofía Pereira , 08/29/2024 08:30:00 AM, [address] [place], [address], Insurance Providers Payer Name Payer Address Payer Phone Subscriber Number Group Number Insured Name Patient Relationship to Insured Coverage Start Date Coverage End Date Medicare National [employer] [address] [place] [phone] [id number] Kendall Marques Self - patient is the insured [facility] [address] [place] [address] [phone] [id number] 5 Kendall Marques Self - patient is the insured Medical (General) History Medical History History ICD Code Back,Hip,and Knee pain Broken bones Osteoporosis Reflux ( GERD) thyroid Measles Chicken pox Surgical History Surgery Date(Month/Year) lung surgery 04/21
--- OUTSIDE RECORDS SUMMARY | 2024-07-08 16:18 | XMS_ITS ---
Author Organization [facility] Address [address] [place] [address] Care Team Providers Care Scale Agent Name Role Phone Chester Merida MD Primary Care Provider Unavaila jd PereiraRehanSofía Unavailable [phone] REASON FOR VISIT TECHNICIAN BIOLOGICAL HEALTH Encounters Encounter Location Date Provider Diagnosis [facility] [address] [place] [address] 06/14/2024 Sofía Pereira Plan Of Treatment Next Appt Details Provider Name:Sofía Massey Randall , 08/29/2024 08:30:00 AM, [address] [place], [address], Progress Notes * Kendall MYLESDOB: [birth year] (79 yo Other)Acc No.[id number]:06/14/2024 Patient:?Kendall MYLES :1945???Age:79 Y???Sex:Unknown Address:[address] [facility] [place] [address] * true * Date:? Generated for Hemali celso/Heavenly/eTransmitting on:?07/08/2024 04:18 PM EST
--- OUTSIDE RECORDS SUMMARY | 2024-07-08 16:18 | XMS_ITS ---
Author Organization [facility] Address [address] [place] [address] Care Team Providers Care Steam Distribution Supervisor Name Role Phone Chester Merida MD Primary Care Provider Deondre Garzon Unavailable [phone] Allergies Allergen (clinical drug ingredient) Drug/Non Drug Allergy documented on EMR Reaction Allergy Type Onset Date Status Non-steroidal anti-inflammatory agent (FN) NSAIDS (uncoded) Unknown Allergy Active rofecoxib Vioxx (uncoded) Unknown Allergy Acti ve PCN (uncoded) Unknown Allergy Active REASON FOR VISIT Patient presents today for ibs Medications Medication SIG (Take, Route, Frequency, Duration) Notes Start Date End Date Status Lomotil 2.5-0.025 MG 1 tablet as needed Orally Four times a day 01/21/2021 Active Probiotic 1 capsule Orally onc e a day Not-Taking ALPRAZolam 0.25 MG Oral for 30 Active Omeprazole 40 MG 1 Orally Once a day for 90 days 02/05/2023 Not-Taking Famotidine 40 MG TAKE 1 TABLET BY HANNAH TH EVERY DAY AT 6PM for 90 Not-Taking Atenolol 12.5 mg 1 tablet Orally Once a day Active Vitamin B Complex - as directed Orally every day Not-Taking Vitamin D 2000 UNIT 1 capsule Orally Onc e a day Active Citracal Plus - as directed Orally once a day Active Levothyroxine Sodium 88 MCG 1 tablet on an empty stomach in the morning Orally Once a day Active Vital Signs Temperature 97.8 degrees Fahrenheit 01/20/20 24 Blood pressure systolic 000 mm Hg 01/20/20 24 Blood pressure diastolic 00 mm Hg 024 Height 63.75 in 01/20/2024 Weight 114 lb 6 oz lbs 01/20/2024 BMI 19.78 kg/m2 01/20/2024 Encounters Encounter Location Date Provider Diagnosis [facility] [address] [facility] [address] [place] [address] 01/20/2024 Deondre Olivier Irritable bowel syndrome with both constipation and diarrhea K58.2 Assessments Encounter Date Diagnosis (ICD Code) Assessment [...] as much fluid as permitted by her corporate safety manager and it would probably be best to [...] assistance in the future. Plan Of Treatment Treatment Notes Assessment Notes Irritable bowel syndrome wit h both constipation and diarrhea Continue same plan and diet for the Irritable Bowel Syndrome and see me as needed Next Appt Details Follow Up: prn, Reason: Progress Notes * GILMA MYLESDOB:[birth year] (78 yo F)Acc No.[id number]:01/20/2024 Progress Notes Patient:?GILMA MYLES Provider:?Deondre Olivier MD :1945???Age:78 Y???Sex:Female D ate:01/20/2024 Address:[address] [place], [place] [id number] Pcp:Chester Merida MD Subjective: * Chief Complaints: * ???Patient presents today fo r ibs * HPI: ???incontinence:? I saw Gilma in followup today in regard to her underlying history of irritable bowel syndrome. ?I last saw Gilma in 2021. At that time her irritable bowel syndrome was quite stable on a minimal regimen of a daily Lomotil and a nightly Alprazolam. Since that time she reports that things have remained well. She reports that she is having a formed and soft bowel movement just about every other day. She enjoys a good appetite and denies any significant heartburn, dysphagia, early satiety, nausea, nor vomiting. She has not noticed any hematochezia nor melena. She denies any abdominal pain, jaundice, nor unintentional weight loss. ?More recently she has only been using Lomotil either p.r.n. for any particular symptoms or taking it preventively prior to going out if she thinks that might trigger some IBS symptoms. She finds that she does not needed every day and things have remained quite stable on the p.r.n. regimen. ?Her laboratories in March of 2023 revealed a normal CBC, normal LFTs, normal renal function. She describes that she sees an corporate safety manager for some chronic mild hyponatremia and for that reason cannot drink that much fluid during the day. She does describe that sometimes after her bowel movements she will feel wiped out for a couple of hours and thinks it might be related to the fact that she can't drink enough fluids. * ROS:?General/Constitutional:?Change in appetite?denies.?Chills?denies.?Fatigue?denies.?Ophthalmologic:?Patient denies? Negative..?ENT:?Patient denies?Negative..?Respiratory:?Patient denies?No coughing/hemoptysis..?Cardiovascular:?Patient denies? No chest pain/orthopnea..?Gastrointestinal:?Comments?See HPI for details.?Genitourinary:?Patient denies? No dysuria/hematuria..?Incontinence?denies.?Musculoskeletal:?Patient denies? No specific arthralgias/myalgias..?Skin:?Patient denies?No rash/pruritus..?Neurologic:?Patient denies? No headaches/seizures..?Psychiatric:?Patient denies?Negative..? * Medical History:? * Surgical History:?Thoracic s urgery in relation to pneumonia and empyema as above 2018 * Hospitalization/Major Diagno stic Procedure:?No Hospitalization History. * Family History:?Father: dece ased.?Mother: , diagnosed with Diabetes.? No family hx of colorectal cancer. No family history of liver cancer. * Social History:?Tobacco Use:?Tobacco Use/Smoking?Are you a: nonsmoker.?Drugs/Alcohol:?Alcohol Screen?Points: 0, Interpretation: Negative.?Miscellaneous:?Marital status: . Occupation: Retired. ???nonsmoker; no sig. alcohol. * Medications:?TakingAtenolol 12.5 mg Tablet 1 tablet Orally Once a dayVitamin D 2000 UNIT Tablet 1 capsule Orally Once a dayLevothyroxine Sodium 88 MCG Tablet 1 tablet on an empty stomach in the morning Orally Once a dayCitracal Plus - Tablet as directed Orally once a dayLomotil 2.5-0.025 MG Tablet 1 tablet as needed Orally Four times a dayALPRAZolam 0.25 MG Tablet Oral Taking Atenolol 12.5 mg Tablet 1 tablet Orally Once a dayTaking Vitamin D 2000 UNIT Tablet 1 capsule Orally Once a dayTaking Levothyroxine Sodium 88 MCG Tablet 1 tablet on an empty stomach in the morning Orally Once a dayTaking Citracal Plus - Tablet as directed Orally once a dayTaking Lomotil 2.5-0.025 MG Tablet 1 tablet as needed Orally Four times a dayTaking ALPRAZolam 0.25 MG Tablet Oral Not-Taking/PRNVitamin B Complex - Tablet as directed Orally every dayProbiotic Capsule 1 capsule Orally once a dayFamotidine 40 MG Tablet TAKE 1 TABLET BY MOUTH EVERY DAY AT 6PM Omeprazole 40 MG Capsule Delayed Release 1 Orally Once a dayMedication List reviewed and reconciled with the patientNot-Taking/PRN Vitamin B Complex - Tablet as directed Orally every dayNot-Taking/PRN Probiotic Capsule 1 capsule Orally once a dayNot-Taking/PRN Famotidine 40 MG Tablet TAKE 1 TABLET BY MOUTH EVERY DAY AT 6PM Not-Taking/PRN Omeprazole 40 MG Capsule Delayed Release 1 Orally Once a dayMedication List reviewed and reconciled with the patient * Allergies:?PCNVioxxNSAIDSyes [Allergies Verified] Objective: * Vitals:?Wt: 114 lb 6 oz, Ht: 63.75 in, BMI:19.78 Index, BP: 000/00 mm Hg, Temp: 97.8. * Examination: ???General Examination: ?GENERAL APPEARANCE:?pleasant, well nourished, well developed, in no acute distress.?EYES:?sclera non-icteric.?ORAL CAVITY:?mucosa moist.?NECK/THYROID:?no cervical lymphadenopathy, neck supple.?SKIN:?nonjaundiced, no spider angiomata..?HEART:?S1, S2 normal.?LUNGS:?clear to auscultation bilaterally.?ABDOMEN:?normal bowel sounds, no guarding or rigidity, no hepatosplenomegaly, no masses palpable, soft, nontender, nondistended..?EXTREMITIES:?no edema.?NEUROLOGIC:?alert and oriented.? Assessment: * Assessment: 1.?Irritable bowel syndrome with both constipation and diarrhea - K58.2 (Primary)? Overall, Gilma appears q uite well. We did have a detailed discussion [...] as much fluid as permitted by her corporate safety manager and it would probably be best to [...] of any further assistance in the future. Plan: * Treatment: * Procedure Codes:?1036F TOBAC CO NON-[id number] BP SCR NOT PRFRM REC REASON NOS * Preventive Medicine:? ??Urinary Incontinence:?Urinary Incontinence?Assessment:?Absent,?Plan of care documented:?No, reason not specified.? ??Screenings:?Fall Risk Screening?Fall Risk Assessment:?No falls in the past year.? * Follow Up:?prn * * Sign off status: Completed true * Provider:?Deondre Olivier MD Date:? 024 Generated for Thuy [place]/Heavenly/Niravsmitting on:?07/08/2024 04:18 PM EST History and Physical Notes * HPI (History of Present Illness) Category Sub-Category Detail Notes Category Not es incontinence I saw Gilma in followup today in regard to her underlying history of irritable bowel syndrome. I last saw Gilma in 2021. At that time her irritable bowel syndrome was quite stable on a minimal regimen of a daily Lomotil and a nightly Alprazolam. Since that time she reports that things have remained well. She reports that she is having a formed and soft bowel movement just about every other day. She enjoys a good appetite and denies any significant heartburn, dysphagia, early satiety, nausea, nor vomiting. She has not noticed any hematochezia nor melena. She denies any abdominal pain, jaundice, nor unintentional weight loss. More recently she has only been using Lomotil either p.r.n. for any particular symptoms or taking it preventively prior to going out if she thinks that might trigger some IBS symptoms. She finds that she does not needed every day and things have remained quite stable on the p.r.n. regimen. Her laboratories in March of 2023 revealed a normal CBC, normal LFTs, normal renal function. She describes that she sees an corporate safety manager for some chronic mild hyponatremia and for that reason cannot drink that much fluid during the day. She does describe that sometimes after her bowel movements she will feel wiped out for a couple of hours and thinks it might be related to the fact that she can't drink enough fluids. Examination Category Sub-Category Detail Notes Category Not es General Examination GENERAL APPEARANCE: pleasant , well nourished, well developed, in no acute distress EYES: sclera non-icteric NECK/THYROID: no cervical lymphade nopathy, neck supple HEART: S1, S2 normal LUNGS: clear to auscultatio n bilaterally ABDOMEN: normal bowel sounds, no guarding or rigidity, no hepatosplenomegaly, no masses palpable, soft, nontender, nondistended. NEUROLOGIC: alert and oriented SKIN: nonjaundiced, no spi chris angiomata. EXTREMITIES: no edema ORAL CAVITY: mucosa moist
--- OUTSIDE RECORDS SUMMARY | 2024-07-08 16:19 | XMS_ITS ---
Author Organization [facility] Address [address] [facility] [address] [place] [address] Care Team Providers Care Fleet Maintenance Foreman Name Role Phone Chester Merida MD Primary Care Provider Deondre Garzon [phone] REASON FOR VISIT refill Medications Medication SIG (Take, Route, Fr equency, Duration) Notes Start Date End Date Status Omeprazole 40 MG 1 Orally Once a day for 90 days 1 Active Famotidine 40 MG 1 Orally Once a day for 90 days Active Encounters Encounter Location Date Provider Diagnosis [facility] [address] [address] 2024 Deondre Olivier Plan Of Treatment Medication Medication Name Sig Start Date Stop Date Notes Omeprazole 40 MG 1 Orally Once a day for 90 days 3 Famotidine 40 MG 1 Orally Once a day for 90 days Progress Notes * LOLIS MYLESDOB:[birth year] (79 yo F)Acc No.[id number]:2024 Patient:?LOLIS MYLES :1945???Age:79 Y???Sex:Female Address:[address] [place] [address] * Refills? Refill Famotidine Tablet, 40 MG, Orally, 90, 1, Once a day, 90 days, Refills=3 Refill Omeprazole Capsule Delayed Release, 40 MG, Orally, 90, 1, Once a day, 90 days, Refills=3 * true * Date:? Generated for Thuy h[place]/Heavenly/Jamaalitting on:?07/08/2024 04:18 PM EST
== END 2024-07-08 15:49 | disposition home or self-care (01) ==
PROVIDERS: PCP Internal Medicine; Visit Provider Physician Assistant
DX: K21.9 Gastro-esophageal reflux disease without esophagitis (principal)

== ENCOUNTER → 2024-07-08 14:36 | Outpatient (BNVA) | payer MEDICARE, SELFPAY | PROVIDERS: PCP Internal Medicine | DX: K21.9 Gastro-esophageal reflux disease without esophagitis (principal) | CPT/HCPCS: 99212 ==

== ENCOUNTER 2024-07-28 10:04 | Outpatient (AMB) | payer MEDICARE, SELFPAY ==
[2024-07-28 10:06] VITALS: BP 128/76; PULSE 63; TEMP 36.3; O2SAT 99; BMI 19.8
--- NOTE | 2024-07-28 10:06 | MHC.PC.OV ---
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 Required: No Accompanied by: Self / Same As Patient Allergies cephalexin Allergy (Severe, Verified 07/28/24 10:06) Diarrhea and Fainting NSAIDS (Non-Steroidal Anti-Inflamma [NSAIDS (NON-STEROIDAL ANTI-INFLAMMA] Allergy (Severe, Verified 07/28/24 10:06) ANAPHYLAXIS Penicillins [PENICILLINS] Allergy (Severe, Verified 07/28/24 10:06) RASH clindamycin [CLINDAMYCIN] Adverse Reaction (Severe, Verified 07/28/24 10:06) DIARRHEA Medication List - Last Reconciled 07/28/24 by Melissa Ziegler MD alprazolam 0.25 mg PO BID PRN 60 days atenolol 12.5 nmg PO daily; ipratropium bromide intranasal levothyroxine 88 mcg PO DAILY Tobacco use date assessed: 07/28/24 Fall risk assessment: No Falls in past year Last assessed Fall Risk: 07/28/24 Dental Screening Dental Screen Date: 07/28/24 Did you have a dental visit in the last 12 months?: Yes Did you have a dental problem in the last 6 months where you did not have access to dental care?: No HPI HPI Comments History of Present Illness Details 79 year old female with past medical history of hypothyroid, SIADH hypertension, anxiety, restricted lung disease, empyema, GERD, scolioisis presenting for follow up. Saw pcp in 01/2024 for annual exam CV: HTN controlled on atenolol Hypothyroid: on levothyroxine Anxiety managed with xanax GI: Follows with Dr Olivier. Seen in walk in earlier this month for increased GI symptoms. PPI gives diarrhea. doing ok on pepcid and tums prn Mammo 01/2024 Colonoscopy -no further ROS CONSTITUTIONAL: Denies weight loss, fever and chills. HEENT: Denies changes in vision and hearing. RESPIRATORY: Denies SOB and cough. CV: Denies palpitations and CP GI: Denies abdominal pain, nausea, vomiting and diarrhea. : Denies dysuria and urinary frequency. MSK: Denies new myalgia and joint pain. SKIN: Denies rash and pruritus. NEUROLOGICAL: Denies headache PSYCHIATRIC: Denies recent changes in mood. PHYSICAL EXAM: GENERAL: Alert and oriented x 3. NAD EYES: EOMI. Anicteric. HENT: Moist mucous membranes. No scleral icterus. No cervical lymphadenopathy. LUNGS: Clear to auscultation bilaterally. CARDIOVASCULAR: Regular rate and rhythm. No murmur. No JVD. ABDOMEN: Soft, non-tender +bs EXTREMITIES: No edema. Non-tender. SKIN: No rashes or lesions. Warm. NEUROLOGIC: No focal neurological deficits. CN II-XII grossly intact PSYCHIATRIC: Cooperative. Appropriate mood and affect [facility] Medical History COPD (chronic obstructive pulmonary disease) Hiatal hernia Abnormal PFTs (pulmonary function tests) Paroxysmal atrial fibrillation Abnormal chest x-ray with multiple lung nodules Empyema lung Restrictive lung disease Surgical History History of lung surgery History of esophagogastroduodenoscopy (EGD) H/O colonoscopy Family History Father No problems noted. Mother No problems noted. Social History Housing: House Patient Tobacco Use Status: Never used Tobacco e-Cigarette/Vaping Use: Never Used Second Hand Smoke Exposure: No service: No Current occupational status: employed Cognitive needs: No Hearing needs: No Vision needs: Yes (reading glasses) Questionnaire PHQ-9 Over the last 2 weeks, how often have you been bothered by any of the following problems? 1. Little interest or pleasure in doing things: not at all 2. Feeling down, depressed, or hopeless: not at all 3. Trouble falling or staying asleep, or sleeping too much: not at all 4. Feeling tired or having little energy: not at all 5. Poor appetite or overeating: not at all 6. Feeling bad about yourself - or that you are a failure or have let yourself or your family down: not at all 7. Trouble concentrating on things, such as reading the newspaper or watching television: not at all 8. Moving or speaking so slowly that other people could have noticed. Or the opposite - being so fidgety or restless that you have been moving around a lot more than usual: not at all 9. Thoughts that you would be better off or of hurting yourself in some way: not at all Total score: 0 Depression Screening Interpretation: Negative Depression Screening Done: Yes 75072 - PHQ-9 Billing: Yes Source: Developed by Drs. Deondre Denny, Alba Lancaster, Americo Bhagat and colleagues, with an educational asa from [employer]. Thrive Questionnaire Date Thrive assessed: 07/28/24 I am a: Patient Within the past 12 months, did the food you bought not last and you didn't have the money to get more?: Never true Within the past 12 months, did you worry whether your food would run out before you got money to buy more?: Never true Do you have trouble paying for medicines?: No Do you have trouble getting transportation to medical appointments?: No Do you have trouble paying your heating and electricity bill?: No Do you have trouble taking care of your child, family member or friend?: No Do you have trouble with day-to-day activities such as bathing, preparing meals, shopping, managing finances, etc.?: No Are you currently unemployed and looking for a job?: No Are you interested in more education?: No THRIVE Score: 0 AUDIT C Alcohol Use Questionnaire (AUDIT-C) 1. How often do you have a drink containing alcohol?: Never 3. How often do you have six or more drinks on one occasion?: Never Total Score: 0 ANNALISA-7 AMB Questionnaire ANNALISA-7 Date ANNALISA - 7 assessed: 07/28/24 Feeling nervous, anxious, or on edge: 0 = Not at all Not being able to stop or control worryin = Not at all Worrying too much about different things: 0 = Not at all Trouble relaxin = Not at all Being so restless that it is hard to sit still: 0 = Not at all Becoming easily annoyed or irritable: 0 = Not at all Feeling afraid as if something awful might happen: 0 = Not at all Total ANNALISA-7 score (0-4 normal; 5-9 mild; 10-14 moderate; 15-21 severe): 0 Source: Developed by Drs. Deondre Denny, Alba Lancaster, Americo Bhagat and colleagues, with an educational asa from [employer]. Physical exam (Primary Care) Vital Signs: Last Vital Signs Temp 97.3 F 07/28/24 10:06 Pulse 63 07/28/24 10:06 BP 128/76 07/28/24 10:06 Pulse Ox 99 07/28/24 10:06 Oxygen Delivery Method Room Air 07/28/24 10:06 BMI result Body Mass Index 19.8 Tobacco/Smoking Status: Tobacco use Status Tobacco use date assessed 07/28/24 07/28/24 10:08 Patient Tobacco Use Status Never used Tobacco 07/28/24 10:08 e-Cigarette/Vaping Use Never Used 07/28/24 10:08 PHQ-9: PHQ-9 Score PHQ-9: Total score 0 07/28/24 11:53 Depression Screening Interpretation: Negative Thrive Assessment: Date of Thrive Assessment Date Thrive assessed 07/28/24 07/28/24 10:08 Coding Level of Care Code New Pt Level 4 (37576) Complex EM visit Add On G2211 Diagnoses Gastroesophageal reflux disease, unspecified whether esophagitis present K21.9 Esophagitis presence: esophagitis presence not specified Chronic obstructive pulmonary disease, unspecified COPD type J44.9 COPD type: unspecified COPD Primary hypertension I10 Hypertension type: primary hypertension Additional Codes PHQ-9 - 27687 - PHQ-9 Billing: Yes ([id number]) Assessment & Plan Assessment & Plan (1) GERD (gastroesophageal reflux disease): Code(s): K21.9 - Gastro-esophageal reflux disease without esophagitis Category: Medical Qualifiers: Esophagitis presence: esophagitis presence not specified Qualified Code(s): K21.9 - Gastro-esophageal reflux disease without esophagitis (2) COPD (chronic obstructive pulmonary disease): Code(s): J44.9 - Chronic obstructive pulmonary disease, unspecified Category: Medical Qualifiers: COPD type: unspecified COPD Qualified Code(s): J44.9 - Chronic obstructive pulmonary disease, unspecified (3) HTN (hypertension): Code(s): I10 - Essential (primary) hypertension Category: Medical Qualifiers: Hypertension type: primary hypertension Qualified Code(s): I10 - Essential (primary) hypertension Plan 79 to establish care pmhx, past surgical, social and family history reviewed Chart updated Meds reconciled BP well controlled on current medications GERD is quiet at present though frequent flares Orders: Orders Complete Blood Count Auto Diff 6 Months K21.9 - Gastro-esophageal reflux disease without esophagitis, R94.2 - Abnormal results of pulmonary function studies, Z13.228 - Encounter for screening for other metabolic disorders Comprehensive Met. Panel 6 Months K21.9 - Gastro-esophageal reflux disease without esophagitis, R94.2 - Abnormal results of pulmonary function studies, Z13.228 - Encounter for screening for other metabolic disorders Vitamin D 25-OH (D2 and D3) 6 Months K21.9 - Gastro-esophageal reflux disease without esophagitis, R94.2 - Abnormal results of pulmonary function studies, Z13.228 - Encounter for screening for other metabolic disorders Lipid Panel 6 Months K21.9 - Gastro-esophageal reflux disease without esophagitis, R94.2 - Abnormal results of pulmonary function studies, Z13.228 - Encounter for screening for other metabolic disorders Medications: Changed From alprazolam 0.25 mg PO BID PRN Anxiety F41.9 - Anxiety disorder, unspecified To alprazolam 0.25 mg PO BID 60 days PRN 120 tabs 3RF Anxiety F41.9 - Anxiety disorder, unspecified
--- OUTSIDE RECORDS SUMMARY | 2024-07-28 12:45 | XMS_ITS | Patient Health Record ---
Author Organization [facility] Address [address] [place] [address] Care Team Providers Care Inspector Tubes Name Role Phone Chester Merida MD Primary Care Provider Unavailkeely Sofía Hill Unavailable [phone] Allergies Allergen (clinical drug ingredient) Drug/Non Drug [...] Negative Encounters Encounter Location Date Provider Diagnosis [address] [address] 06/14/2024 Sofía Pereira Plan Of Treatment Next Appt Details Provider Name:Sofía Pereira , 08/29/2024 08:30:00 AM, [address] [place], [address], Insurance Providers Payer Name Payer Address Payer Phone Subscriber Number Group Number Insured Name Patient Relationship to Insured Coverage Start Date Coverage End Date Medicare National [employer] [address] [place] [phone] [id number] Kendall Marques Self - patient is the insured [facility] [address] [place] [address] [phone] [id number] Kendall Marques Self - patient is the insured Medical (General) History Medical History History ICD Code Back,Hip,and Knee pain Broken bones Osteoporosis Reflux ( GERD) thyroid Measles Chicken pox Surgical History Surgery Date(Month/Year) lung surgery 04/21
--- OUTSIDE RECORDS SUMMARY | 2024-07-28 12:45 | XMS_ITS ---
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 Generated for Printi celso/Heavenly/eTransmitting on:?07/28/2024 12:45 PM EDT
--- OUTSIDE RECORDS SUMMARY | 2024-07-28 12:45 | XMS_ITS | Patient Health Record ---
Author Organization [facility] Address [address] [place] [address] Care Team Providers Care Machine Castings Plasterer Name Role Phone INACTIVE Chester ADORNO Primary Care Provider Deondre Lacey Unavailable [phone] Allergies Allergen (clinical drug ingredient) Drug/Non Drug [...] Problem Status W/U Status Risk Notes Problem 504636269 Encounter for screening for malignant neoplasm of colon (Z12.11) Active confirmed Problem 296971436 History of adenomatous polyp of colon (Z86.010) Active confirmed Problem Screening for malignant neoplasm of rectum (373296502) Encounter for screening for malignant neoplasm of rectum (Z12.12) Active confirmed Problem 65392501 Abdominal pain, epigastric (R10.13) Active confirmed Problem 587484532 Gastroesophageal reflux disease without esophagitis (K21.9) Active confirmed Problem 969107428 Long-term use of aspirin therapy (Z79.82) Active confirmed Problem 54908568 Diarrhea, unspecified type (R19.7) Active confirmed Problem 46798076 Other irritable bowel syndrome (K58.8) Active confirmed Problem 74105355 Irritable bowel syndrome with both constipation and diarrhea (K58.2) Active confirmed Problem 01436049 Hypertension, unspecified type (I10) Active confirmed Problem 19215350 Gastric ulcer without hemorrhage or perforation, unspecified chronicity (K25.9) Active confirmed Problem 090516530237379 History of Clostridioides difficile infection (Z86.19) Active confirmed Vital Signs Temperature 97.8 degrees Fahrenheit 01/20/2024 Blood pressure diastolic 00 mm Hg 01/20/2024 Height 63.75 in 01/20/2024 Blood pressure systolic 000 mm Hg 01/20/2024 Weight 114 lb 6 oz lbs 01/20/2024 BMI 19.78 kg/m2 01/20/2024 Encounters Encounter Location Date Provider Diagnosis [facility] [address] [place] [address] 01/20/2024 Deondre Olivier Irritable bowel syndrome with both constipation and diarrhea K58.2 [facility] [address] [place] [address] 10/26/2023 Deondre Olivier [facility] [address] [place] [address] 2024 Deondre Olivier [facility] [address] [place] [address] 07/08/2024 Deondre Olivier Assessments Encounter Date Diagnosis (ICD [...] as much fluid as permitted by her hand carver and it would probably be best to [...] End Date MEDICARE OF [place] [address] [facility] [address] [id number] MYLESGILMA ANDRADE Self - patient is the insured MEDEX ATTN CLAIMS [address] [place] [address] [id number] 5 LEIF MYLESZABETH Self - patient is the insured Medical (General) History Medical History History ICD Code Irritable bowel syndrome Tubular adenomas of the colo n--most recent colonoscopy was in 11/2016--neg for polyps--neg colonoscopy in 2006 and 2011, and a small adenoma removed in 2002 Hypothyroidism Palpitations Denies PR,DM,CVA,Lung disease,renal dise ase Positive H. pylori serology [...]
--- OUTSIDE RECORDS SUMMARY | 2024-07-28 12:45 | XMS_ITS ---
Author Organization [facility] Address [address] [place] [address] Care Team Providers Care Burn Out Scarfing Operator Name Role Phone INACTIVE Chester ADORNO Primary Care Provider Unava ilable Deondre Olivier [phone] Encounters Encounter Location Date Provider Diagnosis [facility] [address] [place] [address] 07/08/2024 Deondre Olivier Plan Of Treatment No Information Progress Notes * LOLIS MYLESDOB:[birth year] (79 yo F)Acc No.[id number]:07/08/2024 Patient:?ELENO MYLESBETH :1945???Age:79 Y???Sex:Female Address:[address] [place] [address] * true * Date:? Generated for Hemali celso/Heavenly/eTransmitting on:?07/28/2024 12:45 PM EDT
--- OUTSIDE RECORDS SUMMARY | 2024-07-28 12:45 | XMS_ITS ---
Author Organization [facility] Address [address] [place] [address] Care Team Providers Care Compensation/Benefits Specialist Name Role Phone INACTIVE Chester ADORNO Primary Care Provider UnaDeondre Doss Unavailable [phone] Allergies Allergen (clinical drug ingredient) Drug/Non Drug [...] 01/20/2024 Encounters Encounter Location Date Provider Diagnosis [facility] [address] [facility] [address] [place] [address] 01/20/2024 Deondre Olivier Irritable bowel syndrome with [...] as much fluid as permitted by her commercial art instructor and it would probably be best to [...] * GILMA MYLESDOB:[birth year] (78 yo F)Acc No.[id number]:01/20/2024 Progress Notes Patient:?GILMA MYLES Provider:?Deondre Olivier MD :1945???Age:78 Y???Sex:Female D ate:01/20/2024 Address:[address] [place], [place] [id number] Pcp:Chester Merida MD Subjective: * Chief Complaints: [...] function. She describes that she sees an commercial art instructor for some chronic mild hyponatremia and for [...] as much fluid as permitted by her commercial art instructor and it would probably be best to [...] * Treatment: * Procedure Codes:?1036F TOBAC CO NON-MSAEG3066 BP SCR NOT PRFRM REC REASON NOS * Preventive Medicine:? ??Urinary Incontinence:?Urinary Incontinence?Assessment:?Absent,?Plan of care documented:?No, reason not specified.? ??Screenings:?Fall Risk Screening?Fall Risk Assessment:?No falls in the past year.? * Follow Up:?prn * * Sign off status: Completed true * Provider:?Deondre Olivier MD Date:? 024 Generated for Thuy houston/Heavenly/eTtreesmitting on:?07/28/2024 12:45 PM EDT History and Physical Notes * HPI (History [...] function. She describes that she sees an commercial art instructor for some chronic mild hyponatremia and for [...]
--- OUTSIDE RECORDS SUMMARY | 2024-07-28 12:46 | XMS_ITS ---
Author Organization [facility] Address [address] [facility] [address] [place] [address] Care Team Providers Care Four Horse Hitch Driver Name Role Phone INACTIVE Chester ADORNO Primary Care Provider Unava Deondre Nolen [phone] REASON FOR VISIT refill Medications Medication SIG (Take, Route, Fr equency, Duration) Notes Start Date End Date Status Omeprazole 40 MG 1 Orally Once a day for 90 days 1 Active Famotidine 40 MG 1 Orally Once a day for 90 days Active Encounters Encounter Location Date Provider Diagnosis [facility] [address] [address] 2024 Deondre Olivier Plan Of Treatment Medication Medication Name Sig Start Date Stop Date Notes Omeprazole 40 MG 1 Orally Once a day for 90 days 3 Famotidine 40 MG 1 Orally Once a day for 90 days Progress Notes * LOLIS MYLESDOB:[birth year] (79 yo F)Acc No.[id number]:2024 Patient:?LOLIS MYLES :1945???Age:79 Y???Sex:Female Address:[address] [place] [address] * Refills? Refill Famotidine Tablet, 40 MG, Orally, 90, 1, Once a day, 90 days, Refills=3 Refill Omeprazole Capsule Delayed Release, 40 MG, Orally, 90, 1, Once a day, 90 days, Refills=3 * true * Date:? Generated for Thuy houston/Heavenly/Jamaalitting on:?07/28/2024 12:45 PM EDT
--- OUTSIDE RECORDS SUMMARY | 2024-07-28 12:46 | XMS_ITS | Clinical Summary ---
Author Organization [facility] Address [address] [place] [address] Care Team Providers Care Webmaster Name Role Phone Unavailable Primary Care Provider [...] - 1-dose 75+ series) 2019 COVID-19 Vaccine ( - 2023-2 5 season) 2024 Influenza Vaccine (#1) 2024 [...]
--- OUTSIDE RECORDS SUMMARY | 2024-07-28 12:46 | XMS_ITS | Continuity of Care Document ---
Author Organization [facility] [address] [place] [address] Phone [phone] Care Team Providers Care Pharmacy Service Associate Name Role Phone Chester Merida M.D. Care Team Information Receiv er [phone] Problems Active Problems Provider Date Osteoporosis Althea [...] Medications SIG Qnty Indications Ordering Provider Date Myarruuf22qq Tablets 1/2 tab qd Chester Rodríguez M.D. Alprazolam0.25mg Tablets Take 1 Tablet By Mouth Every Day as Needed Chester Merida M.D. Levothyroxine Yuersj95rru Tablets Take 1 Tablet By Mouth Every Day Chester Merida M.D. Qbgzhs30oe/ml Soln Prefill Syringe inject 60 mg under the skin every 6 months 1units Althea Nguyễn M.D. Citracal Calcium+D Slow [id number]-pl- Unit Tablets ER 24HR 1 by mouth every day Althea Nguyễn M.D. Vitamin B-ComplexTablets 1 every day Althea Nguyễn M.D. Vital Signs Date Vital Result Comment 05/06/2024 9:43am BP Systolic 132 mmHg BP Diastolic 78 mmHg Results Test Acquired Date Facility Test Result H/L Range Note Albumin 05/06/2024 [facility] Albumin 4.4 g/dL 3.8-4.8 Basic [...] 25 mmol/L 20-29 Calcium 10.2 mg/dL 8.7-10.3 Albumin 10/30/2023 [facility] Albumin 4.5 g/dL 3.8-4.8 TSH Rfx on Abnormal to Free T4 10/30/2023 [facility] TSH Rfx on Abnormal to Free T4 1.500 uIU/mL 0.450-4. 500 Calcium 04/07/2023 [facility] Calcium 9.8 mg/dL (8.6-10. 5) Sodium 04/07/2023 [facility] Sodium 132 mmol/L Low (133-145 ) TSH With Reflex To FT4 12/31/2022 [facility] TSH With Reflex To FT4 1.24 uIU/mL (0.4-4.2 ) TSH With Reflex To FT4 12/29/2022 [facility] TSH With Reflex To FT4 <pending> Albumin 09/03/2022 [facility] Albumin 4.8 GM/DL (3.4-4.8 ) Calcium 09/03/2022 [facility] Calcium 10.0 mg/dL (8.6-10. 5) Calcium 06/26/2022 [facility] Calcium <pending> Albumin 06/26/2022 [facility] Albumin <pending> Comprehensive Metabolic Panl 06/25/2022 [facility] Glucose 116 mg/dL High (70-99) [...] Estimated GFR Creatinine 87 ML/MIN/1.7 3M2 1 TSH With Reflex To FT4 06/25/2022 [facility] TSH With Reflex To FT4 1.52 uIU/mL (0.4-4.2 ) 25Oh Vitamin D 06/25/2022 [facility] 25Oh Vitamin D 43.5 NG/ML (20-50) Calcium 03/06/2022 [facility] Calcium 9.9 mg/dL (8.6-10. 5) Calcium 02/25/2022 [facility] Calcium <pending> Electrolytes 01/14/2022 [facility] Sodium 136 mmol/L (133-145 ) Potassium 4.6 mmol/L (3.6-5.2 ) Chloride 97 mmol/L Low (98-107) Bicarbonate 30 mmol/L High (22-29) Anion Gap 9 (4-17) TSH With Reflex To FT4 12/23/2021 [facility] TSH With Reflex To FT4 0.98 uIU/mL (0.4-4.2 ) Electrolytes 12/23/2021 [facility] Sodium 128 mmol/L Low (133-145 ) Potassium 5.1 mmol/L (3.6-5.2 ) Chloride 90 mmol/L Low (98-107) Bicarbonate 29 mmol/L (22-29) Anion Gap 9 (4-17) 1 Creatinine based est imated glomerular filtration (eGFR) in adults is calculated using the National Kidney [employer] recommended 2020 CKD-EPI equation. Estimates GFR from serum creatinine, age and sex. Procedures Date Code Description Status 05/06/2024 20871 Collection Of Venous Blood B y Venipuncture Completed 06/25/2022 86548 Collection Of Venous Blood B y Venipuncture Completed 12/23/2021 61559 Collection Of Venous Blood B y Venipuncture [...] Nguyễn M.D. Plan of Treatment Future Appointment(s):* 10/12/2024 10:15 am - Althea Nguyễn M.D. 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
== END 2024-07-28 10:40 | disposition home or self-care (01) ==
LOC: HO.HMCHD 10:05
PROVIDERS: PCP Internal Medicine; Visit Provider Internal Medicine
DX: K21.9 Gastro-esophageal reflux disease without esophagitis (principal); J44.9 Chronic obstructive pulmonary disease, unspecified; I10 Essential (primary) hypertension

== ENCOUNTER → 2024-07-28 10:04 | Outpatient (BNVA) | payer MEDICARE, SELFPAY | PROVIDERS: PCP Internal Medicine; Visit Provider Internal Medicine | DX: K21.9 Gastro-esophageal reflux disease without esophagitis (principal); J44.9 Chronic obstructive pulmonary disease, unspecified; I10 Essential (primary) hypertension; R94.2 Abnormal results of pulmonary function studies | CPT/HCPCS: 96127; 99202 ==

== ENCOUNTER 2024-08-03 10:34 | Outpatient (AMB) | payer MEDICARE, SELFPAY ==
--- NOTE | 2024-08-03 10:57 | AM.OFFWIN_ITS ---
Intake Vital Signs 08/03/24 10:58 Weight 114 lb BP 108/76 Blood Pressure Location Rt brachial Position Sitting Pulse 66 Pulse Source Pulse Oximeter Pulse Oximetry (%) 97 Oxygen Delivery Method Room Air Intake Visit Reasons: EP-digesting issues Intake Note: Patient here for digestive issues that has been going on for a while now. Patient Tobacco Use Status: Never used Tobacco Allergies cephalexin Allergy (Severe, Verified 08/03/24 11:03) Diarrhea and Fainting NSAIDS (Non-Steroidal Anti-Inflamma [NSAIDS (NON-STEROIDAL ANTI-INFLAMMA] Aller gy (Severe, Verified 08/03/24 11:03) ANAPHYLAXIS Penicillins [PENICILLINS] Allergy (Severe, Verified 08/03/24 11:03) RASH clindamycin [CLINDAMYCIN] Adverse Reaction (Severe, Verified 08/03/24 11:03) DIARRHEA Do you need a note to return to daycare/school/sports/work: No HPI HPI Comments History of Present Illness Details History of Present Illness - The patient is an 79-year-old female p resenting with musculoskeletal chest pain. - Describes episodes of sharp, occasiona lly jabbing pain in the central chest/sternum-rib area, which can be reproduced by palpation. - No nausea, sweating, shortness of manuel th or chest pain occurring independently of physical touch is noted. - The patient has GERD, historically man aged with PPIs, which caused diarrhea. Currently managed with famotidine and occasional use of TUMS, which she reports is effective. - Concerns over potential scoliosis infl uence are noted but not definitively correlated to her current complaint. Physical Exam General: Cooperative, healthy appearing, comfortable, no acute distress and well developed Orientation: Patient oriented x3 Limitations: No limitations Head: Normal to inspection Ears: Hearing grossly normal bilaterally Nose: Normal External nose present Face and sinus: Normal facial exam Eyes: Appearance normal, both eyes and all related structures Neck: Normal visual inspection and Yes full ROM Chest: TTP central-left chest along sternum/rib area T3 Respiratory: Normal respiratory effort and able to speak in complete sentences. Skin: No rashes or lesions noted Neuro: Patient oriented x3 Extremities: Normal to inspection, [facility] Medical History COPD (chronic obstructive pulmonary disease) Hiatal hernia Abnormal PFTs (pulmonary function tests) Paroxysmal atrial fibrillation Abnormal chest x-ray with multiple lung nodules Empyema lung Restrictive lung disease Surgical History History of lung surgery History of esophagogastroduodenoscopy (EGD) H/O colonoscopy Family History Father No problems noted. Mother No problems noted. Social History Housing: House Patient Tobacco Use Status: Never used Tobacco e-Cigarette/Vaping Use: Never Used Second Hand Smoke Exposure: No service: No Current occupational status: employed Cognitive needs: No Hearing needs: No Vision needs: Yes (reading glasses) Review of Systems Const All systems reviewed & are unremarkable except as noted in HPI and below Physical Exam Vital Signs: Last Vital Signs Pulse 66 08/03/24 10:58 BP 108/76 08/03/24 10:58 Pulse Ox 97 08/03/24 10:58 Oxygen Delivery Method Room Air 08/03/24 10:58 Assessment & Plan Assessment & Plan (1) Chest pain, muscular: Code(s): R07.89 - Other chest pain Plan: VSS, pt well appearing and PE remarkable for reproducible chest pain. The patient presents with musculoskeletal pain, suspected to be costochondritis, given its reproducible nature upon palpation. Aleve was recommended as an anti- inflammatory; however, caution was advised due to potential gastrointestinal effects, considering the patient's GERD. For localized relief, diclofenac gel was proposed due to its minimal systemic exposure. Her GERD is currently controlled with famotidine, and she was advised against excessive Calcium-based antacids like TUMS but occasional use is fine. Patient was informed and verbally consented to the use of an ambient scribe for clinic note documentation during this visit. (2) Chronic GERD: Code(s): K21.9 - Gastro-esophageal reflux disease without esophagitis Plan: as above Coding Level of Care Code Est Pt Level 3 (99720) Diagnoses Chest pain, muscular R07.89 Chronic GERD K21.9
[2024-08-03 10:58] VITALS: BP 108/76; PULSE 66; O2SAT 97
--- OUTSIDE RECORDS SUMMARY | 2024-08-03 12:28 | XMS_ITS ---
Author Organization [facility] Address [address] [place] [address] Care Team Providers Care Faculty Research Physician Name Role Phone Chester Merida MD Primary Care Provider Deondre Garzon [phone] Encounters Encounter Location Date Provider Diagnosis [facility] [address] [place] [address] 07/08/2024 Deondre Olivier Plan Of Treatment Next Appt Details Provider Name:Deondre Olivier , 11/22/2024 10:40:00 AM, [address], [address], [place], [address], Progress Notes * LOLIS MYLESDOB:[birth year] (79 yo F)Acc No.[id number]:07/08/2024 Patient:?LOLIS MYLES :1945???Age:79 Y???Sex:Female Address:[address] [place] [address] * true * Date:? Generated for Printi celso/Heavenly/eTransmitting on:?08/03/2024 12:28 PM EDT
--- OUTSIDE RECORDS SUMMARY | 2024-08-03 12:28 | XMS_ITS ---
Author Organization [facility] Address [address] [place] [address] Care Team Providers Care Jacquard Plate Maker Name Role Phone Chester Merida MD Primary Care Provider Unavaila jd PereiraCristae Unavailable [phone] REASON FOR VISIT POCKETS AND PIECES NECKTIE OPERATOR Encounters Encounter Location Date Provider Diagnosis [facility] [address] [place] [address] 06/14/2024 Sofía Pereira Plan Of Treatment Next Appt Details Provider Name:Sofía Pereira , 08/29/2024 08:30:00 AM, [address] [place], [address], Progress Notes * Kendall MYLESDOB: [birth year] (79 yo Other)Acc No.[id number]:06/14/2024 Patient:?Kendall MYLES :1945???Age:79 Y???Sex:Unknown Address:[address] [facility] [place] [address] * true * Date:? Generated for Printi celso/Heavenly/eTransmitting on:?08/03/2024 12:28 PM EDT
--- OUTSIDE RECORDS SUMMARY | 2024-08-03 12:28 | XMS_ITS | Patient Health Record ---
Author Organization [facility] Address [address] [place] [address] Care Team Providers Care School Patrol Name Role Phone Chester Merida MD Primary Care Provider Deondre Garzon [phone] Allergies Allergen (clinical drug ingredient) Drug/Non Drug [...] Problem Status W/U Status Risk Notes Problem 405374360 Encounter for screening for malignant neoplasm of colon (Z12.11) Active confirmed Problem 397112951 History of adenomatous polyp of colon (Z86.010) Active confirmed Problem Screening for malignant neoplasm of rectum (201814281) Encounter for screening for malignant neoplasm of rectum (Z12.12) Active confirmed Problem 88821971 Abdominal pain, epigastric (R10.13) Active confirmed Problem 933488976 Gastroesophageal reflux disease without esophagitis (K21.9) Active confirmed Problem 828766446 Long-term use of aspirin therapy (Z79.82) Active confirmed Problem 43695827 Diarrhea, unspecified type (R19.7) Active confirmed Problem 73249446 Other irritable bowel syndrome (K58.8) Active confirmed Problem 78753179 Irritable bowel syndrome with both constipation and diarrhea (K58.2) Active confirmed Problem 01150757 Hypertension, unspecified type (I10) Active confirmed Problem 70441944 Gastric ulcer without hemorrhage or perforation, unspecified chronicity (K25.9) Active confirmed Problem 388917227818279 History of Clostridioides difficile infection (Z86.19) Active confirmed Vital Signs Temperature 97.8 degrees Fahrenheit 01/20/2024 Blood pressure diastolic 00 mm Hg 01/20/2024 Height 63.75 in 01/20/2024 Blood pressure systolic 000 mm Hg 01/20/2024 Weight 114 lb 6 oz lbs 01/20/2024 BMI 19.78 kg/m2 01/20/2024 Encounters Encounter Location Date Provider Diagnosis [facility] [address] [place] [address] 01/20/2024 Deondre Olivier Irritable bowel syndrome with both constipation and diarrhea K58.2 [facility] [address] [place] [address] 08/03/2024 Deondre Olivier [facility] [address] [place] [address] 10/26/2023 Deondre Olivier [facility] [address] [place] [address] 2024 Deondre Olivier [facility] [address] [place] [address] 07/08/2024 Deondre Olivier Assessments Encounter Date Diagnosis [...] as much fluid as permitted by her machinist mechanic and it would probably be best to [...] 02/18/2011 COLONOSCOPY 08/20/2016 UPPER GI ENDOSCOPY 06/09/2018 Next Appt Details Provider Name:Deondre Olivier , 11/22/2024 10:40:00 AM, [address], [address], [place], [address], Insurance Providers Payer Name Payer Address Payer Phone Subscriber Number Group Number Insured Name Patient Relationship to Insured Coverage Start Date Coverage End Date MEDICARE OF [place] [address] [place] [address] [phone] [id number] GILMA MYLES Self - patient is the insured MEDEX ATTN CLAIMS [address] [place] [address] [id number] GILMA MYLES Self - patient is the insured Medical (General) History Medical History History ICD Code Irritable bowel syndrome Tubular adenomas of the colo n--most recent colonoscopy was in 11/2016--neg for polyps--neg colonoscopy in 2006 and 2011, and a small adenoma removed in 2002 Hypothyroidism Palpitations Denies AR,DM,CVA,Lung disease,renal dise ase Positive H. pylori serology [...]
--- OUTSIDE RECORDS SUMMARY | 2024-08-03 12:28 | XMS_ITS | Continuity of Care Document ---
Author Organization [facility] Address [address] [place] [address]- Care Team Providers Care Post Anesthesia Care Unit Nurse Name Role Phone Chester Merida MD Primary Care Physician [phone] Encounter [facility] Date(s): 06/29/24 - 07/29/24 [facility] [address] [place] [address]- Encounter Type: Triage Allergies, Adverse Reactions, Alerts Substance Criticality Severity Reaction Reaction Severity Status clindamycin Active penicillins Active Vioxx Active Immunizations Given and Recorded Vaccine Date Status Refusal Reason SARS-CoV-2 (COVID-19) mRNA BNT-162b2 vac 07/02/20 Given Medications atenolol 25 mg oral tablet See Instructions, 1/2 tablet By Mouth Daily, Refills 0, Maintenance, 10/21/16 11:34:28 AM EDT, Instructions Replace Required Details Start Date: 10/21/16 Status: Ordered Repeat number: 1 Citracal Caplets Plus D By Mouth, 0 Refills, Maintenance, 10/21/16 11:36:59 AM EDT Start Date: 10/21/16 Status: Ordered Repeat number: 1 levothyroxine 0.088 mg oral tablet 1 tablet = 88 mcg, By Mouth, Daily, # 30 tablet, 0 Refills, Maintenance, 10/21/16 11:35:40 AM EDT, Tablet Start Date: 10/21/16 Status: Ordered Quantity: 30.0 Unit: tablet Repeat number: 1 Prolia 60 mg/mL subcutaneous solution See Instructions, 1 mL Subcutaneous Injection Every 12 months, 0 Refills, Maintenance, 03/18/22 9:35:00 AM EST, Solution, Partial fill upon patient request if the prescription is for a schedule II opioid drug. Start Date: 03/18/22 Status: Ordered Repeat number: 1 Patient Care team information Care Team Personnel Name: Kiki Frausto RN Position: [facility] RN Member Role: Primary Care Nurse Name: Chester Merida MD Position: [facility] Outreach Member Role: PCP Address: [address] [place] [address] Chester Mindi [place], [place] [address] Telecom: Name: Liane Stewart RN Position: [facility] Nurse Member Role: Primary Care Nurse Care Team Related Persons Name: JAMES MYLES Insurance Providers Guarantor name: LOLIS MYLES Health Plan Information #: 1 Payer: MEDICARE PART B OUTPT Member Number: NA Policy Number: NA Group Number: NA Health Plan Information #: 2 Payer: MEDEX Member Number: NA Policy Number: NA Group Number: NA
--- OUTSIDE RECORDS SUMMARY | 2024-08-03 12:29 | XMS_ITS ---
Author Organization [facility] Address [address] [facility] [address] [place] [address] Care Team Providers Care Battery Container Inspector Name Role Phone Chester Merida MD Primary Care Provider Deondre Garzon [phone] REASON FOR VISIT refill Medications Medication SIG (Take, Route, Fr equency, Duration) Notes Start Date End Date Status Omeprazole 40 MG 1 Orally Once a day for 90 days 1 Active Famotidine 40 MG 1 Orally Once a day for 90 days Active Encounters Encounter Location Date Provider Diagnosis [facility] [address] [address] 2024 Deondre Olivier Plan Of Treatment Medication Medication Name Sig Start Date Stop Date Notes Omeprazole 40 MG 1 Orally Once a day for 90 days 3 Famotidine 40 MG 1 Orally Once a day for 90 days Next Appt Details Provider Name:Deondre Olivier , 11/22/2024 10:40:00 AM, [address] [place] [address], [place] [address], [place], [address], Progress Notes * LOLIS MYLESDOB:[birth year] (79 yo F)Acc No.[id number]:2024 Patient:LOLIS BERNAL :1945???Age:79 Y???Sex:Female Address:[address] [place] [address] * Refills? Refill Famotidine Tablet, 40 MG, Orally, 90, 1, Once a day, 90 days, Refills=3 Refill Omeprazole Capsule Delayed Release, 40 MG, Orally, 90, 1, Once a day, 90 days, Refills=3 * true * Date:? Generated for Thuy houston/Heavenly/Jamaalitting on:?08/03/2024 12:28 PM EDT
--- OUTSIDE RECORDS SUMMARY | 2024-08-03 12:29 | XMS_ITS | Patient Health Record ---
Author Organization [facility] [place] Address [address] [place] [address] Care Team Providers Care Community Development Aide Name Role Phone Chester Merida MD Primary Care Provider Unavailkeely Sofía Hill Unavailable [phone] Allergies Allergen (clinical drug ingredient) Drug/Non Drug [...] Negative Encounters Encounter Location Date Provider Diagnosis [address] [address] 06/14/2024 Sofía Pereira Plan Of Treatment Next Appt Details Provider Name:Sofía Pereira , 08/29/2024 08:30:00 AM, [address] [place], [address], Insurance Providers Payer Name Payer Address Payer Phone Subscriber Number Group Number Insured Name Patient Relationship to Insured Coverage Start Date Coverage End Date Medicare National Govt Svcs Inc [address] [place] [phone] [id number] Kendall Marques Self - patient is the insured [facility] [address] [place] [address] [phone] [id number] 5 Kendall Marques Self - patient is the insured Medical (General) History Medical History History ICD Code Back,Hip,and Knee pain Broken bones Osteoporosis Reflux ( GERD) thyroid Measles Chicken pox Surgical History Surgery Date(Month/Year) lung surgery 04/21
--- OUTSIDE RECORDS SUMMARY | 2024-08-03 12:29 | XMS_ITS | Continuity of Care Document ---
Author Organization [facility] [address] [facility] [address] [facility] [address] [place] [address] Phone [phone] Care Team Providers Care Photo Finisher Name Role Phone Chester Merida M.D. Care Team Information Receiv er [phone] Problems Active Problems Provider Date Osteoporosis Althea [...] Medications SIG Qnty Indications Ordering Provider Date [id number] Tablets 1/2 tab qd Chester Rodríguez M.D. Alprazolam0.25mg Tablets Take 1 Tablet By Mouth Every Day as Needed Chester Merida M.D. Levothyroxine Dtxmjd98bje Tablets Take 1 Tablet By Mouth Every Day Chester Merida M.D. Zmzdzd99xm/ml Soln Prefill Syringe inject 60 mg under the skin every 6 months 1units Althea Nguyễn M.D. Citracal Calcium+D Slow [id number]- Unit Tablets ER 24HR 1 by mouth [...] T4 1.500 uIU/mL 0.450-4. 500 Calcium 04/07/2023 [facility] Calcium 9.8 mg/dL (8.6-10. 5) Sodium 04/07/2023 [facility] Sodium 132 mmol/L Low (133-145 ) TSH With Reflex To FT4 12/31/2022 [facility] TSH With Reflex To FT4 1.24 uIU/mL (0.4-4.2 ) TSH With Reflex To FT4 12/29/2022 [facility] TSH With Reflex To FT4 <pending> Albumin 09/03/2022 [facility] Albumin 4.8 GM/DL (3.4-4.8 ) Calcium 09/03/2022 [facility] Calcium 10.0 mg/dL (8.6-10. 5) Calcium 06/26/2022 [facility] Calcium <pending> Albumin 06/26/2022 [facility] Albumin <pending> Comprehensive Metabolic Panl 06/25/2022 [facility] Glucose 116 mg/dL High [...] 1 TSH With Reflex To FT4 06/25/2022 [facility] TSH With Reflex To FT4 1.52 uIU/mL (0.4-4.2 ) 25Oh Vitamin D 06/25/2022 [facility] 25Oh Vitamin D 43.5 NG/ML (20-50) Calcium 03/06/2022 [facility] Calcium 9.9 mg/dL (8.6-10. 5) Calcium 02/25/2022 [facility] Calcium <pending> Electrolytes 01/14/2022 [facility] Sodium 136 mmol/L (133-145 ) Potassium 4.6 mmol/L (3.6-5.2 ) Chloride 97 mmol/L Low (98-107) Bicarbonate 30 mmol/L High (22-29) Anion Gap 9 (4-17) TSH With Reflex To FT4 12/23/2021 [facility] TSH With Reflex To FT4 0.98 uIU/mL (0.4-4.2 ) Electrolytes 12/23/2021 [facility] Sodium 128 mmol/L Low (133-145 ) Potassium 5.1 mmol/L (3.6-5.2 ) Chloride 90 mmol/L Low (98-107) Bicarbonate 29 mmol/L (22-29) Anion Gap 9 (4-17) 1 Creatinine based est imated glomerular filtration (eGFR) in adults is calculated using the National Kidney Foundation recommended 2020 CKD-EPI equation. Estimates GFR from serum creatinine, age and sex. Procedures Date Code Description Status 05/06/2024 56327 Collection Of Venous Blood B y Venipuncture Completed 06/25/2022 72489 Collection Of Venous Blood B y Venipuncture Completed 12/23/2021 63405 Collection Of Venous Blood B y Venipuncture [...]
--- OUTSIDE RECORDS SUMMARY | 2024-08-03 12:29 | XMS_ITS | Clinical Summary ---
Author Organization [facility] Address [address] [place] [address] Care Team Providers Care Boat Hop Name Role Phone Unavailable Primary Care Provider [...] Vaccines (1 of 2) 1994 RSV Immunization Adult Patie nts (1 - 1-dose 75+ series) 2019 COVID-19 [...]
--- OUTSIDE RECORDS SUMMARY | 2024-08-03 12:29 | XMS_ITS ---
Author Organization [facility] Address [address] [place] [address] Care Team Providers Care Html Web Developer Name Role Phone Chester Merida MD Primary Care Provider Deondre Garzon [phone] REASON FOR VISIT increase reflux Encounters Encounter Location Date Provider Diagnosis [facility] [address] [facility] [address] [place] [address] 08/03/2024 Deondre Olivier Plan Of Treatment Next Appt Details Provider Name:Deondre Olivier , 11/22/2024 10:40:00 AM, [address], [address], [place], [address], Progress Notes * LOLIS MYLESDOB:[birth year] (79 yo F)Acc No.[id number]:08/03/2024 Patient:?LOLIS MYLES :1945???Age:79 Y???Sex:Female Address:[address] [place] [address] * * Date:?
== END 2024-08-03 11:46 | disposition home or self-care (01) ==
PROVIDERS: PCP Internal Medicine; Visit Provider Physician Assistant
DX: R07.89 Other chest pain (principal); K21.9 Gastro-esophageal reflux disease without esophagitis

== ENCOUNTER → 2024-08-03 10:34 | Outpatient (BNVA) | payer MEDICARE, SELFPAY | PROVIDERS: PCP Internal Medicine; Visit Provider Physician Assistant | DX: R07.89 Other chest pain (principal); K21.9 Gastro-esophageal reflux disease without esophagitis | CPT/HCPCS: 99212 ==

== ENCOUNTER 2024-08-07 17:12 | Emergency (ER) | payer MEDICARE, SELFPAY ==
--- NOTE | 2024-08-07 17:13 | ECG_ITS ---
Test Reason : cp Blood Pressure : */* mmHG Vent. Rate : 60 BPM Atrial Rate : 60 BPM P-R Int : 162 ms QRS Dur : 92 ms QT Int : 410 ms P-R-T Axes : 73 60 58 degrees QTcB Int : 410 ms Normal sinus rhythm Possible Left atrial enlargement Borderline ECG When compared with ECG of 17-Apr-2022 14:47, Nonspecific T wave abnormality no longer evident in Inferior leads T wave inversion less evident in Anterior leads Referred By: Jaqui Crooks Electronically Signed By: All Patel
[2024-08-07 17:24] VITALS: BP 120/76; PULSE 59; RESP 16; TEMP 36.1; O2SAT 100; BMI 20.1
--- NOTE | 2024-08-07 17:24 | ED.GENADULT ---
HPI - General Adult General Chief complaint: Chest Pain Stated complaint: chest pain Time Seen by Provider: 08/07/24 18:38 Source: patient Mode of arrival: ambulatory Limitations: no limitations History of Present Illness ED Provider: HPI narrative: Patient's history of hypertension chronic GERD significant scoliosis paroxysmal AFib restrictive lung disease and anxiety does go for a walk 1-2 miles a day today when she walked at 17:00 she noticed sharp pain in the chest lasted only for few sec patient also does have gastric issues and taking Prevacid for that Related Data Home Medications ?Medication ?Instructions ?Recorded ?Confirmed atenolol 25 mg tablet See Rx Instructions PO DAILY 03/08/20 03/30/23 levothyroxine 88 mcg tablet 88 mcg PO DAILY 03/08/20 03/30/23 ipratropium bromide 42 mcg (0.06 intranasal 07/28/24 %) nasal spray Previous Rx's ?Medication ?Instructions ?Recorded alprazolam 0.25 mg tablet 0.25 mg PO BID PRN Anxiety 60 days 07/28/24 #120 tabs Allergies Allergy/AdvReac Type Severity Reaction Status Date / Time cephalexin Allergy Severe Diarrhea Verified 08/07/24 17:26 and Fainting NSAIDS (Non-Steroidal Allergy Severe ANAPHYLAXIS Verified 08/07/24 17:26 Anti-Inflamma [NSAIDS (NON-STEROIDAL ANTI-INFLAMMA] Penicillins [PENICILLINS] Allergy Severe RASH Verified 08/07/24 17:26 clindamycin [CLINDAMYCIN] AdvReac Severe DIARRHEA Verified 08/07/24 17:26 Review of Systems Review of Systems: Yes all other systems are reviewed and are negative PMFSH Past Medical History Medical History COPD (chronic obstructive pulmonary disease) Hiatal hernia Abnormal PFTs (pulmonary function tests) Paroxysmal atrial fibrillation Abnormal chest x-ray with multiple lung nodules Empyema lung Restrictive lung disease Surgical History History of lung surgery History of esophagogastroduodenoscopy (EGD) H/O colonoscopy Family History Family History Father No problems noted. Mother No problems noted. Social History Social History Housing: House Patient Tobacco Use Status: Never used Tobacco e-Cigarette/Vaping Use: Never Used Second Hand Smoke Exposure: No Advance Directives: No Advance Directives Information Provided: Yes Do you have a plan to hurt others: No Plan service: No Current occupational status: employed Cognitive needs: No Hearing needs: No Vision needs: Yes (reading glasses) Physical Exam ED Vital Signs: Vital Signs - 24 hr 08/07/24 17:24 08/07/24 18:45 08/07/24 20:07 Temperature 97.0 F Pulse Rate 59 54 60 Respiratory Rate 16 12 13 Blood Pressure 120/76 179/74 H 167/54 H Pulse Oximetry 100 100 100 Oxygen Delivery Method Room Air Room Air Room Air BMI result Body Mass Index 20.1 Appearance: Alert. Oriented X3. No acute distress. Eyes: PERRLA, No Nystagmus ENT: Pharynx normal. Oral Mucosa moist Neck: Normal inspection. Neck supple. CVS: Normal heart rate and rhythm. Pulses normal. Local tenderness left 2nd intercostal space Respiratory: No respiratory distress. Equal air entry bilateral, no wheezing/rales/rhonchi Abdomen: Soft and nontender. Bowel sounds are present, no mass palpable, no CVA tenderness Skin: Skin warm and dry. Normal skin color. Normal skin turgor. Extremities: No lower extremity edema. No calf tenderness Neuro: Oriented X 3. No motor deficit. No sensory deficit.No cerebellar signs , cranial nerves II-XII intact Course Course Course Narrative: RME performed by Jaqui Crooks PA-C. Patient is an 79 year old assigned female at presenting to the emergency department with left upper chest pain. Patient states that as soon as she started walking she began to have left sided chest pain. Detailed physical exam and review of systems are deferred to the wan support specialist. EKG, labs, imaging, and swabs ordered. Patient placed back in the waiting room pending room availability and results. Medical Decision Making Medical Decision Making [facility] Narrative: Patient has atypical chest pain initial cardiogram and cardiac enzymes negative recheck troponin for any delta change Lab Data MDM Lab Attestation statement: I reviewed the patient's lab results. 08/07/24 17:35 08/07/24 17:35 Labs: Lab Results 08/07/24 08/07/24 Range/Units 17:35 19:42 WBC 5.7 (4.8-10.8) X10*3/uL RBC 4.50 (4.20-5.50) X10*6/uL Hgb 14.3 (12.0-16.0) g/dl Hct 41.9 (37.0-47.0) % MCV 93.1 (80.0-98.0) fL MCH 31.8 (27.0-33.0) pg MCHC 34.1 (31.0-35.0) g/dl RDW 12.6 (11.0-16.0) % Plt Count 184 (160-400) X10*3/uL MPV 9.4 (9.4-12.3) fL Immature Gran % (Auto) 0.2 (0.0-0.4) % Neut % (Auto) 52.9 (45-73) % Lymph % (Auto) 32.4 (20-40) % [place] % (Auto) 11.6 H (2-11) % Eos % (Auto) 1.8 (0-4) % Baso % (Auto) 1.1 (0-2) % Lymph # (Auto) 1.9 (1.2-4.9) X10*3/uL [place] # (Auto) 0.7 (0.1-1.2) X10*3/uL Eos # (Auto) 0.1 (0.0-0.4) X10*3/uL Baso # (Auto) 0.1 (0.0-0.2) X10*3/uL Abs Immat Gran (auto) 0.01 (0.00-0.03) X10*3/uL Absolute Neuts (auto) 3.0 (2.0-8.3) x10*3/uL Absolute Nucleated RBC 0.000 (0.0-0.012) X10*3/uL Nucleated RBC % (auto) 0.0 (0.0-0.2) /100WBC PT 10.6 L (10.9-12.4) SEC INR 0.9 (0.9-1.1) Sodium 134 L (135-145) mmol/L Potassium 4.0 (3.3-5.1) mmol/L Chloride 98 (96-108) mmol/L Carbon Dioxide 28 (22-29) mmol/L Anion Gap 12 (12-20) BUN 16 (9-16) mg/dL Creatinine 0.79 (0.5-1.4) mg/dL Estim Creat Clear Calc 46.1 Estimated GFR > 60 Random Glucose 76 (60-115) mg/dL Calcium 9.8 (8.4-10.2) mg/dL Magnesium 2.4 (1.6-2.6) mg/dL Total Bilirubin 0.5 (0.0-1.0) mg/dL AST 45 H (5-31) U/L ALT 29 (0-31) U/L Alkaline Phosphatase 71 (39-117) U/L Troponin I High Sens 5.6 D 6.5 (<3.5-17.0) ng/L Total Protein 8.7 H (6.5-8.0) g/dL Albumin 4.6 (3.5-5.0) g/dL Influenza Type A (PCR) NEGATIVE (Negative) Influenza Type B (PCR) NEGATIVE (Negative) RSV RNA Qual (PCR) NEGATIVE (Negative) SARS-CoV-2 RNA (RT-PCR) NEGATIVE (Negative) Independent Interpretation I performed an independent interpretation of an: EKG Interpretation: Normal sinus rhythm heart rate 60 beats per minute normal interval normal axis no acute ST-T changes no acute ischemia Discharge Plan Discharge Clinical Impression: Chest pain Patient Disposition: Home, Self-Care Instructions: Chest Pain (ED) Additional Instructions: Likely your chest pain is not from the heart is likely musculoskeletal Take Tylenol/Motrin for pain Prescriptions: No Action atenolol 25 mg tablet See Rx Instructions PO DAILY Rx Instructions: 12.5 nmg PO daily; levothyroxine 88 mcg tablet 88 mcg PO DAILY ipratropium bromide 42 mcg (0.06 %) spray,non-aerosol intranasal alprazolam 0.25 mg tablet 0.25 mg PO BID PRN (Reason: Anxiety) 60 Days Qty: 120 3RF Print Language: [place] African
[2024-08-07 17:43] LABS: MANUAL DIFF FLAG NO
[2024-08-07 17:47] LABS: Basophils Absolute Auto 0.1 X10*3/uL (0.0-0.2); Basophils Percent Auto 1.1 % (0-2); Eosinophils Absolute Auto 0.1 X10*3/uL (0.0-0.4); Eosinophils Percent Auto 1.8 % (0-4); Hematocrit 41.9 % (37.0-47.0); Hemoglobin 14.3 g/dl (12.0-16.0); Imm Gran Abs Auto 0.01 X10*3/uL (0.00-0.03); Imm Gran Pct Auto 0.2 % (0.0-0.4); Lymphocytes Absolute Auto 1.9 X10*3/uL (1.2-4.9); Lymphocytes Percent Auto 32.4 % (20-40); Mean Corpuscular HGB Conc 34.1 g/dl (31.0-35.0); Mean Corpuscular Hemoglobin 31.8 pg (27.0-33.0); Mean Corpuscular Volume 93.1 fL (80.0-98.0); Mean Platelet Volume 9.4 fL (9.4-12.3); Monocytes Absolute Auto 0.7 X10*3/uL (0.1-1.2); Monocytes Percent Auto 11.6 % (2-11); Neutrophils Percent Auto 52.9 % (45-73); Platelet Count 184 X10*3/uL (160-400); Red Cell Distribution Width 12.6 % (11.0-16.0); White Blood Count 5.7 X10*3/uL (4.8-10.8)
[2024-08-07 18:05] LABS: Alanine Aminotransferase 29 U/L (0-31); Albumin Level 4.6 g/dL (3.5-5.0); Alkaline Phosphatase 71 U/L (39-117); Anion Gap 12 (12-20); Aspartate Amino Transferase 45 U/L (5-31); Bilirubin Total 0.5 mg/dL (0.0-1.0); Blood Urea Nitrogen 16 mg/dL (9-16); Calcium 9.8 mg/dL (8.4-10.2); Carbon Dioxide 28 mmol/L (22-29); Chloride 98 mmol/L (96-108); Creatinine Clr Calc Pharmacy 46.1; Estimated Glomerular Filt Rate > 60; Glucose Random 76 mg/dL (60-115); INTERNATIONAL NORM RATIO 0.9 (0.9-1.1); Magnesium 2.4 mg/dL (1.6-2.6); Prothrombin Time 10.6 SEC (10.9-12.4); Sodium 134 mmol/L (135-145); Total Protein 8.7 g/dL (6.5-8.0)
[2024-08-07 18:13] LABS: Troponin-I High Sensitivity 5.6 ng/L (<3.5-17.0)
[2024-08-07 18:24] LABS: Influenza A PCR NEGATIVE (Negative); Influenza B PCR NEGATIVE (Negative); Resp Syncy Virus RNA Qual PCR NEGATIVE (Negative); SARS COV2 PCR INHOUSE NEGATIVE (Negative)
--- NOTE | 2024-08-07 18:40 | PC.NURSE ---
Patient presents with ongoing with issues with reflux for several months. Patient was seen at a local UC on last . While walking today patient experienced left anterior sharp brief chest pain which resolve immediately. Patient states pressing on the area it is sore.
[2024-08-07 18:45] VITALS: BP 179/74; PULSE 54; RESP 12; O2SAT 100
--- OUTSIDE RECORDS SUMMARY | 2024-08-07 18:54 | XMS_ITS ---
Author Organization [facility] Address [address] [place] [address] Care Team Providers Care Freight Air Brake Fitter Name Role Phone Chester Merida MD Primary Care Provider Unavaila jd PereiraCristae Unavailable [phone] REASON FOR VISIT MASTER FISHER Encounters Encounter Location Date Provider Diagnosis [facility] [address] [place] [address] 06/14/2024 Sofía Pereira Plan Of Treatment Next Appt Details Provider Name:Sofía Pereira , 08/29/2024 08:30:00 AM, [address] [place], [address], Progress Notes * Kendall MYLESDOB: [birth year] (79 yo Other)Acc No.[id number]:06/14/2024 Patient:?Kendall MYLES :1945???Age:79 Y???Sex:Unknown Address:[address] [facility] [place] [address] * true * Date:? Generated for Printi celso/Heavenly/eTransmitting on:?08/07/2024 06:54 PM EDT
--- OUTSIDE RECORDS SUMMARY | 2024-08-07 18:54 | XMS_ITS ---
Author Organization [facility] Address [address] [place] [address] Care Team Providers Care Cloth Reeler Name Role Phone Chester Merida MD Primary Care Provider Deondre Garzon [phone] Encounters Encounter Location Date Provider Diagnosis [facility] [address] [place] [address] 07/08/2024 Deondre Olivier Plan Of Treatment Next Appt Details Provider Name:Deondre Olivier , 11/22/2024 10:40:00 AM, [address], [address], [place], [address], Progress Notes * LOLIS MYLESDOB:[birth year] (79 yo F)Acc No.[id number]:07/08/2024 Patient:?LOLIS MYLES :1945???Age:79 Y???Sex:Female Address:[address] [place] [address] * true * Date:? Generated for Printi celso/Heavenly/eTransmitting on:?08/07/2024 06:54 PM EDT
--- OUTSIDE RECORDS SUMMARY | 2024-08-07 18:55 | XMS_ITS | Patient Health Record ---
Author Organization [facility] [place] Address [address] [place] [address] Care Team Providers Care Digital Sales Executive Name Role Phone Chester Merida MD Primary Care Provider Unavailkeely Sofía Hill Unavailable [phone] Allergies Allergen (clinical drug ingredient) Drug/Non Drug [...] Negative Encounters Encounter Location Date Provider Diagnosis [address] [address] 06/14/2024 Sofía Pereira Plan Of Treatment Next Appt Details Provider Name:Sofía Pereira , 08/29/2024 08:30:00 AM, [address] [place], [address], Insurance Providers Payer Name Payer Address Payer Phone Subscriber Number Group Number Insured Name Patient Relationship to Insured Coverage Start Date Coverage End Date Medicare National Govt Svcs Inc [address] [place] [phone] [id number] Kendall Marques Self - patient is the insured [facility] [address] [place] [address] [phone] [id number] Kendall Marques Self - patient is the insured Medical (General) History Medical History History ICD Code Back,Hip,and Knee pain Broken bones Osteoporosis Reflux ( GERD) thyroid Measles Chicken pox Surgical History Surgery Date(Month/Year) lung surgery 04/21
--- OUTSIDE RECORDS SUMMARY | 2024-08-07 18:56 | XMS_ITS ---
Author Organization [facility] Address [address] [facility] [address] [place] [address] Care Team Providers Care Cage Unloader Name Role Phone Chester Merida MD Primary Care Provider Deondre Garzon [phone] REASON FOR VISIT refill Medications Medication SIG (Take, Route, Fr equency, Duration) Notes Start Date End Date Status Omeprazole 40 MG 1 Orally Once a day for 90 days 1 Active Famotidine 40 MG 1 Orally Once a day for 90 days Active Encounters Encounter Location Date Provider Diagnosis [facility] [address] [address] 2024 Deondre Olivier Plan Of Treatment Medication Medication Name Sig Start Date Stop Date Notes Omeprazole 40 MG 1 Orally Once a day for 90 days 3 Famotidine 40 MG 1 Orally Once a day for 90 days Next Appt Details Provider Name:Deondre Olivier , 11/22/2024 10:40:00 AM, [address] [place] [address], [place] [address], [place], [address], Progress Notes * LOLIS MYLESDOB:[birth year] (79 yo F)Acc No.[id number]:2024 Patient:LOLIS BERNAL :1945???Age:79 Y???Sex:Female Address:[address] [place] [address] * Refills? Refill Famotidine Tablet, 40 MG, Orally, 90, 1, Once a day, 90 days, Refills=3 Refill Omeprazole Capsule Delayed Release, 40 MG, Orally, 90, 1, Once a day, 90 days, Refills=3 * true * Date:? Generated for Thuy houston/Heavenly/Jamaalitting on:?08/07/2024 06:55 PM EDT
--- OUTSIDE RECORDS SUMMARY | 2024-08-07 18:56 | XMS_ITS | Clinical Summary ---
Author Organization [facility] Address [address] [place] [address] Care Team Providers Care Vp Sales Name Role Phone Unavailable Primary Care Provider [...]
--- OUTSIDE RECORDS SUMMARY | 2024-08-07 18:56 | XMS_ITS ---
Author Organization [facility] Address [address] [place] [address] Care Team Providers Care Die Assembler Name Role Phone Chester Merida MD Primary Care Provider Deondre Garzon [phone] REASON FOR VISIT increase reflux Encounters Encounter Location Date Provider Diagnosis [facility] [address] [facility] [address] [place] [address] 08/03/2024 Deondre Olivier Plan Of Treatment Next Appt Details Provider Name:Deondre Olivier , 11/22/2024 10:40:00 AM, [address], [address], [place], [address], Progress Notes * LOLIS MYLESDOB:[birth year] (79 yo F)Acc No.[id number]:08/03/2024 Patient:?LOLIS MYLES :1945???Age:79 Y???Sex:Female Address:[address] [place] [address] * true * Date:? Generated for Printi celso/Heavenly/eTransmitting on:?08/07/2024 06:55 PM EDT
--- OUTSIDE RECORDS SUMMARY | 2024-08-07 18:56 | XMS_ITS | Continuity of Care Document ---
Author Organization [facility] [address] [facility] [address] [place] [address] Phone [phone] Care Team Providers Care Plasterer Rough Name Role Phone Chester Merida M.D. Care Team Information Receiv er [phone] Problems Active Problems Provider Date Osteoporosis Althea [...] Medications SIG Qnty Indications Ordering Provider Date Tlfmiijm13st Tablets 1/2 tab qd Chester Rodríguez M.D. Alprazolam0.25mg Tablets Take 1 Tablet By Mouth Every Day as Needed Chester Merida M.D. Levothyroxine Iyfwsh72avm Tablets Take 1 Tablet By Mouth Every Day Chester Merida M.D. Sulgus98lf/ml Soln Prefill Syringe inject 60 mg under the skin every 6 months 1units Althea Nguyễn M.D. Citracal Calcium+D Slow [id number]-[id number]- Unit Tablets ER 24HR 1 by mouth [...] T4 1.500 uIU/mL 0.450-4. 500 Calcium 04/07/2023 [facility] Calcium 9.8 mg/dL (8.6-10. 5) Sodium 04/07/2023 [facility] Sodium 132 mmol/L Low (133-145 ) TSH With Reflex To FT4 12/31/2022 [facility] TSH With Reflex To FT4 1.24 uIU/mL (0.4-4.2 ) TSH With Reflex To FT4 12/29/2022 [facility] TSH With Reflex To FT4 <pending> Albumin 09/03/2022 [facility] Albumin 4.8 GM/DL (3.4-4.8 ) Calcium 09/03/2022 [facility] Calcium 10.0 mg/dL (8.6-10. 5) Calcium 06/26/2022 [facility] Calcium <pending> Albumin 06/26/2022 [facility] Albumin <pending> Comprehensive Metabolic Panl 06/25/2022 [facility] Glucose 116 mg/dL High [...] 1 TSH With Reflex To FT4 06/25/2022 [facility] TSH With Reflex To FT4 1.52 uIU/mL (0.4-4.2 ) 25Oh Vitamin D 06/25/2022 [facility] 25Oh Vitamin D 43.5 NG/ML (20-50) Calcium 03/06/2022 [facility] Calcium 9.9 mg/dL (8.6-10. 5) Calcium 02/25/2022 [facility] Calcium <pending> Electrolytes 01/14/2022 [facility] Sodium 136 mmol/L (133-145 ) Potassium 4.6 mmol/L (3.6-5.2 ) Chloride 97 mmol/L Low (98-107) Bicarbonate 30 mmol/L High (22-29) Anion Gap 9 (4-17) TSH With Reflex To FT4 12/23/2021 [facility] TSH With Reflex To FT4 0.98 uIU/mL (0.4-4.2 ) Electrolytes 12/23/2021 [facility] Sodium 128 mmol/L Low (133-145 ) Potassium 5.1 mmol/L (3.6-5.2 ) Chloride 90 mmol/L Low (98-107) Bicarbonate 29 mmol/L (22-29) Anion Gap 9 (4-17) 1 Creatinine based est imated glomerular filtration (eGFR) in adults is calculated using the National Kidney Foundation recommended 2020 CKD-EPI equation. Estimates GFR from serum creatinine, age and sex. Procedures Date Code Description Status 05/06/2024 55409 Collection Of Venous Blood B y Venipuncture Completed 06/25/2022 91262 Collection Of Venous Blood B y Venipuncture Completed 12/23/2021 38553 Collection Of Venous Blood B y Venipuncture [...]
[2024-08-07 20:07] VITALS: BP 167/54; PULSE 60; RESP 13; O2SAT 100
[2024-08-07 20:14] LABS: Troponin-I High Sensitivity 6.5 ng/L (<3.5-17.0)
[2024-08-07 20:59] VITALS: BP 151/47; PULSE 56; RESP 14; TEMP 36.1; O2SAT 99
[2024-08-07 21:04] VITALS: BP 151/47; PULSE 56; RESP 14; TEMP 36.1; O2SAT 99
== END 2024-08-07 21:05 | disposition home or self-care (01) ==
PROVIDERS: Physician Assistant Medical; Emergency Provider Internal Medicine; PCP Internal Medicine
DX: R07.9 Chest pain, unspecified (principal); I48.0 Paroxysmal atrial fibrillation; Z03.818 Encounter for observation for suspected exposure to other biological agents ruled out
CPT/HCPCS: 0241U; 36415; 80053; 83735; 84484; 85025; 85610; 93005; 99283; 99285

== ENCOUNTER → 2024-08-07 17:13 | Outpatient (BNV) | payer MEDICARE, SELFPAY | PROVIDERS: Emergency Provider Internal Medicine; PCP Internal Medicine; Visit Provider Internal Medicine Cardiovascular Disease | DX: R07.9 Chest pain, unspecified (principal) | CPT/HCPCS: 93010 ==

== ENCOUNTER 2024-09-20 11:12 | Outpatient (AMB) | payer MEDICARE, SELFPAY ==
--- OUTSIDE RECORDS SUMMARY | 2024-09-20 12:29 | XMS_ITS | Patient Health Record ---
Author Organization [facility] Address [address] [place] [address] Care Team Providers Care Amusement Park Ride Mechanic Name Role Phone Chester Merida MD Primary Care Provider Deondre Garzon [phone] Allergies Allergen (clinical drug ingredient) Drug/Non Drug [...] Problem Status W/U Status Risk Notes Problem 410200179 Encounter for screening for malignant neoplasm of colon (Z12.11) Active confirmed Problem 173525433 History of adenomatous polyp of colon (Z86.010) Active confirmed Problem Screening for malignant neoplasm of rectum (969118256) Encounter for screening for malignant neoplasm of rectum (Z12.12) Active confirmed Problem 00274402 Abdominal pain, epigastric (R10.13) Active confirmed Problem 102369886 Gastroesophageal reflux disease without esophagitis (K21.9) Active confirmed Problem 496461137 Long-term use of aspirin therapy (Z79.82) Active confirmed Problem 96248272 Diarrhea, unspecified type (R19.7) Active confirmed Problem 72183197 Other irritable bowel syndrome (K58.8) Active confirmed Problem 90403273 Irritable bowel syndrome with both constipation and diarrhea (K58.2) Active confirmed Problem 72811946 Hypertension, unspecified type (I10) Active confirmed Problem 27056648 Gastric ulcer without hemorrhage or perforation, unspecified chronicity (K25.9) Active confirmed Problem 210985246314999 History of Clostridioides difficile infection (Z86.19) Active confirmed Vital Signs Temperature 97.8 degrees Fahrenheit 01/20/2024 Blood pressure diastolic 00 mm Hg 01/20/2024 Height 63.75 in 01/20/2024 Blood pressure systolic 000 mm Hg 01/20/2024 Weight 114 lb 6 oz lbs 01/20/2024 BMI 19.78 kg/m2 01/20/2024 Encounters Encounter Location Date Provider Diagnosis [facility] [address] [place] [address] 01/20/2024 Deondre Olivier Irritable bowel syndrome with both constipation and diarrhea K58.2 [facility] [address] [place] [address] 10/26/2023 Deondre Olivier [facility] [address] [place] [address] 2024 Deondre Olivier [facility] [address] [place] [address] 07/08/2024 Deondre Olivier [facility] [address] [place] [address] 08/03/2024 Deondre Olivier Assessments Encounter Date Diagnosis (ICD [...] as much fluid as permitted by her auto air conditioning mechanic and it would probably be best [...] 10:40:00 AM, [address], [address], [place], [address], Insurance Providers Payer Name Payer Address Payer Phone Subscriber Number Group Number Insured Name Patient Relationship to Insured Coverage Start Date Coverage End Date MEDICARE OF [place] [address] [place] [address] [id number] GILMA MYLES Self - patient is the insured [employer] ATT[employer] CLAIMS [address] [place] [address] [id number] GILMA MYLES Self - patient is the insured Medical (General) History Medical History History ICD Code Irritable bowel syndrome Tubular adenomas of the colo n--most recent colonoscopy was in 11/2016--neg for polyps--neg colonoscopy in 2006 and 2011, and a small adenoma removed in 2002 Hypothyroidism Palpitations Denies [place],DM,CVA,Lung disease,renal dise ase Positive H. pylori serology [...]
--- OUTSIDE RECORDS SUMMARY | 2024-09-20 12:29 | XMS_ITS ---
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 [address] * true * Date:? Generated for Printi ng/Fakiannag/eTransmitting on:?09/20/2024 12:29 PM EDT
--- OUTSIDE RECORDS SUMMARY | 2024-09-20 12:30 | XMS_ITS ---
Author Organization [facility] Address [address] [facility] [address] [place] [address] Care Team Providers Care Director Of Market Analysis Name Role Phone Chester Merida MD Primary Care Provider Deondre Garzon [phone] REASON FOR VISIT refill Medications Medication SIG (Take, Route, Fr equency, Duration) Notes Start Date End Date Status Omeprazole 40 MG 1 Orally Once a day for 90 days 1 Active Famotidine 40 MG 1 Orally Once a day for 90 days Active Encounters Encounter Location Date Provider Diagnosis [facility] [address] [address] 2024 Deondre Olivier Plan Of Treatment Medication Medication Name Sig Start Date Stop Date Notes Omeprazole 40 MG 1 Orally Once a day for 90 days 3 Famotidine 40 MG 1 Orally Once a day for 90 days Next Appt Details Provider Name:Deondre Olivier , 11/22/2024 10:40:00 AM, [address] [place] [address], [place] [address], [place], [address], Progress Notes * LOLIS MYLESDOB:[birth year] (79 yo F)Acc No.[id number] Patient:LOLIS BERNAL :1945???Age:79 Y???Sex:Female Address:[address] [place] [address] * Refills? Refill Famotidine Tablet, 40 MG, Orally, 90, 1, Once a day, 90 days, Refills=3 Refill Omeprazole Capsule Delayed Release, 40 MG, Orally, 90, 1, Once a day, 90 days, Refills=3 * true * Date:? Generated for Thuy houston/Heavenly/Jamaalitting on:?09/20/2024 12:30 PM EDT
--- OUTSIDE RECORDS SUMMARY | 2024-09-20 12:30 | XMS_ITS ---
Author Organization [facility] Address [address] [place] [address] Care Team Providers Care Chicken Vaccinator Name Role Phone Chester Merida MD Primary Care Provider Deondre Garzon [phone] REASON FOR VISIT increase reflux Encounters Encounter Location Date Provider Diagnosis [facility] [address] [facility] [address] [place] [address] 08/03/2024 Deondre Olivier Plan Of Treatment Next Appt Details Provider Name:Deondre Olivier , 11/22/2024 10:40:00 AM, [address], [address], [place], [address], Progress Notes * LOLIS MYLESDOB:[birth year] (79 yo F)Acc No.[id number]:08/03/2024 Patient:?LOLIS MYLES :1945???Age:79 Y???Sex:Female Address:[address] [place] [address] * true * Date:? Generated for Printi celso/Heavenly/eTransmitting on:?09/20/2024 12:30 PM EDT
--- OUTSIDE RECORDS SUMMARY | 2024-09-20 12:30 | XMS_ITS | Patient Health Record ---
Author Organization [facility] Annie mateo Wiggins Address [address] [place] [address] Care Team Providers Care Sterile Proc Tech Name Role Phone Melissa Ken Primary Care Provider Unavailabl e Black Sofía Unavailable [phone] Allergies Allergen (clinical drug ingredient) Drug/Non Drug Allergy documented on EMR Reaction Allergy Type Onset Date Status cefpodoxime Cefpodoxime abdominal pain Drug Allergy Active clindamycin Clindamycin Unknown Drug Allergy Act fran Penicillin Unknown Drug Allergy Active Results Component Value Reference Range Notes X ray : Foot, right 3V Reviewed date:08/29/2024 12:56:32 PM Interpretation:See Examination above Performing Lab: Notes/Report: See Examination above Reason For Referral No Information Medications Medication SIG (Take, Route, Frequency, Duration) Notes Start Date End Date Status Levothyroxine Sodium 88 MCG 1 tablet in the morning on an empty stomach Orally Once a day Active ALPRAZolam 0.25 MG 1 tablet Orally Twic e a day Active Voltaren 1 % as directed Externally 08/29/2024 Active Atenolol Active Social History Tobacco Use: Social History Observation [...] ast year? 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 Vital Signs Blood pressure diastolic 70 mm Hg 08/29/2024 Height 5ft3in in 08/29/2024 Blood pressure systolic 125 mm Hg 08/29/2024 Weight 114 lbs 08/29/2024 BMI 20.19 kg/m2 08/29/2024 Procedures Procedure Date Ordered Date Performed Result Body Sit e 35764-BKMDGVD NAIL, 1-5 08/29/2024 N/A Encounters Encounter Location Date Provider Diagnosis [facility] [address] 08/29/2024 Sofía Black Pain in right foot M79.671 ; Bursitis of right foot M77.51 ; Pain in right ankle and joints of right foot M25.571 ; Osteoarthritis of midtarsal joint of right foot M19.071 ; Pain in right toe(s) M79.674 ; Onychomycosis B35.1 ; Pain in left toe(s) M79.675 and 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.[address] [facility] [address] 06/14/2024 Sofía Black Assessments Encounter Date Diagnosis (ICD Code) Assessment Notes Treatment Notes Treatment Clinical Notes Section Notes 08/29/2024 Pain in right foot (ICD-10 - M79.671) 08/29/2024 Bursitis of right foot (ICD-10 - M77.51) Dx New problem, Prognosis Uncertain (4) Acute problem, Complicated w/ Multiple Tx Options(4) 08/29/2024 Pain in right ankle and joints of right foot (ICD-10 - M25.571) 08/29/2024 Osteoarthritis of midtarsal joint of right foot (ICD-10 - M19.071) 08/29/2024 Pain in right toe(s) (ICD-10 - M79.674) 08/29/2024 Onychomycosis (ICD-10 - B35.1) 08/29/2024 Pain in left toe(s) (ICD-10 - M79.675) 08/29/2024 Hypertrophy of bone of right foot (ICD-10 - M89.371) Plan Of Treatment Pending Test Test Name Order Date [id number] NAIL, 1-5 08/29/2024 Insurance Providers Payer Name Payer Address Payer Phone Subscriber Number Group Number Insured Name Patient Relationship to Insured Coverage Start Date Coverage End Date Medicare National Govt Svcs [employer] [address] [place] [address] [id number] Gilma Marques Self - patient is the insured 9 [employer] Blue Shield [address] [place] [address] [phone] [id number] 5 Gilma Marques Self - patient is the insured Medical (General) History Medical History History ICD Code Back,Hip,and Knee pain Broken bones Osteoporosis Reflux ( GERD) thyroid Measles Chicken pox Surgical History Surgery Date(Month/Year) lung surgery 04/21
--- OUTSIDE RECORDS SUMMARY | 2024-09-20 12:30 | XMS_ITS | Clinical Summary ---
Author Organization [facility] Address [address] [place] [address] Care Team Providers Care Record Maker Name Role Phone Unavailable Primary Care Provider [...] - 2023-2 5 season) 2024 Influenza Vaccine (Season Ended) 2025 HIB Vaccines Aged Out No longer eligi [...] age to complete this topic Meningococcal B Vaccine Aged Out No l onger eligible based on patient's age to complete this topic RSV Immunization Patients Un chris 20 months Aged Out No longer eligible b ased on patient's age to complete this topic Varicella Vaccines Aged Out No longer eligible based on patient's age to complete this topic
--- OUTSIDE RECORDS SUMMARY | 2024-09-20 12:30 | XMS_ITS ---
Author Organization [facility] Address [address] [place] [address] Care Team Providers Care Marine Radio Installer And Servicer Name Role Phone Chester Merida MD Primary Care Provider Deondre Garzon [phone] Encounters Encounter Location Date Provider Diagnosis [facility] [address] [place] [address] 07/08/2024 Deondre Olivier Plan Of Treatment Next Appt Details Provider Name:Deondre Olivier , 11/22/2024 10:40:00 AM, [address], [address], [place], [address], Progress Notes * LOLIS MYLESDOB:[birth year] (79 yo F)Acc No.[id number]:07/08/2024 Patient:?LOLIS MYLES :1945???Age:79 Y???Sex:Female Address:[address] [place] [address] * true * Date:? Generated for Printi celso/Heavenly/eTransmitting on:?09/20/2024 12:29 PM EDT
--- OUTSIDE RECORDS SUMMARY | 2024-09-20 12:30 | XMS_ITS | Continuity of Care Document ---
Author Organization [facility] [address] [facility] [address] [place] [address] Phone [phone] Care Team Providers Care Interior Assemblies Installer Name Role Phone Chester Merida M.D. Care Team Information Receiv er [phone] Problems Active Problems Provider Date Osteoporosis Althea [...] Medications SIG Qnty Indications Ordering Provider Date Dgohzenw37mg Tablets 1/2 tab qd Chester Rodríguez M.D. Alprazolam0.25mg Tablets Take 1 Tablet By Mouth Every Day as Needed Chester Merida M.D. Levothyroxine Samkki63cjc Tablets Take 1 Tablet By Mouth Every Day Chester Merida M.D. Zlplxk58pc/ml Soln Prefill Syringe inject 60 mg under the skin every 6 months 1units Althea Nguyễn M.D. Citracal Calcium+D Slow [id number]-di- Unit Tablets ER 24HR 1 by mouth [...] T4 1.500 uIU/mL 0.450-4. 500 Calcium 04/07/2023 [facility] Calcium 9.8 mg/dL (8.6-10. 5) Sodium 04/07/2023 [facility] Sodium 132 mmol/L Low (133-145 ) TSH With Reflex To FT4 12/31/2022 [facility] TSH With Reflex To FT4 1.24 uIU/mL (0.4-4.2 ) TSH With Reflex To FT4 12/29/2022 [facility] TSH With Reflex To FT4 <pending> Albumin 09/03/2022 [facility] Albumin 4.8 GM/DL (3.4-4.8 ) Calcium 09/03/2022 [facility] Calcium 10.0 mg/dL (8.6-10. 5) Calcium 06/26/2022 [facility] Calcium <pending> Albumin 06/26/2022 [facility] Albumin <pending> Comprehensive Metabolic Panl 06/25/2022 [facility] Glucose 116 mg/dL High [...] 1 TSH With Reflex To FT4 06/25/2022 [facility] TSH With Reflex To FT4 1.52 uIU/mL (0.4-4.2 ) 25Oh Vitamin D 06/25/2022 [facility] 25Oh Vitamin D 43.5 NG/ML (20-50) Calcium 03/06/2022 [facility] Calcium 9.9 mg/dL (8.6-10. 5) Calcium 02/25/2022 [facility] Calcium <pending> Electrolytes 01/14/2022 [facility] Sodium 136 mmol/L (133-145 ) Potassium 4.6 mmol/L (3.6-5.2 ) Chloride 97 mmol/L Low (98-107) Bicarbonate 30 mmol/L High (22-29) Anion Gap 9 (4-17) TSH With Reflex To FT4 12/23/2021 [facility] TSH With Reflex To FT4 0.98 uIU/mL (0.4-4.2 ) Electrolytes 12/23/2021 [facility] Sodium 128 mmol/L Low (133-145 ) Potassium 5.1 mmol/L (3.6-5.2 ) Chloride 90 mmol/L Low (98-107) Bicarbonate 29 mmol/L (22-29) Anion Gap 9 (4-17) 1 Creatinine based est imated glomerular filtration (eGFR) in adults is calculated using the National [employer] recommended 2020 CKD-EPI equation. Estimates GFR from serum creatinine, age and sex. Procedures Date Code Description Status 05/06/2024 85460 Collection Of Venous Blood B y Venipuncture Completed 06/25/2022 76766 Collection Of Venous Blood B y Venipuncture Completed 12/23/2021 47423 Collection Of Venous Blood B y Venipuncture [...]
--- OUTSIDE RECORDS SUMMARY | 2024-09-20 12:30 | XMS_ITS ---
Author Organization [facility] mate[facility] [place] Address [address] [place] [address] Care Team Providers Care Professor Of Visual Arts Name Role Phone Melissa Ken Primary Care Provider Unavailabl e Black, Sofía Unavailable [phone] Allergies Allergen (clinical drug ingredient) Drug/Non Drug Allergy documented on EMR Reaction Allergy Type Onset Date Status cefpodoxime Cefpodoxime abdominal pain Drug Allergy Active clindamycin Clindamycin Unknown Drug Allergy Act fran Penicillin Unknown Drug Allergy Active Results Component Value Reference Range Notes X ray : Foot, right 3V Reviewed date:08/29/2024 12:56:32 PM Interpretation:See Examination above Performing Lab: Notes/Report: See Examination above REASON FOR VISIT Foot pain, Painful nail(s) aggravated by shoes causing difficulty standing/walking Medications Medication SIG (Take, Route, Frequency, Duration) [...] Osteoarthritis of midtarsal joint of right foot ([id number] ) Osteoarthritis of midtarsal joint of right foot (M19.071) Active confirmed Vital Signs Height 5ft3in in 08/29/2024 Weight 114 lbs 08/29/2024 BMI 20.19 kg/m2 08/29/2024 Blood pressure systolic 125 mm Hg 08/30/19 25 Blood pressure diastolic 70 mm Hg 025 Procedures Procedure Date Ordered Date Performed Result Body Sit e 78250-[id number] NAIL, 1-5 08/29/2024 N/A Encounters Encounter Location Date Provider Diagnosis [facility] [address] [place] [address] 08/29/2024 Sofía Black Pain in right foot M79.671 ; Bursitis of right foot M77.51 ; Pain in right ankle and joints of right foot M25.571 ; Osteoarthritis of midtarsal joint of right foot M19.071 ; Pain in right toe(s) M79.674 ; Onychomycosis B35.1 ; Pain in left toe(s) M79.675 and 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.371 Assessments Encounter Date Diagnosis (ICD Code) Assessment [...] foot (ICD-10 - M89.371) Plan Of Treatment Medication Medication Name Sig Start Date Stop Date Notes Voltaren 1 % as directed Externally 08/29/2024 Pending Test Test Name Order Date [id number] NAIL, 1-5 08/29/2024 Next Appt Details Follow Up: prn, Reason: Procedure Notes * Category Sub-Category Detail Notes Debride Nails 1-5 Procedure: Due to the cli nical pathology outlined in the exam findings, performance of this nail treatment is medically necessary as its management by an unskilled/untrained nonprofessional would put this patients foot and overall health at risk. Therefore, debridement to affected nail(s), as described in exam ( TA,T4,T5 ), was performed exclusively by the physician of record to reduce/remove overall nail length, girth, thickness, subungual debris, and necrotic tissue, by manual and/or electrical means through the use of a nail nipper and/or dremel stylegrinder, to a more viable healthy nail plate or bed tissue 5 nails or fewer in number. Silver nitrate was used for any petechial bleeding as necessary. Definitive antifungal treatment options, both pharmaceutical and surgical, have been reviewed and discussed with the patient. The patient solely prefers the use of intermittent/as needed professional debridement services for their nail condition and understands that additional periodic treatments may be required as necessary to maintain effective symptomatic relief - 76775 Progress Notes * Gilma MYLES CDOB:1944 (79 yo F)Acc No.[id number]:08/29/2024 Progress Notes Patient:?Gilma MYLES Provider:?Sofía Pereira DPM :1945???Age:79 Y???Sex:Female D ate:08/29/2024 Address:[address] [place] [address] [id number] Pcp:Melissa Ken Subjective: * Chief Complaints: * ???Foot painPainful nail(s) aggravated by shoes causing difficulty standing/walking * HPI: ???Foot Pain:?Nature:?, swelling, shooting.?Location:?, Inside, Midfoot, RIGHT.?Duration:?, several months.?Onset:?wearing new shoes.?Course:?worse.?Aggravated:?any pressure, standing, walking.?Treatments:?rest/alter normal daily activity.?Painful Nails:?Pt States Last PCP Visit:?Date:?07/29/2024 * ROS:?General/Constitutional:?Nausea?denies.?Vomiting?denies.?Hunger Thirst?denies.?Loss appetite?denies.?Chills?denies.?Fatigue?denies.?Fever?denies.?Night Sweats?denies.?Unexplained weight loss?denies.?Unexplained weight gain?denies.?HEENTM:?Dentures?denies.?Dizziness?denies.?Glasses/contacts?admits.?Retinopathy?de nies.?Blurred/double vision?denies.?TMJ?denies.?Discharge/drainage?denies.?Implants?denies.?Sore throat?denies.?Dental implants?denies.?Hard of hearing ?denies.?Difficulty chewing/swallowing/speaking?denies.?Nose bleeds?denies.?Sore mouth?denies.?Respiratory:?On Oxygen?denies.?Pneumonia/pleurisy?denies.?Bronchitis?denies.?Emphysema?denies.?C oughing?denies.?Cough blood?denies.?Shortness of breath?denies.?Wheezing?denies.?Cardiovascular:?Pacemaker?denies.?MVP?denies.?WPW?denies.?CHF?denies.?Heart attack?denies.?Septal defect?denies.?Rapid beat?denies.?Chest pain ?denies.?Atrial Fib.?denies.?Murmur/Palpitations?denies.?Gastrointestinal:?Hemorrhoids?denies.?Stomach/Abdominal pain?denies.?Dark blood stool?denies.?Irritable bowel ?admits.?Constipation?denies.?Diarrhea?denies.?Hematology:?Swelling?denies.?Clots?denies.?Varicose Veins?denies.?Bruising?denies.?Bleeding problem?denies.?Genitourinary:?Blood urine?denies.?Frequent/Painfu/urination/bladder control?denies.?Kidney stones?denies.?Infection (UTI)?denies.?Nephropathy?denies.?sex trans dis (STD)?denies.?Prostate?denies.?Musculoskeletal:?Hammertoes?denies.?Bunions?denies.?Back Pain?denies.?Muscle Cramps/ Resting?denies.?Muscle cramps / walking?denies.?Generalized aches and pains?denies.?Weakness?denies.?Integ.:?Glez?denies.?Scars?denies.?Corns/calluses?denies.?Ingrown nails?denies.?Painful nails?,admits.?Open Sores?denies.?Rashes?denies.?Neurologic:?Difficulty sleeping?denies.?Brain disorder?denies.?Numbness?denies.?Balance trouble?denies.?Confusion?denies.?Fainting/blackouts?denies.?Tingling?denies.?Tr emors?denies.? * Medical History:? * Surgical History:?lung surge ry 04/21 * Hospitalization/Major Diagno stic Procedure:?Denies Past Hospitalization * Family History:?Mother: dece ased, diagnosed with Diabetic - NIDDM.?Father: , diagnosed with Unspecified heart disease.? * Social History:?Tobacco Use:?Tobacco use other than smoking?Are you an other tobacco user??No ?Tobacco Control (Standard)?Tobacco use:?Nonsmoker ?Additional Findings: Tobacco non-user?Current nonsmoker ???Drugs/Alcohol:?Drugs?Have you used drugs other than those for medical reasons in the past 12 months??No ???Miscellaneous:?Caffeine: yes, frequency:. ?Children: yes, 2. ?Exercise: yes, walking,reading,gardening. ?Marital status: . 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 ???Drug/Alcohol:?AUDIT-C (Standard)?Did you have a drink containing alcohol in the past year??No ?Points?0 ?Interpretation?Negative * Medications:?TakingALPRAZola m 0.25 MG Tablet 1 tablet Orally Twice a day Atenolol Levothyroxine Sodium 88 MCG Tablet 1 tablet in the morning on an empty stomach Orally Once a day Medication List reviewed and reconciled with the patientTaking ALPRAZolam 0.25 MG Tablet 1 tablet Orally Twice a day Taking Atenolol Taking Levothyroxine Sodium 88 MCG Tablet 1 tablet in the morning on an empty stomach Orally Once a day Medication List reviewed and reconciled with the patient * Allergies:?PenicillinClindam ycinCefpodoxime: abdominal painyes[Allergies Verified] Objective: * Vitals:?Ht: 5ft3in, Wt: 114, BMI: 20.19, Shoe size: 8, BP: 125/70 mm Hg, Ht-cm: 160.02 cm, Wt-k.71 kg. * Examination: ???General Examination: ?GENERAL APPEARANCE:?Reveals a pleasant, alert, well nourished, well- developed, well hydrated individual, who demonstrates proper attention to hygiene/body habitus, and is in no acute distress, Pt serves as own historian for office visit today.?ORIENTED:?person, place, and time.?Neurological: ?TINEL'S COMPRESSION:? Negative, Intermediate dorsal cutaneous nerve distribution, Medial dorsal cutaneous nerve distribution, Deep peroneal nerve distribution, Right.?Orthopedic: ?MUSCLE STRENGTH:?5/5 all groups in a symmetrical fashion, B/L.?FOOT MORPHOLOGY:??protrusion of Midfoot at area of Navicular tuberosity (+) edema (+) erythema (+) POP.?TENDONITIS:?NO Pain on palpation, inflammation, and fusiform swelling to, Posterior Tibial Tendon right.?FOOTWEAR EVALUATION:?shoe gear properties exacerbate patients foot/toe deformity.?Vascular: ?DP PULSES (B):?2/4, B/L.?PT PULSES (B):?2/4, B/L.?CAPILLARY FILL TIME:?immediate, all digits, B/L.?TROPHIC CONDITION-TEXTURE/ELASTICITY/TURGOR/HAIR GROWTH (B):?normal, B/L.?TEMPERTURE GRADIENT (C):?normal, warm to cool, proximal to distal, B/L, B/L.?PIGMENTATION:?normal, B/L.?EDEMA (C):?absent, B/L.?Dermatologic: ?SKIN FINDINGS:?Skin exam reveals normal color, texture, elasticity, and turgor. There are no masses, nor excrescences. The interspaces are clear, B/L.?Nails: ?NAILS are:?Elongated, overgrown, dystrophic, lytic, greater than 3mm thick, discolored and friable with crumbly malodorous subungual debris, with pain on palpation, TA, T4, T5.?X-Rays - IMAGING REPORT: ?Clinical Indication(s):? Evaluate for Fracture, Evaluate Biomechanical Deformity.?Views:?3 views of Foot, AP, LAT, MO, RIGHT??Taken by trained?Podiatric Amf Mechanic (?SF ).?Findings:?normal bone and soft tissue density consistent for patients age and sex, hypertrophied navicular tuberosity, dorsal degenerative changes of the tarsal joints.?Fracture:?Negative fractures identified.? Assessment: * Assessment: 1.?Pain in right foot - M79. 671???2.?Bursitis of right foot - M77.51 (Primary)???Notes :Dx New problem, Prognosis Uncertain (4) Acute problem, Complicated w/ Multiple Tx Options(4)???3.?Pain in right ankle and joints of right foot - M25.571???4.?Osteoarthritis of midtarsal joint of right foot - M19.071???5.?Pain in right toe(s) - M79.674???6.?Onychomycosis - B35.1???7.?Pain in left toe(s) - M79.675???8.?Hypertrophy of bone of right foot - M89.371??? Plan: * Treatment: 2.?Osteoarthritis of midtars al joint of right foot? Start Voltaren Gel, 1 %, as directed, Externally.?? 3.?Onychomycosis?Procedure: [id number] NAIL, 1-5 * Procedures:?Debride Nails 1-5:?Procedure:?Due to the clinical pathology outlined in the exam findings, performance of this nail treatment is medically necessary as its management by an unskilled/untrained nonprofessional would put this patients foot and overall health at risk. Therefore, debridement to affected nail(s), as described in exam ( TA,T4,T5 ), was performed exclusively by the physician of record to reduce/remove overall nail length, girth, thickness, subungual debris, and necrotic tissue, by manual and/or electrical means through the use of a nail nipper and/or dremel stylegrinder, to a more viable healthy nail plate or bed tissue 5 nails or fewer in number. Silver nitrate was used for any petechial bleeding as necessary. Definitive antifungal treatment options, both pharmaceutical and surgical, have been reviewed and discussed with the patient. The patient solely prefers the use of intermittent/as needed professional debridement services for their nail condition and understands that additional periodic treatments may be required as necessary to maintain effective symptomatic relief - 82169.? * Procedure Codes:?34070 X-RAY EXAM OF RIGHT FOOT 3V, Modifiers: 26 , [id number] DEBRIDE NAIL, 1-5, Modifiers: XS * Preventive Medicine:? ??Counseling:?Discussion:?-04: Office or other outpatient visit for the evaluation and management of a new patient, which required a medically appropriate history and/or examination and MODERATE level of DECISION MAKING for: 1 OR MORE CHRONIC PROBLEM(S) THATS WORSENING, 2 STABLE CHRONIC PROBLEMS, A NEWLY DIAGNOSED PROBLEM WITH UNCERTAIN PROGNOSIS, AN ACUTE COMPLICATED INJURY WITH MULTIPLE TREATMENT OPTIONS, OR AN ACUTE PROBLEM WITH ACCOMPANYING SYSTEMIC SYMPTOMS, THAT POSE(S) A MODERATE RISK OF MORBIDITY. THIS CONDITION MAY ALSO INCLUDE RX DRUG MANAGEMENT, OR A DECISON FOR MINOR SURGERY. The visit on the day of the encounter encompassed interpreting the data and educating the patient as to the nature of their condition, treatment options available according to their individual PMH, meds, allergies, and overall health/living conditions, as well as any potential risks or complications that may occur from a failure to adhere to, and participate in, the recommended course of therapy. The discussion included a complete verbal, and/or written explanation of the examination results, any x-rays taken, the proposed diagnosis, and outline of the treatment plan. A schedule for future care needs was also explained. The patient verbalized an understanding of the instructions at this time and agreed to be an active participant in their treatment. If the patient should think of any questions or concerns after the visit, I have encouraged the patient to call the office.?Arthritis:?The patient was counseled on the various etiologies for their Arthritis including genetic, history of injury or trauma, abnormal foot biomechanics leading to excessive joint wear, and use/overuse. We discussed the various treatment options from no treatment, to topical analgesics such as Biofreeze gel, Aspercream, Voltaren gel, Lidoderm patches, CBD oils, THC creams, and Custom-compounded topical cream preparations to natural oral products such as Glucosamine Sulfate/Chondroitin/MSM/Collegen to analgesic Tylenol, to anti-inflammatory medications such as Ibuprofen/Naproxen, and the use of oral steroids if needed. Cardiac, Kidney, and GI issues were discussed RE: potential complications of oral anti-inflammatories. We discussed several other treatment options consisting of accom shoes, supportive innersoles, AFO bracing/support, cortisone injection therapy, and surgical resection of the arthritic joint(s) or fusion reconstruction if necessary. We discussed the advantages and disadvantages of conservative (vs) surgical treamtents including pain relief, improved function/activities of daily life, return to exercise to failure, expense, systemic complications, infection, [id number], prolongued postop course. Patient questions re: the various treatment options available, their successes and potential failures, and continuous churn buttermaker effects were discussed and the answers were verbally confirmed understood.?BioMech.:?I discussed the Pts foot biomechanics with them and how it relates to their problem, Discussed and reviewed the X-rays with the patient. We discussed how the findings relate to the patients symptoms/complaints. Answered any and all questions., Recommended Topical analgesics including biofreeze/aspercream/Voltaren gel.?Shoe Gear Counseling:?The patient and I reviewed the types of shoes they should be wearing. My recommendation included obtaining a well-fitted shoe with a good supportive, non-foldable nor twistable sole, plenty of toe/room for the forefoot, and proper arch support. Based on todays examination, I recommended the patient look for new shoes, by having their feet professionally measured. We discussed that generally the best time of the day for a shoe fitting is the afternoon. Different shoes types and brands to best match the patients occupation and vocation were discussed. Specific brand selection will be up to the patient, their individual foot condition/deformities, and fit. The patient and I reviewed the standard new shoe break in period by wearing them for a few hours a day while checking for redness or sores as wear time is increased. The patient verbally confirmed to understanding the information discussed, Recommend supportive running shoes for patient, discussed various shoe brands including Haro, Asics, New Balance, Saucony. Discussed types of shoes to avoid for patients foot type..?Steriod Injection:?I explained that a steroid and local anesthetic injections are administered to relieve pain and inflammation and thereby meant to improve function. I explained the possible complications including but not limited to signs/symptoms of steroid flare, infection, bruising, atrophy, discoloration of skin, change/deviation in toe position, and that additional injections may be necessary, cortisone post-injection informative educational handout was dispensed to and reviewed with the patient, Pt defers injection today.? * Follow Up:?prn * Images: * Sign off status: Completed true * Provider:?Sofía Pereira DPM Date:?2024 Generated for [place]aven[facility]/eTransmitting on:?09/20/2024 12:29 PM EDT History and Physical Notes * HPI (History of Present Illness) Category Sub-Category Detail Notes Category Not es Painful Nails Pt States Last PCP Visit: Date:: 07/29/2024 Foot Pain Nature: , swelling, shooting Location: , Inside, Midfoot, R IGHT Duration: , several months Onset: wearing new shoes Course: worse Aggravated: any pressure, standi ng, walking Treatments: rest/alter normal da ben activity Examination Category Sub-Category Detail Notes Category Not es Neurological TINEL'S COMPRESSION: Negative, I ntermediate dorsal cutaneous nerve distribution, Medial dorsal cutaneous nerve distribution, Deep peroneal nerve distribution, Right Dermatologic SKIN FINDINGS: Skin exam reveal s normal color, texture, elasticity, and turgor. There are no masses, nor excrescences. The interspaces are clear, B/L Orthopedic FOOT MORPHOLOGY: protrusion of M idfoot at area of Navicular tuberosity (+) edema (+) erythema (+) POP FOOTWEAR EVALUATION: shoe gear propertie s exacerbate patients foot/toe deformity TENDONITIS: NO Pain on palpation , inflammation, and fusiform swelling to, Posterior Tibial Tendon right MUSCLE STRENGTH: 5/5 all groups in a symmetrical fashion, B/L General Examination GENERAL APPEARANCE: Reveals a pleasant, alert, well nourished, well-developed, well hydrated individual, who demonstrates proper attention to hygiene/body habitus, and is in no acute distress, Pt serves as own historian for office visit today ORIENTED: person, place, and t tod Vascular DP PULSES (B): 2/4, B/L PT PULSES (B): 2/4, B/L CAPILLARY FILL TIME: immediate, all digi ts, B/L TEMPERTURE GRADIENT (C): normal, warm to cool, proximal to distal, B/L, B/L TROPHIC CONDITION-TEXTURE/ELASTICITY/TURGOR/HAIR GROWTH (B): normal, B/L EDEMA (C): absent, B/L PIGMENTATION: normal, B/L Nails NAILS are: Elongated, overg rown, dystrophic, lytic, greater than 3mm thick, discolored and friable with crumbly malodorous subungual debris, with pain on palpation, TA, T4, T5 X-Rays - IMAGING REPORT Findings: normal b one and soft tissue density consistent for patients age and sex, hypertrophied navicular tuberosity, dorsal degenerative changes of the tarsal joints Fracture: Negative fractures i dentified Views: 3 views of Foot, AP, LAT, MO, RIGHT Taken by trained Podiatric Amf Mechanic ( SF ) Clinical Indication(s): Evaluate for Fra cture, Evaluate Biomechanical Deformity
--- NOTE | 2024-09-20 12:36 | MHC.OFFWIV ---
Intake Vital Signs 09/20/24 12:38 Weight 113 lb BP 112/70 Blood Pressure Location Lt brachial Position Sitting Pulse 68 Pulse Source Pulse Oximeter Pulse Oximetry (%) 98 Oxygen Delivery Method Room Air Intake Visit Reasons: EP-rt ear issues Intake Note: Patient here for right ear blockage. Patient Tobacco Use Status: Never used Tobacco Allergies cephalexin Allergy (Severe, Verified 09/20/24 12:45) Diarrhea and Fainting NSAIDS (Non-Steroidal Anti-Inflamma [NSAIDS (NON-STEROIDAL ANTI-INFLAMMA] Allergy (Severe, Verified 09/20/24 12:45) ANAPHYLAXIS Penicillins [PENICILLINS] Allergy (Severe, Verified 09/20/24 12:45) RASH clindamycin [CLINDAMYCIN] Adverse Reaction (Severe, Verified 09/20/24 12:45) DIARRHEA Do you need a note to return to daycare/school/sports/work: No HPI HPI Comments History of Present Illness Details This is an 79 year old female presenting for a blocked sensation in her right ear that has been ongoing for the past 3-4 days. Patient denies having any pain in the left ear. She has been using Debrox drops only without relief of her symptoms. [facility] Medical History COPD (chronic obstructive pulmonary disease) Hiatal hernia Abnormal PFTs (pulmonary function tests) Paroxysmal atrial fibrillation Abnormal chest x-ray with multiple lung nodules Empyema lung Restrictive lung disease Surgical History History of lung surgery History of esophagogastroduodenoscopy (EGD) H/O colonoscopy Family History Father No problems noted. Mother No problems noted. Social History Housing: House Patient Tobacco Use Status: Never used Tobacco e-Cigarette/Vaping Use: Never Used Second Hand Smoke Exposure: No service: No Current occupational status: employed Cognitive needs: No Hearing needs: No Vision needs: Yes (reading glasses) Review of Systems Const All systems reviewed & are unremarkable except as noted in HPI and below Reports no additional complaints Eyes Reports no additional complaints ENT Denies otalgia and Reports other (decreased hearing right ear, blockage ) Card Reports no additional complaints Resp Reports no additional complaints GI Reports no additional complaints Reports no additional complaints Musc Reports no additional complaints Skin/Breast Reports system reviewed and no additional complaints, except as documented Neuro Reports no additional complaints Psych Reports no additional complaints Endo Reports no additional complaints Reggie/Lymph Reports no additional complaints Aller/Immun Reports no additional complaints Physical Exam Vital Signs: Last Vital Signs Pulse 68 09/20/24 12:38 BP 112/70 09/20/24 12:38 Pulse Ox 98 09/20/24 12:38 Oxygen Delivery Method Room Air 09/20/24 12:38 Const General: cooperative, healthy appearing, comfortable and no acute distress Nutritional Appearance: average body habitus Orientation/consciousness: patient oriented x3 Limitations: no limitations HEENT Head: Yes normal to inspection and Yes normocephalic Ears: hearing grossly normal bilaterally, external ears normal, TM's abnormal bilaterally, right TM abnormal, TM normal on the left and other (cerumen impaction right ear) General nose exam: Normal external nose present Face and sinus: Yes normal facial exam Neuro General: patient oriented x3 Psych Appearance: grossly normal Mental Status: mental status grossly normal Insight: Good insight present (Psych) Judgement: Good judgement present (Psych) Office Procedures Cerumen Removal From which ear canal was the cerumen removed: right Removal: irrigation and otoscope w/curette Notes: patient tolerated procedure well 03145-[id number] Irrigation/Lavage Assessment & Plan Assessment & Plan (1) Impacted cerumen of right ear: Comment: Cerumen partially removed with irrigation and curette. Patient will continue to use Debrox drops. Code(s): H61.21 - Impacted cerumen, right ear Plan: Debrox OTC 5 drops daily x 5 days. Follow up only as needed. Coding Level of Care Code Est Pt Level 3 (28293) Diagnoses Impacted cerumen of right ear H61.21 CPT Codes Office Procedure - CPT: 21871-Wxg Irrigation/Lavage ([id number]) Time Spent (min) 25
[2024-09-20 12:38] VITALS: BP 112/70; PULSE 68; O2SAT 98
== END 2024-09-20 13:19 | disposition home or self-care (01) ==
PROVIDERS: PCP Internal Medicine; Visit Provider Physician Assistant
DX: H61.21 Impacted cerumen, right ear (principal)

== ENCOUNTER → 2024-09-20 11:12 | Outpatient (BNVA) | payer MEDICARE, SELFPAY | PROVIDERS: PCP Internal Medicine; Visit Provider Physician Assistant | DX: H61.21 Impacted cerumen, right ear (principal) | CPT/HCPCS: 69210; 99212 ==

== ENCOUNTER 2024-11-12 13:15 | Outpatient (REF) | payer MEDICARE, SELFPAY | END 2024-11-12 13:16 | disposition home or self-care (01) | LOC: HO.HMGCLDS 13:15 | PROVIDERS: PCP Internal Medicine; Visit Provider Internal Medicine | DX: Z13.89 Encounter for screening for other disorder (principal) ==

== ENCOUNTER 2024-11-18 09:40 | Outpatient (REF) | payer MEDICARE, SELFPAY ==
--- OUTSIDE RECORDS SUMMARY | 2024-11-18 11:33 | XMS_ITS | Patient Health Record ---
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 Vital Signs Blood pressure diastolic 70 mm Hg 08/29/2024 Height 5ft3in in 08/29/2024 Blood pressure systolic 125 mm Hg 08/29/2024 Weight 114 lbs 08/29/2024 BMI 20.19 kg/m2 08/29/2024 Procedures Procedure Date Ordered Date Performed Result Body Sit e 19523-EQHFMOM NAIL, 1-5 08/29/2024 N/A Encounters Encounter Location Date Provider Diagnosis [facility] [address] 08/29/2024 Sofía Black Pain in right foot M79.671 ; Bursitis of right foot M77.51 ; Pain in right ankle and joints of right foot M25.571 ; Osteoarthritis of midtarsal joint of right foot M19.071 ; Pain in right toe(s) M79.674 ; Onychomycosis B35.1 ; Pain in left toe(s) M79.675 and 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.[address] [facility] [address] 06/14/2024 Sofía Black Assessments Encounter Date Diagnosis [...] Treatment Pending Test Test Name Order Date [id number] NAIL, 1-5 08/29/2024 Insurance Providers Payer Name Payer Address Payer Phone Subscriber Number Group Number Insured Name Patient Relationship to Insured Coverage Start Date Coverage End Date Medicare National [employer] [address] [place] [address] [id number] Gilma Marques Self - patient is the insured 9 [employer] Blue Shield [address] [place] [address] [phone] [id number] Gilma Marques Self - patient is the insured Medical (General) History Medical History History ICD Code Back,Hip,and Knee pain Broken bones Osteoporosis Reflux ( GERD) thyroid Measles Chicken pox Surgical History Surgery Date(Month/Year) lung surgery 04/21
--- OUTSIDE RECORDS SUMMARY | 2024-11-18 11:33 | XMS_ITS | Clinical Summary ---
Author Organization [facility] Address [address] [place] [address] Care Team Providers Care Photo Print Specialist Name Role Phone Unavailable Primary Care Provider [...] 2023-2 5 season) 2024 Influenza Vaccine (#1) 2025 HIB Vaccines Aged Out No longer [...]
--- OUTSIDE RECORDS SUMMARY | 2024-11-18 11:33 | XMS_ITS | Patient Health Record ---
Author Organization [facility] Address [address] [place] [address] Care Team Providers Care Quality Liaison Name Role Phone Magnolia (RETIRED) Chester ADORNO Primary Care Provide r Deondre Easley Unavailable [phone] Allergies Allergen (clinical drug ingredient) Drug/Non Drug [...] 1 tablet Orally Once a day Active Famotidine 40 MG 1 tablet Orally Twic e a day for 90 days 09/22/2024 Active Vitamin B Complex - as directed Orally every day Not-Taking Vitamin D 2000 UNIT 1 capsule Orally Onc e a day Active Citracal Plus - as directed Orally once a day Active Diphenoxylate-Atropine 2.5-0.025 MG 1 or 2 tablets Orally very 6 hours if needed for diarrhea for 30 days 10/06/2024 Active Levothyroxine Sodium 88 MCG 1 tablet [...] Problem Status W/U Status Risk Notes Problem 833518851 Encounter for screening for malignant neoplasm of colon (Z12.11) Active confirmed Problem 253736007 History of adenomatous polyp of colon (Z86.010) Active confirmed Problem Diarrhea (R19.7) Active confirmed Problem Screening for malignant neoplasm of rectum (233767506) Encounter for screening for malignant neoplasm of rectum (Z12.12) Active confirmed Problem 67603980 Abdominal pain, epigastric (R10.13) Active confirmed Problem 803751224 Gastroesophageal reflux disease without esophagitis (K21.9) Active confirmed Problem 176783407 Long-term use of aspirin therapy (Z79.82) Active confirmed Problem 96290838 Diarrhea, unspecified type (R19.7) Active confirmed Problem 13577221 Other irritable bowel syndrome (K58.8) Active confirmed Problem 36340913 Irritable bowel syndrome with both constipation and diarrhea (K58.2) Active confirmed Problem 42654335 Hypertension, unspecified type (I10) Active confirmed Problem 38192817 Gastric ulcer without hemorrhage or perforation, unspecified chronicity (K25.9) Active confirmed Problem [id number] History of Clostridioides difficile infection (Z86.19) Active confirmed Vital Signs Temperature 97.8 degrees Fahrenheit 01/20/2024 Blood pressure diastolic 00 mm Hg 01/20/2024 Height 63.75 in 01/20/2024 Blood pressure systolic 000 mm Hg 01/20/2024 Weight 114 lb 6 oz lbs 01/20/2024 BMI 19.78 kg/m2 01/20/2024 Encounters Encounter Location Date Provider Diagnosis [facility] [address] [place] [address] 01/20/2024 Deondre Olivier Irritable bowel syndrome with both constipation and diarrhea K58.2 [facility] [address] [place] [address] 2024 Deondre Olivier [facility] [address] [place] [address] 07/08/2024 Deondre Rollins [facility] [address] [place] [address] 08/03/2024 Deondre Rollins [facility] [address] [place] [address] 09/21/2024 Deondre Rollins [facility] [address] [place] [address] 10/19/2024 Deondre Rollins [facility] [address] [place] [address] 11/10/2024 Deondre Olivier Diarrhea R19.7 Assessments Encounter Date Diagnosis (ICD Code) Assessment [...] as much fluid as permitted by her folded cloth taper and it would probably be best to [...] of any further assistance in the future. 11/10/2024 Diarrhea (ICD-10 - R19.7) Plan Of Treatment Pending Test Test Name Order Date LIVER PROFILE 02/23/2013 AMYLASE 02/23/2013 LIPASE 02/23/2013 CRP 01/08/2021 CBC w DIFF 01/08/2021 SED RATE (ESR) 01/08/2021 ENDOMYSIAL IGA 02/18/2011 CULTURE, STOOL 01/08/2021 STOOL WBC 01/08/2021 C DIFFICILE RFLX PCR 04/18/2019 C DIFFICILE RFLX PCR 09/19/2020 C DIFFICILE RFLX PCR 01/08/2021 CALPROTECTIN, STOOL 02/01/2021 CDiff with Reflex to PCR 11/10/2024 GI PANEL 11/10/2024 Future Test Test Name Order Date COLONOSCOPY 02/18/2011 COLONOSCOPY 08/20/2016 UPPER GI ENDOSCOPY 06/09/2018 Next Appt Details Provider Name:Deondre Olivier , 11/22/2024 10:40:00 AM, [address], [address], [place], [address], Insurance Providers Payer Name Payer Address Payer Phone Subscriber Number Group Number Insured Name Patient Relationship to Insured Coverage Start Date Coverage End Date MEDICARE OF [place] [address] [place] [address] [id number] GILMA MYLES Self - patient is the insured [employer] CLAIM[employer] [address] [place] [address] [id number] GILMA MYLES Self - patient is the insured Medical (General) History Medical History History ICD Code Irritable bowel syndrome Tubular adenomas of the colo n--most recent colonoscopy was in 11/2016--neg for polyps--neg colonoscopy in 2006 and 2011, and a small adenoma removed in 2002 Hypothyroidism Palpitations Denies HI,DM,CVA,Lung disease,renal dise ase Positive H. pylori serology [...]
[2024-11-18 13:40] LABS: CDiff Gene PCR NEGATIVE (Negative)
[2024-11-19 11:13] LABS: E. coli EAEC Not Detected (Not Detect.); E. coli EPEC Detected (Not Detect.); E. coli ETEC Not Detected (Not Detect.); E. coli STEC Not Detected (Not Detect.); Shigella sp./EIEC Not Detected (Not Detect.)
== END 2024-11-18 09:41 | disposition home or self-care (01) ==
LOC: HO.HMGCLNP 09:40
PROVIDERS: PCP Internal Medicine; Visit Provider Internal Medicine
DX: R19.7 Diarrhea, unspecified (principal)
CPT/HCPCS: 87493; 87507

== ENCOUNTER 2024-12-07 08:46 | Outpatient (REF) | payer MEDICARE, SELFPAY ==
--- OUTSIDE RECORDS SUMMARY | 2024-12-07 10:37 | XMS_ITS | Clinical Summary ---
Author Organization [facility] Address [address] [place] [address] Care Team Providers Care Jig Bore Operator Name Role Phone Unavailable Primary Care Provider [...] Vaccine ( - 2023-2 5 season) 2024 Depression Screening 05/04/2024 Influenza Vaccine (#1) 2025 HIB Vaccines Aged [...]
--- OUTSIDE RECORDS SUMMARY | 2024-12-07 10:37 | XMS_ITS | Patient Health Record ---
Author Organization [facility] Annie mateo [place] Address [address] [place] [address] Care Team Providers Care Electron Microscopist Name Role Phone Melissa Ken Primary Care Provider Unavailabl e Black Sofía Unavailable [phone] Allergies Allergen (clinical drug ingredient) Drug/Non Drug [...] Osteoarthritis of midtarsal joint of right foot (3029004294183767 ) Osteoarthritis of midtarsal joint of right foot (M19.071) Active confirmed Vital Signs Blood pressure diastolic 70 mm Hg 08/29/2024 Height 5ft3in in 08/29/2024 Blood pressure systolic 125 mm Hg 08/29/2024 Weight 114 lbs 08/29/2024 BMI 20.19 kg/m2 08/29/2024 Procedures Procedure Date Ordered Date Performed Result Body Sit e 01827-[id number] NAIL, 1-5 08/29/2024 N/A Encounters Encounter Location Date Provider Diagnosis [facility] [address] 08/29/2024 Sofía Black Pain in right foot M79.671 ; Bursitis of right foot M77.51 ; Pain in right ankle and joints of right foot M25.571 ; Osteoarthritis of midtarsal joint of right foot M19.071 ; Pain in right toe(s) M79.674 ; Onychomycosis B35.1 ; Pain in left toe(s) M79.675 and 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.[address] [facility] [address] 06/14/2024 Sofía Black Assessments Encounter Date Diagnosis [...] Treatment Pending Test Test Name Order Date [id number] NAIL, 1-5 08/29/2024 Insurance Providers Payer Name Payer Address Payer Phone Subscriber Number Group Number Insured Name Patient Relationship to Insured Coverage Start Date Coverage End Date Medicare National Govt Svcs Inc [address] [place] [address] [id number] Gilma Marques Self - patient is the insured 9 [employer] Blue [employer] [address] [place] [address] [phone] [id number] Gilma Marques Self - patient is the insured Medical (General) History Medical History History ICD Code Back,Hip,and Knee pain Broken bones Osteoporosis Reflux ( GERD) thyroid Measles Chicken pox Surgical History Surgery Date(Month/Year) lung surgery 04/21
--- OUTSIDE RECORDS SUMMARY | 2024-12-07 10:37 | XMS_ITS | Patient Health Record ---
Author Organization [facility] Address [address] [place] [address] Care Team Providers Care Ring Stamper Name Role Phone Melissa Ziegler M.D. Primary Care Provider Unavail Deondre Fernández Unavailable [phone] Allergies Allergen (clinical drug ingredient) Drug/Non Drug Allergy documented on EMR Reaction Allergy Type Onset Date Status Non-steroidal anti-inflammatory agent (FN) NSAIDS (uncoded) Unknown Allergy Active rofecoxib Vioxx (uncoded) Unknown Allergy Acti ve PCN (uncoded) Unknown Allergy Active Results Component Value Reference Range Notes CDiff Gene PCR Reviewed date:11/19/2024 01:03:52 AM Interpretation: Performing Lab:[facility], [address] [place] [phone] Notes/Report: CDiff Gene PCR NEGATIVE Negative If C. difficile strongly suspected despite one negative test, a second test may be sent vs. empiric treatment for C. difficile infection. GI PANEL Reviewed date:11/22/2024 04:11:22 PM Interpretation: Performing Lab:[facility], [address] [place] [phone] Notes/Report: Campylobacter Not Detected Not Detect. Plesiomonas shigelloides Not Detected Not Detect. Salmonella Not Detected Not Detect. Vibrio Not Detected Not Detect. Vibrio Cholerae Not Detected Not Detect. Yersinia enterocolitica Not Detected Not Detect. E. coli EAEC Not Detected Not Detect. E. coli EPEC Detected Not Detect. E. coli ETEC Not Detected Not Detect. E. coli STEC Not Detected Not Detect. E. coli O157 Not applicable Not Detect. E. coli containing the O157 antigen are a subset of Shiga-like toxin-producing E. coli (STEC). Shigella sp./EIEC Not Detected Not Detect. Cryptosporidium Not Detected Not Detect. Cyclospora cayetanensis Not Detected Not Detect. Entamoeba histolytica Not Detected Not Detect. Giardia lamblia Not Detected Not Detect. Adenovirus F 40/41 Not Detected Not Detect. Astrovirus Not Detected Not Detect. Norovirus GI/GII Not Detected Not Detect. Rotavirus A Not Detected Not Detect. Sapovirus Not Detected Not Detect. All results must be correlated with clinical findings. Negative results do not exclude the possibility of gastrointestinal infection and should not be used as the sole basis for diagnosis, treatment, or other management decisions. Virus, bacteria, and parasite nucleic acid may persist in vivo independently of organism viability. Additionally, some organisms may be carried asymptomatically. Detection of organism targets does not imply that the corresponding organisms are infectious or are the causative agents for clinical symptoms. There is a risk of false negative values due to the presence of sequence variants in the gene targets of the assay, amplification inhibitors in specimens, or inadequate numbers of organisms for amplification. The identification of several diarrheagenic E. coli pathotypes has historically relied upon phenotypic characteristics. This panel targets genetic determinants characteristic of most pathogenic strains, but may not detect all strains having phenotypic characteristics of a pathotype. The performance of this test has not been established for monitoring treatment of infection with any of the panel organisms. This assay is performed by Multiplexed PCR, utilizing the [employer] Array. Reason For Referral No Information Medications Medication SIG (Take, Route, Frequency, Duration) Notes Start Date End Date Status Famotidine 40 MG 1 Orally Once a day for 90 days Not-Taking Omeprazole 40 MG 1 Orally Once a day for 90 days 02/05/2023 Not-Taking Famotidine 40 MG 1 tablet Orally Twic e a day for 90 days 09/22/2024 Not-Taking Diphenoxylate-Atropine 2.5-0.025 MG 1 or 2 tablets Orally very 6 hours if needed for diarrhea for 30 days 10/06/2024 Active Vitamin B Complex - as directed Orally every day Not-Taking Probiotic 1 capsule Orally onc e a day Not-Taking Atenolol 12.5 mg 1 tablet Orally Once a day Active Vitamin D 2000 UNIT 1 capsule Orally Onc e a day Active Levothyroxine Sodium 88 MCG 1 tablet on an empty stomach in the morning Orally Once a day Active Citracal Plus - as directed Orally once a day Active ALPRAZolam 0.25 MG Oral for 30 Active Immunizations Vaccine Route Administration Date Status Comme nts Influenza Unknown 01/02/2017 Administered Influenza Unknown 02/16/2018 Administered Influenza Unknown 01/02/2019 Administered Influenza Unknown 02/02/2020 Administered Influenza Unknown 02/01/2021 Administered Influenza Unknown 02/24/2023 Administered Influenza Unknown 02/23/2024 Administered Problems Problem Type SNOMED Code ICD Code Onset Dates Problem Status W/U Status Risk Notes Problem 381629593 Encounter for screening for malignant neoplasm of colon (Z12.11) Active confirmed Problem 979482276 History of adenomatous polyp of colon (Z86.010) Active confirmed Problem Diarrhea (R19.7) Active confirmed Problem Screening for malignant neoplasm of rectum (402278669) Encounter for screening for malignant neoplasm of rectum (Z12.12) Active confirmed Problem 78464393 Abdominal pain, epigastric (R10.13) Active confirmed Problem 464720465 Gastroesophageal reflux disease without esophagitis (K21.9) Active confirmed Problem 035281809 Long-term use of aspirin therapy (Z79.82) Active confirmed Problem 42601130 Diarrhea, unspecified type (R19.7) Active confirmed Problem 77423130 Other irritable bowel syndrome (K58.8) Active confirmed Problem 82199753 Irritable bowel syndrome with both constipation and diarrhea (K58.2) Active confirmed Problem 09839472 Hypertension, unspecified type (I10) Active confirmed Problem 48731446 Gastric ulcer without hemorrhage or perforation, unspecified chronicity (K25.9) Active confirmed Problem 378130016305085 History of Clostridioides difficile infection (Z86.19) Active confirmed Vital Signs Temperature 97.1 degrees Fahrenheit 11/22/2024 Blood pressure diastolic 01 mm Hg 11/22/2024 Height 63.75 in 11/22/2024 Blood pressure systolic 001 mm Hg 11/22/2024 Weight 110.8 lbs 11/22/2024 BMI 19.17 kg/m2 11/22/2024 Encounters Encounter Location Date Provider Diagnosis [facility] [address] [place] [address] 01/20/2024 Deondre Olivier Irritable bowel syndrome with both constipation and diarrhea K58.2 [facility] [address] [place] [address] 11/22/2024 Deondre Olivier Irritable bowel syndrome with both constipation and diarrhea K58.2 ; Diarrhea R19.7 and Other irritable bowel syndrome K58.8 [facility] [address] [place] [address] 2024 Deondre Olivier [facility] [address] [place] [address] 07/08/2024 Deondre Olivier [facility] [address] [place] [address] 08/03/2024 Deondre Olivier [facility] [address] [place] [address] 09/21/2024 Deondre Olivier [facility] [address] [place] [address] 10/19/2024 Deondre Olivier [facility] [address] [place] [address], [place] [address] 11/10/2024 Deondre Olivier Diarrhea R19.7 [facility] [address] [place] [address] 11/18/2024 Deondre Olivier Assessments Encounter Date Diagnosis (ICD [...] as much fluid as permitted by her cognos developer and it would probably be best to [...] of any further assistance in the future. 11/22/2024 Diarrhea (ICD-10 - R19.7) Overall, Gilma appears quite well from a clinical standpoint and from a symptomatic standpoint. I did reassure her that I think her irritable bowel syndrome is quite stable on the current and relatively minimal regimen. I did advise her to continue the 1 daily Lomotil each morning, a healthy diet as she is doing with fiber, and the 1 alprazolam at bedtime which helps her sleep as well as helps her anxiety during the day. I advised her that I would not want to make any significant changes so as not to upset the apple cart . I did review the positive GI panel for the enteropathogenic E. coli but at this time I am holding off on treatment since she is doing so well and seems to be asymptomatic. Given her history of C. difficile in the past I would like to avoid antibiotics if possible. I am going to check another GI panel stool specimen in December. I most likely would not treat this as long as she remains asymptomatic. I have given her an appointment to see me in 6 months for a follow-up visit but did advise her to contact me in the interim if she has any problems or questions I can be of assistance with. Gilma was comfortable with this plan. Thank you again for allowing me to participate in Gilma's care. I shall continue to keep you advised of her progress. 11/22/2024 Irritable bowel syndrome with both constipation and diarrhea (ICD-10 - K58.2) Continue same regimen of 1 Lomotil daily, high fiber diet, some fluids, etc. You can use occasional over the counter Imodium if needed. We will check another stool specimen in December Overall, Gilma appears quite well from a clinical standpoint and from a symptomatic standpoint. I did reassure her that I think her irritable bowel syndrome is quite stable on the current and relatively minimal regimen. I did advise her to continue the 1 daily Lomotil each morning, a healthy diet as she is doing with fiber, and the 1 alprazolam at bedtime which helps her sleep as well as helps her anxiety during the day. I advised her that I would not want to make any significant changes so as not to upset the apple cart . I did review the positive GI panel for the enteropathogenic E. coli but at this time I am holding off on treatment since she is doing so well and seems to be asymptomatic. Given her history of C. difficile in the past I would like to avoid antibiotics if possible. I am going to check another GI panel stool specimen in December. I most likely would not treat this as long as she remains asymptomatic. I have given her an appointment to see me in 6 months for a follow-up visit but did advise her to contact me in the interim if she has any problems or questions I can be of assistance with. Gilma was comfortable with this plan. Thank you again for allowing me to participate in Gilma's care. I shall continue to keep you advised of her progress. 11/10/2024 Diarrhea (ICD-10 - R19.7) 11/22/2024 Other irritable bowel syndrome (ICD-10 - K58.8) Overall, Gilma appears quite well from a clinical standpoint and from a symptomatic standpoint. I did reassure her that I think her irritable bowel syndrome is quite stable on the current and relatively minimal regimen. I did advise her to continue the 1 daily Lomotil each morning, a healthy diet as she is doing with fiber, and the 1 alprazolam at bedtime which helps her sleep as well as helps her anxiety during the day. I advised her that I would not want to make any significant changes so as not to upset the apple cart . I did review the positive GI panel for the enteropathogenic E. coli but at this time I am holding off on treatment since she is doing so well and seems to be asymptomatic. Given her history of C. difficile in the past I would like to avoid antibiotics if possible. I am going to check another GI panel stool specimen in December. I most likely would not treat this as long as she remains asymptomatic. I have given her an appointment to see me in 6 months for a follow-up visit but did advise her to contact me in the interim if she has any problems or questions I can be of assistance with. Gilma was comfortable with this plan. Thank you again for allowing me to participate in Gilma's care. I shall continue to keep you advised of her progress. Plan Of Treatment Pending Test Test Name Order Date LIVER PROFILE 02/23/2013 AMYLASE 02/23/2013 LIPASE 02/23/2013 CRP 01/08/2021 CBC w DIFF 01/08/2021 SED RATE (ESR) 01/08/2021 ENDOMYSIAL IGA 02/18/2011 CULTURE, STOOL 01/08/2021 STOOL WBC 01/08/2021 C DIFFICILE RFLX PCR 01/08/2021 C DIFFICILE RFLX PCR 04/18/2019 C DIFFICILE RFLX PCR 09/19/2020 CALPROTECTIN, STOOL 02/01/2021 CDiff with Reflex to PCR 11/10/2024 GI PANEL 11/10/2024 GI PANEL 11/22/2024 Future Test Test Name Order Date COLONOSCOPY 02/18/2011 COLONOSCOPY 08/20/2016 UPPER GI ENDOSCOPY 06/09/2018 Next Appt Details Provider Name:Deondre Obregon Soy , 05/23/2025 01:00:00 PM, [address] [place] [address], [address], [place], [address], Insurance Providers Payer Name Payer Address Payer Phone Subscriber Number Group Number Insured Name Patient Relationship to Insured Coverage Start Date Coverage End Date MEDICARE OF [place] [address] [place] [address] [id number] GILMA MYLES Self - patient is the insured [employer] ATT[employer] CLAIMS [address] [place] [address] [id number] GILMA MYLES Self - patient is the insured Medical (General) History Medical History History ICD Code Irritable bowel syndrome Tubular adenomas of the colo n- most recent colonoscopy was in 11/2016- neg for polyps- neg colonoscopy in 2006 and 2011, and a small adenoma removed in 2002 Hypothyroidism Palpitations Denies [place],DM,CVA,Lung disease,renal dise ase Positive H. pylori serology in 2008, for which she was never treated- I did not think that was contributing to any of her GI symptoms Negative tissue transglutaminase IgA ant ibody in 2008 Relapsing C. diff- started i n 04/2013 after Clindamycin- on Flagyl twice, then Vanco- still relapsed, and resolved on a tapering regimen Osteoporosis 03/2019 with pneumonia and a n empyema-a strep viridans was cultured- required hospitalization and a chest tube-seeing Dr. 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 At that time she was basically asymptomatic and therefore this was not treated at the time. Surgical History Surgery Date(Month/Year) Thoracic surgery in relation to pneumoni a and empyema as above 2019
[2024-12-07 15:22] LABS: E. coli EAEC Not Detected (Not Detect.); E. coli EPEC Detected (Not Detect.); E. coli ETEC Not Detected (Not Detect.); E. coli STEC Not Detected (Not Detect.); Shigella sp./EIEC Not Detected (Not Detect.)
== END 2024-12-07 08:47 | disposition home or self-care (01) ==
LOC: HO.HMGCLNP 08:46
PROVIDERS: PCP Internal Medicine; Visit Provider Internal Medicine
DX: R19.7 Diarrhea, unspecified (principal)
CPT/HCPCS: 87507

== ENCOUNTER 2025-01-11 08:50 | Outpatient (REF) | payer MEDICARE, SELFPAY ==
--- NOTE | ~2025-01-11 | MM_ITS ---
EXAMINATION: DXA BONE DENSITY AXIAL HISTORY: M81.0 AGE RELATED OSTEOPOROSIS TECHNIQUE: AdMobius Dual energy absorptiometry (DEXA) of the lumbar spine, total left hip, and femoral neck was performed. COMPARISON: Comparison is made with the prior examination dated 12/09/2022. FINDINGS: The bone mineral density of the lumbar spine is 0.774 g/cm2, corresponding to a T-score of -3.3, and a Z-score of -1.0. This is indicative of osteoporosis. This represents a BMD change of 9.8% compared to the prior exam. This is statistically significant. The bone mineral density of the left total hip is 0.675 g/cm2, corresponding to a T-score of -2.6, and a Z-score of -0.3. This is indicative of osteoporosis. This represents a BMD change of 1.2% compared to the prior exam. This is not statistically significant. The bone mineral density of the left femoral neck is 0.699 g/cm2, corresponding to a T-score of -2.4, and a Z-score of 0.0. This is indicative of osteopenia. This represents a BMD change of 4.2% compared to the prior exam. FRACTURE RISK: The FRAX index suggests a ten year probability of major osteoporotic fracture of 42.1%, and of hip fracture 29.6%. MM/XR DEXA axial skeleton IMPRESSION: Based on bone mineral density, and according to World Health Organization (WHO) criteria, the diagnosis is consistent with osteoporosis. Statistically, 68% of repeat scans fall within 1 SD (+/- 0.010 g/cm2 for AP spine L1-L4) and 1 SD (+/- 0.012 g/cm2 for femur total) FRAX is a trademark of the [employer] [place] for Metabolic Bone Disease, a World Health Organization (WHO) Collaborating Center. Electronically signed by: Deondre Avila MD 01/11/2025 09:42 AM EDT
--- NOTE | ~2025-01-11 | MM_ITS ---
EXAMINATION: MM SCREENING DIGITAL BREAST TOMOSYNTHESIS, BILATERAL CLINICAL INFORMATION: Screening. Asymptomatic. COMPARISON: Mammography: Comparison is made with available priors TECHNIQUE: Digital breast mammography with tomosynthesis is performed in both the craniocaudal and mediolateral oblique views along with computer-aided detection (CAD). FINDINGS: The breasts are extremely dense, which lowers the sensitivity of mammography (ACR BI-RADS breast composition Category d). Right: Focal asymmetry upper outer breast anterior to middle depth. No suspicious calcifications or other abnormal findings. Left: There are no significant masses, abnormal calcifications, or other abnormalities. MM/MM tomosynthesis screening BI IMPRESSION: Additional imaging is recommended ASSESSMENT: BI-RADS BI-RADS 0 - Incomplete: Needs additional Imaging. RECOMMENDATION: 1. Additional views of the right breast. 2. Targeted ultrasound if warranted after review of the additional views. 3. Radiology department staff will contact the patient for additional imaging. Additional Imaging required This examination should not preclude the clinical evaluation of a suspicious palpable abnormality. This patient's information was entered into a reminder system with a target due date for their next mammogram. Electronically signed by: Candy Dubois DO 01/16/2025 01:49 PM EDT
--- OUTSIDE RECORDS SUMMARY | 2025-01-11 10:21 | XMS_ITS | Patient Health Record ---
Author Organization [facility] Address [address] [place] [address] Care Team Providers Care Financial Reporting Advisor Name Role Phone Melissa Ziegler M.D. Primary Care Provider Unavail Deondre Fernández Unavailable [phone] Allergies Allergen (clinical drug ingredient) Drug/Non Drug Allergy documented on EMR Reaction Allergy Type Onset Date Status Non-steroidal anti-inflammatory agent (FN) NSAIDS (uncoded) Unknown Allergy Active rofecoxib Vioxx (uncoded) Unknown Allergy Acti ve PCN (uncoded) Unknown Allergy Active Results Component Value Reference Range Notes CDiff Gene PCR Reviewed date:11/19/2024 01:03:52 AM Interpretation: Performing Lab:[facility], [address] [place] [phone] Notes/Report: CDiff Gene PCR NEGATIVE Negative If C. difficile strongly suspected despite one negative test, a second test may be sent vs. empiric treatment for C. difficile infection. GI PANEL Reviewed date:11/22/2024 04:11:22 PM Interpretation: Performing Lab:[facility], [address] [place] [phone] Notes/Report: Campylobacter Not Detected Not Detect. Plesiomonas [...] is performed by Multiplexed PCR, utilizing the [employer] Array. GI PANEL Reviewed date:12/11/2024 11:32:22 PM Interpretation: Performing Lab:[facility], [address] [place] [phone] Notes/Report: Campylobacter Not Detected Not Detect. Plesiomonas [...] Astrovirus Not Detected Not Detect. Norovirus GI/GII Detected Not Detect. Results of DETECTED NOROVIRUS called to and read back by KATARZYNA OF [employer] on 12/07/24 at 1541 by SHLOMO. Rotavirus A Not Detected Not Detect. Sapovirus [...] is performed by Multiplexed PCR, utilizing the [employer] Array. Reason For Referral No Information Medications [...] Problem Status W/U Status Risk Notes Problem 676748869 Encounter for screening for malignant neoplasm of colon (Z12.11) Active confirmed Problem 327530088 History of adenomatous polyp of colon (Z86.010) Active confirmed Problem Diarrhea (45416982) Diarrhea (R19.7) Active confirmed Problem Screening for malignant neoplasm of rectum (936856120) Encounter for screening for malignant neoplasm of rectum (Z12.12) Active confirmed Problem 74576256 Abdominal pain, epigastric (R10.13) Active confirmed Problem 474176273 Gastroesophageal reflux disease without esophagitis (K21.9) Active confirmed Problem 628564930 Long-term use of aspirin therapy (Z79.82) Active confirmed Problem 41672861 Diarrhea, unspecified type (R19.7) Active confirmed Problem 95060891 Other irritable bowel syndrome (K58.8) Active confirmed Problem 56200152 Irritable bowel syndrome with both constipation and diarrhea (K58.2) Active confirmed Problem 88589240 Hypertension, unspecified type (I10) Active confirmed Problem 87716368 Gastric ulcer without hemorrhage or perforation, unspecified chronicity (K25.9) Active confirmed Problem 782018277758443 History of Clostridioides difficile infection (Z86.19) Active confirmed Vital Signs Temperature 97.1 degrees Fahrenheit 11/22/2024 Blood pressure diastolic 01 mm Hg 11/22/2024 Height 63.75 in 11/22/2024 Blood pressure systolic 001 mm Hg 11/22/2024 Weight 110.8 lbs 11/22/2024 BMI 19.17 kg/m2 11/22/2024 Encounters Encounter Location Date Provider Diagnosis [facility] [address] [place] [address] 01/20/2024 Deondre Olivier Irritable bowel syndrome with both constipation and diarrhea K58.2 [facility] [address] [place] [address] 11/22/2024 Deondre Olivier Irritable bowel syndrome with both constipation and diarrhea K58.2 ; Diarrhea R19.7 and Other irritable bowel syndrome K58.8 [facility] [address] [place] [address] 2024 Deondre Olivier [facility] [address] [place] [address] 07/08/2024 Deondre Olivier [facility] [address] [place] [address] 08/03/2024 Deondre Olivier [facility] [address] [place] [address] 09/21/2024 Deondre Olivier [facility] [address] [place] [address] 10/19/2024 Deondre Olivier [facility] [address] [place] [address] 11/10/2024 Deondre Olivier Diarrhea R19.7 [facility] [address] [place] [address] 11/18/2024 Deondre Olivier [facility] [address] [place] [address] 12/07/2024 Deondre Olivier Assessments Encounter Date Diagnosis (ICD [...] as much fluid as permitted by her professional architect and it would probably be best to [...] Next Appt Details Provider Name:Deondre Olivier , 05/23/2025 01:00:00 PM, [address] [place] [address], [address], [place], [address], Insurance Providers Payer Name Payer Address Payer Phone Subscriber Number Group Number Insured Name Patient Relationship to Insured Coverage Start Date Coverage End Date MEDICARE OF [place] [address] [facility] [place] [address] [id number] SHAMEKA GILMA Self - patient is the insured MED[employer] ATTN CLAIMS [address] [place] [address] [id number] 5 GILMA MYLES Self - patient is the insured Medical (General) History Medical History History ICD Code Irritable bowel syndrome Tubular adenomas of the colo n- most recent colonoscopy was in 11/2016- neg for polyps- neg colonoscopy in 2006 and 2011, and a small adenoma removed in 2002 Hypothyroidism Palpitations Denies [place],DM,CVA,Lung disease,renal dise ase Positive H. pylori serology [...] to pneumoni a and empyema as above 2018
--- OUTSIDE RECORDS SUMMARY | 2025-01-11 10:21 | XMS_ITS | Patient Health Record ---
Author Organization [facility] [place] Address [address] [place] [address] Care Team Providers Care Hospital Administrative Assistant Name Role Phone Melissa Ken Primary Care Provider Unavailabl e Black Sofía Unavailable [phone] Allergies Allergen (clinical drug ingredient) Drug/Non Drug [...] Osteoarthritis of midtarsal joint of right foot (4587161985204389 ) Osteoarthritis of midtarsal joint of right foot (M19.071) Active confirmed Vital Signs Blood pressure diastolic 70 mm Hg 08/29/2024 Height 5ft3in in 08/29/2024 Blood pressure systolic 125 mm Hg 08/29/2024 Weight 114 lbs 08/29/2024 BMI 20.19 kg/m2 08/29/2024 Procedures Procedure Date Ordered Date Performed Result Body Sit e 08651-XBUVPCN NAIL, 1-5 08/29/2024 N/A Encounters Encounter Location Date Provider Diagnosis [facility] [address] 08/29/2024 Sofía Black Pain in right foot M79.671 ; Bursitis of right foot M77.51 ; Pain in right ankle and joints of right foot M25.571 ; Osteoarthritis of midtarsal joint of right foot M19.071 ; Pain in right toe(s) M79.674 ; Onychomycosis B35.1 ; Pain in left toe(s) M79.675 and 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.[address] [facility] [address] 06/14/2024 Sofía Black [facility] [address] 12/28/2024 Sofía Black Assessments Encounter Date Diagnosis (ICD [...] Treatment Pending Test Test Name Order Date [id number]-AROXBYY NAIL, 1-5 08/29/2024 Insurance Providers Payer Name Payer Address Payer Phone Subscriber Number Group Number Insured Name Patient Relationship to Insured Coverage Start Date Coverage End Date Medicare National Govt Sv[employer] [address] [facility] [place] [address] [id number] Gilma Marques Self - patient is the insured 9 [employer] [address] [place] [address] [phone] [id number] 5 Gilma Marques Self - patient is the insured Medical (General) History Medical History History ICD Code Back,Hip,and Knee pain Broken bones Osteoporosis Reflux ( GERD) thyroid Measles Chicken pox Surgical History Surgery Date(Month/Year) lung surgery 04/21
--- OUTSIDE RECORDS SUMMARY | 2025-01-11 10:21 | XMS_ITS | Clinical Summary ---
Author Organization [facility] Address [address] [place] [address] Care Team Providers Care Area Development Manager Name Role Phone Unavailable Primary Care Provider [...] nts (1 - 1-dose 75+ series) 2019 Depression Screening 05/04/2024 COVID-19 Vaccine ( - 2023-2 5 season) 2025 Influenza Vaccine (#1) 2025 HIB Vaccines Aged [...]
== END 2025-01-11 08:51 | disposition home or self-care (01) ==
LOC: HO.MAMMO 08:50
PROVIDERS: PCP Internal Medicine; Visit Provider Internal Medicine Endocrinology, Diabetes & Metabolism
DX: Z12.31 Encounter for screening mammogram for malignant neoplasm of breast (principal); M81.0 Age-related osteoporosis without current pathological fracture
CPT/HCPCS: 77063; 77067; 77080

== ENCOUNTER → 2025-01-11 09:15 | Outpatient (BNV) | payer MEDICARE, SELFPAY | PROVIDERS: PCP Internal Medicine; Visit Provider Radiology Diagnostic Radiology | DX: E28.39 Other primary ovarian failure (principal) | CPT/HCPCS: 77080 ==

== ENCOUNTER 2025-01-27 14:04 | Outpatient (AMB) | payer MEDICARE, SELFPAY ==
--- NOTE | 2025-01-27 14:16 | A.OFFPC_ITS ---
Vital Signs 01/27/25 14:17 01/27/25 14:20 Height 5 ft 3 in Weight 113 lb BMI 20.0 BP 144/78 H 136/68 Blood Pressure Location Lt brachial Lt brachial Position Sitting Sitting Respiration 12 Pulse 54 Pulse Source Pulse Oximeter Temp 97.5 F Temp Source Oral Pulse Oximetry (%) 98 Oxygen Delivery Method Room Air Intake Visit Reasons: 6 month follow-up Intake Note: Six month follow up Formal Service Waiter Required: No Allergies cephalexin Allergy (Severe, Verified 01/27/25 14:17) Diarrhea and Fainting NSAIDS (Non-Steroidal Anti-Inflamma (NSAIDS (NON-STEROIDAL ANTI-INFLAMMA) Allergy (Severe, Verified 01/27/25 14:17) ANAPHYLAXIS Penicillins (PENICILLINS) Allergy (Severe, Verified 01/27/25 14:17) RASH clindamycin (CLINDAMYCIN) Adverse Reaction (Severe, Verified 01/27/25 14:17) DIARRHEA Tobacco use date assessed: 01/27/25 Fall risk assessment: No Falls in past year Last assessed Fall Risk: 01/27/25 Dental Screening Dental Screen Date: 07/28/24 HPI HPI Comments History of Present Illness Details 79 year old female with past medical his tory of hypothyroid, SIADH hypertension, anxiety, restricted lung disease, empyema, GERD, scolioisis presenting for follow up. CV: HTN controlled on atenolol. Denies chest pain, exertional dyspnea. Hypothyroid: on levothyroxine. Last TSH at goal. Labs ordered Anxiety managed with xanax GI: Follows with Dr Olivier. Seen in walk in earlier this month for increased GI symptoms. PPI gives diarrhea. She will try pepcid and tums prn. She has dyspepsia that improves with eating. She has frequent large volume bowel movement. Had norovirus in December. Last two tests positive for EPEC Mammo 01/2025, DXA 01/2025-improved osteoporosis numbers. Mammo was abnormal-focal asymmetry she is called back for diagnostic Colonoscopy -no further ROS CONSTITUTIONAL: Denies weight loss, fever and chills. HEENT: Denies changes in vision and hearing. RESPIRATORY: Denies SOB and cough. CV: Denies palpitations and CP GI: Denies abdominal pain, nausea, vomiting and diarrhea. : Denies dysuria and urinary frequency. MSK: Denies new myalgia and joint pain. SKIN: Denies rash and pruritus. NEUROLOGICAL: Denies headache PSYCHIATRIC: Denies recent changes in mood. PHYSICAL EXAM: GENERAL: Alert and oriented x 3. NAD EYES: EOMI. Anicteric. HENT: Moist mucous membranes. No scleral icterus. No cervical lymphadenopathy. LUNGS: Clear to auscultation bilaterally. CARDIOVASCULAR: Regular rate and rhythm. No murmur. No JVD. ABDOMEN: Soft, non-tender +bs EXTREMITIES: No edema. Non-tender. SKIN: No rashes or lesions. Warm. NEUROLOGIC: No focal neurological deficits. CN II-XII grossly intact PSYCHIATRIC: Cooperative. Appropriate mood and affect [facility] Medical History COPD (chronic obstructive pulmonary disease) Hiatal hernia Abnormal PFTs (pulmonary function tests) Paroxysmal atrial fibrillation Abnormal chest x-ray with multiple lung nodules Empyema lung Restrictive lung disease Surgical History History of lung surgery History of esophagogastroduodenoscopy (EGD) H/O colonoscopy Family History Father No problems noted. Mother No problems noted. Social History Housing: House Patient Tobacco Use Status: Never used Tobacco e-Cigarette/Vaping Use: Never Used Second Hand Smoke Exposure: No service: No Current occupational status: employed Cognitive needs: No Hearing needs: No Vision needs: Yes (reading glasses) Questionnaire PHQ-9 Over the last 2 weeks, how often have you been bothered by any of the following problems? 1. Little interest or pleasure in doing things: not at all 2. Feeling down, depressed, or hopeless: not at all 3. Trouble falling or staying asleep, or sleeping too much: not at all 4. Feeling tired or having little energy: not at all 5. Poor appetite or overeating: not at all 6. Feeling bad about yourself - or that you are a failure or have let yourself or your family down: not at all 7. Trouble concentrating on things, such as reading the newspaper or watching television: not at all 8. Moving or speaking so slowly that other people could have noticed. Or the opposite - being so fidgety or restless that you have been moving around a lot more than usual: not at all 9. Thoughts that you would be better off or of hurting yourself in some way: not at all Total score: 0 Source: Developed by Drs. Deondre Denny, Alba Lancaster, Americo Bhagat and colleagues, with an educational asa from [employer]. Thrive Questionnaire Date Thrive assessed: 01/20/25 I am a: Patient What is your living situation today?: I have a steady place to live Within the past 12 months, did the food you bought not last and you didn't have the money to get more?: Never true Within the past 12 months, did you worry whether your food would run out before you got money to buy more?: Never true Do you have trouble paying for medicines?: No Do you have trouble getting transportation to medical appointments?: No Do you have trouble paying your heating and electricity bill?: No Do you have trouble taking care of your child, family member or friend?: No Do you have trouble with day-to-day activities such as bathing, preparing meals, shopping, managing finances, etc.?: No Are you currently unemployed and looking for a job?: No Are you interested in more education?: No Please select the resources that you would like help with: None Currently or been in a relationship where the following occur: No concerns reported THRIVE Score: 0 AUDIT C Alcohol Use Questionnaire (AUDIT-C) 1. How often do you have a drink containing alcohol?: Monthly or less 2. How many drinks containing alcohol do you have on a typical day when you are drinking?: 1 or 2 3. How often do you have six or more drinks on one occasion?: Never Total Score: 1 ANNALISA-7 AMB Questionnaire ANNALISA-7 Date ANNALISA - 7 assessed: 07/28/24 Feeling nervous, anxious, or on edge: 0 = Not at all Not being able to stop or control worryin = Not at all Worrying too much about different things: 0 = Not at all Trouble relaxin = Not at all Being so restless that it is hard to sit still: 0 = Not at all Becoming easily annoyed or irritable: 0 = Not at all Feeling afraid as if something awful might happen: 0 = Not at all Total ANNALISA-7 score (0-4 normal; 5-9 mild; 10-14 moderate; 15-21 severe): 0 Source: Developed by Drs. Deondre Denny, Alba Lancaster, Americo Bhagat and colleagues, with an educational asa from [employer]. Physical exam (Primary Care) Vital Signs: Last Vital Signs Temp 97.5 F 01/27/25 14:17 Pulse 54 01/27/25 14:17 Resp 12 01/27/25 14:17 BP 136/68 01/27/25 14:20 Pulse Ox 98 01/27/25 14:17 Oxygen Delivery Method Room Air 01/27/25 14:17 BMI result Body Mass Index 20.0 Tobacco/Smoking Status: Tobacco use Status Tobacco use date assessed 01/27/25 01/27/25 14:23 Patient Tobacco Use Status Never used Tobacco 01/27/25 14:23 e-Cigarette/Vaping Use Never Used 01/27/25 14:23 PHQ-9: PHQ-9 Score PHQ-9: Total score 0 01/27/25 14:32 Thrive Assessment: Date of Thrive Assessment Date Thrive assessed 01/20/25 01/27/25 14:23 Currently or been in a relationship where the following occur: No concerns reported Coding Level of Care Code Est Pt Level 4 (55027) Diagnoses Primary hypertension I10 Hypertension type: primary hypertension Paroxysmal atrial fibrillation I48.0 Hypothyroidism, unspecified type E03.9 Hypothyroidism type: unspecified Dyspepsia R10.13 Assessment & Plan Assessment & Plan (1) HTN (hypertension): Code(s): I10 - Essential (primary) hypertension Category: Medical Qualifiers: Hypertension type: primary hypertension Qualified Code(s): I10 - Essential (primary) hypertension (2) Paroxysmal atrial fibrillation: Comment: not taking anticoagulant at this time-taking atenolol Code(s): I48.0 - Paroxysmal atrial fibrillation Category: Medical (3) Hypothyroid: Code(s): E03.9 - Hypothyroidism, unspecified Category: Medical Qualifiers: Hypothyroidism type: unspecified Qualified Code(s): E03.9 - Hypothyroidism, unspecified (4) Dyspepsia: Code(s): R10.13 - Epigastric pain Category: Medical Plan Trial xifaxim if it is covered. Tums pepcid prn. Start quality probiotic Hypothyroid-stable on levothyroxine Orders: Orders TSH reflex Free T4 Today E03.9 - Hypothyroidism, unspecified Medications: New rifaximin 550 mg PO TID 42 tabs 0RF Refilled alprazolam 0.25 mg PO BID PRN 120 tabs 3RF Anxiety 60 days F41.9 - Anxiety disorder, unspecified
[2025-01-27 14:17] VITALS: BP 144/78; PULSE 54; RESP 12; TEMP 36.4; O2SAT 98
[2025-01-27 14:20] VITALS: BP 136/68
--- OUTSIDE RECORDS SUMMARY | 2025-01-27 15:08 | XMS_ITS | Patient Health Record ---
Author Organization [facility] Address [address] [place] [address] Care Team Providers Care Business Rules Developer Name Role Phone Melissa Ziegler M.D. Primary Care Provider Unavail Deondre Fernández Unavailable [phone] Allergies Allergen (clinical drug ingredient) Drug/Non Drug Allergy documented on EMR Reaction Allergy Type Onset Date Status Non-steroidal anti-inflammatory agent (FN) NSAIDS (uncoded) Unknown Allergy Active rofecoxib Vioxx (uncoded) Unknown Allergy Acti ve PCN (uncoded) Unknown Allergy Active Results Component Value Reference Range Notes CDiff Gene PCR Reviewed date:11/19/2024 01:03:52 AM Interpretation: Performing Lab:[facility], [address] [place] [phone] Notes/Report: CDiff Gene PCR NEGATIVE Negative If C. difficile strongly suspected despite one negative test, a second test may be sent vs. empiric treatment for C. difficile infection. GI PANEL Reviewed date:11/22/2024 04:11:22 PM Interpretation: Performing Lab:[facility], [address] [place] [phone] Notes/Report: Campylobacter Not Detected Not Detect. Plesiomonas [...] is performed by Multiplexed PCR, utilizing the [employer] Array. GI PANEL Reviewed date:12/11/2024 11:32:22 PM Interpretation: Performing Lab:[facility], [address] [place] [phone] Notes/Report: Campylobacter Not Detected Not Detect. Plesiomonas [...] is performed by Multiplexed PCR, utilizing the [employer] Array. Reason For Referral No Information Medications [...] Problem Status W/U Status Risk Notes Problem 307369759 Encounter for screening for malignant neoplasm of colon (Z12.11) Active confirmed Problem 262542002 History of adenomatous polyp of colon (Z86.010) Active confirmed Problem Diarrhea (79037995) Diarrhea (R19.7) Active confirmed Problem Screening for malignant neoplasm of rectum (057865697) Encounter for screening for malignant neoplasm of rectum (Z12.12) Active confirmed Problem 84405326 Abdominal pain, epigastric (R10.13) Active confirmed Problem 377373487 Gastroesophageal reflux disease without esophagitis (K21.9) Active confirmed Problem 712915235 Long-term use of aspirin therapy (Z79.82) Active confirmed Problem 55412641 Diarrhea, unspecified type (R19.7) Active confirmed Problem 06798231 Other irritable bowel syndrome (K58.8) Active confirmed Problem 51477819 Irritable bowel syndrome with both constipation and diarrhea (K58.2) Active confirmed Problem 38808555 Hypertension, unspecified type (I10) Active confirmed Problem 31336740 Gastric ulcer without hemorrhage or perforation, unspecified chronicity (K25.9) Active confirmed Problem 382108092753342 History of Clostridioides difficile infection (Z86.19) Active confirmed Vital Signs Temperature 97.1 degrees Fahrenheit 11/22/2024 Blood pressure diastolic 01 mm Hg 11/22/2024 Height 63.75 in 11/22/2024 Blood pressure systolic 001 mm Hg 11/22/2024 Weight 110.8 lbs 11/22/2024 BMI 19.17 kg/m2 11/22/2024 Encounters Encounter Location Date Provider Diagnosis [facility] [address] [place] [address] 11/22/2024 Deondre Olivier Irritable bowel syndrome with both constipation and diarrhea K58.2 ; Diarrhea R19.7 and Other irritable bowel syndrome K58.8 [facility] [address] [place] [phone] 2024 Deondre Olivier [facility] [address] [place] [phone] 07/08/2024 Deondre Olivier [facility] [address] [place] [address], [place] [address] 08/03/2024 Deondre Olivier [facility] [address] [place] [address] 09/21/2024 Deondre Olivier [facility] [address] [place] [phone] 10/19/2024 Deondre Olivier [facility] [address] [place] [phone] 11/10/2024 Deondre Olivier Diarrhea R19.7 [facility] [address] [place] [phone] 11/18/2024 Deondre Olivier [facility] [address] [place] [phone] 12/07/2024 Deondre Olivier Assessments Encounter Date Diagnosis (ICD Code) Assessment Notes Treatment Notes Treatment Clinical Notes Section Notes 11/22/2024 Diarrhea (ICD-10 - R19.7) Overall, Gilma [...] Provider Name:Deondre Olivier , 05/23/2025 01:00:00 PM, [address] [place] [address], [address], [place], [address], Insurance Providers Payer Name Payer Address Payer Phone Subscriber Number Group Number Insured Name Patient Relationship to Insured Coverage Start Date Coverage End Date MEDICARE OF [place] [address] [place] [address] [phone] [id number] GILMA MYLES Self - patient is the insured [employer] ATT[employer] CLAIMS [address] [place] [address] [id number] GILMA MYLES Self - patient is [...]
--- OUTSIDE RECORDS SUMMARY | 2025-01-27 15:08 | XMS_ITS | Clinical Summary ---
Author Organization [facility] Address [address] [place] [address] Care Team Providers Care Primary Therapist Name Role Phone Unavailable Primary Care Provider [...]
--- OUTSIDE RECORDS SUMMARY | 2025-01-27 15:08 | XMS_ITS | Patient Health Record ---
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 Vital Signs Blood pressure diastolic 70 mm Hg 08/29/2024 Height 5ft3in in 08/29/2024 Blood pressure systolic 125 mm Hg 08/29/2024 Weight 114 lbs 08/29/2024 BMI 20.19 kg/m2 08/29/2024 Procedures Procedure Date Ordered Date Performed Result Body Sit e 25017-SDKKDCL NAIL, 1-5 08/29/2024 N/A Encounters Encounter Location Date Provider Diagnosis [facility] [address] 08/29/2024 Sofía Black Pain in right foot M79.671 ; Bursitis of right foot M77.51 ; Pain in right ankle and joints of right foot M25.571 ; Osteoarthritis of midtarsal joint of right foot M19.071 ; Pain in right toe(s) M79.674 ; Onychomycosis B35.1 ; Pain in left toe(s) M79.675 and 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.[address] [facility] [address] 06/14/2024 Sofía Black [facility] [address] 12/28/2024 Sofía Black Assessments Encounter Date Diagnosis [...] Treatment Pending Test Test Name Order Date 62367-QYXYIQF NAIL, 1-5 08/29/2024 Insurance Providers Payer Name Payer Address Payer Phone Subscriber Number Group Number Insured Name Patient Relationship to Insured Coverage Start Date Coverage End Date Medicare National Govt S[employer] [address] [place] [address] [id number] Gilma Marques Self - patient is the insured 9 [employer] Blue Shield [address] [place] [address] [phone] [id number] Gilma Marques Self - patient is the insured Medical (General) History Medical History History ICD Code Back,Hip,and Knee pain Broken bones Osteoporosis Reflux ( GERD) thyroid Measles Chicken pox Surgical History Surgery Date(Month/Year) lung surgery 04/21
== END 2025-01-27 15:00 | disposition home or self-care (01) ==
LOC: HO.HMCFM 14:04
PROVIDERS: PCP Internal Medicine; Visit Provider Internal Medicine
DX: I10 Essential (primary) hypertension (principal); I48.0 Paroxysmal atrial fibrillation; E03.9 Hypothyroidism, unspecified; R10.13 Epigastric pain

== ENCOUNTER → 2025-01-27 14:04 | Outpatient (BNVA) | payer MEDICARE, SELFPAY | PROVIDERS: PCP Internal Medicine; Visit Provider Internal Medicine | DX: I10 Essential (primary) hypertension (principal); I48.0 Paroxysmal atrial fibrillation; E03.9 Hypothyroidism, unspecified; R10.13 Epigastric pain; F41.9 Anxiety disorder, unspecified; Z79.899 Other long term (current) drug therapy; Z13.30 Encounter for screening examination for mental health and behavioral disorders, unspecified | CPT/HCPCS: 96127; 99212 ==

== ENCOUNTER 2025-02-07 10:18 | Outpatient (REF) | payer MEDICARE, SELFPAY ==
--- NOTE | ~2025-02-07 | MM_ITS ---
EXAMINATION: MM DIAGNOSTIC DIGITAL BREAST TOMOSYNTHESIS, RIGHT Limited right breast ultrasound. CLINICAL INFORMATION: Call back from screening for asymmetries in the right breast on CC and MLO view. COMPARISON: Mammography: Priors on PACS. TECHNIQUE: Digital breast tomosynthesis is performed in both the craniocaudal and mediolateral oblique views along with computer-aided detection (CAD). Synthesized 2D images are generated from the tomosynthesis. FINDINGS: The breasts are extremely dense, which lowers the sensitivity of mammography. The previously seen asymmetries in the superior breast and lateral breast partially effaces on additional imaging projections. No suspicious calcifications or other abnormal findings. Targeted color Doppler ultrasound scanning in the lateral right breast and upper right breast from 6-12 o'clock demonstrates normal fibronodular breast tissue. There is some sonographic abnormal finding. MM/MM tomosynthesis added views R IMPRESSION: Asymmetries in the superior and lateral right breast without sonographic correlate which partially effaces on additional imaging projections. Recommend six-month follow-up mammography for further evaluation of stability. Patient has extremely dense breast tissue. Consider breast MRI. Breast MRI needs to be ordered by the patient's providing clinician. ASSESSMENT: BI-RADS Category 3: Probably benign RECOMMENDATION: 6 Month F/U Patient has extremely dense breast tissue. Breast MRI should be considered for further evaluation. Breast MRI would need to be ordered by the patient's providing clinician. Results were provided to the patient at time of visit by the technologist. This patient's information was entered into a reminder system with a target due date for their next mammogram. Electronically signed by: Candy Dubois DO 02/07/2025 12:23 PM EDT
--- OUTSIDE RECORDS SUMMARY | 2025-02-07 12:19 | XMS_ITS | Patient Health Record ---
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 confirmed Vital Signs Blood pressure diastolic 70 mm Hg 08/29/2024 Height 5ft3in in 08/29/2024 Blood pressure systolic 125 mm Hg 08/29/2024 Weight 114 lbs 08/29/2024 BMI 20.19 kg/m2 08/29/2024 Procedures Procedure Date Ordered Date Performed Result Body Sit e 65923-HITPZSY NAIL, 1-5 08/29/2024 N/A Encounters Encounter Location Date Provider Diagnosis [facility] [address] 08/29/2024 Sofía Black Pain in right foot M79.671 ; Bursitis of right foot M77.51 ; Pain in right ankle and joints of right foot M25.571 ; Osteoarthritis of midtarsal joint of right foot M19.071 ; Pain in right toe(s) M79.674 ; Onychomycosis B35.1 ; Pain in left toe(s) M79.675 and 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.371 [facility] [address] 06/14/2024 Sofía Black [facility] [address] 12/28/2024 Sofía Black Assessments Encounter Date Diagnosis [...] Treatment Pending Test Test Name Order Date 54450-TNBNZOR NAIL, 1-5 08/29/2024 Insurance Providers Payer Name Payer Address Payer Phone Subscriber Number Group Number Insured Name Patient Relationship to Insured Coverage Start Date Coverage End Date Medicare National Govt Svcs Inc [address] [facility] [place] [address] [id number] Gilma Marques Self - patient is the insured 9 [employer] Blue Shield [address] [place] [address] [phone] [id number] Gilma Marques Self - patient is the insured Medical (General) History Medical History History ICD Code Back,Hip,and Knee pain Broken bones Osteoporosis Reflux ( GERD) thyroid Measles Chicken pox Surgical History Surgery Date(Month/Year) lung surgery 04/21
--- OUTSIDE RECORDS SUMMARY | 2025-02-07 12:19 | XMS_ITS | Patient Health Record ---
Author Organization [facility] Address [address] [place] [address] Care Team Providers Care Manager Recovery Name Role Phone Melissa Ziegler M.D. Primary Care Provider Unavail Deondre Fernández Unavailable [phone] Allergies Allergen (clinical drug ingredient) Drug/Non Drug Allergy documented on EMR Reaction Allergy Type Onset Date Status Non-steroidal anti-inflammatory agent (FN) NSAIDS (uncoded) Unknown Allergy Active rofecoxib Vioxx (uncoded) Unknown Allergy Acti ve PCN (uncoded) Unknown Allergy Active Results Component Value Reference Range Notes CDiff Gene PCR Reviewed date:11/19/2024 01:03:52 AM Interpretation: Performing Lab:[facility], [address] [place] [phone] Notes/Report: CDiff Gene PCR NEGATIVE Negative If C. difficile strongly suspected despite one negative test, a second test may be sent vs. empiric treatment for C. difficile infection. GI PANEL Reviewed date:11/22/2024 04:11:22 PM Interpretation: Performing Lab:[facility], [address] [place] [phone] Notes/Report: Campylobacter Not Detected Not Detect. Plesiomonas [...] is performed by Multiplexed PCR, utilizing the Healcerion Array. GI PANEL Reviewed date:12/11/2024 11:32:22 PM Interpretation: Performing Lab:[facility], [address] [place] [phone] Notes/Report: Campylobacter Not Detected Not Detect. Plesiomonas [...] is performed by Multiplexed PCR, utilizing the Healcerion Array. Reason For Referral No Information Medications [...] Problem Status W/U Status Risk Notes Problem 801073666 Encounter for screening for malignant neoplasm of colon (Z12.11) Active confirmed Problem 635519668 History of adenomatous polyp of colon (Z86.010) Active confirmed Problem Diarrhea (12918424) Diarrhea (R19.7) Active confirmed Problem Screening for malignant neoplasm of rectum (776009684) Encounter for screening for malignant neoplasm of rectum (Z12.12) Active confirmed Problem 76926875 Abdominal pain, epigastric (R10.13) Active confirmed Problem 014869600 Gastroesophageal reflux disease without esophagitis (K21.9) Active confirmed Problem 577710292 Long-term use of aspirin therapy (Z79.82) Active confirmed Problem 23790574 Diarrhea, unspecified type (R19.7) Active confirmed Problem 84262221 Other irritable bowel syndrome (K58.8) Active confirmed Problem 94222542 Irritable bowel syndrome with both constipation and diarrhea (K58.2) Active confirmed Problem 58478940 Hypertension, unspecified type (I10) Active confirmed Problem 51563468 Gastric ulcer without hemorrhage or perforation, unspecified chronicity (K25.9) Active confirmed Problem 734671233558446 History of Clostridioides difficile infection (Z86.19) Active confirmed Vital Signs Temperature 97.1 degrees Fahrenheit 11/22/2024 Blood pressure diastolic 01 mm Hg 11/22/2024 Height 63.75 in 11/22/2024 Blood pressure systolic 001 mm Hg 11/22/2024 Weight 110.8 lbs 11/22/2024 BMI 19.17 kg/m2 11/22/2024 Encounters Encounter Location Date Provider Diagnosis [facility] [address] [place] [address] 11/22/2024 Deondre Olivier Irritable bowel syndrome with both constipation and diarrhea K58.2 ; Diarrhea R19.7 and Other irritable bowel syndrome K58.8 [facility] [address] [place] [phone] 2024 Deondre Olivier [facility] [address] [place] [phone] 07/08/2024 Deondre Olivier [facility] [address] [place] [address], [place] [address] 08/03/2024 Deondre Olivier [facility] [address] [place] [address] 09/21/2024 Deondre Olivier [facility] [address] [place] [phone] 10/19/2024 Deondre Olivier [facility] [address] [place] [phone] 11/10/2024 Deondre Olivier Diarrhea R19.7 [facility] [address] [place] [phone] 11/18/2024 Deondre Olivier [facility] [address] [place] [phone] 12/07/2024 Deondre Olivier Assessments Encounter Date Diagnosis [...] Provider Name:Deondre Olivier , 05/23/2025 01:00:00 PM, [address] [place] [address], [address], [place], [address], Insurance Providers Payer Name Payer Address Payer Phone Subscriber Number Group Number Insured Name Patient Relationship to Insured Coverage Start Date Coverage End Date MEDICARE OF [place] [address] [place] [address] [id number] GILMA MYLES Self - patient is the insured [employer] ATT[employer] CLAIMS [address] [place] [address] [id number] GILMA MYLES Self - patient is [...]
--- OUTSIDE RECORDS SUMMARY | 2025-02-07 12:19 | XMS_ITS | Clinical Summary ---
Author Organization [facility] Address [id number] [place] [phone] Care Team Providers Care Geosciences Associate Professor Name Role Phone Unavailable Primary Care Provider [...]
== END 2025-02-07 10:19 | disposition home or self-care (01) ==
LOC: HO.MAMMO 10:18
PROVIDERS: PCP Internal Medicine; Visit Provider Internal Medicine
DX: N64.89 Other specified disorders of breast (principal)
CPT/HCPCS: 76642; 77061; 77065

== ENCOUNTER → 2025-02-07 10:30 | Outpatient (BNV) | payer MEDICARE, SELFPAY | PROVIDERS: PCP Internal Medicine; Visit Provider Internal Medicine | DX: R92.8 Other abnormal and inconclusive findings on diagnostic imaging of breast (principal) | CPT/HCPCS: 76642; 77065; G0279 ==

== ENCOUNTER 2025-02-09 11:13 | Outpatient (AMB) | payer MEDICARE, SELFPAY ==
--- NOTE | 2025-02-09 11:39 | MHC.OFFWIV ---
Intake Vital Signs 02/09/25 11:40 Height 5 ft 3 in Weight 113 lb 6 oz BMI 20.1 BP 140/80 H Blood Pressure Location Lt brachial Position Sitting Respiration 16 Pulse 50 Pulse Source Pulse Oximeter Temp 97.8 F Temp Source Oral Pulse Oximetry (%) 98 Oxygen Delivery Method Room Air Intake Visit Reasons: EP Right ear blocked Patient Tobacco Use Status: Never used Tobacco Allergies cephalexin Allergy (Severe, Verified 01/27/25 14:17) Diarrhea and Fainting NSAIDS (Non-Steroidal Anti-Inflamma (NSAIDS (NON-STEROIDAL ANTI-INFLAMMA) Allergy (Severe, Verified 01/27/25 14:17) ANAPHYLAXIS Penicillins (PENICILLINS) Allergy (Severe, Verified 01/27/25 14:17) RASH clindamycin (CLINDAMYCIN) Adverse Reaction (Severe, Verified 01/27/25 14:17) DIARRHEA HPI HPI Comments History of Present Illness Details History - The patient is an 79-year-old female presenting with cerumen impaction in the right ear. - The patient has a history of recurrent cerumen impaction, for which she has been using Debrox monthly. - The patient reports that the cerumen impaction causes a sensation of fullness and echoing in her head. - The patient has previously visited the clinic for similar issues and has found relief after treatment. - She uses debrox drops at home with some relief. - She used to see Dr. Crandall but he has retired. - She denies cold symptoms, ACEVES, dizziness, sire throat, fever, chills, CP, or SOB. Physical Exam General: Cooperative, healthy appearing, comfortable, no acute distress and well developed Head: Normal to inspection Ears: External ears normal bilaterally. No tragus or mastoid tenderness noted. Cerumen noted in the right canal, soft but present. TM's not visualized. Face and sinus: Normal facial exam. No TTP of the sinuses. Neck: Normal visual inspection. Full ROM. No lymphadenopathy noted. Respiratory: Normal respiratory effort and able to speak in complete sentences. Clear to auscultation bilaterally. No w/r/r noted. Cardiac: RRR, no m/r/g noted. Normal S1 and S2 noted. Skin: No rashes or lesions noted Neuro: Patient oriented x3 Patient was informed and verbally consented to the use of an ambient scribe for clinic note documentation during this visit. [facility] Medical History COPD (chronic obstructive pulmonary disease) Hiatal hernia Abnormal PFTs (pulmonary function tests) Paroxysmal atrial fibrillation Abnormal chest x-ray with multiple lung nodules Empyema lung Restrictive lung disease Surgical History History of lung surgery History of esophagogastroduodenoscopy (EGD) H/O colonoscopy Family History Father No problems noted. Mother No problems noted. Social History Housing: House Patient Tobacco Use Status: Never used Tobacco e-Cigarette/Vaping Use: Never Used Second Hand Smoke Exposure: No service: No Current occupational status: employed Cognitive needs: No Hearing needs: No Vision needs: Yes (reading glasses) Review of Systems Const All systems reviewed & are unremarkable except as noted in HPI and below Physical Exam Vital Signs: Last Vital Signs Temp 97.8 F 02/09/25 11:40 Pulse 50 02/09/25 11:40 Resp 16 02/09/25 11:40 BP 140/80 H 02/09/25 11:40 Pulse Ox 98 02/09/25 11:40 Oxygen Delivery Method Room Air 02/09/25 11:40 BMI result Body Mass Index 20.1 Office Procedures Cerumen Removal From which ear canal was the cerumen removed: right Removal: irrigation Notes: patient tolerated procedure well, no complications and ear canal clear [id number] Irrigation/Lavage Assessment & Plan Assessment & Plan (1) Cerumen impaction: Code(s): H61.20 - Impacted cerumen, unspecified ear Qualifiers: Laterality: right Qualified Code(s): H61.21 - Impacted cerumen, right ear Plan Most likely cerumen impaction Plan - Plan to flush the right ear to remove cerumen impaction. - continue with debrox drops - follow up with PCP - will need a new ENT as hers has retired Orders: Orders AMB Cerumen Removal Today H61.23 - Impacted cerumen, bilateral Coding Level of Care Code Est Pt Level 3 (77691) Diagnoses Impacted cerumen of right ear H61.21 Laterality: right CPT Codes Office Procedure - CPT: 49428-Afh Irrigation/Lavage ([id number])
[2025-02-09 11:40] VITALS: BP 140/80; PULSE 50; RESP 16; TEMP 36.6; O2SAT 98; BMI 20.1
== END 2025-02-09 12:36 | disposition home or self-care (01) ==
PROVIDERS: PCP Internal Medicine; Visit Provider Physician Assistant Medical
DX: H61.21 Impacted cerumen, right ear (principal)

== ENCOUNTER → 2025-02-09 11:13 | Outpatient (BNVA) | payer MEDICARE, SELFPAY | PROVIDERS: PCP Internal Medicine; Visit Provider Physician Assistant Medical | DX: H61.21 Impacted cerumen, right ear (principal) | CPT/HCPCS: 69209; 99212 ==

== ENCOUNTER 2025-02-16 13:38 | Outpatient (AMB) | payer MEDICARE, SELFPAY ==
--- NOTE | 2025-02-16 13:46 | A.OFFPC_ITS ---
Vital Signs 02/16/25 13:49 Height 5 ft 3 in Weight 113 lb BMI 20.0 BP 138/76 Blood Pressure Location Lt brachial Position Sitting Respiration 12 Pulse 59 Pulse Source Pulse Oximeter Temp 97.2 F Temp Source Oral Pulse Oximetry (%) 99 Oxygen Delivery Method Room Air Intake Visit Reasons: Headache for several days Intake Note: Patient c/o headache x 1 week. Cutting Torch Operator Required: No Allergies cephalexin Allergy (Severe, Verified 02/16/25 13:53) Diarrhea and Fainting NSAIDS (Non-Steroidal Anti-Inflamma (NSAIDS (NON-STEROIDAL ANTI-INFLAMMA) Allergy (Severe, Verified 02/16/25 13:53) ANAPHYLAXIS Penicillins (PENICILLINS) Allergy (Severe, Verified 02/16/25 13:53) RASH clindamycin (CLINDAMYCIN) Adverse Reaction (Severe, Verified 02/16/25 13:53) DIARRHEA Medication List - Last Reconciled 02/16/25 by Krista Duran, [facility]- alprazolam 0.25 mg PO BID PRN 60 days atenolol 12.5 nmg PO daily; ipratropium bromide intranasal levothyroxine 88 mcg PO DAILY rifaximin 550 mg PO TID Tobacco use date assessed: 01/27/25 Fall risk assessment: No Falls in past year Last assessed Fall Risk: 02/16/25 Dental Screening Dental Screen Date: 07/28/24 HPI HPI Comments History of Present Illness Details 79 year old female with past medical his tory of hypothyroid, SIADH hypertension, anxiety, restricted lung disease, empyema, GERD, scolioisis presenting with persistent headache. Reports that she was under extreme stress after finding an abnormality on her mammogram. Ultimately she had follow up imaging which was normal. This was reassuring. However on Thursday she developed a frontal headache that is constant and dull. It is worsened by bending over. It is associated with postnasal drip which is chronic. She reports that she had ear fullness and went to the walk-in for bilateral ear lavage. This did not help her headaches. Her ears now feel fine. She reports that she has a history of tension headaches back in 1989 for which she saw a neurologist. She was given medications and has not had a headache until most recently. She denies any alarm symptoms associated with her headaches. She took Tylenol x1 as she does not prefer to take medications that are not prescribed. In review of her chart she was prescribed rifaximin at the last office visit, she reports that she did not start taking as she started to use Pepcid with positive relief. Review of Systems - Neurological: Reports headache. Denies weakness, changes in speech, or vomiting. - ENT: Reports dull headache, postnasal drip. Denies sore throat, nasal congestion. - General: Reports feeling anxious. Gama es fever. - GI: Denies recent vomiting. Physical Exam General: Well developed, well nourished, in no acute distress. Appears stated age. Head: Normocephalic, atraumatic. Eyes: Pupils are equal, round and reactive to light and accommodation. Conjunctivae are clear. Vision grossly normal. Ears: TM intact and cloudy bilat Nose: patent, turbinates pale and edematous; frontal sinus TTP Pharynx: clear Pulses: Peripheral pulses are equal and palpable bilaterally. Extremities: No clubbing, cyanosis nor edema is noted. Neuro: grossly normal exam Psych: Mood and affect appropriate. Reports of anxiety related to recent medical tests and results. Plan: I discussed with the patient treating her for a sinusitis given her history and clinical exam. She expressed concern over a history of Clostridium difficile. She reports that the last time that she took antibiotics was about 6 years ago. She states that the last time that she was prescribed antibiotics she was given a prophylactic medication that started with the letter V to prevent C diff recurrence. I reviewed her chart and could not find anything. I reviewed the up-to-date literature and also could not find anything. I also curb side consu lted Gastroenterology who recommended using acidophilus or other pre and probiotics if antibiotics were necessary. Patient and I mutually agreed to use Flonase as the more conservative measure. She is going away to the [facility] over the weekend. I will prescribe a 5 day course of doxycycline that she can use if her symptoms get worse or if she feels like she needs to. She can use pre/pro biotics OTC if needed. I have scheduled her a follow up with myself or her primary care provider in 1-2 weeks for a re-evaluation should her symptoms not resolve. Total time spent caring for the patient today was 30 minutes. This includes time spent before the visit reviewing the chart, time spent during the visit, and time spent after the visit on documentation, reviewing laboratory results, diagnostic imaging, medications, performing a medically necessary evaluation, counseling on diagnoses, care coordination, ordering appropriate tests, ordering appropriate medications, review of tests performed by other providers, reporting test results with the patient, communication with other healthcare providers. [facility] Medical History COPD (chronic obstructive pulmonary disease) Hiatal hernia Abnormal PFTs (pulmonary function tests) Paroxysmal atrial fibrillation Abnormal chest x-ray with multiple lung nodules Empyema lung Restrictive lung disease Surgical History History of lung surgery History of esophagogastroduodenoscopy (EGD) H/O colonoscopy Family History Father No problems noted. Mother No problems noted. Social History Housing: House Patient Tobacco Use Status: Never used Tobacco e-Cigarette/Vaping Use: Never Used Second Hand Smoke Exposure: No service: No Current occupational status: employed Cognitive needs: No Hearing needs: No Vision needs: Yes (reading glasses) Questionnaire Thrive Questionnaire Date Thrive assessed: 01/20/25 I am a: Patient What is your living situation today?: I have a steady place to live Within the past 12 months, did the food you bought not last and you didn't have the money to get more?: Never true Within the past 12 months, did you worry whether your food would run out before you got money to buy more?: Never true Do you have trouble paying for medicines?: No Do you have trouble getting transportation to medical appointments?: No Do you have trouble paying your heating and electricity bill?: No Do you have trouble taking care of your child, family member or friend?: No Do you have trouble with day-to-day activities such as bathing, preparing meals, shopping, managing finances, etc.?: No Are you currently unemployed and looking for a job?: No Are you interested in more education?: No Please select the resources that you would like help with: None Currently or been in a relationship where the following occur: No concerns reported THRIVE Score: 0 ANNALISA-7 AMB Questionnaire ANNALISA-7 Date ANNALISA - 7 assessed: 07/28/24 Source: Developed by Drs. Deondre Denny, Alba Lancaster, Americo Bhagat and colleagues, with an educational asa from [employer]. Physical exam (Primary Care) Vital Signs: Last Vital Signs Temp 97.2 F 02/16/25 13:49 Pulse 59 02/16/25 13:49 Resp 12 02/16/25 13:49 BP 138/76 02/16/25 13:49 Pulse Ox 99 02/16/25 13:49 Oxygen Delivery Method Room Air 02/16/25 13:49 BMI result Body Mass Index 20.0 Tobacco/Smoking Status: Tobacco use Status Tobacco use date assessed 01/27/25 02/16/25 13:47 Patient Tobacco Use Status Never used Tobacco 02/16/25 13:47 e-Cigarette/Vaping Use Never Used 02/16/25 13:47 Thrive Assessment: Date of Thrive Assessment Date Thrive assessed 01/20/25 02/16/25 13:47 Currently or been in a relationship where the following occur: No concerns reported Coding Level of Care Code Est Pt Level 4 (72854) Complex EM visit Add On G2211 Diagnoses Sinus headache R51.9 Hx of Clostridium difficile infection Z86.19 Assessment & Plan Assessment & Plan (1) Sinus headache: Code(s): R51.9 - Headache, unspecified Category: Medical (2) Hx of Clostridium difficile infection: Code(s): Z86.19 - Personal history of other infectious and parasitic diseases Category: Medical Plan , Medications: New doxycycline hyclate 100 mg PO BID 10 caps 0RF 5 days fluticasone propionate 50 mcg/actuation administer into each nostril 1 spray intranasal BID 16 grams 12RF Discontinued rifaximin Discontinued Reason: Patient Refused 550 mg PO TID 42 tabs 0RF
[2025-02-16 13:49] VITALS: BP 138/76; PULSE 59; RESP 12; TEMP 36.2; O2SAT 99
--- OUTSIDE RECORDS SUMMARY | 2025-02-16 17:25 | XMS_ITS | Clinical Summary ---
Author Organization [facility] Address [address] [place] [phone] Care Team Providers Care Computer Customer Support Specialist Name Role Phone Unavailable Primary Care [...]
--- OUTSIDE RECORDS SUMMARY | 2025-02-16 17:25 | XMS_ITS | Patient Health Record ---
Author Organization [facility] Address [address] [place] [address] Care Team Providers Care [employer]otive [employer] Counterperson Name Role Phone Melissa Ziegler M.D. Primary Care Provider Unavail Deondre Fernández Unavailable [phone] Allergies Allergen (clinical drug ingredient) Drug/Non Drug Allergy documented on EMR Reaction Allergy Type Onset Date Status Non-steroidal anti-inflammatory agent (FN) NSAIDS (uncoded) Unknown Allergy Active rofecoxib Vioxx (uncoded) Unknown Allergy Acti ve PCN (uncoded) Unknown Allergy Active Results Component Value Reference Range Notes CDiff Gene PCR Reviewed date:11/19/2024 01:03:52 AM Interpretation: Performing Lab:[facility], [address] [place] [phone] Notes/Report: CDiff Gene PCR NEGATIVE Negative If C. difficile strongly suspected despite one negative test, a second test may be sent vs. empiric treatment for C. difficile infection. GI PANEL Reviewed date:11/22/2024 04:11:22 PM Interpretation: Performing Lab:[facility], [address] [place] [phone] Notes/Report: Campylobacter Not Detected Not Detect. Plesiomonas [...] is performed by Multiplexed PCR, utilizing the [employer] Array. GI PANEL Reviewed date:12/11/2024 11:32:22 PM Interpretation: Performing Lab:[facility], [address] [place] [phone] Notes/Report: Campylobacter Not Detected Not Detect. Plesiomonas [...] is performed by Multiplexed PCR, utilizing the [employer] Array. Reason For Referral No Information Medications Medication SIG (Take, Route, Frequency, Duration) Notes Start Date End Date Status Famotidine 40 MG 1 Orally Once a day; Duration: 90 days Not-Taking Omeprazole 40 MG 1 Orally Once a day; Duration: 90 days 02/05/2023 Not-Taking Famotidine 40 MG 1 tablet Orally Twic e a day; Duration: 90 days 09/22/2024 Not-Taking Diphenoxylate-Atropine 2.5-0.025 MG 1 or 2 tablets Orally very 6 hours if needed for diarrhea; Duration: 30 days 10/06/2024 Active Vitamin B Complex [...] once a day Active ALPRAZolam 0.25 MG Oral; Duration: 30 Active Immunizations Vaccine Route Administration Date Status Comme nts Influenza Unknown 01/02/2017 Administered Influenza Unknown 02/16/2018 Administered Influenza Unknown 01/02/2019 Administered Influenza Unknown 02/02/2020 Administered Influenza Unknown 02/01/2021 Administered Influenza Unknown 02/24/2023 Administered Influenza Unknown 02/23/2024 Administered Problems Problem Type SNOMED Code ICD Code Onset Dates Problem Status W/U Status Risk Notes Problem Screening for malignant neoplasm of colon (110764595) Encounter for screening for malignant neoplasm of colon (Z12.11) Active confirmed Problem History of adenomatous polyp of colon (033776250) History of adenomatous polyp of colon (Z86.010) Active confirmed Problem Diarrhea (18263588) Diarrhea (R19.7) Active con firmed Problem Screening for malignant neoplasm of rectum (147669180) Encounter for screening for malignant neoplasm of rectum (Z12.12) Active confirmed Problem Epigastric pain (95085996) Abdominal pain, epigastric (R10.13) Active confirmed Problem Gastroesophageal reflux disease without esophagitis (815849458) Gastroesophageal reflux disease without esophagitis (K21.9) Active confirmed Problem Long-term current use of antiplatelet drug (012227387402481) Long-term use of aspirin therapy (Z79.82) Active confirmed Problem Diarrhea (07745473) Diarrhea, unspecified type (R19.7) Active confirmed Problem Irritable bowel syndrome (87164428) Other irritable bowel syndrome (K58.8) Active confirmed Problem Irritable bowel syndrome (57776468) Irritable bowel syndrome with both constipation and diarrhea (K58.2) Active confirmed Problem Essential hypertension (85249637) Hypertension, unspecified type (I10) Active confirmed Problem Gastric ulcer without hemorrhage, without perforation AND without obstruction (32540723) Gastric ulcer without hemorrhage or perforation, unspecified chronicity (K25.9) Active confirmed Problem History of infectious disease (579421065) History of Clostridioides difficile infection (Z86.19) Active confirmed Vital Signs Temperature 97.1 degrees Fahrenheit 11/22/2024 Blood pressure diastolic 01 mm Hg 11/22/2024 Height 63.75 in 11/22/2024 Blood pressure systolic 001 mm Hg 11/22/2024 Weight 110.8 lbs 11/22/2024 BMI 19.17 kg/m2 11/22/2024 Encounters Encounter Location Date Provider Diagnosis [facility] [address] [place] [phone] 11/22/2024 Deondre Olivier Irritable bowel syndrome with both constipation and diarrhea K58.2 ; Diarrhea R19.7 and Other irritable bowel syndrome K58.8 [facility] [address] [place] [phone] 2024 Deondre Olivier [facility] [address] [place] [phone] 07/08/2024 Deondre Olivier [facility] [address] [place] [phone] 08/03/2024 Deondre Olivier [facility] [address] [place] [phone] 09/21/2024 Deondre Olivier [facility] [address] [place] [address] 10/19/2024 Deondre Olivier [facility] [address] [place] [phone] 11/10/2024 Deondre Olivier Diarrhea R19.7 [facility] [address] [place] [phone] 11/18/2024 Deondre Olivier [facility] [address] [place] [phone] 12/07/2024 Deondre Olivier Assessments Encounter Date Diagnosis [...] Provider Name:Deondre Olivier , 05/23/2025 01:00:00 PM, [address], [address], [place], [address], Insurance Providers Payer Name Payer Address Payer Phone Subscriber Number Group Number Insured Name Patient Relationship to Insured Coverage Start Date Coverage End Date [place] [address] [place] [address] [id number] GILMA MYLES Self - patient is the insured MED[employer] ATTN CLAIMS [address] [place] [address] [id number] GILMA MYLES Self - patient is the insured Medical (General) History Medical History History ICD Code Irritable bowel syndrome Tubular adenomas of the colo n- most recent colonoscopy was in 11/2016- neg for polyps- neg colonoscopy in 2006 and 2011, and a small adenoma removed in 2002 Hypothyroidism Palpitations Denies LA,DM,CVA,Lung disease,renal dise ase Positive H. pylori serology [...]
--- OUTSIDE RECORDS SUMMARY | 2025-02-16 17:25 | XMS_ITS | Patient Health Record ---
Author Organization [facility] Annie mateo Moriarty Address [address] [place] [address] Care Team Providers Care Horizontal Drill Operator Name Role Phone Melissa Ken Primary Care Provider Unavailabl e Black Sofía Unavailable [phone] Allergies Allergen (clinical drug ingredient) Drug/Non Drug [...] Osteoarthritis of midtarsal joint of right foot (5768066704913587 ) Osteoarthritis of midtarsal joint of right foot (M19.071) Active confirmed Vital Signs Blood pressure diastolic 70 mm Hg 08/29/2024 Height 5ft3in in 08/29/2024 Blood pressure systolic 125 mm Hg 08/29/2024 Weight 114 lbs 08/29/2024 BMI 20.19 kg/m2 08/29/2024 Procedures Procedure Date Ordered Date Performed Result Body Sit e 65743-YBMQLIH NAIL, 1-5 08/29/2024 N/A Encounters Encounter Location Date Provider Diagnosis [facility] [address] 08/29/2024 Sofía Black Pain in right foot M79.671 ; Bursitis of right foot M77.51 ; Pain in right ankle and joints of right foot M25.571 ; Osteoarthritis of midtarsal joint of right foot M19.071 ; Pain in right toe(s) M79.674 ; Onychomycosis B35.1 ; Pain in left toe(s) M79.675 and 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.371 [facility] [address] 06/14/2024 Sofía Black [facility] [address] 12/28/2024 Sofía Black Assessments Encounter Date Diagnosis [...] Treatment Pending Test Test Name Order Date 05315-YVNRWLH NAIL, 1-5 08/29/2024 Insurance Providers Payer Name Payer Address Payer Phone Subscriber Number Group Number Insured Name Patient Relationship to Insured Coverage Start Date Coverage End Date Medicare National Govt Svcs Inc [address] [facility] [place] [address] [id number] Gilma Marques Self - patient is the insured 9 [employer] Blue Shield [address] [place] [address] [phone] [id number] 5 Gilma Marques Self - patient is the insured Medical (General) History Medical History History ICD Code Back,Hip,and Knee pain Broken bones Osteoporosis Reflux ( GERD) thyroid Measles Chicken pox Surgical History Surgery Date(Month/Year) lung surgery 04/21
== END 2025-02-16 14:19 | disposition home or self-care (01) ==
LOC: HO.HMCFM 13:39
PROVIDERS: PCP Internal Medicine; Visit Provider Nurse Practitioner Family
DX: R51.9 Headache, unspecified (principal); Z86.19 Personal history of other infectious and parasitic diseases

== ENCOUNTER → 2025-02-16 13:38 | Outpatient (BNVA) | payer MEDICARE, SELFPAY | PROVIDERS: PCP Internal Medicine; Visit Provider Nurse Practitioner Family | DX: I48.0 Paroxysmal atrial fibrillation (principal); R51.9 Headache, unspecified; Z86.19 Personal history of other infectious and parasitic diseases | CPT/HCPCS: 99212 ==

== ENCOUNTER 2025-02-27 10:55 | Outpatient (AMB) | payer MEDICARE, SELFPAY ==
--- NOTE | 2025-02-27 11:06 | A.OFFPC_ITS ---
Vital Signs 02/27/25 11:09 02/27/25 11:12 Height 5 ft 3 in Weight 113 lb 8 oz BMI 20.1 BP 146/72 H 138/68 Blood Pressure Location Rt brachial Rt brachial Position Sitting Sitting Respiration 16 Pulse 56 Pulse Source Pulse Oximeter Temp 97.8 F Temp Source Oral Pulse Oximetry (%) 99 Oxygen Delivery Method Room Air Intake Visit Reasons: 1-2 week fu headache Intake Note: headache Building Wrecker Required: No Allergies cephalexin Allergy (Severe, Verified 02/27/25 11:07) Diarrhea and Fainting NSAIDS (Non-Steroidal Anti-Inflamma (NSAIDS (NON-STEROIDAL ANTI-INFLAMMA) Allergy (Severe, Verified 02/27/25 11:07) ANAPHYLAXIS Penicillins (PENICILLINS) Allergy (Severe, Verified 02/27/25 11:07) RASH clindamycin (CLINDAMYCIN) Adverse Reaction (Severe, Verified 02/27/25 11:07) DIARRHEA Tobacco use date assessed: 02/27/25 Fall risk assessment: No Falls in past year Last assessed Fall Risk: 02/27/25 Dental Screening Dental Screen Date: 02/27/25 Did you have a dental visit in the last 12 months?: Yes Did you have a dental problem in the last 6 months where you did not have access to dental care?: No Was dental information given to patient?: Patient has dentist HPI HPI Comments History of Present Illness Details 79 year old female with past medical his tory of hypothyroid, SIADH, hypertension, anxiety, restricted lung disease, empyema, GERD, scolioisis, recurrent C Diff. presenting for follow up. Heme/Onc: Reports that she was under extreme stress after finding an abnormality on her mammogram. Ultimately she had follow up imaging which was normal. She was seen 02/16 by a colleague frontal headache that is constant and dull. It is worsened by bending over. It is associated with postnasal drip which is chronic. She reports that she had ear fullness and went to the walk-in for bilateral ear lavage. This did not help her headaches. Her ears now feel fine. She reports that she has a history of tension headaches back in 1989 for which she saw a neurologist. She was given medications and has not had a headache until most recently. She denies any alarm symptoms associated with her headaches. She took Tylenol x1 as she does not prefer to take medications that are not prescribed. In review of her chart she was prescribed rifaximin at the last office visit, she reports that she did not start taking as she started to use Pepcid with positive relief. She was prescribed doxycycline but has not taken it. Her sinus symptoms have improved but she does still have nagging evening & nightime cough CV: HTN controlled on atenolol. 138/68. Denies chest pain, exertional dyspnea. Hypothyroid: on levothyroxine. Last TSH at goal. Labs ordered Anxiety managed with xanax GI: Follows with Dr Olivier. Seen in walk in earlier this month for increased GI symptoms. PPI gives diarrhea. She will try pepcid and tums prn. She has dys pepsia that improves with eating. She has frequent large volume bowel movement. Had norovirus in December. Last two tests positive for EPEC Mammo 01/2025, DXA 01/2025-improved osteoporosis numbers. Mammo was abnormal-focal asymmetry she is called back for diagnostic and follow up testing was reassuring Colonoscopy -no further screening recommended ROS see HPI PHYSICAL EXAM: GENERAL: Alert and oriented x 3. NAD EYES: EOMI. Anicteric. HENT: Moist mucous membranes. No scleral icterus. No cervical lymphadenopathy. LUNGS: No adventitious lung sounds. Quite posterior bases CARDIOVASCULAR: Regular rate and rhythm. No murmur. No JVD. ABDOMEN: Soft, non-tender +bs EXTREMITIES: No edema. Non-tender. SKIN: No rashes or lesions. Warm. NEUROLOGIC: No focal neurological deficits. CN II-XII grossly intact PSYCHIATRIC: Cooperative. Appropriate mood and affect [facility] Medical History COPD (chronic obstructive pulmonary disease) Hiatal hernia Abnormal PFTs (pulmonary function tests) Paroxysmal atrial fibrillation Abnormal chest x-ray with multiple lung nodules Empyema lung Restrictive lung disease Surgical History History of lung surgery History of esophagogastroduodenoscopy (EGD) H/O colonoscopy Family History Father No problems noted. Mother No problems noted. Social History Housing: House Alcohol intake: current Alcohol intake frequency: holidays/special occasions only Comment: rarely Patient Tobacco Use Status: Never used Tobacco e-Cigarette/Vaping Use: Never Used Second Hand Smoke Exposure: No Use of substances other than those prescribed or required for medical reasons: No service: No Current occupational status: employed Cognitive needs: No Hearing needs: No Vision needs: Yes (reading glasses) Questionnaire Thrive Questionnaire Date Thrive assessed: 01/20/25 I am a: Patient What is your living situation today?: I have a steady place to live Within the past 12 months, did the food you bought not last and you didn't have the money to get more?: Never true Within the past 12 months, did you worry whether your food would run out before you got money to buy more?: Never true Do you have trouble paying for medicines?: No Do you have trouble getting transportation to medical appointments?: No Do you have trouble paying your heating and electricity bill?: No Do you have trouble taking care of your child, family member or friend?: No Do you have trouble with day-to-day activities such as bathing, preparing meals, shopping, managing finances, etc.?: No Are you currently unemployed and looking for a job?: No Are you interested in more education?: No Please select the resources that you would like help with: None Currently or been in a relationship where the following occur: No concerns reported THRIVE Score: 0 ANNALISA-7 AMB Questionnaire ANNALISA-7 Date ANNALISA - 7 assessed: 07/28/24 Source: Developed by Drs. Deondre Denny, Alba Lancaster, Americo Bhagat and colleagues, with an educational asa from [employer]. Physical exam (Primary Care) Vital Signs: Last Vital Signs Temp 97.8 F 02/27/25 11:09 Pulse 56 02/27/25 11:09 Resp 16 02/27/25 11:09 BP 138/68 02/27/25 11:12 Pulse Ox 99 02/27/25 11:09 Oxygen Delivery Method Room Air 02/27/25 11:09 BMI result Body Mass Index 20.1 Tobacco/Smoking Status: Tobacco use Status Tobacco use date assessed 02/27/25 02/27/25 11:09 Patient Tobacco Use Status Never used Tobacco 02/27/25 11:09 e-Cigarette/Vaping Use Never Used 02/27/25 11:09 Thrive Assessment: Date of Thrive Assessment Date Thrive assessed 01/20/25 02/27/25 11:09 Currently or been in a relationship where the following occur: No concerns reported Coding Level of Care Code Est Pt Level 4 (95941) Complex EM visit Add On G2211 Diagnoses Persistent cough R05.3 Primary hypertension I10 Hypertension type: primary hypertension Chronic obstructive pulmonary disease, unspecified COPD type J44.9 COPD type: unspecified COPD Assessment & Plan Assessment & Plan (1) Persistent cough: Code(s): R05.3 - Chronic cough Category: Medical (2) HTN (hypertension): Code(s): I10 - Essential (primary) hypertension Category: Medical Qualifiers: Hypertension type: primary hypertension Qualified Code(s): I10 - Essent ial (primary) hypertension (3) COPD (chronic obstructive pulmonary disease): Code(s): J44.9 - Chronic obstructive pulmonary disease, unspecified Category: Medical Qualifiers: COPD type: unspecified COPD Qualified Code(s): J44.9 - Chronic obstructive pulmonary disease, unspecified Plan Seen in [facility] up for headaches. These have improved. Sinus symptoms have all eviated Continues with bothersome evening and nightime cough. has viral cold symptoms. Start robitussin with codeine qhs prn CXR r/o pneumonia-if positive take the course of doxycycline already prescribed Blood pressure is adequately controlled Orders: Orders XR chest 2V Today R05.9 - Cough, unspecified Medications: New codeine-guaifenesin 10-100 mg/5 mL 10 mL PO BEDTIME PRN 473 mL 0RF cough
[2025-02-27 11:09] VITALS: BP 146/72; PULSE 56; RESP 16; TEMP 36.6; O2SAT 99; BMI 20.1
[2025-02-27 11:12] VITALS: BP 138/68
--- OUTSIDE RECORDS SUMMARY | 2025-02-27 13:41 | XMS_ITS | Patient Health Record ---
Author Organization [facility] Annie mateo Fairland Address [address] [place] [address] Care Team Providers Care [employer] Spacelift Name Role Phone Melissa Ken Primary Care Provider Unavailabl e Black Sofía Unavailable [phone] Allergies Allergen (clinical drug ingredient) Drug/Non Drug [...] Osteoarthritis of midtarsal joint of right foot (3925167050556601 ) Osteoarthritis of midtarsal joint of right foot (M19.071) Active confirmed Vital Signs Blood pressure diastolic 70 mm Hg 08/29/2024 Height 5ft3in in 08/29/2024 Blood pressure systolic 125 mm Hg 08/29/2024 Weight 114 lbs 08/29/2024 BMI 20.19 kg/m2 08/29/2024 Procedures Procedure Date Ordered Date Performed Result Body Sit e 76651-VWPTRKJ NAIL, 1-5 08/29/2024 N/A Encounters Encounter Location Date Provider Diagnosis [facility] [address] 08/29/2024 Sofía Black Pain in right foot M79.671 ; Bursitis of right foot M77.51 ; Pain in right ankle and joints of right foot M25.571 ; Osteoarthritis of midtarsal joint of right foot M19.071 ; Pain in right toe(s) M79.674 ; Onychomycosis B35.1 ; Pain in left toe(s) M79.675 and 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.371 [facility] [address] 06/14/2024 Sofía Black [facility] [address] 12/28/2024 Sofía Black Assessments Encounter Date Diagnosis [...] Treatment Pending Test Test Name Order Date [id number] NAIL, 1-5 08/29/2024 Insurance Providers Payer Name Payer Address Payer Phone Subscriber Number Group Number Insured Name Patient Relationship to Insured Coverage Start Date Coverage End Date Medicare National Govt Svcs Inc [address] [place] [address] [id number] Gilma Marques Self - patient is the insured 9 [employer] Blue Shield [address] [place] [address] [phone] [id number] Gilma Marques Self - patient is the insured Medical (General) History Medical History History ICD Code Back,Hip,and Knee pain Broken bones Osteoporosis Reflux ( GERD) thyroid Measles Chicken pox Surgical History Surgery Date(Month/Year) lung surgery 04/21
--- OUTSIDE RECORDS SUMMARY | 2025-02-27 13:41 | XMS_ITS | Patient Health Record ---
Author Organization [facility] Address [address] [place] [address] Care Team Providers Care Clinical Psychiatrist Name Role Phone Melissa Ziegler M.D. Primary Care Provider Unavail Deondre Fernández Unavailable [phone] Allergies Allergen (clinical drug ingredient) Drug/Non Drug Allergy documented on EMR Reaction Allergy Type Onset Date Status Non-steroidal anti-inflammatory agent (FN) NSAIDS (uncoded) Unknown Allergy Active rofecoxib Vioxx (uncoded) Unknown Allergy Acti ve PCN (uncoded) Unknown Allergy Active Results Component Value Reference Range Notes CDiff Gene PCR Reviewed date:11/19/2024 01:03:52 AM Interpretation: Performing Lab:[facility], [address] [place] [phone] Notes/Report: CDiff Gene PCR NEGATIVE Negative If C. difficile strongly suspected despite one negative test, a second test may be sent vs. empiric treatment for C. difficile infection. GI PANEL Reviewed date:11/22/2024 04:11:22 PM Interpretation: Performing Lab:[facility], [address] [place] [phone] Notes/Report: Campylobacter Not Detected Not Detect. Plesiomonas [...] is performed by Multiplexed PCR, utilizing the ActionRun Array. GI PANEL Reviewed date:12/11/2024 11:32:22 PM Interpretation: Performing Lab:[facility], [address] [place] [phone] Notes/Report: Campylobacter Not Detected Not Detect. Plesiomonas [...] is performed by Multiplexed PCR, utilizing the ActionRun Array. Reason For Referral No Information Medications [...] Problem Screening for malignant neoplasm of colon (732320731) Encounter for screening for malignant neoplasm of colon (Z12.11) Active confirmed Problem History of adenomatous polyp of colon (539031655) History of adenomatous polyp of colon (Z86.010) Active confirmed Problem Diarrhea (85033794) Diarrhea (R19.7) Active con firmed Problem Screening for malignant neoplasm of rectum (952470798) Encounter for screening for malignant neoplasm of rectum (Z12.12) Active confirmed Problem Epigastric pain (29121514) Abdominal pain, epigastric (R10.13) Active confirmed Problem Gastroesophageal reflux disease without esophagitis (077361760) Gastroesophageal reflux disease without esophagitis (K21.9) Active confirmed Problem Long-term current use of antiplatelet drug (524041046054875) Long-term use of aspirin therapy (Z79.82) Active confirmed Problem Diarrhea (65907569) Diarrhea, unspecified type (R19.7) Active confirmed Problem Irritable bowel syndrome (07637781) Other irritable bowel syndrome (K58.8) Active confirmed Problem Irritable bowel syndrome (76716942) Irritable bowel syndrome with both constipation and diarrhea (K58.2) Active confirmed Problem Essential hypertension (71824670) Hypertension, unspecified type (I10) Active confirmed Problem Gastric ulcer without hemorrhage, without perforation AND without obstruction (60948471) Gastric ulcer without hemorrhage or perforation, unspecified chronicity (K25.9) Active confirmed Problem History of infectious disease (975996435) History of Clostridioides difficile infection (Z86.19) Active confirmed Vital Signs Temperature 97.1 degrees Fahrenheit 11/22/2024 Blood pressure diastolic 01 mm Hg 11/22/2024 Height 63.75 in 11/22/2024 Blood pressure systolic 001 mm Hg 11/22/2024 Weight 110.8 lbs 11/22/2024 BMI 19.17 kg/m2 11/22/2024 Encounters Encounter Location Date Provider Diagnosis [facility] [address] [place] [phone] 11/22/2024 Deondre Olivier Irritable bowel syndrome with both constipation and diarrhea K58.2 ; Diarrhea R19.7 and Other irritable bowel syndrome K58.8 [facility] [address] [place] [phone] 2024 Deondre Olivier [facility] [address] [place] [phone] 07/08/2024 Deondre Olivier [facility] [address] [place] [phone] 08/03/2024 Deondre Olivier [facility] [address] [place] [phone] 09/21/2024 Deondre Olivier [facility] [address] [place] [phone] 10/19/2024 Deondre Olivier [facility] [address] [place] [phone] 11/10/2024 Deondre Olivier Diarrhea R19.7 [facility] [address] [place] [phone] 11/18/2024 Deondre Olivier [facility] [address] [place] [phone] 12/07/2024 Deondre Olivier Assessments Encounter Date Diagnosis [...] Name:Deondre Olivier , 05/23/2025 01:00:00 PM, [address], [address], [place], [address], Insurance Providers Payer Name Payer Address Payer Phone Subscriber Number Group Number Insured Name Patient Relationship to Insured Coverage Start Date Coverage End Date MEDICARE OF [place] [address] [place] [address] [id number] GILMA MYLES Self - patient is the insured MED[employer] ATTN CLAIMS [address] [place] [address] [phone] [id number] 5 GILMA MYLES Self - patient is the insured Medical (General) History Medical History History ICD Code Irritable bowel syndrome Tubular adenomas of the colo n- most recent colonoscopy was in 11/2016- neg for polyps- neg colonoscopy in 2006 and 2011, and a small adenoma removed in 2002 Hypothyroidism Palpitations Denies [place],DM,CVA,Lung disease,renal dise ase Positive H. pylori serology [...]
--- OUTSIDE RECORDS SUMMARY | 2025-02-27 13:42 | XMS_ITS | Clinical Summary ---
Author Organization [facility] Address [address] [place] [address] Care Team Providers Care Antique Furniture Repairer Name Role Phone Unavailable Primary Care Provider [...]
== END 2025-02-27 11:39 | disposition home or self-care (01) ==
LOC: HO.HMCFM 10:57
PROVIDERS: PCP Internal Medicine; Visit Provider Internal Medicine
DX: R05.3 Chronic cough (principal); I10 Essential (primary) hypertension; J44.9 Chronic obstructive pulmonary disease, unspecified

== ENCOUNTER 2025-02-27 10:55 | Outpatient (REF) | payer MEDICARE, SELFPAY ==
--- NOTE | ~2025-02-27 | XR_ITS ---
EXAMINATION: XR CHEST CLINICAL INFORMATION: R05.9 - Cough, unspecified COMPARISON: 04/17/2022 TECHNIQUE: 2 views of the chest were obtained. FINDINGS: Moderate dextroscoliosis is again noted. Lungs are hyperexpanded. No new airspace opacities are present. Cardiac size is borderline enlarged. XR/XR chest 2V IMPRESSION: Mild changes of emphysema. Borderline Cardiomegaly. Stable moderate dextroscoliosis Electronically signed by: Michael Wolf MD 02/27/2025 01:47 PM EDT
== END 2025-02-27 10:56 | disposition home or self-care (01) ==
LOC: HO.HMGCX 10:55
PROVIDERS: PCP Internal Medicine; Visit Provider Internal Medicine
DX: R05.3 Chronic cough (principal); I10 Essential (primary) hypertension; J44.9 Chronic obstructive pulmonary disease, unspecified
CPT/HCPCS: 71046; 99212

== ENCOUNTER → 2025-02-27 13:26 | Outpatient (BNV) | payer MEDICARE, SELFPAY | PROVIDERS: PCP Internal Medicine; Visit Provider Radiology Diagnostic Radiology | DX: R05.9 Cough, unspecified (principal) | CPT/HCPCS: 71046 ==

== ENCOUNTER 2025-03-14 10:10 | Outpatient (REF) | payer MEDICARE, SELFPAY ==
--- NOTE | ~2025-03-14 | XR_ITS ---
EXAMINATION: XR CHEST CLINICAL INFORMATION: R05.9 - Cough, unspecified COMPARISON: X-ray 02/27/2025 TECHNIQUE: 2 views of the chest were obtained. FINDINGS: Cardiac silhouette is borderline enlarged, stable. Lungs are hyperexpanded. No new airspace disease. No effusion. No pneumothorax. Redemonstrated moderate dextroscoliosis, unchanged.. XR/XR chest 2V IMPRESSION: No evidence of new/confluent airspace disease. Electronically signed by: Diaz Law MD 03/14/2025 11:22 AM EDISON
[2025-03-14 14:25] LABS: Resp Syncy Virus RNA Qual PCR NEGATIVE (Negative); SARS COV2 PCR INHOUSE NEGATIVE (Negative)
== END 2025-03-14 10:11 | disposition home or self-care (01) ==
LOC: HO.HMGCX 10:10
PROVIDERS: PCP Internal Medicine; Visit Provider Physician Assistant Medical
DX: R09.81 Nasal congestion (principal); R05.9 Cough, unspecified
CPT/HCPCS: 71046; 87637; 99212

== ENCOUNTER 2025-03-14 10:10 | Outpatient (AMB) | payer MEDICARE, SELFPAY ==
[2025-03-14 10:15] VITALS: BP 168/80; PULSE 66; TEMP 36.3; O2SAT 99; BMI 20.2
--- NOTE | 2025-03-14 10:15 | AM.OFFWIN_ITS ---
Intake Vital Signs 03/14/25 10:15 03/14/25 10:23 03/14/25 11:05 Height 5 ft 3 in Weight 114 lb BMI 20.2 BP 168/80 H 162/64 H 136/78 Blood Pressure Location Lt brachial Rt brachial Lt brachial Position Sitting Sitting Sitting Pulse 66 Pulse Source Pulse Oximeter Temp 97.4 F Temp Source Oral Pulse Oximetry (%) 99 Oxygen Delivery Method Room Air Comment High BP-pt expresses anxiousness today. provider notified. Intake Visit Reasons: EP Cold symptoms, cough Intake Note: pt presents with sinusitis, RT ear blocked, upper chest congestion with coughing mostly in the morning for overall about 2 weeks- negative covid x3 and negative pneumonia per chest xray 2 weeks ago Patient Tobacco Use Status: Never used Tobacco Allergies cephalexin Allergy (Severe, Verified 03/14/25 10:24) Diarrhea and Fainting NSAIDS (Non-Steroidal Anti-Inflamma (NSAIDS (NON-STEROIDAL ANTI-INFLAMMA) Allergy (Severe, Verified 03/14/25 10:24) ANAPHYLAXIS Penicillins (PENICILLINS) Allergy (Severe, Verified 03/14/25 10:24) RASH clindamycin (CLINDAMYCIN) Adverse Reaction (Severe, Verified 03/14/25 10:24) DIARRHEA Do you need a note to return to daycare/school/sports/work: No HPI HPI Comments History of Present Illness Details History - The patient is an 79-year-old female p resenting with symptoms of an upper respiratory tract infection. - She reports a persistent dry cough, pa rticularly in the mornings, ongoing for two weeks. - She was seen by her PCP on 02/27 for s imilar symptoms. - She had a chest x-ray that was negativ e for pneumonia. - She has been using Robitussin DM for r elief. - Heart palpitations, described as skipp ed beats, have reoccurred after several years without symptoms. - The patient has a history of pneumonia in 2019, requiring hospitalization and surgery. - She avoided taking Robitussin with Cod eine due to potential interactions with Alprazolam. - She has a history of earwax buildup, m anaged with wax remover. - She was last seen on 02/09 for cerumen impaction. - She has continued to have congestion a nd a cough. - She denies fever, chills, CP, SOB, abd pain, n/v/d, ACEVES, or sore throat. Physical Exam General: Cooperative, healthy appearing, comfortable and no acute distress Orientation/consciousness: Patient oriented x3 Limitations: No limitations Head: Normal to inspection Ears: Hearing grossly normal bilaterally, external ears normal and TM's normal b ilaterally, some wax present but not blocking the TM. Nose: Normal external nose present, normal nares present, and clear nasal discharge present. Face and sinus: Sinuses nontender to palpation. Mouth: Normal oral and palatal mucosa present and moist mucous membranes noted. Throat: Tonsils normal. Uvula is midline. Posterior oropharynx with erythema and no exudates. Eyes: Appearance normal, both eyes and all related structures Neck: Normal visual inspection, full ROM. No lymphadenopathy noted. Respiratory: Clear to auscultation bilaterally. Normal respiratory effort, able to speak in complete sentences. No respiratory distress, not tachypneic, no tripod positioning and no use of accessory muscles. Cardiovascular: Regular rate and rhythm. Normal S1 and S2 Skin: No rashes or lesions noted Patient was informed and verbally consented to the use of an ambient scribe for clinic note documentation during this visit [facility] Medical History COPD (chronic obstructive pulmonary disease) Hiatal hernia Abnormal PFTs (pulmonary function tests) Paroxysmal atrial fibrillation Abnormal chest x-ray with multiple lung nodules Empyema lung Restrictive lung disease Surgical History History of lung surgery History of esophagogastroduodenoscopy (EGD) H/O colonoscopy Family History Father No problems noted. Mother No problems noted. Social History Housing: House Alcohol intake: current Alcohol intake frequency: holidays/special occasions only Comment: rarely Patient Tobacco Use Status: Never used Tobacco e-Cigarette/Vaping Use: Never Used Second Hand Smoke Exposure: No service: No Current occupational status: employed Cognitive needs: No Hearing needs: No Vision needs: Yes (reading glasses) Review of Systems Const All systems reviewed & are unremarkable except as noted in HPI and below Physical Exam Vital Signs: Last Vital Signs Temp 97.4 F 03/14/25 10:15 Pulse 66 03/14/25 10:15 BP 136/78 03/14/25 11:05 Pulse Ox 99 03/14/25 10:15 Oxygen Delivery Method Room Air 03/14/25 10:15 BMI result Body Mass Index 20.2 Assessment & Plan Assessment & Plan (1) URI with cough and congestion: Code(s): J06.9 - Acute upper respiratory infection, unspecified Plan Most likely URI vs covid vs flu vs RSV vs pneumonia plan - COVID, flu, and RSV testing to rule out viral infections. - Chest x-ray to rule out pneumonia. - Prescribed a Z-Rob (Azithromycin) for possible secondary bacterial infection due to persistent symptoms. - tylenol or motrin as needed - tessalon perles as needed for cough - follow up with PCP Orders: Orders XR chest 2V Today R05.9 - Cough, unspecified SARS-CoV2/FLU/RSV Today R09.89 - Other specified symptoms and signs involving the circulatory and respiratory systems Medications: New azithromycin For 250 mg dose pack: take 500 mg today (day 1), then 250 mg for 4 days (days 2-5) PO 6 tabs 0RF benzonatate 100 mg PO bid-tid PRN 21 caps 0RF Cough 7 days Coding Level of Care Code Est Pt Level 4 (34010) Diagnoses URI with cough and congestion J06.9
[2025-03-14 10:23] VITALS: BP 162/64
[2025-03-14 11:05] VITALS: BP 136/78
--- OUTSIDE RECORDS SUMMARY | 2025-03-14 11:39 | XMS_ITS | Patient Health Record ---
Author Organization [facility] Address [address] [place] [address] Care Team Providers Care Chemistry Technical Officer Name Role Phone Melissa Ziegler M.D. Primary Care Provider Unavail Deondre Fernández Unavailable [phone] Allergies Allergen (clinical drug ingredient) Drug/Non Drug Allergy documented on EMR Reaction Allergy Type Onset Date Status Non-steroidal anti-inflammatory agent (FN) NSAIDS (uncoded) Unknown Allergy Active rofecoxib Vioxx (uncoded) Unknown Allergy Acti ve PCN (uncoded) Unknown Allergy Active Results Component Value Reference Range Notes CDiff Gene PCR Reviewed date:11/19/2024 01:03:52 AM Interpretation: Performing Lab:[facility], [address] [place] [place] [phone] Notes/Report: CDiff Gene PCR NEGATIVE Negative If C. difficile strongly suspected despite one negative test, a second test may be sent vs. empiric treatment for C. difficile infection. GI PANEL Reviewed date:11/22/2024 04:11:22 PM Interpretation: Performing Lab:[facility], [address] [place] [place] [phone] Notes/Report: Campylobacter Not Detected Not Detect. Plesiomonas [...] is performed by Multiplexed PCR, utilizing the [employer] Array. GI PANEL Reviewed date:12/11/2024 11:32:22 PM Interpretation: Performing Lab:[facility], [address] [place] [place] [phone] Notes/Report: Campylobacter Not Detected Not Detect. Plesiomonas [...] is performed by Multiplexed PCR, utilizing the Poke'n Call Array. Reason For Referral No Information Medications [...] Problem Screening for malignant neoplasm of colon (749991872) Encounter for screening for malignant neoplasm of colon (Z12.11) Active confirmed Problem History of adenomatous polyp of colon (343878257) History of adenomatous polyp of colon (Z86.010) Active confirmed Problem Diarrhea (85627434) Diarrhea (R19.7) Active con firmed Problem Screening for malignant neoplasm of rectum (941329952) Encounter for screening for malignant neoplasm of rectum (Z12.12) Active confirmed Problem Epigastric pain (59207772) Abdominal pain, epigastric (R10.13) Active confirmed Problem Gastroesophageal reflux disease without esophagitis (280072686) Gastroesophageal reflux disease without esophagitis (K21.9) Active confirmed Problem Long-term current use of antiplatelet drug (423613853087922) Long-term use of aspirin therapy (Z79.82) Active confirmed Problem Diarrhea (08775206) Diarrhea, unspecified type (R19.7) Active confirmed Problem Irritable bowel syndrome (53321758) Other irritable bowel syndrome (K58.8) Active confirmed Problem Irritable bowel syndrome (14687678) Irritable bowel syndrome with both constipation and diarrhea (K58.2) Active confirmed Problem Essential hypertension (83147409) Hypertension, unspecified type (I10) Active confirmed Problem Gastric ulcer without hemorrhage, without perforation AND without obstruction (80344125) Gastric ulcer without hemorrhage or perforation, unspecified chronicity (K25.9) Active confirmed Problem History of infectious disease (489884361) History of Clostridioides difficile infection (Z86.19) Active confirmed Vital Signs Temperature 97.1 degrees Fahrenheit 11/22/2024 Blood pressure diastolic 01 mm Hg 11/22/2024 Height 63.75 in 11/22/2024 Blood pressure systolic 001 mm Hg 11/22/2024 Weight 110.8 lbs 11/22/2024 BMI 19.17 kg/m2 11/22/2024 Encounters Encounter Location Date Provider Diagnosis [facility] [address] [place] [address] 11/22/2024 Deondre Olivier Irritable bowel syndrome with both constipation and diarrhea K58.2 ; Diarrhea R19.7 and Other irritable bowel syndrome K58.8 [facility] [address] [place] [phone] 2024 Deondre Olivier [facility] [address] [place] [phone] 07/08/2024 Deondre Olivier [facility] [address] [place] [phone] 08/03/2024 Deondre Olivier [facility] [address] [place] [phone] 09/21/2024 Deondre Olivier [facility] [address] [place] [phone] 10/19/2024 Deondre Olivier [facility] [address] [place] [phone] 11/10/2024 Deondre Olivier Diarrhea R19.7 [facility] [address] [place] [phone] 11/18/2024 Deondre Olivier [facility] [address] [place] [phone] 12/07/2024 Deondre Olivier Assessments Encounter Date Diagnosis [...] Name:Deondre Olivier , 05/23/2025 01:00:00 PM, [address], [place], [address], Insurance Providers Payer Name Payer Address Payer Phone Subscriber Number Group Number Insured Name Patient Relationship to Insured Coverage Start Date Coverage End Date MEDICARE OF [place] [address] [place] [address] [id number] GILMA MYLES Self - patient is the insured MED[employer] ATTN CLAIMS [address] [place] [address] [phone] [id number] GILMA MYLES Self - patient is the insured Medical (General) History Medical History History ICD Code Irritable bowel syndrome Tubular adenomas of the colo n- most recent colonoscopy was in 11/2016- neg for polyps- neg colonoscopy in 2006 and 2011, and a small adenoma removed in 2002 Hypothyroidism Palpitations Denies [place],DM,CVA,Lung disease,renal dise ase Positive H. pylori serology [...]
--- OUTSIDE RECORDS SUMMARY | 2025-03-14 11:40 | XMS_ITS | Clinical Summary ---
Author Organization [facility] Address [address] [place] [address] Care Team Providers Care Inspector Raw Quartz Name Role Phone Unavailable Primary Care Provider [...]
--- OUTSIDE RECORDS SUMMARY | 2025-03-14 11:40 | XMS_ITS | Patient Health Record ---
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 confirmed Vital Signs Blood pressure diastolic 70 mm Hg 08/29/2024 Height 5ft3in in 08/29/2024 Blood pressure systolic 125 mm Hg 08/29/2024 Weight 114 lbs 08/29/2024 BMI 20.19 kg/m2 08/29/2024 Procedures Procedure Date Ordered Date Performed Result Body Sit e 37169-ANGIBEV NAIL, 1-5 08/29/2024 N/A Encounters Encounter Location Date Provider Diagnosis [facility] [address] 08/29/2024 Sofía Black Pain in right foot M79.671 ; Bursitis of right foot M77.51 ; Pain in right ankle and joints of right foot M25.571 ; Osteoarthritis of midtarsal joint of right foot M19.071 ; Pain in right toe(s) M79.674 ; Onychomycosis B35.1 ; Pain in left toe(s) M79.675 and 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.[address] [facility] [address] 06/14/2024 Sofía Black [facility] [address] 12/28/2024 Sofía Black Assessments Encounter Date Diagnosis [...] Treatment Pending Test Test Name Order Date 84015-JEOJKXF NAIL, 1-5 08/29/2024 Insurance Providers Payer Name Payer Address Payer Phone Subscriber Number Group Number Insured Name Patient Relationship to Insured Coverage Start Date Coverage End Date Medicare National [employer] S[employer] [address] [place] [address] [id number] Gilma Marques Self - patient is the insured 9 [employer] Blue Shield [address] [place] [address] [phone] [id number] 5 Gilma Marques Self - patient is the insured Medical (General) History Medical History History ICD Code Back,Hip,and Knee pain Broken bones Osteoporosis Reflux ( GERD) thyroid Measles Chicken pox Surgical History Surgery Date(Month/Year) lung surgery 04/21
== END 2025-03-14 11:00 | disposition home or self-care (01) ==
PROVIDERS: PCP Internal Medicine; Visit Provider Physician Assistant Medical
DX: J06.9 Acute upper respiratory infection, unspecified (principal)

== ENCOUNTER → 2025-03-14 11:07 | Outpatient (BNV) | payer MEDICARE, SELFPAY | PROVIDERS: PCP Internal Medicine; Visit Provider Radiology Diagnostic Ultrasound | DX: R05.9 Cough, unspecified (principal) | CPT/HCPCS: 71046 ==

== ENCOUNTER 2025-04-22 11:59 | Outpatient (AMB) | payer MEDICARE, SELFPAY ==
--- OUTSIDE RECORDS SUMMARY | 2025-04-22 12:01 | XMS_ITS | Patient Health Record ---
Author Organization [facility] Address [address] [place] [address] Care Team Providers Care Clean Rice Broker Name Role Phone Melissa Ziegler M.D. Primary Care Provider Deondre Handley Unavailable [phone] Allergies Allergen (clinical drug ingredient) Drug/Non Drug Allergy documented on EMR Reaction Allergy Type Onset Date Status Non-steroidal anti-inflammatory agent (FN) NSAIDS (uncoded) Unknown Allergy Active PCN (uncoded) Unknown Allergy Active rofecoxib Vioxx (uncoded) Unknown Allergy Acti ve Results Component Value Reference Range Flag Notes CDiff Gene PCR Reviewed date:11/19/2024 01:03:52 AM Interpretation: Performing Lab:[facility], [address] [place] [phone] Notes/Report: CDiff Gene PCR NEGATIVE Negative If C. difficile strongly suspected despite one negative test, a second test may be sent vs. empiric treatment for C. difficile infection. GI PANEL Reviewed date:11/22/2024 04:11:22 PM Interpretation: Performing Lab:[facility], [address] [place] [phone] Notes/Report: Campylobacter Not Detected Not Detect. Plesiomonas shigelloides Not Detected Not Detect. Salmonella Not Detected Not Detect. Vibrio Not Detected Not Detect. Vibrio Cholerae Not Detected Not Detect. Yersinia enterocolitica Not Detected Not Detect. E. coli EAEC Not Detected Not Detect. E. coli EPEC Detected Not Detect. A E. coli ETEC Not Detected Not Detect. [...] is performed by Multiplexed PCR, utilizing the [employer] Array. GI PANEL Reviewed date:12/11/2024 11:32:22 PM Interpretation: Performing Lab:[facility], [address] [place] [phone] Notes/Report: Campylobacter Not Detected Not Detect. Plesiomonas shigelloides Not Detected Not Detect. Salmonella Not Detected Not Detect. Vibrio Not Detected Not Detect. Vibrio Cholerae Not Detected Not Detect. Yersinia enterocolitica Not Detected Not Detect. E. coli EAEC Not Detected Not Detect. E. coli EPEC Detected Not Detect. A E. coli ETEC Not Detected Not Detect. [...] Not Detect. Norovirus GI/GII Detected Not Detect. A Results of DETECTED NOROVIRUS called to and [...] is performed by Multiplexed PCR, utilizing the [employer] Array. Reason For Referral No Information Medications Medication SIG (Take, Route, Frequency, Duration) Notes Start Date End Date Status Famotidine 40 MG Tablet 1 Orally Once a day; Duration: 90 days Not-Taking/PRN Omeprazole 40 MG Capsule Delayed Release 1 Orally Once a day; Duration: 90 days 02/05/2023 Not-Taking/PRN Famotidine 40 MG Tablet 1 tablet Orally Twice a day; Duration: 90 days 09/22/2024 Not-Taking/PRN Diphenoxylate-Atropine 2.5-0.025 MG Tablet 1 or 2 tablets Orally very 6 hours if needed for diarrhea; Duration: 30 days 10/06/2024 Active Vitamin B Complex - Tablet as directed Orally every day Not-Taking/PRN Probiotic Capsule 1 capsule Orally once a day Not-Taking/PRN Atenolol 12.5 mg Tablet 1 tablet Orally Once a day Active Vitamin D 2000 UNIT Tablet 1 capsule Orally Once a day Active Levothyroxine Sodium 88 MCG Tablet 1 tablet on an empty stomach in the morning Orally Once a day Active Citracal Plus - Tablet as directed Orall y once a day Active ALPRAZolam 0.25 MG Tablet Oral; Duration: 30 Active Immunizations Vaccine Route Administration Date Status Comme nts Influenza Unknown 01/02/2017 Administered Influenza Unknown 02/16/2018 Administered Influenza Unknown 01/02/2019 Administered Influenza Unknown 02/02/2020 Administered Influenza Unknown 02/01/2021 Administered Influenza Unknown 02/24/2023 Administered Influenza Unknown 02/23/2024 Administered Social History Social History Additional Details Category Social Info Options Details Miscellaneous: Marital status: Occupation: Retired Section Notes: nonsmoker; no sig. alcohol nonsmoker; no sig. alcohol nonsmoker; no sig. alcohol nonsmoker; no sig. alcohol nonsmoker; no sig. alcohol nonsmoker; no sig. alcohol nonsmoker; no sig. alcohol nonsmoker; no sig. alcohol nonsmoker; no sig. alcohol nonsmoker; no sig. alcohol nonsmoker; no sig. alcohol Problems Problem Type SNOMED Code ICD Code Onset Dates Problem Status W/U Status Risk Notes Problem Screening for malignant neoplasm of colon (966977886) Encounter for screening for malignant neoplasm of colon (Z12.11) Active confirmed Problem History of adenomatous polyp of colon (084713281) History of adenomatous polyp of colon (Z86.010) Active confirmed Problem Diarrhea (68097510) Diarrhea (R19.7) Active con firmed Problem Screening for malignant neoplasm of rectum (022127123) Encounter for screening for malignant neoplasm of rectum (Z12.12) Active confirmed Problem Epigastric pain (21126006) Abdominal pain, epigastric (R10.13) Active confirmed Problem Gastroesophageal reflux disease without esophagitis (149765972) Gastroesophageal reflux disease without esophagitis (K21.9) Active confirmed Problem Long-term current use of antiplatelet drug (254978481849099) Long-term use of aspirin therapy (Z79.82) Active confirmed Problem Diarrhea (79543867) Diarrhea, unspecified type (R19.7) Active confirmed Problem Irritable bowel syndrome (55609492) Other irritable bowel syndrome (K58.8) Active confirmed Problem Irritable bowel syndrome (32396922) Irritable bowel syndrome with both constipation and diarrhea (K58.2) Active confirmed Problem Essential hypertension (15275068) Hypertension, unspecified type (I10) Active confirmed Problem Gastric ulcer without hemorrhage, without perforation AND without obstruction (05784452) Gastric ulcer without hemorrhage or perforation, unspecified chronicity (K25.9) Active confirmed Problem History of infectious disease (517434245) History of Clostridioides difficile infection (Z86.19) Active confirmed Vital Signs Temperature 97.1 degrees Fahrenheit 11/22/2024 Blood pressure diastolic 01 mm Hg 11/22/2024 Height 63.75 in 11/22/2024 Blood pressure systolic 001 mm Hg 11/22/2024 Weight 110.8 lbs 11/22/2024 BMI 19.17 kg/m2 11/22/2024 Encounters Encounter Location Date Provider Diagnosis [facility] [address] [place] [phone] 11/22/2024 Deondre Olivier Irritable bowel syndrome with both constipation and diarrhea K58.2 ; Diarrhea R19.7 and Other irritable bowel syndrome K58.8 [facility] [address] [place] [phone] 07/08/2024 Deondre Olivier [facility] [address] [place] [phone] 08/03/2024 Deondre Olivier [facility] [address] [place] [phone] 09/21/2024 Deondre Olivier [facility] [address] [place] [phone] 10/19/2024 Deondre Olivier [facility] [address] [place] [address] 11/10/2024 Deondre Olivier Diarrhea R19.7 [facility] [address] [place] [phone] 11/18/2024 Deondre Olivier [facility] [address] [place] [phone] 12/07/2024 Deondre Olivier [facility] [address] [place] [phone] 04/03/2025 Deondre Olivier [facility] [address] [place] [address] 04/03/2025 Deondre Olivier Assessments Encounter Date Diagnosis (ICD Code) Assessment Notes Treatment Notes Treatment Clinical Notes Section Notes 11/10/2024 Diarrhea (ICD-10 - R19.7) 11/22/2024 Diarrhea (ICD-10 - R19.7) Overall, Gilma [...] keep you advised of her progress. 11/22/2024 Other irritable bowel syndrome (ICD-10 - [...] 06/09/2018 Next Appt Details Provider Name:Deondre Obregon Olivier , 05/23/2025 01:00:00 PM, [address] [place] [address], [address], [place], [address], Insurance Providers Payer Name Payer Address Payer Phone Subscriber Number Group Number Insured Name Patient Relationship to Insured Coverage Start Date Coverage End Date MEDICARE OF [place] [address] [facility] [address] [phone] [id number] GILMA MYLES Self - patient is the insured [employer] ATT[employer] CLAIMS [address] [place] [address] [id number] GILMA MYLES Self - patient is [...]
--- OUTSIDE RECORDS SUMMARY | 2025-04-22 12:01 | XMS_ITS | Patient Health Record ---
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 confirmed Vital Signs Blood pressure diastolic 70 mm Hg 08/29/2024 Height 5ft3in in 08/29/2024 Blood pressure systolic 125 mm Hg 08/29/2024 Weight 114 lbs 08/29/2024 BMI 20.19 kg/m2 08/29/2024 Procedures Procedure Date Ordered Date Performed Result Body Sit e 93477-IGOVJPD NAIL, 1-5 08/29/2024 N/A Encounters Encounter Location Date Provider Diagnosis [facility] [address] 08/29/2024 Sofía Black Pain in right foot M79.671 ; Bursitis of right foot M77.51 ; Pain in right ankle and joints of right foot M25.571 ; Osteoarthritis of midtarsal joint of right foot M19.071 ; Pain in right toe(s) M79.674 ; Onychomycosis B35.1 ; Pain in left toe(s) M79.675 and 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.371 [facility] [address] 06/14/2024 Sofía Black [facility] [address] 12/28/2024 Sofía Black Assessments Encounter Date Diagnosis [...] Treatment Pending Test Test Name Order Date 33600-XENSUTN NAIL, 1-5 08/29/2024 Insurance Providers Payer Name Payer Address Payer Phone Subscriber Number Group Number Insured Name Patient Relationship to Insured Coverage Start Date Coverage End Date Medicare National Govt Sv[employer] [address] [place] [address] [id number] Gilma Marques Self - patient is the insured 9 [employer] [address] [place] [address] [phone] [id number] Gilma Marques Self - patient is the insured Medical (General) History Medical History History ICD Code Back,Hip,and Knee pain Broken bones Osteoporosis Reflux ( GERD) thyroid Measles Chicken pox Surgical History Surgery Date(Month/Year) lung surgery 04/21
--- OUTSIDE RECORDS SUMMARY | 2025-04-22 12:02 | XMS_ITS | Clinical Summary ---
Author Organization [facility] Address [id number] [place] [address] Care Team Providers Care Stamping Die Maker Bench Name Role Phone Unavailable Primary Care Provider [...] series) 2019 Depression Screening 05/04/2024 COVID-19 Vaccine (1 - 2024-2 6 season) 2025 Influenza Vaccine (#1) 2025 HIB [...]
[2025-04-22 12:05] VITALS: BP 130/70; PULSE 54; RESP 16; TEMP 36.4; O2SAT 96; BMI 19.5
--- NOTE | 2025-04-22 12:05 | AM.OFFWIN_ITS ---
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 Allergies cephalexin Allergy (Severe, Verified 04/22/25 12:10) Diarrhea and Fainting NSAIDS (Non-Steroidal Anti-Inflamma (NSAIDS (NON-STEROIDAL ANTI-INFLAMMA) Allergy (Severe, Verified 04/22/25 12:10) ANAPHYLAXIS Penicillins (PENICILLINS) Allergy (Severe, Verified 04/22/25 12:10) RASH clindamycin (CLINDAMYCIN) Adverse Reaction (Severe, Verified 04/22/25 12:10) DIARRHEA Medication List - Last Reconciled 04/22/25 by Krista Duran, DOPE FIRER- alprazolam 0.25 mg PO BID PRN 60 days atenolol 12.5 mg PO DAILY calcium citrate 200 mg PO DAILY cholecalciferol (vitamin D3) 25 mcg PO DAILY fluticasone propionate 50 mcg/actuation 1 spray intranasal BID PRN ipratropium bromide intranasal PRN levothyroxine 88 mcg PO DAILY HPI HPI Comments History of Present Illness Details History of Present Illness The patient is an 80-year-old female presenting with complaints of her right ear feeling blocked. Right Ear Blockage: - The patient reports that her right ear feels blocked, which has been an ongoing issue. - She has been seen for this same proble m previously. History of Cerumen Impaction: - The patient has a history of ear block age that was previously resolved by flushing. History of Clostridioides difficile infection: - The patient had a C. diff infection ab out 10 years ago and expresses concern about taking antibiotics. Drug Allergies: - The patient has known allergies to pen icillin, clindamycin, and cephalexin. Past Medical History - History of Clostridioides difficile in fection approximately 10 years ago. - Recurrent ear blockage, previously res olved with ear irrigation. - Allergies: Penicillin, clindamycin, an d cephalexin. Review of Systems - Ears: Reports a sensation of blockage in the right ear. - Constitutional: Denies systemic sympto ms, reporting she feels fine otherwise. Physical Exam General: Well developed, well nourished, in no acute distress. Appears stated age. Head: Normocephalic, atraumatic. Ears: Cerumen impaction L ear cleared w/ lavage; EAC on Right TM rupture with mild purulent drainage noted in EAC otherwise EAC clear Lungs: Speaking in full sentences Medical Decision Making The patient is an 80-year-old female who presented with a complaint of a blocked right ear. Examination of the right ear was significant for what appears to be a ruptured tympanic membrane with associated mucus in the canal, suggesting a middle ear infection that perforated to allow for drainage. The plan is to treat this with topical antibiotic ear drops. In contrast, the left ear has cerumen impaction, which appears soft and amenable to irrigation. The patient agreed to have the left ear flushed during this visit. The patient's history of C. diff about 10 years ago and her resulting concern about antibiotics were considered. I reassured her that topical antibiotic drops are not systemically absorbed and will not affect her gastrointestinal tract. Her allergies to penicillin, clindamycin, and cephalexin have been noted, and an appropriate alternative will be prescribed. Plan 1. Ruptured Tympanic Membrane, Right Ear - The patient was diagnosed with a proba ble ruptured eardrum in the right ear due to an infection. - An antibiotic ear drop, Ofloxacine, w ill be prescribed, considering her allergies. - The prescription will be sent to the [facility] [place]. - Reassurance was provided that the topi tomeka antibiotic drops are not absorbed systemically and will not affect her gut, addressing her concerns about a history of C. diff. 2. Cerumen Impaction, Left Ear - The patient was found to have wax in h er left ear, which appeared soft. - The patient agreed to an in-office ear irrigation for the left ear, which will be performed by a colleague. Patient Instructions - You will be given antibiotic ear drops for your right ear. - These ear drops will not affect your s tomach or gut because they are not absorbed into your body like pills. - We will flush the wax out of your left ear today in the office. - Your prescription has been sent to the [facility] on [facility] [place]. Consent The plan to perform an ear irrigation to remove cerumen from the left ear was discussed with the patient. The patient provided verbal consent to proceed with the flush during the current visit. Patient was informed and verbally consented to the use of an ambient scribe for clinic note documentation during this visit. [facility] Medical History COPD (chronic obstructive pulmonary disease) Hiatal hernia Abnormal PFTs (pulmonary function tests) Paroxysmal atrial fibrillation Abnormal chest x-ray with multiple lung nodules Empyema lung Restrictive lung disease Surgical History History of lung surgery History of esophagogastroduodenoscopy (EGD) H/O colonoscopy Family History Father No problems noted. Mother No problems noted. Social History Housing: House Alcohol intake: current Alcohol intake frequency: holidays/special occasions only Comment: rarely Patient Tobacco Use Status: Never used Tobacco e-Cigarette/Vaping Use: Never Used Second Hand Smoke Exposure: No service: No Current occupational status: employed Cognitive needs: No Hearing needs: No Vision needs: Yes (reading glasses) Physical Exam Vital Signs: Last Vital Signs Temp 97.5 F 04/22/25 12:05 Pulse 54 04/22/25 12:05 Resp 16 04/22/25 12:05 BP 130/70 04/22/25 12:05 Pulse Ox 96 04/22/25 12:05 Oxygen Delivery Method Room Air 04/22/25 12:05 BMI result Body Mass Index 19.5 Office Procedures Cerumen Removal From which ear canal was the cerumen removed: left Removal: irrigation Notes: patient tolerated procedure well, no complications and ear canal clear [id number] Irrigation/Lavage Assessment & Plan Assessment & Plan (1) Otitis media of right ear with rupture of tympanic membrane: Code(s): H66.91 - Otitis media, unspecified, right ear; H72.91 - Unspecified perforation of tympanic membrane, right ear (2) Impacted cerumen, left ear: Code(s): H61.22 - Impacted cerumen, left ear Plan . Medications: New ofloxacin 0.3% RIGHT EAR ONLY 10 drps otic (ears) DAILY 5 mL 0RF 7 days Patient Instructions: Patient Instructions - You will be given antibiotic ear drops for your right ear. - These ear drops will not affect your stomach or gut because they are not absorbed into your body like pills. - We will flush the wax out of your left ear today in the office. - Your prescription has been sent to the [facility] on [facility] [place]. Coding Level of Care Code Est Pt Level 3 (55394) Diagnoses Otitis media of right ear with rupture of tympanic membrane H66.91; H72.91 Impacted cerumen, left ear H61.22 CPT Codes Office Procedure - CPT: 11360-Dbs Irrigation/Lavage ([id number])
== END 2025-04-22 12:52 | disposition home or self-care (01) ==
LOC: HO.HMCWIC 11:59
PROVIDERS: PCP Internal Medicine
DX: H66.91 Otitis media, unspecified, right ear (principal); H72.91 Unspecified perforation of tympanic membrane, right ear; H61.22 Impacted cerumen, left ear

== ENCOUNTER → 2025-04-22 11:59 | Outpatient (BNVA) | payer MEDICARE, SELFPAY | PROVIDERS: PCP Internal Medicine | DX: H61.22 Impacted cerumen, left ear (principal); H72.91 Unspecified perforation of tympanic membrane, right ear; H66.91 Otitis media, unspecified, right ear | CPT/HCPCS: 69209; 99212 ==